=== PATIENT | male | born 1935 | race Caucasian/White ===

== ENCOUNTER → 2016-05-03 | Outpatient (CLI) | payer MEDICARE ==
[2016-05-03 09:59] LABS: ABSOLUTE LYMPHOCYTES (AUTO) 0.9 10^3/uL (0.5-4.7); ABSOLUTE MONOCYTES (AUTO) 0.5 10^3/uL (0.1-1.4); ABSOLUTE NEUT (AUTO) 9.7 10^3/uL (1.7-8.2); HEMOGLOBIN 11.8 g/dL (13.5-17.0); HGB HCT DIFFERENCE 0.4; LYMPHOCYTES % (AUTO) 7.8 % (13-45); MEAN CORPUSCULAR HEMOGLOBIN 31.1 pg (27.0-33.4); MEAN CORPUSCULAR HGB CONC 33.8 g/dL (32.0-36.0); MEAN CORPUSCULAR VOLUME 92 fl (80-97); MONOCYTES % (AUTO) 4.2 % (3-13); RED BLOOD COUNT 3.81 10^6/uL (4.35-5.55); RED CELL DISTRIBUTION WIDTH 13.4 % (11.5-14.0)
== END ==
LOC: OD 09:16
PROVIDERS: ATTEND Nurse Practitioner Adult Health
DX: R05 Cough (principal)
CPT/HCPCS: 36415; 71020; 85025; 87070; 87077; 87186; 87205

== ENCOUNTER 2016-05-10 15:51 | Emergency (ER) | payer MEDICARE ==
[2016-05-10] MEDS ORDERED: IPRATROPIUM/ALBUTEROL 0.5-2.5 MG/3 ML AMPUL NEB ONE (16:03)
[2016-05-10] MEDS ORDERED: PREDNISONE 20 MG TABLET PO ONE (16:03)
--- NOTE | 2016-05-10 16:04 | ER Document Report ---
ED Medical Screen (RME) - General Stated Complaint: FEVER Mode of Arrival: Ambulatory Information source: Patient Notes: Patient with chills started yesterday, fever started today. Patient is currently on antibiotics for the past week for cough. Patient denies any pain, nausea, or vomiting. hx: COPD, home O2 at 2 L I have greeted and performed a rapid initial assessment of this patient. A comprehensive ED assessment and evaluation of the patient, analysis of test results and completion of the medical decision making process will be conducted by additional ED providers. TRAVEL OUTSIDE OF THE [place] 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 Denies: Hx Seizures Musculoskeltal Medical History: Reports Hx Arthritis Psychiatric Medical History: Denies: Hx Depression Past Surgical History: Reports: Hx Abdominal Surgery, Hx Orthopedic Surgery, Hx Tonsillectomy. Denies: Hx Pacemaker - Immunizations Hx Diphtheria, Pertussis, Tetanus Vaccination: Yes Physical Exam - Vital signs Vitals: Temp Pulse Resp BP Pulse Ox 99.1 F 102 H 24 H 137/57 H 98 05/10/16 15:55 05/10/16 15:55 05/10/16 15:55 05/10/16 15:55 05/10/16 15:55 - Respiratory Respiratory status: No respiratory distress Breath sounds: Nonproductive cough, Wheezing Course - Vital Signs Vital signs: Temp Pulse Resp BP Pulse Ox 99.1 F 102 H 24 H 137/57 H 98 05/10/16 15:55 05/10/16 15:55 05/10/16 15:55 05/10/16 15:55 05/10/16 15:55
[2016-05-10 16:45] LABS: ABSOLUTE EOSINOPHILS # (AUTO) 0.1 10^3/uL (0.0-0.6); ABSOLUTE LYMPHOCYTES (AUTO) 1.9 10^3/uL (0.5-4.7); ABSOLUTE MONOCYTES (AUTO) 1.7 10^3/uL (0.1-1.4); ABSOLUTE NEUT (AUTO) 12.5 10^3/uL (1.7-8.2); BASOPHILS % (AUTO) 0.2 % (0-2); EOSINOPHILS % (AUTO) 0.6 % (0-6); HEMATOCRIT 35.7 % (37.9-51.0); HGB HCT DIFFERENCE 0.3; LYMPHOCYTES % (AUTO) 11.7 % (13-45); MEAN CORPUSCULAR HEMOGLOBIN 31.2 pg (27.0-33.4); MEAN CORPUSCULAR HGB CONC 33.7 g/dL (32.0-36.0); MEAN CORPUSCULAR VOLUME 93 fl (80-97); MONOCYTES % (AUTO) 10.4 % (3-13); RED BLOOD COUNT 3.85 10^6/uL (4.35-5.55); RED CELL DISTRIBUTION WIDTH 13.9 % (11.5-14.0); SEGMENTED NEUTROPHILS % (AUTO) 77.1 % (42-78); WHITE BLOOD COUNT 16.2 10^3/uL (4.0-10.5)
[2016-05-10 17:05] LABS: ALANINE AMINOTRANSFERASE 31 U/L (21-72); ALBUMIN 4.6 g/dL (3.5-5.0); ALKALINE PHOSPHATASE 67 U/L (38-126); ANION GAP 13 (5-19); ASPARTATE AMINO TRANSFERASE 21 U/L (17-59); BILIRUBIN,TOTAL 0.6 mg/dL (0.2-1.3); BLOOD UREA NITROGEN 17 mg/dL (7-20); CALCIUM 9.4 mg/dL (8.4-10.2); CARBON DIOXIDE 24 mmol/L (22-30); CHLORIDE 102 mmol/L (98-107); CREATINE KINASE 82 U/L (55-170); CREATININE RESULT 1.27 mg/dL (0.52-1.25); GLUCOSE 102 mg/dL (75-110); SODIUM 139.2 mmol/L (137-145); TOTAL PROTEIN 7.3 g/dL (6.3-8.2)
[2016-05-10 17:16] LABS: CREATINE KINASE MB 1.12 ng/mL (<4.55)
[2016-05-10 17:17] LABS: TROPONIN I < 0.012 ng/mL
--- NOTE | 2016-05-10 19:25 | ER Document Report ---
ED General - General Chief Complaint: Fever Stated Complaint: FEVER Time seen by provider: 19:00 Mode of Arrival: Ambulatory Information source: Patient, Relative Notes: 81-year-old male with a four-day history of cough worse than his baseline productive of white or yellow sputum. He had fever to 102 this morning was had no fever since. The patient a sore throat 2 weeks ago and was started on penicillin by his physician approximately 10 days ago and is just about finished with that. He reports using his inhalers at home as he usually does and does not believe his shortness breath is worse than his baseline. He chronically uses oxygen by nasal cannula at home and has not had any increased oxygen requirement. Patient denies nausea, vomiting, diarrhea, chest pain, abdominal pain, back pain, swelling to extremities, dizziness, or syncope. 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 HEENT: Normocephalic. Atraumatic. PERRLA. Extraocular movements intact. Oropharynx clear. Neck: Supple. Non-tender. Respiratory: No respiratory distress. Few rhonchi bilaterally breath sounds equal no accessory muscle use Cardiovascular: Regular rate and rhythm. Abdominal: Normal Inspection. Soft, non-tender. No distension. Normal Bowel Sounds. Back: Non-tender. No deformity or step off. Extremities: Moves all four extremities. Upper extremities: Normal inspection. Non-tender. Normal color. Normal ROM. Normal temperature. Lower extremities: Normal inspection. Non-tender. No edema. Normal color. Normal ROM. Normal temperature. Neurological: Speech clear mentation normal as all extremities well Psychological: Normal affect. Normal Mood. Skin: Warm. Dry. Normal color. TRAVEL OUTSIDE OF THE [place] 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 Denies: Hx Seizures Renal/ Medical History: Denies: Hx Peritoneal Dialysis Musculoskeltal Medical History: Reports Hx Arthritis Psychiatric Medical History: Denies: Hx Depression Past Surgical History: Reports: Hx Abdominal Surgery, Hx Orthopedic Surgery, Hx Tonsillectomy. Denies: Hx Pacemaker - Immunizations Hx Diphtheria, Pertussis, Tetanus Vaccination: Yes Hx Pneumococcal Vaccination: 12/18/09 Review of Systems - Review of Systems Constitutional: See HPI EENT: denies: Ear pain, Throat pain Cardiovascular: denies: Chest pain, Syncope Respiratory: Cough, Short of breath Gastrointestinal: denies: Abdominal pain, Diarrhea, Nausea, Vomiting Genitourinary: denies: Burning Musculoskeletal: denies: Back pain, Muscle pain Skin: denies: Rash Hematologic/Lymphatic: denies: Swollen glands Neurological/Psychological: denies: Weakness, Numbness Physical Exam - Vital signs Vitals: Temp Pulse Resp BP Pulse Ox 99.1 F 102 H 24 H 137/57 H 98 05/10/16 15:55 05/10/16 15:55 05/10/16 15:55 05/10/16 15:55 05/10/16 15:55 Course - Vital Signs Vital signs: Temp Pulse Resp BP Pulse Ox 99.1 F 94 24 H 116/57 L 99 05/10/16 15:55 05/10/16 18:50 05/10/16 15:55 05/10/16 18:50 05/10/16 18:50 - Laboratory Result Diagrams: 05/10/16 16:15 05/10/16 16:15 Laboratory results interpreted by me: 05/10/16 05/10/16 16:15 16:15 WBC 16.2 H RBC 3.85 L Hgb 12.0 L Hct 35.7 L Lymphocytes % 11.7 L Absolute Neutrophils 12.5 H Absolute Monocytes 1.7 H Creatinine 1.27 H Est GFR (Non-Af Amer) 55 L - Diagnostic Test Radiology reviewed: Image reviewed, Reports reviewed - EKG Interpretation by Me Additional EKG results interpreted by me: 05/10/16 19:24 Shows sinus rhythm at 96 with no acute changes Discharge - Discharge Clinical Impression: Bronchitis Condition: Stable Disposition: HOME, SELF-CARE Additional Instructions: Bronchitis You have acute bronchitis. This disease is an infection or inflammation of the air passageways in your lungs. Symptoms usually include cough, low grade fever, shortness of breath, and wheezing. The cough usually persists for a couple of weeks. Most cases of bronchitis get better without antibiotics. We prescribe antibiotics when we believe bacteria are damaging your airways, or if there's high risk the bronchitis will worsen into pneumonia. Increase your fluid intake. A cool mist humidifier may make your lungs more comfortable. An expectorant (cough medicine that loosens phlegm) can help. If you smoke, STOP!!! Recovery from bronchitis can be somewhat slow, but you should see improvement within a day or two. Repeated episodes of bronchitis may result in lung damage -- for example, chronic bronchitis, recurrent pneumonias, or emphysema. Call the doctor if you develop increasing fever, shortness of breath, chest pain, bloody sputum, or otherwise worsen. If you have not improved at all after several days, contact the physician. Prescriptions: Levofloxacin [Levaquin 750 mg Tablet] 500 mg PO DAILY #10 tablet Methylprednisolone [Medrol Dosepack (4 mg/Tab) 21 Tab/Dosepak] 4 mg PO ASDIR PRN #[id number] PRN Reason: Referrals: VINCENT LAZCANO MD [ACTIVE STAFF] - Follow up as needed VINICIO ADLER MD [ACTIVE PROVISIONAL STAFF] - Follow up in 1 week
[2016-05-10] MEDS ORDERED: LEVOFLOXACIN 750 MG TABLET PO ONE (19:31)
[2016-05-10 20:00] VITALS: BP 120/66
--- NOTE | 2016-05-10 22:01 | EKG REPORT ---
SEVERITY:- BORDERLINE ECG - SINUS RHYTHM BORDERLINE RIGHT AXIS DEVIATION LOW VOLTAGE THROUGHOUT : Confirmed by: Nila Ovalle MD 10-May-2016 22:01:07
== END 2016-05-10 20:00 | disposition home or self-care (01) ==
LOC: ER 15:51
DX: J44.9 Chronic obstructive pulmonary disease, unspecified (principal); J45.909 Unspecified asthma, uncomplicated; R05 Cough; J02.9 Acute pharyngitis, unspecified; I25.10 Atherosclerotic heart disease of native coronary artery without angina pectoris; Z87.01 Personal history of pneumonia (recurrent); Z87.891 Personal history of nicotine dependence; Z79.899 Other long term (current) drug therapy; Z99.81 Dependence on supplemental oxygen; Z87.892 Personal history of anaphylaxis; Z88.2 Allergy status to sulfonamides
CPT/HCPCS: 93005; 94640; 99284; 36415; 87040; 82553; 82550; 85025; 80053; 84484; 71020; 93010; A9270 ×2; J7512; J7620

== ENCOUNTER 2016-06-26 13:27 | Emergency (ER) | payer MEDICARE, BC ==
[2016-06-26] MEDS ORDERED: IPRATROPIUM/ALBUTEROL 0.5-2.5 MG/3 ML AMPUL NEB ONE (13:39)
--- NOTE | 2016-06-26 13:39 | ER Document Report ---
ED Medical Screen (RME) - General Chief Complaint: Congestion Stated Complaint: DIFFICULTY BREATHING TRAVEL OUTSIDE OF THE [place] IN LAST 30 DAYS: No - HPI Patient complains to provider of: nasal congestion on the right side and cough Notes: 06/26/16 13:38 Denies fevers chills nausea vomiting denies any increase in his oxygen use. 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 Denies: Hx Seizures Renal/ Medical History: Denies: Hx Peritoneal Dialysis Musculoskeltal Medical History: Reports Hx Arthritis Psychiatric Medical History: Denies: Hx Depression Past Surgical History: Reports: Hx Abdominal Surgery, Hx Orthopedic Surgery, Hx Tonsillectomy. Denies: Hx Pacemaker - Immunizations Hx Diphtheria, Pertussis, Tetanus Vaccination: Yes Review of Systems - Review of Systems Respiratory: Short of breath, Wheezing Physical Exam - Vital signs Vitals: Temp Pulse Resp BP Pulse Ox 98.7 F 101 H 20 147/58 H 99 06/26/16 13:32 06/26/16 13:32 06/26/16 13:32 06/26/16 13:32 06/26/16 13:32 - Respiratory Respiratory status: No respiratory distress Chest status: Nontender Breath sounds: Wheezing Course - Re-evaluation Re-evalutation: 06/26/16 13:38 Patient is upset with questioning states that he only comes in for nasal congestion and a cough. - Vital Signs Vital signs: Temp Pulse Resp BP Pulse Ox 98.7 F 101 H 20 147/58 H 99 06/26/16 13:32 06/26/16 13:32 06/26/16 13:32 06/26/16 13:32 06/26/16 13:32
--- NOTE | 2016-06-26 14:27 | ER Document Report ---
ED General - General Chief Complaint: Congestion Stated Complaint: DIFFICULTY BREATHING Time seen by provider: 14:18 Mode of Arrival: Ambulatory Information source: Patient Notes: This is a 81-year-old man with a history of oxygen-dependent COPD, dyslipidemia , hypothyroidism and a deviated right nasal septum. The patient presents to the emergency room with redness to the left eye with pussy drainage from the medial corner of the eye with mild erythema to the area. Patient also complains of right sided nasal congestion. Patient was seen by an securities research analyst 3 days ago and told he had a "allergy" and was put on an antihistamine eyedrops. He states that his symptoms have gotten worse. TRAVEL OUTSIDE OF THE [place] IN LAST 30 DAYS: No - HPI Onset: Last week Onset/Duration: Gradual Quality of pain: No pain Severity: None Pain Level: Denies Associated symptoms: denies: Chest pain, Fever, Shortness of breath Exacerbated by: Denies Relieved by: Denies Similar symptoms previously: No Recently seen / treated by doctor: Yes - Related Data Allergies/Adverse Reactions: Sulfa (Sulfonamide Antibiotics) Allergy (Verified 05/10/16 16:00) Anaphylaxis Past Medical History - General Information source: Patient - Social History Smoking Status: Former Smoker Cigarette use (# per day): No Chew tobacco use (# tins/day): No Smoking Education Provided: No Frequency of alcohol use: None Drug Abuse: None Lives with: Family Family History: Reviewed & Not Pertinent Patient has suicidal ideation: No Patient has homicidal ideation: No - Past Medical History Cardiac Medical History: Reports: Hx Coronary Artery Disease Denies: Hx Heart Attack, Hx Hypertension Pulmonary Medical History: Reports: Hx Asthma, Hx Bronchitis, Hx COPD, Hx Pneumonia Neurological Medical History: 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 Denies: Hx Seizures Renal/ Medical History: Denies: Hx Peritoneal Dialysis Musculoskeltal Medical History: Reports Hx Arthritis Psychiatric Medical History: Denies: Hx Depression Past Surgical History: Reports: Hx Abdominal Surgery, Hx Orthopedic Surgery, Hx Tonsillectomy. Denies: Hx Pacemaker - Immunizations Hx Diphtheria, Pertussis, Tetanus Vaccination: Yes Hx Pneumococcal Vaccination: 12/18/09 Review of Systems - Review of Systems Notes: Review of systems: Constitutional: Denies fever, chills. EENT: See H&P Cardiovascular: Denies chest pain, palpitations, dyspnea or edema. Respiratory: Stable respiratory status. Denies wheezing, cough, hemoptysis. Abdomen: Denies abdominal pain, nausea, vomiting, diarrhea. Denies BRBPR or melena. Genitourinary: Denies dysuria, pyuria, hematuria, flank pain. Musculoskeletal: denies joint pain or swelling, denies back pain. Neurologic: Denies headache, photophobia, neck stiffness, weakness. Denies loss of bowel or bladder function. Denies saddle anesthesia. Skin: Denies rash, lesions. Physical Exam - Vital signs Vitals: Temp Pulse Resp BP Pulse Ox 98.7 F 101 H 20 147/58 H 99 06/26/16 13:32 06/26/16 13:32 06/26/16 13:32 06/26/16 13:32 06/26/16 13:32 Notes: Physical exam: GENERAL: 72-year-old man, alert and oriented 3, no acute distress. HEAD: Atraumatic, normocephalic. EYES: Pupils equal round and reactive to light, extraocular movements intact, sclera anicteric. Patient does have injected left conjunctiva. Over the lacrimal duct he does have erythema with pussy drainage. He has some erythema in the medial corner of the lower portion below the eye. ENT: Patient does have a deviated right septum and the passage way is narrow. The tissue was very friable and erythematous. Oropharynx clear without exudates. Moist mucous membranes. NECK: Normal range of motion, supple without lymphadenopathy or JVD. LUNGS: Breath sounds clear to auscultation bilaterally and equal. No wheezes rales or rhonchi. HEART: Regular rate and rhythm without murmurs, rubs or gallops. ABDOMEN: Soft, normoactive bowel sounds. No tenderness to palpation. No guarding, no rebound. No masses appreciated. EXTREMITIES: Normal range of motion, no pitting or edema. No clubbing or cyanosis. NEUROLOGICAL: Cranial nerves II through XII grossly intact. Normal speech, normal gait. PSYCH: Normal mood, normal affect. SKIN: Warm, Dry, normal turgor, no rashes or lesions noted. Course - Re-evaluation Re-evalutation: 06/26/16 14:21 Note: I think the patient has a dacryocystitis. With the allergies recently, allergic symptoms could've clogged up the duct, however, he does have what appears to be pussy drainage from the area and I think he is got a secondary infection at this point. I've advised him to go with warm soaks, gentle massage of the area and I'm going to give him some antibiotic drops. As far as the right sided nasal congestion: He does have a history of a deviated septum at that side. The tissue is very friable and inflamed. He is on oxygen chronically. The only time he takes off his oxygen is when he takes a shower daily. I've advised him to use it with saline in the shower. Also, advised him to use bacitracin ointment (applying with a Q-tip) to both nares daily for the next week. 06/26/16 14:23 06/26/16 14:27 - Vital Signs Vital signs: Temp Pulse Resp BP Pulse Ox 98.8 F 97 22 H 137/78 H 99 06/26/16 14:40 06/26/16 14:40 06/26/16 14:40 06/26/16 14:40 06/26/16 14:40 Discharge - Discharge Clinical Impression: dacryocystitis Condition: Stable Disposition: HOME, SELF-CARE Additional Instructions: Recommendations: #1: The left eye: Use the antibiotic drops: 2 drops in the left eye 4 times daily. Follow-up with the securities research analyst this week. Cover the left eye with warm, moist towel (the one I gave you) several times a day for the next 3 days. After soaking the eye, gently massage the side of the left nose( her showed urine the ER) for a few minutes. This will help open up the duct draining the fluid from the eye. #2: The right nasal passage: While in the shower, [place] both nostrils with "simply saline" which he can get at the pharmacy. After getting out of the shower, apply bacitracin ointment to a Q-tip and apply the ointment to the inside of both nostrils 1 time daily for the next week. #3: Follow-up with the eye doctor. #4: Follow-up with an ENT Dr. for the deviated nasal septum: [facility] [address] [place] [address] Toll Free: Prescriptions: Bacitracin Zinc [Bacitracin Oint 15 gm] 1 applic TP DAILY #1 tube Besifloxacin HCl [Besivance 0.6% Oph Susp 5 ml] 2 drop OP TID #1 bottle Referrals: VINCENT LAZCANO MD [Primary Care Provider] - Follow up in 3-5 days
[2016-06-26] MEDS ORDERED: BESIFLOXACIN HCL 0.6% OPH SUSP 5 ML BOTTLE OS ONE (14:31)
[2016-06-26 14:42] VITALS: BP 137/78
== END 2016-06-26 14:48 | disposition home or self-care (01) ==
LOC: ER 13:27
DX: H04.309 Unspecified dacryocystitis of unspecified lacrimal passage (principal); J34.2 Deviated nasal septum; J44.9 Chronic obstructive pulmonary disease, unspecified; Z99.81 Dependence on supplemental oxygen; R09.81 Nasal congestion; I25.10 Atherosclerotic heart disease of native coronary artery without angina pectoris; Z87.892 Personal history of anaphylaxis; Z88.2 Allergy status to sulfonamides; Z87.891 Personal history of nicotine dependence; Z86.73 Personal history of transient ischemic attack (TIA), and cerebral infarction without residual deficits
CPT/HCPCS: 94640; 99283; 71020; A9270 ×2; J7620

== ENCOUNTER 2016-07-18 15:23 | Inpatient (IN) | payer MEDICARE, BC ==
[2016-07-18] MEDS ORDERED: CEFEPIME 2 GM/D5W RTU 50 ML IV ONE (18:38)
--- NOTE | 2016-07-18 18:38 | ER Document Report ---
ED Medical Screen (RME) - General Chief Complaint: Shortness Of Breath Stated Complaint: SHORTNESS OF BREATH Mode of Arrival: Wheelchair Information source: Patient, Relative TRAVEL OUTSIDE OF THE [place] IN LAST 30 DAYS: No - HPI Onset: Last week Onset/Duration: Gradual Context: Patient apparently was treated for pneumonia as outpatient by Dr. Adam. He did improve somewhat, but has now relapsed. He consulted Dr. Adam by telephone today, outpatient lab and x-ray was ordered, results indicate need for admission. Quality of pain: Other - SORENESS Severity: Moderate Associated Symptoms: Cough (productive), Weakness Exacerbated by: Other - ANY ACTIVITY Relieved by: Denies Similar symptoms previously: Yes Recently seen / treated by doctor: Yes - Related Data Smoking: Quit greater than 1 year Frequency of alcohol use: None Drug Abuse: None Allergies/Adverse Reactions: Sulfa (Sulfonamide Antibiotics) Allergy (Verified 07/18/16 15:34) Anaphylaxis Past Medical History - General Information source: Patient - Social History Cigarette use (# per day): No Chew tobacco use (# tins/day): No Frequency of alcohol use: None Drug Abuse: None Lives with: Family Family history: Reviewed & Not Pertinent - Past Medical History Cardiac Medical History: Reports: Hx Coronary Artery Disease Denies: Hx Heart Attack, Hx Hypertension Pulmonary Medical History: Reports: Hx Asthma, Hx Bronchitis, Hx COPD, Hx Pneumonia Neurological Medical History: 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 Denies: Hx Seizures Renal/ Medical History: Denies: Hx Peritoneal Dialysis Musculoskeltal Medical History: Reports Hx Arthritis Psychiatric Medical History: Denies: Hx Depression Past Surgical History: Reports: Hx Abdominal Surgery, Hx Orthopedic Surgery, Hx Tonsillectomy. Denies: Hx Pacemaker - Immunizations Hx Diphtheria, Pertussis, Tetanus Vaccination: Yes Review of Systems - Review of Systems Constitutional: Weakness. denies: Chills, Fever EENT: No symptoms reported Cardiovascular: No symptoms reported Respiratory: See HPI Gastrointestinal: No symptoms reported Skin: No symptoms reported Neurological/Psychological: No symptoms reported Physical Exam - Vital signs Vitals: Temp Pulse Resp BP Pulse Ox 98.6 F 91 20 113/47 L 98 07/18/16 15:37 07/18/16 15:37 07/18/16 15:37 07/18/16 15:37 07/18/16 15:37 Interpretation: Hypotensive. No: Tachycardic, Tachypneic, Febrile - General General appearance: Appears well, Alert In distress: None - HEENT Head: Normocephalic Eyes: Normal Conjunctiva: Normal Nasal: Normal Mouth/Lips: Normal Mucous membranes: Normal - Respiratory Respiratory status: No respiratory distress, Other - ON SUPPLEMENTAL O2 Breath sounds: Decreased air movement, Rales - RLL. No: Stridor, Wheezing Chest palpation: Normal - Cardiovascular Rhythm: Regular Heart sounds: Normal auscultation - Abdominal Inspection: Normal Distension: No distension Bowel sounds: Normal - Extremities General upper extremity: Normal inspection General lower extremity: Normal inspection - Neurological Neuro grossly intact: Yes Cognition: Normal Orientation: AAOx4 - Psychological Associated symptoms: Normal affect, Normal mood - Skin Skin Temperature: Warm Skin Moisture: Dry Skin Color: Normal Skin Turgor: Elastic Course - Vital Signs Vital signs: Temp Pulse Resp BP Pulse Ox 98.6 F 91 20 113/47 L 98 07/18/16 15:37 07/18/16 15:37 07/18/16 15:37 07/18/16 15:37 07/18/16 15:37 - Consults DR. LAZCANO Time consulted: 18:36 Reason for consultation: 07/18/16 18:50 AGREES TO ADMIT - TELEMETRY BED Consulted provider: will see as inpatient Doctor's Discharge - Discharge Clinical Impression: Pneumonia Qualifiers: Pneumonia type: due to unspecified organism Laterality: right Lung location: lower lobe of lung Qualified Code(s): J18.1 - Lobar pneumonia, unspecified organism Condition: Stable Disposition: ADMITTED INPATIENT
[2016-07-18] MEDS ORDERED: LEVOFLOXACIN 750 MG/D5W RTU 150 ML IV SCH (19:00)
[2016-07-18] MEDS ORDERED: ACETAMINOPHEN 325 MG TABLET PO PRN (19:24)
[2016-07-18] MEDS: IPRATROPIUM/ALBUTEROL 0.5-2.5 MG/3 ML AMPUL NEB SCH (21:20)
[2016-07-18] MEDS ORDERED: ENOXAPARIN SODIUM INJ 40 MG/0.4 ML DISP.SYRIN SUBCUT ONE (22:00)
[2016-07-19] MEDS: LEVOFLOXACIN 500 MG/D5W RTU 500 MG/100 ML RTUPB IV SCH ×2 (00:01→21:22)
[2016-07-19] MEDS: SIMVASTATIN 10 MG TABLET PO SCH ×2 (00:02→21:22)
[2016-07-19] MEDS: GUAIFENESIN 600 MG TABLET.SA PO SCH ×3 (00:02→21:21)
[2016-07-19 06:23] LABS: ABSOLUTE EOSINOPHILS # (AUTO) 0.2 10^3/uL (0.0-0.6); ABSOLUTE MONOCYTES (AUTO) 1.6 10^3/uL (0.1-1.4); ABSOLUTE NEUT (AUTO) 9.1 10^3/uL (1.7-8.2); BASOPHILS % (AUTO) 0.2 % (0-2); EOSINOPHILS % (AUTO) 1.2 % (0-6); HEMATOCRIT 33.9 % (37.9-51.0); HEMOGLOBIN 11.1 g/dL (13.5-17.0); HGB HCT DIFFERENCE -0.6; LYMPHOCYTES % (AUTO) 15.6 % (13-45); MEAN CORPUSCULAR HEMOGLOBIN 30.6 pg (27.0-33.4); MEAN CORPUSCULAR HGB CONC 32.9 g/dL (32.0-36.0); MEAN CORPUSCULAR VOLUME 93 fl (80-97); MONOCYTES % (AUTO) 12.3 % (3-13); RED BLOOD COUNT 3.65 10^6/uL (4.35-5.55); RED CELL DISTRIBUTION WIDTH 15.1 % (11.5-14.0); SEGMENTED NEUTROPHILS % (AUTO) 70.7 % (42-78); WHITE BLOOD COUNT 12.9 10^3/uL (4.0-10.5)
[2016-07-19 06:35] LABS: ANION GAP 11 (5-19); BLOOD UREA NITROGEN 30 mg/dL (7-20); CALCIUM 8.7 mg/dL (8.4-10.2); CARBON DIOXIDE 24 mmol/L (22-30); CHLORIDE 107 mmol/L (98-107); CREATININE RESULT 1.04 mg/dL (0.52-1.25); GLUCOSE 100 mg/dL (75-110); SODIUM 141.8 mmol/L (137-145)
[2016-07-19 06:52] LABS: POTASSIUM 4.6 mmol/L (3.6-5.0)
[2016-07-19] MEDS: ENOXAPARIN SODIUM INJ 40 MG/0.4 ML DISP.SYRIN SUBCUT SCH (07:41)
[2016-07-19] MEDS: CALCIUM CARBONATE 500 MG TAB.CHEW PO SCH ×4 (08:16→21:22)
[2016-07-19] MEDS: IPRATROPIUM/ALBUTEROL 0.5-2.5 MG/3 ML AMPUL NEB SCH ×3 (08:59→20:48)
[2016-07-19] MEDS: LEVOTHYROXINE SODIUM 0.05 MG TABLET PO SCH (09:00)
[2016-07-19] MEDS: BUDESONIDE/FORMOTEROL 160-4.5 MCG 60 PUFF/6 GM MDI IH SCH (11:07)
--- NOTE | 2016-07-19 14:33 | PDOC H&P ---
History of Present Illness Admission Date/PCP: 07/18/16 19:24 VINCENT LAZCANO MD Patient complains of: pnemonia/cough/sob History of Present Illness: NIMISHA BRUMFIELD is a 81 year old male This is a 81-year-old male with a significant history of the COPD emphysema recurrent aspirations pneumonia went to the doctor Curseen's office and the patient's blood count was elevated to 15,000 and patient's chest x-rays of the worsening of the pneumonia and decided to the sent to the hospital and patient was admitted in the telemetry bed for this recurrent aspirations pneumonia. Patient is currently doing fair denied any chest pain denied any shortness of the breath.Patient's still have a productive cough with a yellowish sputum discharge Past Medical History Cardiac Medical History: Reports: Coronary Artery Disease Denies: Myocardial Infarction, Hypertension Pulmonary Medical History: Reports: Asthma, Bronchitis, Chronic Obstructive Pulmonary Disease (COPD), Pneumonia Neurological Medical History: Denies: Seizures Musculoskeltal Medical History: Reports: Arthritis Psychiatric Medical History: Denies: Depression Hematology: Denies: Anemia Past Surgical History Past Surgical History: Reports: Orthopedic Surgery, Tonsillectomy Denies: Pacemaker Social History Lives with: Family Smoking Status: Former Smoker Frequency of Alcohol Use: None Hx Recreational Drug Use: No Drugs: None Hx Prescription Drug Abuse: No Family History Family History: Reviewed & Not Pertinent Parental Family History Reviewed: Yes Children Family History Reviewed: Yes Sibling(s) Family History Reviewed.: Yes Medication/Allergy Home Medications: Albuterol Sulfate [Ventolin HFA MDI 18 GM] 2 puff IH Q4HP PRN 07/19/16 Aspirin [Ecotrin 81 mg EC Tablet] 81 mg PO DAILY 07/19/16 Bacitracin Zinc [Bacitracin Oint 15 gm] 1 applic TOP DAILY 07/19/16 Budesonide/Formoterol Fumarate [Symbicort HFA 160-4.5 mcg Inhaler 6 gm] 2 puff IH BID 07/19/16 Esomeprazole Mag Trihydrate [Nexium] 40 mg PO DAILY 07/19/16 Fluticasone Propionate [Flonase Nasal [place] 50 Mcg/[place] 16 gm] 1 spray NASL BID 07/19/16 Guaifenesin [Mucinex] 600 mg PO Q12 07/19/16 Ipratropium/Albuterol Sulfate [Duoneb 3 ml Ampul] 3 ml NEB RTQID 07/19/16 Levothyroxine Sodium [Synthroid] 50 mcg PO DAILY 07/19/16 Simvastatin [Zocor 20 mg Tablet] 20 mg PO DAILY 07/19/16 Tiotropium [place] [Spiriva Handihaler 5 Cap/Kit (18 Mcg/Cap)] 1 cap IH DAILY Allergies/Adverse Reactions: Sulfa (Sulfonamide Antibiotics) Allergy (Verified 07/18/16 15:34) Anaphylaxis Review of Systems Constitutional: ABSENT: chills, fever(s), headache(s), weight gain, weight loss Eyes: ABSENT: visual disturbances Ears: ABSENT: hearing changes Cardiovascular: PRESENT: dyspnea on exertion. ABSENT: chest pain, edema, orthropnea, palpitations Respiratory: PRESENT: cough. ABSENT: hemoptysis Gastrointestinal: ABSENT: abdominal pain, constipation, diarrhea, hematemesis, hematochezia, nausea, vomiting Genitourinary: ABSENT: dysuria, hematuria Musculoskeletal: ABSENT: joint swelling Integumentary: ABSENT: rash, wounds Neurological: ABSENT: abnormal gait, abnormal speech, confusion, dizziness, focal weakness, syncope Psychiatric: ABSENT: anxiety, depression, homidical ideation, suicidal ideation Endocrine: ABSENT: cold intolerance, heat intolerance, menstrual abnormalities, polydipsia, polyuria Hematologic/Lymphatic: ABSENT: easy bleeding, easy bruising, lymphadenopathy Physical Exam Vital Signs: Temp Pulse Resp BP Pulse Ox 98.1 F 91 19 97/81 L 100 07/19/16 07:29 07/19/16 07:29 07/19/16 07:29 07/19/16 07:29 07/19/16 07:29 Intake & Output 07/18/16 07/19/16 07/20/16 06:59 06:59 06:59 Intake Total 0 Output Total 0 Balance 0 Weight 69.3 kg General appearance: PRESENT: no acute distress, well-developed, well-nourished Head exam: PRESENT: atraumatic, normocephalic Eye exam: PRESENT: conjunctiva pink, EOMI, PERRLA. ABSENT: scleral icterus Ear exam: PRESENT: normal external ear exam Mouth exam: PRESENT: moist, tongue midline Neck exam: PRESENT: full ROM. ABSENT: carotid bruit, JVD, lymphadenopathy, thyromegaly Respiratory exam: PRESENT: clear to auscultation pita Cardiovascular exam: PRESENT: RRR. ABSENT: diastolic murmur, rubs, systolic murmur Pulses: PRESENT: normal dorsalis pedis pul, +2 pedal pulses bilateral Vascular exam: PRESENT: normal capillary refill GI/Abdominal exam: PRESENT: normal bowel sounds, soft. ABSENT: distended, guarding, mass, organolmegaly, rebound, tenderness Rectal exam: PRESENT: deferred Neurological exam: PRESENT: alert, awake, oriented to person, oriented to place , oriented to time, oriented to situation, CN II-XII grossly intact. ABSENT: motor sensory deficit Psychiatric exam: PRESENT: appropriate affect, normal mood. ABSENT: homicidal ideation, suicidal ideation Skin exam: PRESENT: dry, intact, warm. ABSENT: cyanosis, rash Results Laboratory Results: 07/19/16 06:13 07/19/16 06:13 07/19/16 07/19/16 06:13 06:13 WBC 12.9 H RBC 3.65 L Hgb 11.1 L Hct 33.9 L MCV 93 MCH 30.6 MCHC 32.9 RDW 15.1 H Plt Count 248 Seg Neutrophils % 70.7 Lymphocytes % 15.6 Monocytes % 12.3 Eosinophils % 1.2 Basophils % 0.2 Absolute Neutrophils 9.1 H Absolute Lymphocytes 2.0 Absolute Monocytes 1.6 H Absolute Eosinophils 0.2 Absolute Basophils 0.0 Sodium 141.8 Potassium 4.6 Chloride 107 Carbon Dioxide 24 Anion Gap 11 BUN 30 H Creatinine 1.04 Est GFR ( Amer) > 60 Est GFR (Non-Af Amer) > 60 Glucose 100 Calcium 8.7 Assessment & Plan - Diagnosis (1) Pneumonia Qualifiers: Pneumonia type: aspiration pneumonia Laterality: right Lung location: lower lobe of lung Is this a current diagnosis for this admission?: YesPlan: start cefepim/levaquin sputum culture (2) Dysphagia, pharyngeal phase Is this a current diagnosis for this admission?: Yes (3) Hypertension Qualifiers: Hypertension type: essential hypertension Qualified Code(s): I10 - Essential (primary) hypertension Is this a current diagnosis for this admission?: YesPlan: stable (4) Hypoxia Is this a current diagnosis for this admission?: YesPlan: cont on o2 (5) Shortness of breath Is this a current diagnosis for this admission?: YesPlan: stable (6) COPD (chronic obstructive pulmonary disease) Qualifiers: COPD type: emphysema Is this a current diagnosis for this admission?: YesPlan: cont neb rx (7) GERD (gastroesophageal reflux disease) Qualifiers: Esophagitis presence: without esophagitis Qualified Code(s): K21.9 - Gastro-esophageal reflux disease without esophagitis Is this a current diagnosis for this admission?: YesPlan: cont curr med - Time Time Spent: 30 to 50 Minutes Medications reviewed and adjusted accordingly: Yes Anticipated discharge: Home Within: Other - Inpatient Certification Medical Necessity: Need Close Monitoring Due to Risk of Patient Decompensation Post Hospital Care: 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
[2016-07-19] MEDS ORDERED: ONDANSETRON HCL INJ/PF 4 MG/2 ML SDV IV PRN (20:28)
[2016-07-19] MEDS ORDERED: ONDANSETRON HCL INJ/PF 4 MG/2 ML SDV ONE (20:28)
--- NOTE | 2016-07-19 20:41 | PDOC CONSULTATION ---
Consultation Consult Date: 07/19/16 Attending physician:: VINCENT LAZCANO Consult reason:: pneumonia History of Present Illness Admission Date/PCP: 07/18/16 19:24 VINCENT LAZCANO MD History of Present Illness: NIMISHA BRUMFIELD is a 81 year old male followed by [facility] c/o not feeling well was found to have apnea was treated with Past Medical History Cardiac Medical History: Reports: Coronary Artery Disease Denies: Myocardial Infarction, Hypertension Pulmonary Medical History: Reports: Asthma, Bronchitis, Chronic Obstructive Pulmonary Disease (COPD), Pneumonia Neurological Medical History: Denies: Seizures Musculoskeltal Medical History: Reports: Arthritis Psychiatric Medical History: Denies: Depression Hematology: Denies: Anemia Past Surgical History Past Surgical History: Reports: Orthopedic Surgery, Tonsillectomy Denies: Pacemaker Social History Information Source: Patient, Dr. Rabago, [facility] Records Lives with: Family Smoking Status: Former Smoker Passive smoke exposure as: Both Frequency of Alcohol Use: None Hx Recreational Drug Use: No Drugs: None Hx Prescription Drug Abuse: No Have you had any respiratory illnesses as a child?: No Have you had any recent respiratory illnesses?: Yes Have you travelled outside of [place] in the past 12 months?: No Family History Family History: Reviewed & Not Pertinent Parental Family History Reviewed: Yes Children Family History Reviewed: Yes Sibling(s) Family History Reviewed.: Yes Medication/Allergy Home Medications: Albuterol Sulfate [Ventolin HFA MDI 18 GM] 2 puff IH Q4HP PRN 07/19/16 Aspirin [Ecotrin 81 mg EC Tablet] 81 mg PO DAILY 07/19/16 Bacitracin Zinc [Bacitracin Oint 15 gm] 1 applic TOP DAILY 07/19/16 Budesonide/Formoterol Fumarate [Symbicort HFA 160-4.5 mcg Inhaler 6 gm] 2 puff IH BID 07/19/16 Esomeprazole Mag Trihydrate [Nexium] 40 mg PO DAILY 07/19/16 Fluticasone Propionate [Flonase Nasal [place] 50 Mcg/[place] 16 gm] 1 spray NASL BID 07/19/16 Guaifenesin [Mucinex] 600 mg PO Q12 07/19/16 Ipratropium/Albuterol Sulfate [Duoneb 3 ml Ampul] 3 ml NEB RTQID 07/19/16 Levothyroxine Sodium [Synthroid] 50 mcg PO DAILY 07/19/16 Simvastatin [Zocor 20 mg Tablet] 20 mg PO DAILY 07/19/16 Tiotropium [place] [Spiriva Handihaler 5 Cap/Kit (18 Mcg/Cap)] 1 cap IH DAILY Allergies/Adverse Reactions: Sulfa (Sulfonamide Antibiotics) Allergy (Verified 07/18/16 15:34) Anaphylaxis Physical Exam Vital Signs: Temp Pulse Resp BP Pulse Ox 98.1 F 91 19 97/81 L 100 07/19/16 07:29 07/19/16 07:29 07/19/16 07:29 07/19/16 07:29 07/19/16 07:29 Intake & Output 07/18/16 07/19/16 07/20/16 06:59 06:59 06:59 Intake Total 0 Output Total 0 Balance 0 Weight 69.3 kg General appearance: PRESENT: cooperative, disheveled, mild distress Head exam: PRESENT: atraumatic, normocephalic Eye exam: PRESENT: conjunctiva pale, EOMI Mouth exam: PRESENT: dry mucosa, neck supple Neck exam: ABSENT: carotid bruit, JVD, lymphadenopathy, thyromegaly Respiratory exam: PRESENT: decreased breath sounds, prolonged expiratory phas, rhonchi Cardiovascular exam: PRESENT: RRR, +S1, +S2 Pulses: PRESENT: normal radial pulses GI/Abdominal exam: PRESENT: normal bowel sounds, soft. ABSENT: distended, guarding, mass, organolmegaly, rebound, tenderness Rectal exam: PRESENT: deferred Gentrourinary exam: PRESENT: indwelling catheter Musculoskeletal exam: PRESENT: normal inspection Neurological exam: PRESENT: alert, awake Psychiatric exam: PRESENT: normal mood Skin exam: PRESENT: dry, warm Results Laboratory Results: 07/19/16 06:13 07/19/16 06:13 07/19/16 07/19/16 06:13 06:13 WBC 12.9 H RBC 3.65 L Hgb 11.1 L Hct 33.9 L MCV 93 MCH 30.6 MCHC 32.9 RDW 15.1 H Plt Count 248 Seg Neutrophils % 70.7 Lymphocytes % 15.6 Monocytes % 12.3 Eosinophils % 1.2 Basophils % 0.2 Absolute Neutrophils 9.1 H Absolute Lymphocytes 2.0 Absolute Monocytes 1.6 H Absolute Eosinophils 0.2 Absolute Basophils 0.0 Sodium 141.8 Potassium 4.6 Chloride 107 Carbon Dioxide 24 Anion Gap 11 BUN 30 H Creatinine 1.04 Est GFR ( Amer) > 60 Est GFR (Non-Af Amer) > 60 Glucose 100 Calcium 8.7 Assessment & Plan - Diagnosis (1) Pneumonia Qualifiers: Pneumonia type: aspiration pneumonia Laterality: right Lung location: lower lobe of lung Is this a current diagnosis for this admission?: YesPlan: no pos cultures (2) Pneumonia Qualifiers: Pneumonia type: due to unspecified organism Lung location: unspecified part of lung Is this a current diagnosis for this admission?: Yes (3) SIRS (systemic inflammatory response syndrome) Is this a current diagnosis for this admission?: Yes (4) COPD (chronic obstructive pulmonary disease) Qualifiers: COPD type: emphysema Is this a current diagnosis for this admission?: Yes (5) GERD (gastroesophageal reflux disease) Qualifiers: Esophagitis presence: without esophagitis Qualified Code(s): K21.9 - Gastro-esophageal reflux disease without esophagitis Is this a current diagnosis for this admission?: Yes - Time Critical Time spent with patient: 35 or more minutes
[2016-07-19] MEDS ORDERED: DOCUSATE SODIUM 100 MG CAPSULE PO ONE (21:00)
[2016-07-20 04:49] LABS: ABSOLUTE EOSINOPHILS # (AUTO) 0.2 10^3/uL (0.0-0.6); ABSOLUTE MONOCYTES (AUTO) 1.4 10^3/uL (0.1-1.4); ABSOLUTE NEUT (AUTO) 7.6 10^3/uL (1.7-8.2); BASOPHILS % (AUTO) 0.2 % (0-2); EOSINOPHILS % (AUTO) 1.4 % (0-6); HEMATOCRIT 32.2 % (37.9-51.0); HGB HCT DIFFERENCE 0.8; LYMPHOCYTES % (AUTO) 17.8 % (13-45); MEAN CORPUSCULAR HEMOGLOBIN 31.6 pg (27.0-33.4); MEAN CORPUSCULAR HGB CONC 34.2 g/dL (32.0-36.0); MEAN CORPUSCULAR VOLUME 93 fl (80-97); MONOCYTES % (AUTO) 12.6 % (3-13); RED BLOOD COUNT 3.48 10^6/uL (4.35-5.55); RED CELL DISTRIBUTION WIDTH 15.1 % (11.5-14.0); WHITE BLOOD COUNT 11.2 10^3/uL (4.0-10.5)
[2016-07-20 05:09] LABS: ANION GAP 13 (5-19); BLOOD UREA NITROGEN 27 mg/dL (7-20); CALCIUM 9.7 mg/dL (8.4-10.2); CARBON DIOXIDE 24 mmol/L (22-30); CHLORIDE 103 mmol/L (98-107); CREATININE RESULT 1.03 mg/dL (0.52-1.25); GLUCOSE 104 mg/dL (75-110); POTASSIUM 4.7 mmol/L (3.6-5.0)
[2016-07-20] MEDS: ENOXAPARIN SODIUM INJ 40 MG/0.4 ML DISP.SYRIN SUBCUT SCH (07:40)
[2016-07-20] MEDS: CALCIUM CARBONATE 500 MG TAB.CHEW PO SCH ×4 (07:40→21:24)
[2016-07-20] MEDS: IPRATROPIUM/ALBUTEROL 0.5-2.5 MG/3 ML AMPUL NEB SCH ×3 (08:16→20:03)
[2016-07-20] MEDS: LEVOTHYROXINE SODIUM 0.05 MG TABLET PO SCH (10:18)
[2016-07-20] MEDS: GUAIFENESIN 600 MG TABLET.SA PO SCH ×2 (10:18→21:23)
[2016-07-20] MEDS: DOCUSATE SODIUM 100 MG CAPSULE PO SCH ×2 (10:18→21:24)
[2016-07-20] MEDS: BUDESONIDE/FORMOTEROL 160-4.5 MCG 60 PUFF/6 GM MDI IH SCH (10:49)
--- NOTE | 2016-07-20 12:47 | PDOC PROGRESS REPORT ---
Subjective Progress Note for:: 07/20/16 Subjective:: Patient is currently doing well patients denied any chest pain denied any shortness of the breath patient still have cough with greenish discharge Physical Exam Vital Signs: Temp Pulse Resp BP Pulse Ox 98.1 F 91 18 110/68 98 07/20/16 12:00 07/20/16 12:00 07/20/16 12:00 07/20/16 12:00 07/20/16 12:00 Intake & Output 07/19/16 07/20/16 07/21/16 06:59 06:59 06:59 Intake Total 0 738 Output Total 0 0 Balance 0 738 Weight 69.3 kg General appearance: PRESENT: no acute distress, well-developed, well-nourished Head exam: PRESENT: atraumatic, normocephalic Eye exam: PRESENT: conjunctiva pink, EOMI, PERRLA. ABSENT: scleral icterus Ear exam: PRESENT: normal external ear exam Mouth exam: PRESENT: moist, tongue midline Neck exam: PRESENT: full ROM. ABSENT: carotid bruit, JVD, lymphadenopathy, thyromegaly Respiratory exam: PRESENT: wheezes Cardiovascular exam: PRESENT: RRR. ABSENT: diastolic murmur, rubs, systolic murmur Pulses: PRESENT: normal dorsalis pedis pul, +2 pedal pulses bilateral Vascular exam: PRESENT: normal capillary refill GI/Abdominal exam: PRESENT: normal bowel sounds, soft. ABSENT: distended, guarding, mass, organolmegaly, rebound, tenderness Rectal exam: PRESENT: deferred Neurological exam: PRESENT: alert, awake, oriented to person, oriented to place , oriented to time, oriented to situation, CN II-XII grossly intact. ABSENT: motor sensory deficit Psychiatric exam: PRESENT: appropriate affect, normal mood. ABSENT: homicidal ideation, suicidal ideation Skin exam: PRESENT: dry, intact, warm. ABSENT: cyanosis, rash Results Laboratory Results: 07/20/16 03:58 07/20/16 03:58 07/20/16 07/20/16 03:58 03:58 WBC 11.2 H RBC 3.48 L Hgb 11.0 L Hct 32.2 L MCV 93 MCH 31.6 MCHC 34.2 RDW 15.1 H Plt Count 222 Seg Neutrophils % 68.0 Lymphocytes % 17.8 Monocytes % 12.6 Eosinophils % 1.4 Basophils % 0.2 Absolute Neutrophils 7.6 Absolute Lymphocytes 2.0 Absolute Monocytes 1.4 Absolute Eosinophils 0.2 Absolute Basophils 0.0 Sodium 140.0 Potassium 4.7 Chloride 103 Carbon Dioxide 24 Anion Gap 13 BUN 27 H Creatinine 1.03 Est GFR ( Amer) > 60 Est GFR (Non-Af Amer) > 60 Glucose 104 Calcium 9.7 Assessment & Plan - Diagnosis (1) Pneumonia Qualifiers: Pneumonia type: due to other aerobic Gram-negative bacteria Laterality : right Lung location: lower lobe of lung Qualified Code(s): J15.6 - Pneumonia due to other aerobic Gram-negative bacteria Is this a current diagnosis for this admission?: YesPlan: Continues to IV antibiotic will wait for the sputum culture (2) Dysphagia, pharyngeal phase Is this a current diagnosis for this admission?: YesPlan: Currently stable (3) Hypertension Qualifiers: Hypertension type: essential hypertension Qualified Code(s): I10 - Essential (primary) hypertension Is this a current diagnosis for this admission?: YesPlan: stable (4) Hypoxia Is this a current diagnosis for this admission?: YesPlan: cont on o2 (5) Shortness of breath Is this a current diagnosis for this admission?: YesPlan: stable (6) COPD (chronic obstructive pulmonary disease) Qualifiers: COPD type: emphysema Is this a current diagnosis for this admission?: YesPlan: cont neb rx (7) GERD (gastroesophageal reflux disease) Qualifiers: Esophagitis presence: without esophagitis Qualified Code(s): K21.9 - Gastro-esophageal reflux disease without esophagitis Is this a current diagnosis for this admission?: Yes - Time Time Spent with patient: 15-24 minutes Medications reviewed and adjusted accordingly: Yes Anticipated discharge: Home Within: Other - Inpatient Certification Medical Necessity: Need Close Monitoring Due to Risk of Patient Decompensation, Need for IV Antibiotics Post Hospital Care: 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
[2016-07-20] MEDS: MAG HYDROX/AL HYDROX/SIMETH SUSP 30 ML UDCUP PO PRN (14:24)
--- NOTE | 2016-07-20 16:08 | PDOC PROGRESS REPORT ---
Subjective Progress Note for:: 07/20/16 Subjective:: Doing better Physical Exam Vital Signs: Temp Pulse Resp BP Pulse Ox 98.6 F 7 L 20 140/60 H 100 07/20/16 00:00 07/20/16 00:00 07/20/16 00:00 07/20/16 00:00 07/20/16 00:00 Intake & Output 07/19/16 07/20/16 07/21/16 06:59 06:59 06:59 Intake Total 0 632 Output Total 0 0 Balance 0 632 Weight 69.3 kg General appearance: PRESENT: no acute distress, cooperative, well-developed Head exam: PRESENT: atraumatic, normocephalic Eye exam: PRESENT: conjunctiva pale, EOMI Mouth exam: PRESENT: dry mucosa, neck supple Neck exam: ABSENT: carotid bruit, JVD, lymphadenopathy, thyromegaly Respiratory exam: PRESENT: decreased breath sounds, prolonged expiratory phas, rhonchi, unlabored Cardiovascular exam: PRESENT: RRR, +S1, +S2 Pulses: PRESENT: normal radial pulses GI/Abdominal exam: PRESENT: normal bowel sounds, soft. ABSENT: distended, guarding, mass, organolmegaly, rebound, tenderness Rectal exam: PRESENT: deferred Musculoskeletal exam: PRESENT: normal inspection Neurological exam: PRESENT: alert, awake Psychiatric exam: PRESENT: normal mood Skin exam: PRESENT: dry, warm Results Laboratory Results: 07/20/16 03:58 07/20/16 03:58 07/20/16 07/20/16 03:58 03:58 WBC 11.2 H RBC 3.48 L Hgb 11.0 L Hct 32.2 L MCV 93 MCH 31.6 MCHC 34.2 RDW 15.1 H Plt Count 222 Seg Neutrophils % 68.0 Lymphocytes % 17.8 Monocytes % 12.6 Eosinophils % 1.4 Basophils % 0.2 Absolute Neutrophils 7.6 Absolute Lymphocytes 2.0 Absolute Monocytes 1.4 Absolute Eosinophils 0.2 Absolute Basophils 0.0 Sodium 140.0 Potassium 4.7 Chloride 103 Carbon Dioxide 24 Anion Gap 13 BUN 27 H Creatinine 1.03 Est GFR ( Amer) > 60 Est GFR (Non-Af Amer) > 60 Glucose 104 Calcium 9.7 Assessment & Plan - Diagnosis (1) Pneumonia Is this a current diagnosis for this admission?: YesPlan: pos cultures displaying gram-negative rods (2) Pneumonia Qualifiers: Pneumonia type: due to unspecified organism Lung location: unspecified part of lung Is this a current diagnosis for this admission?: No (3) SIRS (systemic inflammatory response syndrome) Is this a current diagnosis for this admission?: Yes (4) COPD (chronic obstructive pulmonary disease) Qualifiers: COPD type: emphysema Is this a current diagnosis for this admission?: Yes (5) GERD (gastroesophageal reflux disease) Qualifiers: Esophagitis presence: without esophagitis Qualified Code(s): K21.9 - Gastro-esophageal reflux disease without esophagitis Is this a current diagnosis for this admission?: Yes
[2016-07-20] MEDS: SIMVASTATIN 10 MG TABLET PO SCH (21:24)
[2016-07-20] MEDS: LEVOFLOXACIN 500 MG/D5W RTU 500 MG/100 ML RTUPB IV SCH (21:33)
[2016-07-21 04:49] LABS: ABSOLUTE EOSINOPHILS # (AUTO) 0.2 10^3/uL (0.0-0.6); ABSOLUTE LYMPHOCYTES (AUTO) 2.3 10^3/uL (0.5-4.7); ABSOLUTE MONOCYTES (AUTO) 1.7 10^3/uL (0.1-1.4); ABSOLUTE NEUT (AUTO) 8.9 10^3/uL (1.7-8.2); BASOPHILS % (AUTO) 0.2 % (0-2); EOSINOPHILS % (AUTO) 1.7 % (0-6); HEMATOCRIT 32.9 % (37.9-51.0); HEMOGLOBIN 11.2 g/dL (13.5-17.0); HGB HCT DIFFERENCE 0.7; LYMPHOCYTES % (AUTO) 17.8 % (13-45); MEAN CORPUSCULAR HEMOGLOBIN 31.6 pg (27.0-33.4); MEAN CORPUSCULAR HGB CONC 34.1 g/dL (32.0-36.0); MEAN CORPUSCULAR VOLUME 93 fl (80-97); MONOCYTES % (AUTO) 12.7 % (3-13); RED BLOOD COUNT 3.56 10^6/uL (4.35-5.55); RED CELL DISTRIBUTION WIDTH 14.8 % (11.5-14.0); SEGMENTED NEUTROPHILS % (AUTO) 67.6 % (42-78); WHITE BLOOD COUNT 13.2 10^3/uL (4.0-10.5)
[2016-07-21 05:10] LABS: ANION GAP 16 (5-19); BLOOD UREA NITROGEN 21 mg/dL (7-20); CALCIUM 9.4 mg/dL (8.4-10.2); CARBON DIOXIDE 22 mmol/L (22-30); CHLORIDE 102 mmol/L (98-107); CREATININE RESULT 1.16 mg/dL (0.52-1.25); GLUCOSE 105 mg/dL (75-110); POTASSIUM 4.9 mmol/L (3.6-5.0); SODIUM 139.8 mmol/L (137-145)
[2016-07-21] MEDS: IPRATROPIUM/ALBUTEROL 0.5-2.5 MG/3 ML AMPUL NEB SCH ×3 (08:24→19:57)
[2016-07-21] MEDS: CALCIUM CARBONATE 500 MG TAB.CHEW PO SCH ×4 (10:06→22:15)
[2016-07-21] MEDS: DOCUSATE SODIUM 100 MG CAPSULE PO SCH ×2 (10:07→22:04)
[2016-07-21] MEDS: GUAIFENESIN 600 MG TABLET.SA PO SCH ×2 (10:07→22:05)
[2016-07-21] MEDS: LEVOTHYROXINE SODIUM 0.05 MG TABLET PO SCH (10:07)
[2016-07-21] MEDS: BUDESONIDE/FORMOTEROL 160-4.5 MCG 60 PUFF/6 GM MDI IH SCH (10:08)
[2016-07-21] MEDS: ENOXAPARIN SODIUM INJ 40 MG/0.4 ML DISP.SYRIN SUBCUT SCH (10:08)
--- NOTE | 2016-07-21 15:50 | PDOC PROGRESS REPORT ---
Subjective Progress Note for:: 07/21/16 Subjective:: Patient is still complaining for coughing at the middle of the nights and still have a productive cough. Patient's white count is still elevated. Patient's sputum cultures of the gram-negative rods with the Pseudomonas is sensitive to the Levaquin. Patient's chest x-ray shows some new patchy airspace disease Physical Exam Vital Signs: Temp Pulse Resp BP Pulse Ox 98.3 F 88 18 125/49 L 96 07/21/16 12:14 07/21/16 13:38 07/21/16 13:38 07/21/16 12:14 07/21/16 13:38 Intake & Output 07/20/16 07/21/16 07/22/16 06:59 06:59 06:59 Intake Total 738 1000 Output Total 0 Balance 738 1000 Weight 70.2 kg General appearance: PRESENT: no acute distress, well-developed, well-nourished Head exam: PRESENT: atraumatic, normocephalic Eye exam: PRESENT: conjunctiva pink, EOMI, PERRLA. ABSENT: scleral icterus Ear exam: PRESENT: normal external ear exam Mouth exam: PRESENT: moist, tongue midline Neck exam: PRESENT: full ROM. ABSENT: carotid bruit, JVD, lymphadenopathy, thyromegaly Respiratory exam: PRESENT: wheezes Cardiovascular exam: PRESENT: RRR. ABSENT: diastolic murmur, rubs, systolic murmur Pulses: PRESENT: normal dorsalis pedis pul, +2 pedal pulses bilateral Vascular exam: PRESENT: normal capillary refill GI/Abdominal exam: PRESENT: normal bowel sounds, soft. ABSENT: distended, guarding, mass, organolmegaly, rebound, tenderness Rectal exam: PRESENT: deferred Neurological exam: PRESENT: alert, awake, oriented to person, oriented to place , oriented to time, oriented to situation, CN II-XII grossly intact. ABSENT: motor sensory deficit Psychiatric exam: PRESENT: appropriate affect, normal mood. ABSENT: homicidal ideation, suicidal ideation Skin exam: PRESENT: dry, intact, warm. ABSENT: cyanosis, rash Results Laboratory Results: 07/21/16 03:52 07/21/16 03:52 07/21/16 07/21/16 03:52 03:52 WBC 13.2 H RBC 3.56 L Hgb 11.2 L Hct 32.9 L MCV 93 MCH 31.6 MCHC 34.1 RDW 14.8 H Plt Count 248 Seg Neutrophils % 67.6 Lymphocytes % 17.8 Monocytes % 12.7 Eosinophils % 1.7 Basophils % 0.2 Absolute Neutrophils 8.9 H Absolute Lymphocytes 2.3 Absolute Monocytes 1.7 H Absolute Eosinophils 0.2 Absolute Basophils 0.0 Sodium 139.8 Potassium 4.9 Chloride 102 Carbon Dioxide 22 Anion Gap 16 BUN 21 H Creatinine 1.16 Est GFR ( Amer) > 60 Est GFR (Non-Af Amer) > 60 Glucose 105 Calcium 9.4 07/19/16 08:13 Sputum AFB Smear Concentration - Final 07/19/16 08:13 Sputum Acid Fast Bacilli Smear - Final 07/19/16 08:13 Sputum Gram Stain - Final 07/19/16 08:13 Sputum Sputum Culture - Final Pseudomonas Aeruginosa Normal [place] Impressions: Chest X-Ray 07/21/16 00:00 IMPRESSION: New patchy airspace disease in the right mid lung worrisome for pneumonia. This superimposed on obstructive lung disease. Assessment & Plan - Diagnosis (1) Pneumonia Qualifiers: Pneumonia type: due to other aerobic Gram-negative bacteria Laterality : right Lung location: lower lobe of lung Qualified Code(s): J15.6 - Pneumonia due to other aerobic Gram-negative bacteria Is this a current diagnosis for this admission?: YesPlan: Patient still persistent have a symptoms we will add the IV cefepime with the Levaquin to better coverage (2) Dysphagia, pharyngeal phase Is this a current diagnosis for this admission?: YesPlan: Currently stable (3) Hypertension Qualifiers: Hypertension type: essential hypertension Qualified Code(s): I10 - Essential (primary) hypertension Is this a current diagnosis for this admission?: YesPlan: stable (4) Hypoxia Is this a current diagnosis for this admission?: YesPlan: cont on o2 (5) Shortness of breath Is this a current diagnosis for this admission?: YesPlan: stable (6) COPD (chronic obstructive pulmonary disease) Qualifiers: COPD type: emphysema Is this a current diagnosis for this admission?: YesPlan: cont neb rx (7) GERD (gastroesophageal reflux disease) Qualifiers: Esophagitis presence: without esophagitis Qualified Code(s): K21.9 - Gastro-esophageal reflux disease without esophagitis Is this a current diagnosis for this admission?: Yes - Time Time Spent with patient: 15-24 minutes Medications reviewed and adjusted accordingly: Yes Anticipated discharge: Home Within: Other - Inpatient Certification Medical Necessity: Need for IV Antibiotics Post Hospital Care: 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
[2016-07-21] MEDS: CEFEPIME 1 GM/D5W RTU 1 GM/50 ML RTUPB IV SCH (17:36)
[2016-07-21] MEDS: LEVOFLOXACIN 500 MG/D5W RTU 500 MG/100 ML RTUPB IV SCH (22:05)
[2016-07-21] MEDS: SIMVASTATIN 10 MG TABLET PO SCH (22:05)
[2016-07-22] MEDS: CEFEPIME 1 GM/D5W RTU 1 GM/50 ML RTUPB IV SCH ×2 (06:04→17:47)
[2016-07-22 06:19] LABS: ABSOLUTE EOSINOPHILS # (AUTO) 0.2 10^3/uL (0.0-0.6); ABSOLUTE LYMPHOCYTES (AUTO) 1.4 10^3/uL (0.5-4.7); ABSOLUTE MONOCYTES (AUTO) 1.4 10^3/uL (0.1-1.4); ABSOLUTE NEUT (AUTO) 7.8 10^3/uL (1.7-8.2); BASOPHILS % (AUTO) 0.3 % (0-2); HEMATOCRIT 31.3 % (37.9-51.0); HEMOGLOBIN 10.7 g/dL (13.5-17.0); HGB HCT DIFFERENCE 0.8; LYMPHOCYTES % (AUTO) 13.2 % (13-45); MEAN CORPUSCULAR HEMOGLOBIN 31.6 pg (27.0-33.4); MEAN CORPUSCULAR VOLUME 93 fl (80-97); MONOCYTES % (AUTO) 13.1 % (3-13); RED BLOOD COUNT 3.38 10^6/uL (4.35-5.55); RED CELL DISTRIBUTION WIDTH 14.7 % (11.5-14.0); SEGMENTED NEUTROPHILS % (AUTO) 71.4 % (42-78); WHITE BLOOD COUNT 10.9 10^3/uL (4.0-10.5)
[2016-07-22 06:32] LABS: ANION GAP 11 (5-19); BLOOD UREA NITROGEN 19 mg/dL (7-20); CALCIUM 8.7 mg/dL (8.4-10.2); CARBON DIOXIDE 25 mmol/L (22-30); CHLORIDE 101 mmol/L (98-107); CREATININE RESULT 1.09 mg/dL (0.52-1.25); GLUCOSE 111 mg/dL (75-110); POTASSIUM 4.5 mmol/L (3.6-5.0); SODIUM 137.3 mmol/L (137-145)
[2016-07-22] MEDS: IPRATROPIUM/ALBUTEROL 0.5-2.5 MG/3 ML AMPUL NEB SCH ×3 (07:48→20:51)
[2016-07-22] MEDS: CALCIUM CARBONATE 500 MG TAB.CHEW PO SCH ×4 (08:00→21:09)
--- NOTE | 2016-07-22 09:15 | PDOC PROGRESS REPORT ---
Subjective Progress Note for:: 07/22/16 Subjective:: bad night coughed a lot Physical Exam Vital Signs: Temp Pulse Resp BP Pulse Ox 97.9 F 103 H 20 119/62 97 07/22/16 08:01 07/22/16 08:01 07/22/16 08:01 07/22/16 08:01 07/22/16 08:01 Intake & Output 07/21/16 07/22/16 07/23/16 06:59 06:59 06:59 Intake Total 1000 1000 Balance 1000 1000 Weight 70.2 kg 70.4 kg Results Laboratory Results: 07/22/16 05:27 07/22/16 05:27 07/22/16 07/22/16 05:27 05:27 WBC 10.9 H RBC 3.38 L Hgb 10.7 L Hct 31.3 L MCV 93 MCH 31.6 MCHC 34.0 RDW 14.7 H Plt Count 238 Seg Neutrophils % 71.4 Lymphocytes % 13.2 Monocytes % 13.1 H Eosinophils % 2.0 Basophils % 0.3 Absolute Neutrophils 7.8 Absolute Lymphocytes 1.4 Absolute Monocytes 1.4 Absolute Eosinophils 0.2 Absolute Basophils 0.0 Sodium 137.3 Potassium 4.5 Chloride 101 Carbon Dioxide 25 Anion Gap 11 BUN 19 Creatinine 1.09 Est GFR ( Amer) > 60 Est GFR (Non-Af Amer) > 60 Glucose 111 H Calcium 8.7 07/19/16 08:13 Sputum AFB Smear Concentration - Final 07/19/16 08:13 Sputum Acid Fast Bacilli Smear - Final 07/19/16 08:13 Sputum Gram Stain - Final 07/19/16 08:13 Sputum Sputum Culture - Final Pseudomonas Aeruginosa Normal [place] Impressions: Chest X-Ray 07/21/16 00:00 IMPRESSION: New patchy airspace disease in the right mid lung worrisome for pneumonia. This superimposed on obstructive lung disease. Assessment & Plan - Diagnosis (1) Pneumonia Qualifiers: Pneumonia type: due to other aerobic Gram-negative bacteria Laterality : right Lung location: lower lobe of lung Qualified Code(s): J15.6 - Pneumonia due to other aerobic Gram-negative bacteria Is this a current diagnosis for this admission?: Yes (2) Pneumonia Qualifiers: Pneumonia type: due to unspecified organism Lung location: unspecified part of lung Is this a current diagnosis for this admission?: No (3) SIRS (systemic inflammatory response syndrome) Is this a current diagnosis for this admission?: Yes (4) COPD (chronic obstructive pulmonary disease) Qualifiers: COPD type: emphysema Is this a current diagnosis for this admission?: Yes (5) GERD (gastroesophageal reflux disease) Qualifiers: Esophagitis presence: without esophagitis Qualified Code(s): K21.9 - Gastro-esophageal reflux disease without esophagitis Is this a current diagnosis for this admission?: YesPlan: dietary consult + R trendelenberg (6) Dysphagia, pharyngeal phase Is this a current diagnosis for this admission?: YesPlan: dietary consult + R trendelenberg
[2016-07-22] MEDS: ENOXAPARIN SODIUM INJ 40 MG/0.4 ML DISP.SYRIN SUBCUT SCH (10:06)
[2016-07-22] MEDS: LEVOTHYROXINE SODIUM 0.05 MG TABLET PO SCH (10:06)
[2016-07-22] MEDS: BUDESONIDE/FORMOTEROL 160-4.5 MCG 60 PUFF/6 GM MDI IH SCH (10:06)
[2016-07-22] MEDS: GUAIFENESIN 600 MG TABLET.SA PO SCH ×2 (10:07→21:19)
[2016-07-22] MEDS: DOCUSATE SODIUM 100 MG CAPSULE PO SCH ×2 (10:07→21:19)
[2016-07-22] MEDS: BENZONATATE 100 MG CAPSULE PO PRN ×2 (10:07→22:37)
--- NOTE | 2016-07-22 11:36 | PDOC PROGRESS REPORT ---
Subjective Progress Note for:: 07/22/16 Subjective:: Patient is currently doing fair patient still have a cough and congestions. Patient's chest x-ray is persistence with the pneumonia at the cefepime yesterday and patient's white count is better this morning. Patient was complaining some constipations problem Physical Exam Vital Signs: Temp Pulse Resp BP Pulse Ox 97.9 F 103 H 20 119/62 97 07/22/16 08:01 07/22/16 08:01 07/22/16 08:01 07/22/16 08:01 07/22/16 08:01 Intake & Output 07/21/16 07/22/16 07/23/16 06:59 06:59 06:59 Intake Total 1000 1000 Balance 1000 1000 Weight 70.2 kg 70.4 kg General appearance: PRESENT: no acute distress, well-developed, well-nourished Head exam: PRESENT: atraumatic, normocephalic Eye exam: PRESENT: conjunctiva pink, EOMI, PERRLA. ABSENT: scleral icterus Ear exam: PRESENT: normal external ear exam Mouth exam: PRESENT: moist, tongue midline Neck exam: PRESENT: full ROM. ABSENT: carotid bruit, JVD, lymphadenopathy, thyromegaly Respiratory exam: PRESENT: clear to auscultation pita Cardiovascular exam: PRESENT: RRR. ABSENT: diastolic murmur, rubs, systolic murmur Pulses: PRESENT: normal dorsalis pedis pul, +2 pedal pulses bilateral Vascular exam: PRESENT: normal capillary refill GI/Abdominal exam: PRESENT: normal bowel sounds, soft. ABSENT: distended, guarding, mass, organolmegaly, rebound, tenderness Rectal exam: PRESENT: deferred Neurological exam: PRESENT: alert, awake, oriented to person, oriented to place , oriented to time, oriented to situation, CN II-XII grossly intact. ABSENT: motor sensory deficit Psychiatric exam: PRESENT: appropriate affect, normal mood. ABSENT: homicidal ideation, suicidal ideation Skin exam: PRESENT: dry, intact, warm. ABSENT: cyanosis, rash Results Laboratory Results: 07/22/16 05:27 07/22/16 05:27 07/22/16 07/22/16 05:27 05:27 WBC 10.9 H RBC 3.38 L Hgb 10.7 L Hct 31.3 L MCV 93 MCH 31.6 MCHC 34.0 RDW 14.7 H Plt Count 238 Seg Neutrophils % 71.4 Lymphocytes % 13.2 Monocytes % 13.1 H Eosinophils % 2.0 Basophils % 0.3 Absolute Neutrophils 7.8 Absolute Lymphocytes 1.4 Absolute Monocytes 1.4 Absolute Eosinophils 0.2 Absolute Basophils 0.0 Sodium 137.3 Potassium 4.5 Chloride 101 Carbon Dioxide 25 Anion Gap 11 BUN 19 Creatinine 1.09 Est GFR ( Amer) > 60 Est GFR (Non-Af Amer) > 60 Glucose 111 H Calcium 8.7 07/19/16 08:13 Sputum AFB Smear Concentration - Final 07/19/16 08:13 Sputum Acid Fast Bacilli Smear - Final 07/19/16 08:13 Sputum Gram Stain - Final 07/19/16 08:13 Sputum Sputum Culture - Final Pseudomonas Aeruginosa Normal [place] Impressions: Chest X-Ray 07/21/16 00:00 IMPRESSION: New patchy airspace disease in the right mid lung worrisome for pneumonia. This superimposed on obstructive lung disease. Assessment & Plan - Diagnosis (1) Pneumonia Qualifiers: Pneumonia type: due to other aerobic Gram-negative bacteria Laterality : right Lung location: lower lobe of lung Qualified Code(s): J15.6 - Pneumonia due to other aerobic Gram-negative bacteria Is this a current diagnosis for this admission?: YesPlan: Continues to IV antibiotic (2) Dysphagia, pharyngeal phase Is this a current diagnosis for this admission?: YesPlan: Currently stable (3) Hypertension Qualifiers: Hypertension type: essential hypertension Qualified Code(s): I10 - Essential (primary) hypertension Is this a current diagnosis for this admission?: YesPlan: stable (4) Hypoxia Is this a current diagnosis for this admission?: Yes (5) Shortness of breath Is this a current diagnosis for this admission?: YesPlan: stable (6) COPD (chronic obstructive pulmonary disease) Qualifiers: COPD type: emphysema Is this a current diagnosis for this admission?: YesPlan: cont neb rx (7) GERD (gastroesophageal reflux disease) Qualifiers: Esophagitis presence: without esophagitis Qualified Code(s): K21.9 - Gastro-esophageal reflux disease without esophagitis Is this a current diagnosis for this admission?: YesPlan: cont curr med (8) Constipation Qualifiers: Constipation type: unspecified constipation type Qualified Code(s): K59.00 - Constipation, unspecified Is this a current diagnosis for this admission?: YesPlan: Will add the stool softener - Time Time Spent with patient: 15-24 minutes Medications reviewed and adjusted accordingly: Yes Anticipated discharge: Home Within: Other - Inpatient Certification Medical Necessity: Need Close Monitoring Due to Risk of Patient Decompensation, Need for IV Antibiotics Post Hospital Care: D/C Superintendent Transmission Documentation - Plan Summary Plan Summary: Patient's currently stable continues to IV antibiotic patient's mental state for the weekend
[2016-07-22] MEDS ORDERED: POLYETHYLENE GLYCOL 3350 POWDER 17 GM/1 PACKET PO ONE (12:00)
[2016-07-22] MEDS: MAG HYDROX/AL HYDROX/SIMETH SUSP 30 ML UDCUP PO PRN (20:25)
[2016-07-22] MEDS: LEVOFLOXACIN 500 MG/D5W RTU 500 MG/100 ML RTUPB IV SCH (21:19)
[2016-07-22] MEDS: SIMVASTATIN 10 MG TABLET PO SCH (21:19)
[2016-07-23] MEDS: CEFEPIME 1 GM/D5W RTU 1 GM/50 ML RTUPB IV SCH ×2 (05:24→17:30)
[2016-07-23 06:45] LABS: ANION GAP 10 (5-19); BLOOD UREA NITROGEN 18 mg/dL (7-20); CALCIUM 8.6 mg/dL (8.4-10.2); CARBON DIOXIDE 26 mmol/L (22-30); CHLORIDE 103 mmol/L (98-107); CREATININE RESULT 0.98 mg/dL (0.52-1.25); GLUCOSE 119 mg/dL (75-110); POTASSIUM 4.5 mmol/L (3.6-5.0); SODIUM 138.7 mmol/L (137-145)
[2016-07-23] MEDS: IPRATROPIUM/ALBUTEROL 0.5-2.5 MG/3 ML AMPUL NEB SCH ×3 (08:27→19:33)
[2016-07-23] MEDS: CALCIUM CARBONATE 500 MG TAB.CHEW PO SCH ×4 (08:31→21:38)
[2016-07-23] MEDS: ENOXAPARIN SODIUM INJ 40 MG/0.4 ML DISP.SYRIN SUBCUT SCH (08:32)
[2016-07-23] MEDS: BUDESONIDE/FORMOTEROL 160-4.5 MCG 60 PUFF/6 GM MDI IH SCH (09:37)
[2016-07-23] MEDS: GUAIFENESIN 600 MG TABLET.SA PO SCH ×2 (09:38→21:39)
[2016-07-23] MEDS: LEVOTHYROXINE SODIUM 0.05 MG TABLET PO SCH (09:39)
[2016-07-23] MEDS: DOCUSATE SODIUM 100 MG CAPSULE PO SCH ×2 (09:39→21:40)
[2016-07-23] MEDS: POLYETHYLENE GLYCOL 3350 POWDER 17 GM/1 PACKET PO SCH (09:39)
--- NOTE | 2016-07-23 10:06 | PDOC PROGRESS REPORT ---
Subjective Progress Note for:: 07/23/16 Subjective:: Continue to experience productive coughing. No chest pain. No nausea but episode of vomiting last night. Satisfactory bowel movement afre use of Colace and Miralax. No abdominal pain. Appetite and P.O. intake fair. No fever or chills. Remain on IV antibiotic coverage. Physical Exam Vital Signs: Temp Pulse Resp BP Pulse Ox 97.6 F 94 20 138/63 H 97 07/23/16 07:21 07/23/16 07:21 07/23/16 07:21 07/23/16 07:21 07/23/16 07:21 Intake & Output 07/22/16 07/23/16 07/24/16 06:59 06:59 06:59 Intake Total 1000 1181 Balance 1000 1181 Weight 70.4 kg 72.2 kg General appearance: PRESENT: no acute distress, well-developed, well-nourished Head exam: PRESENT: atraumatic, normocephalic Eye exam: PRESENT: conjunctiva pink, EOMI, PERRLA. ABSENT: scleral icterus Mouth exam: PRESENT: moist, tongue midline Respiratory exam: PRESENT: clear to auscultation pita Cardiovascular exam: PRESENT: RRR. ABSENT: diastolic murmur, rubs, systolic murmur GI/Abdominal exam: PRESENT: normal bowel sounds, soft. ABSENT: distended, guarding, mass, organolmegaly, rebound, tenderness Extremities exam: PRESENT: full ROM Musculoskeletal exam: PRESENT: deformity - related to joint involvement with arthritis Neurological exam: PRESENT: alert, awake, oriented to person, oriented to place , oriented to time, oriented to situation, CN II-XII grossly intact. ABSENT: motor sensory deficit Psychiatric exam: PRESENT: appropriate affect, normal mood. ABSENT: homicidal ideation, suicidal ideation Skin exam: PRESENT: dry, intact, warm. ABSENT: cyanosis, rash Results Laboratory Results: 07/22/16 05:27 07/23/16 06:02 07/23/16 06:02 Sodium 138.7 Potassium 4.5 Chloride 103 Carbon Dioxide 26 Anion Gap 10 BUN 18 Creatinine 0.98 Est GFR ( Amer) > 60 Est GFR (Non-Af Amer) > 60 Glucose 119 H Calcium 8.6 Impressions: Chest X-Ray 07/21/16 00:00 IMPRESSION: New patchy airspace disease in the right mid lung worrisome for pneumonia. This superimposed on obstructive lung disease. Assessment & Plan - Diagnosis (1) Pneumonia Qualifiers: Pneumonia type: aspiration pneumonia Lung location: unspecified part of lung Is this a current diagnosis for this admission?: YesPlan: Continue IV Levofloxacin and Cefepime antibiotic coverage (2) COPD (chronic obstructive pulmonary disease) Qualifiers: COPD type: emphysema Is this a current diagnosis for this admission?: Yes (3) GERD (gastroesophageal reflux disease) Qualifiers: Esophagitis presence: without esophagitis Qualified Code(s): K21.9 - Gastro-esophageal reflux disease without esophagitis Is this a current diagnosis for this admission?: YesPlan: Maintain on current medication management (4) Hypothyroidism Qualifiers: Hypothyroidism type: acquired Qualified Code(s): E03.9 - Hypothyroidism, unspecified Is this a current diagnosis for this admission?: YesPlan: Maintain on current medication management - Time Time Spent with patient: 25-34 minutes Medications reviewed and adjusted accordingly: Yes Anticipated discharge: Home with Homehealth Within: Other - Inpatient Certification Based on my medical assessment, after consideration of the patient's comorbidities, presenting symptoms, or acuity I expect that the services needed warrant INPATIENT care.: Yes I certify that my determination is in accordance with my understanding of Medicare's requirements for reasonable and necessary INPATIENT services [42 CFR 412.3e].: Yes Medical Necessity: Need Close Monitoring Due to Risk of Patient Decompensation, Need For IV Fluids, Need for IV Antibiotics, Risk of Complication if Not Cared For in Hospital Post Hospital Care: D/C Lead Software Architect Documentation - Plan Summary Plan Summary: Continue current antibiotic coverage. Obtain CBC with diff and BMP in am.
[2016-07-23] MEDS: SIMVASTATIN 10 MG TABLET PO SCH (21:39)
[2016-07-23] MEDS: BENZONATATE 100 MG CAPSULE PO PRN (21:39)
[2016-07-23] MEDS: LEVOFLOXACIN 500 MG/D5W RTU 500 MG/100 ML RTUPB IV SCH (21:42)
[2016-07-24 05:03] LABS: ABSOLUTE EOSINOPHILS # (AUTO) 0.2 10^3/uL (0.0-0.6); ABSOLUTE LYMPHOCYTES (AUTO) 1.9 10^3/uL (0.5-4.7); ABSOLUTE MONOCYTES (AUTO) 1.3 10^3/uL (0.1-1.4); ABSOLUTE NEUT (AUTO) 6.2 10^3/uL (1.7-8.2); BASOPHILS % (AUTO) 0.2 % (0-2); EOSINOPHILS % (AUTO) 2.3 % (0-6); HEMATOCRIT 29.8 % (37.9-51.0); HEMOGLOBIN 10.2 g/dL (13.5-17.0); HGB HCT DIFFERENCE 0.8; MEAN CORPUSCULAR HGB CONC 34.1 g/dL (32.0-36.0); MEAN CORPUSCULAR VOLUME 94 fl (80-97); MONOCYTES % (AUTO) 13.9 % (3-13); RED BLOOD COUNT 3.17 10^6/uL (4.35-5.55); RED CELL DISTRIBUTION WIDTH 14.5 % (11.5-14.0); SEGMENTED NEUTROPHILS % (AUTO) 63.6 % (42-78); WHITE BLOOD COUNT 9.7 10^3/uL (4.0-10.5)
[2016-07-24 05:25] LABS: ANION GAP 10 (5-19); BLOOD UREA NITROGEN 17 mg/dL (7-20); CALCIUM 8.9 mg/dL (8.4-10.2); CARBON DIOXIDE 26 mmol/L (22-30); CHLORIDE 103 mmol/L (98-107); CREATININE RESULT 0.96 mg/dL (0.52-1.25); GLUCOSE 105 mg/dL (75-110); POTASSIUM 4.2 mmol/L (3.6-5.0); SODIUM 139.1 mmol/L (137-145)
[2016-07-24] MEDS: CEFEPIME 1 GM/D5W RTU 1 GM/50 ML RTUPB IV SCH ×2 (06:31→17:25)
[2016-07-24] MEDS: IPRATROPIUM/ALBUTEROL 0.5-2.5 MG/3 ML AMPUL NEB SCH ×3 (08:07→19:32)
[2016-07-24] MEDS: CALCIUM CARBONATE 500 MG TAB.CHEW PO SCH ×4 (08:15→22:31)
[2016-07-24] MEDS: ENOXAPARIN SODIUM INJ 40 MG/0.4 ML DISP.SYRIN SUBCUT SCH (08:16)
[2016-07-24] MEDS: BUDESONIDE/FORMOTEROL 160-4.5 MCG 60 PUFF/6 GM MDI IH SCH (10:20)
[2016-07-24] MEDS: LEVOTHYROXINE SODIUM 0.05 MG TABLET PO SCH (10:21)
[2016-07-24] MEDS: GUAIFENESIN 600 MG TABLET.SA PO SCH ×2 (10:21→22:31)
[2016-07-24] MEDS: POLYETHYLENE GLYCOL 3350 POWDER 17 GM/1 PACKET PO SCH (10:21)
[2016-07-24] MEDS: DOCUSATE SODIUM 100 MG CAPSULE PO SCH ×2 (10:21→22:31)
--- NOTE | 2016-07-24 11:09 | PDOC PROGRESS REPORT ---
Subjective Progress Note for:: 07/24/16 Subjective:: Patient reported concern about recurrent episodes of vomiting after dinner following DuoNeb therapy. No abdominal pain. Appetite and P.O. intake fair. There is continue productive coughing. No chest pain. No fever or chills. Remain on IV Cefepime and Levofloxacin coverage. Physical Exam Vital Signs: Temp Pulse Resp BP Pulse Ox 97.4 F 84 16 118/51 L 100 07/24/16 07:25 07/24/16 08:07 07/24/16 08:07 07/24/16 07:25 07/24/16 07:25 Intake & Output 07/23/16 07/24/16 07/25/16 06:59 06:59 06:59 Intake Total 1181 940 Balance 1181 940 Weight 72.2 kg 67 kg Physical Exam: General appearance: PRESENT: no acute distress, well-developed, well-nourished Head exam: PRESENT: atraumatic, normocephalic Eye exam: PRESENT: conjunctiva pink, EOMI, PERRLA. ABSENT: scleral icterus Mouth exam: PRESENT: moist, tongue midline Respiratory exam: PRESENT: clear to auscultation pita Cardiovascular exam: PRESENT: RRR. ABSENT: diastolic murmur, rubs, systolic murmur GI/Abdominal exam: PRESENT: normal bowel sounds, soft. ABSENT: distended, guarding, mass, organomegaly, rebound, tenderness Extremities exam: PRESENT: full ROM Musculoskeletal exam: PRESENT: deformity - related to joint involvement with arthritis Neurological exam: PRESENT: alert, awake, oriented to person, oriented to place , oriented to time, oriented to situation, CN II-XII grossly intact. ABSENT: motor sensory deficit Psychiatric exam: PRESENT: appropriate affect, normal mood. ABSENT: homicidal ideation, suicidal ideation Skin exam: PRESENT: dry, intact, warm. ABSENT: cyanosis, rash Results Laboratory Results: 07/24/16 04:26 07/24/16 04:26 07/24/16 07/24/16 04:26 04:26 WBC 9.7 RBC 3.17 L Hgb 10.2 L Hct 29.8 L MCV 94 MCH 32.0 MCHC 34.1 RDW 14.5 H Plt Count 243 Seg Neutrophils % 63.6 Lymphocytes % 20.0 Monocytes % 13.9 H Eosinophils % 2.3 Basophils % 0.2 Absolute Neutrophils 6.2 Absolute Lymphocytes 1.9 Absolute Monocytes 1.3 Absolute Eosinophils 0.2 Absolute Basophils 0.0 Sodium 139.1 Potassium 4.2 Chloride 103 Carbon Dioxide 26 Anion Gap 10 BUN 17 Creatinine 0.96 Est GFR ( Amer) > 60 Est GFR (Non-Af Amer) > 60 Glucose 105 Calcium 8.9 07/19/16 07:23 Blood Blood Culture - Final NO GROWTH IN 5 DAYS 07/19/16 06:13 Blood Blood Culture - Final NO GROWTH IN 5 DAYS Impressions: Chest X-Ray 07/21/16 00:00 IMPRESSION: New patchy airspace disease in the right mid lung worrisome for pneumonia. This superimposed on obstructive lung disease. Assessment & Plan - Diagnosis (1) Pneumonia Qualifiers: Pneumonia type: aspiration pneumonia Lung location: unspecified part of lung Is this a current diagnosis for this admission?: Yes (2) COPD (chronic obstructive pulmonary disease) Qualifiers: COPD type: emphysema Is this a current diagnosis for this admission?: YesPlan: Adjust post dinner nebulizer treatment to 2 hours period after meal unless patient ask for treatment ahead of this time. Continue other current medication therapy. (3) GERD (gastroesophageal reflux disease) Qualifiers: Esophagitis presence: without esophagitis Qualified Code(s): K21.9 - Gastro-esophageal reflux disease without esophagitis Is this a current diagnosis for this admission?: Yes (4) Hypothyroidism Qualifiers: Hypothyroidism type: acquired Qualified Code(s): E03.9 - Hypothyroidism, unspecified Is this a current diagnosis for this admission?: Yes - Time Time Spent with patient: 25-34 minutes Medications reviewed and adjusted accordingly: Yes Anticipated discharge: Home with Homehealth Within: Other - Inpatient Certification Medical Necessity: Need Close Monitoring Due to Risk of Patient Decompensation, Need For IV Fluids, Need For Continuous Telemetry Monitoring, Need for Nebulizer Therapy and Monitoring of Response, Need for IV Antibiotics, Risk of Complication if Not Cared For in Hospital Post Hospital Care: D/C Opal Miner Documentation - Plan Summary Plan Summary: See covering attending physician orders.
[2016-07-24] MEDS: SIMVASTATIN 10 MG TABLET PO SCH (22:30)
[2016-07-24] MEDS: BENZONATATE 100 MG CAPSULE PO PRN (22:31)
[2016-07-24] MEDS: LEVOFLOXACIN 500 MG/D5W RTU 500 MG/100 ML RTUPB IV SCH (22:31)
[2016-07-25] MEDS: CEFEPIME 1 GM/D5W RTU 1 GM/50 ML RTUPB IV SCH ×2 (05:30→17:57)
[2016-07-25] MEDS: BENZONATATE 100 MG CAPSULE PO PRN ×2 (06:16→17:57)
[2016-07-25] MEDS: IPRATROPIUM/ALBUTEROL 0.5-2.5 MG/3 ML AMPUL NEB SCH ×3 (08:30→20:48)
--- NOTE | 2016-07-25 10:24 | PDOC PROGRESS REPORT ---
Subjective Progress Note for:: 07/25/16 Subjective:: Patient is still coughing on and off with thick greenish yellowish sputum discharge. Patient's currently on IV antibiotic's chest x-ray is persistent for the pneumonia. Patient's denied any chest pain denied any shortness of the breath Physical Exam Vital Signs: Temp Pulse Resp BP Pulse Ox 97.9 F 100 20 131/54 H 100 07/25/16 08:42 07/25/16 08:42 07/25/16 08:42 07/25/16 08:42 07/25/16 08:42 Intake & Output 07/24/16 07/25/16 07/26/16 06:59 06:59 06:59 Intake Total 940 1690 Balance 940 1690 Weight 67 kg 67.4 kg General appearance: PRESENT: no acute distress, well-developed, well-nourished Head exam: PRESENT: atraumatic, normocephalic Eye exam: PRESENT: conjunctiva pink, EOMI, PERRLA. ABSENT: scleral icterus Ear exam: PRESENT: normal external ear exam Mouth exam: PRESENT: moist, tongue midline Neck exam: PRESENT: full ROM. ABSENT: carotid bruit, JVD, lymphadenopathy, thyromegaly Respiratory exam: PRESENT: wheezes Cardiovascular exam: PRESENT: RRR. ABSENT: diastolic murmur, rubs, systolic murmur Pulses: PRESENT: normal dorsalis pedis pul, +2 pedal pulses bilateral Vascular exam: PRESENT: normal capillary refill GI/Abdominal exam: PRESENT: normal bowel sounds, soft. ABSENT: distended, guarding, mass, organolmegaly, rebound, tenderness Rectal exam: PRESENT: deferred Neurological exam: PRESENT: alert, awake, oriented to person, oriented to place , oriented to time, oriented to situation, CN II-XII grossly intact. ABSENT: motor sensory deficit Psychiatric exam: PRESENT: appropriate affect, normal mood. ABSENT: homicidal ideation, suicidal ideation Skin exam: PRESENT: dry, intact, warm. ABSENT: cyanosis, rash Results Laboratory Results: 07/24/16 04:26 07/24/16 04:26 07/20/16 10:50 Sputum AFB Smear Concentration - Final 07/20/16 10:50 Sputum Acid Fast Bacilli Smear - Final 07/19/16 07:23 Blood Blood Culture - Final NO GROWTH IN 5 DAYS Impressions: Chest X-Ray 07/25/16 00:00 IMPRESSION: Persistent infiltrate in the right upper lobe near the minor fissure, more dense than on 07/21/2016 chest films. Assessment & Plan - Diagnosis (1) Pneumonia Qualifiers: Pneumonia type: due to other aerobic Gram-negative bacteria Laterality : right Lung location: lower lobe of lung Qualified Code(s): J15.6 - Pneumonia due to other aerobic Gram-negative bacteria Is this a current diagnosis for this admission?: YesPlan: Continues to IV antibiotic (2) Dysphagia, pharyngeal phase Is this a current diagnosis for this admission?: YesPlan: Currently stable (3) Hypertension Qualifiers: Hypertension type: essential hypertension Qualified Code(s): I10 - Essential (primary) hypertension Is this a current diagnosis for this admission?: YesPlan: stable (4) Hypoxia Is this a current diagnosis for this admission?: YesPlan: cont on o2 (5) Shortness of breath Is this a current diagnosis for this admission?: YesPlan: stable (6) COPD (chronic obstructive pulmonary disease) Qualifiers: COPD type: emphysema Is this a current diagnosis for this admission?: YesPlan: cont neb rx (7) GERD (gastroesophageal reflux disease) Qualifiers: Esophagitis presence: without esophagitis Qualified Code(s): K21.9 - Gastro-esophageal reflux disease without esophagitis Is this a current diagnosis for this admission?: YesPlan: cont curr med (8) Constipation Qualifiers: Constipation type: unspecified constipation type Qualified Code(s): K59.00 - Constipation, unspecified Is this a current diagnosis for this admission?: Yes - Time Time Spent with patient: 15-24 minutes Medications reviewed and adjusted accordingly: Yes Anticipated discharge: Home Within: Other - Inpatient Certification Medical Necessity: Need for IV Antibiotics Post Hospital Care: D/C Internetworking Technician Documentation - Plan Summary Plan Summary: Continues to IV antibiotic follow with the pulmonary
[2016-07-25] MEDS: DOCUSATE SODIUM 100 MG CAPSULE PO SCH ×2 (11:04→22:15)
[2016-07-25] MEDS: LEVOTHYROXINE SODIUM 0.05 MG TABLET PO SCH (11:04)
[2016-07-25] MEDS: CALCIUM CARBONATE 500 MG TAB.CHEW PO SCH ×4 (11:04→22:16)
[2016-07-25] MEDS: POLYETHYLENE GLYCOL 3350 POWDER 17 GM/1 PACKET PO SCH (11:05)
[2016-07-25] MEDS: GUAIFENESIN 600 MG TABLET.SA PO SCH ×2 (11:05→22:15)
[2016-07-25] MEDS: ENOXAPARIN SODIUM INJ 40 MG/0.4 ML DISP.SYRIN SUBCUT SCH (11:06)
[2016-07-25] MEDS: BUDESONIDE/FORMOTEROL 160-4.5 MCG 60 PUFF/6 GM MDI IH SCH (11:09)
--- NOTE | 2016-07-25 11:27 | PDOC PROGRESS REPORT ---
Subjective Progress Note for:: 07/25/16 Subjective:: bad night coughed a lot Physical Exam Vital Signs: Temp Pulse Resp BP Pulse Ox 97.9 F 100 20 131/54 H 100 07/25/16 08:42 07/25/16 08:42 07/25/16 08:42 07/25/16 08:42 07/25/16 08:42 Intake & Output 07/24/16 07/25/16 07/26/16 06:59 06:59 06:59 Intake Total 940 1690 Balance 940 1690 Weight 67 kg 67.4 kg General appearance: PRESENT: no acute distress, cooperative, disheveled, thin, well-developed Head exam: PRESENT: atraumatic, normocephalic Eye exam: PRESENT: conjunctiva pale, EOMI Mouth exam: PRESENT: moist, neck supple Neck exam: ABSENT: carotid bruit, JVD, lymphadenopathy, thyromegaly Respiratory exam: PRESENT: decreased breath sounds, prolonged expiratory phas, rhonchi, symmetrical, unlabored, wheezes Cardiovascular exam: PRESENT: RRR, +S1, +S2 Pulses: PRESENT: normal radial pulses GI/Abdominal exam: PRESENT: normal bowel sounds, soft. ABSENT: distended, guarding, mass, organolmegaly, rebound, tenderness Rectal exam: PRESENT: deferred Musculoskeletal exam: PRESENT: normal inspection Skin exam: PRESENT: dry, warm Results Laboratory Results: 07/24/16 04:26 07/24/16 04:26 07/20/16 10:50 Sputum AFB Smear Concentration - Final 07/20/16 10:50 Sputum Acid Fast Bacilli Smear - Final 07/19/16 07:23 Blood Blood Culture - Final NO GROWTH IN 5 DAYS Impressions: Chest X-Ray 07/25/16 00:00 IMPRESSION: Persistent infiltrate in the right upper lobe near the minor fissure, more dense than on 07/21/2016 chest films. Assessment & Plan - Diagnosis (1) Pneumonia Qualifiers: Pneumonia type: due to other aerobic Gram-negative bacteria Laterality : right Lung location: lower lobe of lung Qualified Code(s): J15.6 - Pneumonia due to other aerobic Gram-negative bacteria Is this a current diagnosis for this admission?: YesPlan: pseudomonas neb tobramycin (2) Pneumonia Qualifiers: Pneumonia type: aspiration pneumonia Lung location: unspecified part of lung Is this a current diagnosis for this admission?: Yes (3) SIRS (systemic inflammatory response syndrome) Is this a current diagnosis for this admission?: Yes (4) COPD (chronic obstructive pulmonary disease) Qualifiers: COPD type: emphysema Is this a current diagnosis for this admission?: Yes (5) GERD (gastroesophageal reflux disease) Qualifiers: Esophagitis presence: without esophagitis Qualified Code(s): K21.9 - Gastro-esophageal reflux disease without esophagitis Is this a current diagnosis for this admission?: Yes (6) Dysphagia, pharyngeal phase Is this a current diagnosis for this admission?: Yes
[2016-07-25] MEDS: TOBRAMYCIN SULFATE NEB 40 MG/ML 30 ML NEB SCH (20:47)
[2016-07-25] MEDS: ACETYLCYSTEINE 20% SOLN 800 MG/4 ML VIAL.NEB NEB SCH (20:48)
[2016-07-25] MEDS: SIMVASTATIN 10 MG TABLET PO SCH (22:15)
[2016-07-26] MEDS: BENZONATATE 100 MG CAPSULE PO PRN ×3 (02:16→23:18)
[2016-07-26 04:49] LABS: ABSOLUTE EOSINOPHILS # (AUTO) 0.4 10^3/uL (0.0-0.6); ABSOLUTE LYMPHOCYTES (AUTO) 1.9 10^3/uL (0.5-4.7); ABSOLUTE NEUT (AUTO) 4.6 10^3/uL (1.7-8.2); BASOPHILS % (AUTO) 0.4 % (0-2); EOSINOPHILS % (AUTO) 5.5 % (0-6); HEMATOCRIT 29.2 % (37.9-51.0); HGB HCT DIFFERENCE 0.8; MEAN CORPUSCULAR HEMOGLOBIN 32.3 pg (27.0-33.4); MEAN CORPUSCULAR HGB CONC 34.4 g/dL (32.0-36.0); MEAN CORPUSCULAR VOLUME 94 fl (80-97); MONOCYTES % (AUTO) 12.5 % (3-13); RED BLOOD COUNT 3.11 10^6/uL (4.35-5.55); RED CELL DISTRIBUTION WIDTH 14.7 % (11.5-14.0); SEGMENTED NEUTROPHILS % (AUTO) 57.6 % (42-78); WHITE BLOOD COUNT 7.9 10^3/uL (4.0-10.5)
[2016-07-26 05:13] LABS: ANION GAP 7 (5-19); BLOOD UREA NITROGEN 12 mg/dL (7-20); CALCIUM 8.9 mg/dL (8.4-10.2); CARBON DIOXIDE 29 mmol/L (22-30); CHLORIDE 105 mmol/L (98-107); CREATININE RESULT 0.95 mg/dL (0.52-1.25); GLUCOSE 100 mg/dL (75-110); POTASSIUM 4.8 mmol/L (3.6-5.0); SODIUM 141.1 mmol/L (137-145)
[2016-07-26] MEDS: CEFEPIME 1 GM/D5W RTU 1 GM/50 ML RTUPB IV SCH ×2 (05:54→17:46)
[2016-07-26] MEDS: ACETYLCYSTEINE 20% SOLN 800 MG/4 ML VIAL.NEB NEB SCH ×2 (08:07→20:55)
[2016-07-26] MEDS: IPRATROPIUM/ALBUTEROL 0.5-2.5 MG/3 ML AMPUL NEB SCH ×3 (08:07→20:54)
[2016-07-26] MEDS: TOBRAMYCIN SULFATE NEB 40 MG/ML 30 ML NEB SCH ×2 (08:07→20:55)
[2016-07-26] MEDS: ENOXAPARIN SODIUM INJ 40 MG/0.4 ML DISP.SYRIN SUBCUT SCH (09:03)
[2016-07-26] MEDS: GUAIFENESIN 600 MG TABLET.SA PO SCH ×2 (09:04→21:38)
[2016-07-26] MEDS: POLYETHYLENE GLYCOL 3350 POWDER 17 GM/1 PACKET PO SCH (09:04)
[2016-07-26] MEDS: DOCUSATE SODIUM 100 MG CAPSULE PO SCH ×2 (09:04→21:38)
[2016-07-26] MEDS: LEVOTHYROXINE SODIUM 0.05 MG TABLET PO SCH (09:04)
[2016-07-26] MEDS: BUDESONIDE/FORMOTEROL 160-4.5 MCG 60 PUFF/6 GM MDI IH SCH (09:07)
[2016-07-26] MEDS: CALCIUM CARBONATE 500 MG TAB.CHEW PO SCH ×4 (09:08→21:39)
--- NOTE | 2016-07-26 15:30 | PDOC PROGRESS REPORT ---
Subjective Progress Note for:: 07/26/16 Subjective:: coughed a lot but now quite productive Physical Exam Vital Signs: Temp Pulse Resp BP Pulse Ox 98.1 F 97 16 122/62 100 07/26/16 11:54 07/26/16 14:20 07/26/16 14:20 07/26/16 11:54 07/26/16 11:54 Intake & Output 07/25/16 07/26/16 07/27/16 06:59 06:59 06:59 Intake Total 1690 1330 750 Output Total 1 3 Balance 1690 1329 747 Weight 67.4 kg 68.2 kg General appearance: PRESENT: no acute distress, disheveled, thin, well-developed Head exam: PRESENT: atraumatic, normocephalic Eye exam: PRESENT: conjunctiva pale Mouth exam: PRESENT: moist, neck supple Neck exam: ABSENT: carotid bruit, JVD, lymphadenopathy, thyromegaly Respiratory exam: PRESENT: decreased breath sounds, prolonged expiratory phas, symmetrical Cardiovascular exam: PRESENT: RRR, +S1, +S2 Pulses: PRESENT: normal radial pulses GI/Abdominal exam: PRESENT: normal bowel sounds, soft. ABSENT: distended, guarding, mass, organolmegaly, rebound, tenderness Rectal exam: PRESENT: deferred Musculoskeletal exam: PRESENT: normal inspection Neurological exam: PRESENT: alert, awake Psychiatric exam: PRESENT: normal mood Skin exam: PRESENT: dry, warm Results Laboratory Results: 07/26/16 04:19 07/26/16 04:19 07/26/16 07/26/16 04:19 04:19 WBC 7.9 RBC 3.11 L Hgb 10.0 L Hct 29.2 L MCV 94 MCH 32.3 MCHC 34.4 RDW 14.7 H Plt Count 284 Seg Neutrophils % 57.6 Lymphocytes % 24.0 Monocytes % 12.5 Eosinophils % 5.5 Basophils % 0.4 Absolute Neutrophils 4.6 Absolute Lymphocytes 1.9 Absolute Monocytes 1.0 Absolute Eosinophils 0.4 Absolute Basophils 0.0 Sodium 141.1 Potassium 4.8 Chloride 105 Carbon Dioxide 29 Anion Gap 7 BUN 12 Creatinine 0.95 Est GFR ( Amer) > 60 Est GFR (Non-Af Amer) > 60 Glucose 100 Calcium 8.9 07/21/16 08:30 Sputum AFB Smear Concentration - Final 07/21/16 08:30 Sputum Acid Fast Bacilli Smear - Final Impressions: Chest X-Ray 07/25/16 00:00 IMPRESSION: Persistent infiltrate in the right upper lobe near the minor fissure, more dense than on 07/21/2016 chest films. Assessment & Plan - Diagnosis (1) Pneumonia Qualifiers: Pneumonia type: due to other aerobic Gram-negative bacteria Laterality : right Lung location: lower lobe of lung Qualified Code(s): J15.6 - Pneumonia due to other aerobic Gram-negative bacteria Is this a current diagnosis for this admission?: Yes (2) Pneumonia Qualifiers: Pneumonia type: aspiration pneumonia Lung location: unspecified part of lung Is this a current diagnosis for this admission?: Yes (3) SIRS (systemic inflammatory response syndrome) Is this a current diagnosis for this admission?: Yes (4) COPD (chronic obstructive pulmonary disease) Qualifiers: COPD type: emphysema Is this a current diagnosis for this admission?: Yes (5) GERD (gastroesophageal reflux disease) Qualifiers: Esophagitis presence: without esophagitis Qualified Code(s): K21.9 - Gastro-esophageal reflux disease without esophagitis Is this a current diagnosis for this admission?: Yes (6) Dysphagia, pharyngeal phase Is this a current diagnosis for this admission?: Yes
--- NOTE | 2016-07-26 16:06 | PDOC PROGRESS REPORT ---
Subjective Progress Note for:: 07/26/16 Subjective:: Patient is currently doing fair pulmonary start the patient on couple of new neb and also started on tobramycin's nebulizer Patient still have on and off cough but no fever no chest pain and no shortness of the breath Physical Exam Vital Signs: Temp Pulse Resp BP Pulse Ox 98.1 F 97 16 122/62 100 07/26/16 11:54 07/26/16 14:20 07/26/16 14:20 07/26/16 11:54 07/26/16 11:54 Intake & Output 07/25/16 07/26/16 07/27/16 06:59 06:59 06:59 Intake Total 1690 1330 750 Output Total 1 3 Balance 1690 1329 747 Weight 67.4 kg 68.2 kg General appearance: PRESENT: no acute distress, well-developed, well-nourished Head exam: PRESENT: atraumatic, normocephalic Eye exam: PRESENT: conjunctiva pink, EOMI, PERRLA. ABSENT: scleral icterus Ear exam: PRESENT: normal external ear exam Mouth exam: PRESENT: moist, tongue midline Neck exam: PRESENT: full ROM. ABSENT: carotid bruit, JVD, lymphadenopathy, thyromegaly Respiratory exam: PRESENT: clear to auscultation pita Cardiovascular exam: PRESENT: RRR. ABSENT: diastolic murmur, rubs, systolic murmur Pulses: PRESENT: normal dorsalis pedis pul, +2 pedal pulses bilateral Vascular exam: PRESENT: normal capillary refill GI/Abdominal exam: PRESENT: normal bowel sounds, soft. ABSENT: distended, guarding, mass, organolmegaly, rebound, tenderness Rectal exam: PRESENT: deferred Neurological exam: PRESENT: alert, awake, oriented to person, oriented to place , oriented to time, oriented to situation, CN II-XII grossly intact. ABSENT: motor sensory deficit Psychiatric exam: PRESENT: appropriate affect, normal mood. ABSENT: homicidal ideation, suicidal ideation Skin exam: PRESENT: dry, intact, warm. ABSENT: cyanosis, rash Results Laboratory Results: 07/26/16 04:19 07/26/16 04:19 07/26/16 07/26/16 04:19 04:19 WBC 7.9 RBC 3.11 L Hgb 10.0 L Hct 29.2 L MCV 94 MCH 32.3 MCHC 34.4 RDW 14.7 H Plt Count 284 Seg Neutrophils % 57.6 Lymphocytes % 24.0 Monocytes % 12.5 Eosinophils % 5.5 Basophils % 0.4 Absolute Neutrophils 4.6 Absolute Lymphocytes 1.9 Absolute Monocytes 1.0 Absolute Eosinophils 0.4 Absolute Basophils 0.0 Sodium 141.1 Potassium 4.8 Chloride 105 Carbon Dioxide 29 Anion Gap 7 BUN 12 Creatinine 0.95 Est GFR ( Amer) > 60 Est GFR (Non-Af Amer) > 60 Glucose 100 Calcium 8.9 07/21/16 08:30 Sputum AFB Smear Concentration - Final 07/21/16 08:30 Sputum Acid Fast Bacilli Smear - Final Impressions: Chest X-Ray 07/25/16 00:00 IMPRESSION: Persistent infiltrate in the right upper lobe near the minor fissure, more dense than on 07/21/2016 chest films. Assessment & Plan - Diagnosis (1) Pneumonia Qualifiers: Pneumonia type: due to other aerobic Gram-negative bacteria Laterality : right Lung location: lower lobe of lung Qualified Code(s): J15.6 - Pneumonia due to other aerobic Gram-negative bacteria Is this a current diagnosis for this admission?: YesPlan: Continues to IV antibiotic (2) Dysphagia, pharyngeal phase Is this a current diagnosis for this admission?: YesPlan: Currently stable (3) Hypertension Qualifiers: Hypertension type: essential hypertension Qualified Code(s): I10 - Essential (primary) hypertension Is this a current diagnosis for this admission?: YesPlan: stable (4) Hypoxia Is this a current diagnosis for this admission?: YesPlan: cont on o2 (5) Shortness of breath Is this a current diagnosis for this admission?: YesPlan: stable (6) COPD (chronic obstructive pulmonary disease) Qualifiers: COPD type: emphysema Is this a current diagnosis for this admission?: YesPlan: cont neb rx (7) GERD (gastroesophageal reflux disease) Qualifiers: Esophagitis presence: without esophagitis Qualified Code(s): K21.9 - Gastro-esophageal reflux disease without esophagitis Is this a current diagnosis for this admission?: YesPlan: cont curr med (8) Constipation Qualifiers: Constipation type: unspecified constipation type Qualified Code(s): K59.00 - Constipation, unspecified Is this a current diagnosis for this admission?: Yes - Time Time Spent with patient: 15-24 minutes Medications reviewed and adjusted accordingly: Yes Anticipated discharge: Home Within: Other - Inpatient Certification Medical Necessity: Need for IV Antibiotics 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
[2016-07-26] MEDS: SIMVASTATIN 10 MG TABLET PO SCH (21:39)
[2016-07-27 05:11] LABS: ANION GAP 9 (5-19); BLOOD UREA NITROGEN 17 mg/dL (7-20); CALCIUM 8.9 mg/dL (8.4-10.2); CARBON DIOXIDE 27 mmol/L (22-30); CHLORIDE 104 mmol/L (98-107); CREATININE RESULT 0.88 mg/dL (0.52-1.25); GLUCOSE 104 mg/dL (75-110); POTASSIUM 4.9 mmol/L (3.6-5.0); SODIUM 139.5 mmol/L (137-145)
[2016-07-27] MEDS: CEFEPIME 1 GM/D5W RTU 1 GM/50 ML RTUPB IV SCH ×2 (05:50→17:12)
[2016-07-27] MEDS: IPRATROPIUM/ALBUTEROL 0.5-2.5 MG/3 ML AMPUL NEB SCH ×3 (08:09→19:40)
[2016-07-27] MEDS: ACETYLCYSTEINE 20% SOLN 800 MG/4 ML VIAL.NEB NEB SCH ×2 (08:09→19:40)
[2016-07-27] MEDS: TOBRAMYCIN SULFATE NEB 40 MG/ML 30 ML NEB SCH ×2 (08:10→19:40)
[2016-07-27] MEDS: CALCIUM CARBONATE 500 MG TAB.CHEW PO SCH ×4 (09:40→21:15)
[2016-07-27] MEDS: LEVOTHYROXINE SODIUM 0.05 MG TABLET PO SCH (09:41)
[2016-07-27] MEDS: BENZONATATE 100 MG CAPSULE PO PRN ×2 (09:41→21:14)
[2016-07-27] MEDS: BUDESONIDE/FORMOTEROL 160-4.5 MCG 60 PUFF/6 GM MDI IH SCH (09:42)
[2016-07-27] MEDS: DOCUSATE SODIUM 100 MG CAPSULE PO SCH ×2 (09:42→21:14)
[2016-07-27] MEDS: GUAIFENESIN 600 MG TABLET.SA PO SCH ×2 (09:42→21:14)
[2016-07-27] MEDS: ENOXAPARIN SODIUM INJ 40 MG/0.4 ML DISP.SYRIN SUBCUT SCH (09:43)
[2016-07-27] MEDS: POLYETHYLENE GLYCOL 3350 POWDER 17 GM/1 PACKET PO SCH (09:49)
--- NOTE | 2016-07-27 11:39 | PDOC PROGRESS REPORT ---
Subjective Progress Note for:: 07/27/16 Subjective:: coughed a lot but now quite productive Physical Exam Vital Signs: Temp Pulse Resp BP Pulse Ox 97.5 F 102 H 20 140/56 H 97 07/27/16 07:58 07/27/16 08:08 07/27/16 08:08 07/27/16 07:58 07/27/16 08:08 Intake & Output 07/26/16 07/27/16 07/28/16 06:59 06:59 06:59 Intake Total 1330 2220 Output Total 1 5 Balance 1329 2215 Weight 68.2 kg 67.8 kg General appearance: PRESENT: no acute distress, cooperative, thin, well- developed Head exam: PRESENT: normocephalic Eye exam: PRESENT: conjunctiva pale, EOMI Mouth exam: PRESENT: neck supple, tongue midline Neck exam: ABSENT: carotid bruit, JVD, lymphadenopathy, thyromegaly Respiratory exam: PRESENT: decreased breath sounds, prolonged expiratory phas, rales, rhonchi, unlabored, other - Right anterior lateral and posterior chest wall Cardiovascular exam: PRESENT: RRR, +S1, +S2 Pulses: PRESENT: normal radial pulses GI/Abdominal exam: PRESENT: normal bowel sounds, soft. ABSENT: distended, guarding, mass, organolmegaly, rebound, tenderness Rectal exam: PRESENT: deferred Musculoskeletal exam: PRESENT: normal inspection Neurological exam: PRESENT: alert, awake Psychiatric exam: PRESENT: normal mood Skin exam: PRESENT: dry, warm Results Laboratory Results: 07/26/16 04:19 07/27/16 04:37 07/27/16 04:37 Sodium 139.5 Potassium 4.9 Chloride 104 Carbon Dioxide 27 Anion Gap 9 BUN 17 Creatinine 0.88 Est GFR ( Amer) > 60 Est GFR (Non-Af Amer) > 60 Glucose 104 Calcium 8.9 Impressions: Chest X-Ray 07/25/16 00:00 IMPRESSION: Persistent infiltrate in the right upper lobe near the minor fissure, more dense than on 07/21/2016 chest films. Assessment & Plan - Diagnosis (1) Pneumonia Qualifiers: Pneumonia type: due to other aerobic Gram-negative bacteria Laterality : right Lung location: lower lobe of lung Qualified Code(s): J15.6 - Pneumonia due to other aerobic Gram-negative bacteria Is this a current diagnosis for this admission?: Yes (2) Pneumonia Qualifiers: Pneumonia type: aspiration pneumonia Lung location: unspecified part of lung Is this a current diagnosis for this admission?: Yes (3) SIRS (systemic inflammatory response syndrome) Is this a current diagnosis for this admission?: No (4) COPD (chronic obstructive pulmonary disease) Qualifiers: COPD type: emphysema Is this a current diagnosis for this admission?: Yes (5) GERD (gastroesophageal reflux disease) Qualifiers: Esophagitis presence: without esophagitis Qualified Code(s): K21.9 - Gastro-esophageal reflux disease without esophagitis Is this a current diagnosis for this admission?: Yes (6) Dysphagia, pharyngeal phase Is this a current diagnosis for this admission?: Yes
--- NOTE | 2016-07-27 12:49 | PDOC PROGRESS REPORT ---
Subjective Progress Note for:: 07/27/16 Subjective:: Patient is currently doing fair patients does not want to take any blood pressure or any vital sign at nighttime and according to the patient every time they wake up he has a more coughing episodes and he cannot able to sleep Physical Exam Vital Signs: Temp Pulse Resp BP Pulse Ox 97.4 F 92 20 141/53 H 100 07/27/16 12:17 07/27/16 12:17 07/27/16 12:17 07/27/16 12:17 07/27/16 12:17 Intake & Output 07/26/16 07/27/16 07/28/16 06:59 06:59 06:59 Intake Total 1330 2220 Output Total 1 5 Balance 1329 2215 Weight 68.2 kg 67.8 kg General appearance: PRESENT: no acute distress, well-developed, well-nourished Head exam: PRESENT: atraumatic, normocephalic Eye exam: PRESENT: conjunctiva pink, EOMI, PERRLA. ABSENT: scleral icterus Ear exam: PRESENT: normal external ear exam Mouth exam: PRESENT: moist, tongue midline Neck exam: PRESENT: full ROM. ABSENT: carotid bruit, JVD, lymphadenopathy, thyromegaly Respiratory exam: PRESENT: clear to auscultation pita Cardiovascular exam: PRESENT: RRR. ABSENT: diastolic murmur, rubs, systolic murmur Pulses: PRESENT: normal dorsalis pedis pul, +2 pedal pulses bilateral Vascular exam: PRESENT: normal capillary refill GI/Abdominal exam: PRESENT: normal bowel sounds, soft. ABSENT: distended, guarding, mass, organolmegaly, rebound, tenderness Rectal exam: PRESENT: deferred Neurological exam: PRESENT: alert, awake, oriented to person, oriented to place , oriented to time, oriented to situation, CN II-XII grossly intact. ABSENT: motor sensory deficit Psychiatric exam: PRESENT: appropriate affect, normal mood. ABSENT: homicidal ideation, suicidal ideation Skin exam: PRESENT: dry, intact, warm. ABSENT: cyanosis, rash Results Laboratory Results: 07/26/16 04:19 07/27/16 04:37 07/27/16 04:37 Sodium 139.5 Potassium 4.9 Chloride 104 Carbon Dioxide 27 Anion Gap 9 BUN 17 Creatinine 0.88 Est GFR ( Amer) > 60 Est GFR (Non-Af Amer) > 60 Glucose 104 Calcium 8.9 Impressions: Chest X-Ray 07/25/16 00:00 IMPRESSION: Persistent infiltrate in the right upper lobe near the minor fissure, more dense than on 07/21/2016 chest films. Assessment & Plan - Diagnosis (1) Pneumonia Qualifiers: Pneumonia type: due to other aerobic Gram-negative bacteria Laterality : right Lung location: lower lobe of lung Qualified Code(s): J15.6 - Pneumonia due to other aerobic Gram-negative bacteria Is this a current diagnosis for this admission?: YesPlan: Continues to IV antibiotic (2) Dysphagia, pharyngeal phase Is this a current diagnosis for this admission?: YesPlan: Currently stable (3) Hypertension Qualifiers: Hypertension type: essential hypertension Qualified Code(s): I10 - Essential (primary) hypertension Is this a current diagnosis for this admission?: YesPlan: stable (4) Hypoxia Is this a current diagnosis for this admission?: YesPlan: cont on o2 (5) Shortness of breath Is this a current diagnosis for this admission?: Yes (6) COPD (chronic obstructive pulmonary disease) Qualifiers: COPD type: emphysema Is this a current diagnosis for this admission?: YesPlan: cont neb rx (7) GERD (gastroesophageal reflux disease) Qualifiers: Esophagitis presence: without esophagitis Qualified Code(s): K21.9 - Gastro-esophageal reflux disease without esophagitis Is this a current diagnosis for this admission?: YesPlan: cont curr med (8) Constipation Qualifiers: Constipation type: unspecified constipation type Qualified Code(s): K59.00 - Constipation, unspecified Is this a current diagnosis for this admission?: Yes - Time Time Spent with patient: 15-24 minutes Medications reviewed and adjusted accordingly: Yes Anticipated discharge: Home Within: Other - Inpatient Certification Medical Necessity: Need for IV Antibiotics 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
[2016-07-27] MEDS: SIMVASTATIN 10 MG TABLET PO SCH (21:14)
[2016-07-28] MEDS ORDERED: IPRATROPIUM/ALBUTEROL 0.5-2.5 MG/3 ML AMPUL NEB PRN (03:34)
[2016-07-28 05:29] LABS: ABSOLUTE EOSINOPHILS # (AUTO) 0.7 10^3/uL (0.0-0.6); ABSOLUTE LYMPHOCYTES (AUTO) 2.1 10^3/uL (0.5-4.7); ABSOLUTE MONOCYTES (AUTO) 1.1 10^3/uL (0.1-1.4); ABSOLUTE NEUT (AUTO) 5.7 10^3/uL (1.7-8.2); BASOPHILS % (AUTO) 0.4 % (0-2); HEMATOCRIT 33.4 % (37.9-51.0); HEMOGLOBIN 11.2 g/dL (13.5-17.0); HGB HCT DIFFERENCE 0.2; LYMPHOCYTES % (AUTO) 21.9 % (13-45); MEAN CORPUSCULAR HEMOGLOBIN 31.9 pg (27.0-33.4); MEAN CORPUSCULAR HGB CONC 33.6 g/dL (32.0-36.0); MEAN CORPUSCULAR VOLUME 95 fl (80-97); RED BLOOD COUNT 3.51 10^6/uL (4.35-5.55); RED CELL DISTRIBUTION WIDTH 14.8 % (11.5-14.0); SEGMENTED NEUTROPHILS % (AUTO) 59.7 % (42-78); WHITE BLOOD COUNT 9.6 10^3/uL (4.0-10.5)
[2016-07-28] MEDS: BENZONATATE 100 MG CAPSULE PO PRN ×2 (05:32→21:23)
[2016-07-28] MEDS: CEFEPIME 1 GM/D5W RTU 1 GM/50 ML RTUPB IV SCH ×2 (05:32→18:05)
[2016-07-28 05:43] LABS: BLOOD UREA NITROGEN 18 mg/dL (7-20); CALCIUM 9.7 mg/dL (8.4-10.2); CREATININE RESULT 0.91 mg/dL (0.52-1.25); GLUCOSE 108 mg/dL (75-110)
[2016-07-28 05:44] LABS: ANION GAP 8 (5-19); CARBON DIOXIDE 31 mmol/L (22-30); CHLORIDE 102 mmol/L (98-107); POTASSIUM 5.2 mmol/L (3.6-5.0); SODIUM 140.5 mmol/L (137-145)
[2016-07-28] MEDS: IPRATROPIUM/ALBUTEROL 0.5-2.5 MG/3 ML AMPUL NEB SCH ×3 (07:44→20:44)
[2016-07-28] MEDS: TOBRAMYCIN SULFATE NEB 40 MG/ML 30 ML NEB SCH ×2 (07:44→20:45)
[2016-07-28] MEDS: ACETYLCYSTEINE 20% SOLN 800 MG/4 ML VIAL.NEB NEB SCH ×2 (07:44→20:44)
[2016-07-28] MEDS: ENOXAPARIN SODIUM INJ 40 MG/0.4 ML DISP.SYRIN SUBCUT SCH (09:38)
[2016-07-28] MEDS: LEVOTHYROXINE SODIUM 0.05 MG TABLET PO SCH (09:39)
[2016-07-28] MEDS: DOCUSATE SODIUM 100 MG CAPSULE PO SCH ×2 (09:39→21:18)
[2016-07-28] MEDS: POLYETHYLENE GLYCOL 3350 POWDER 17 GM/1 PACKET PO SCH (09:39)
[2016-07-28] MEDS: GUAIFENESIN 600 MG TABLET.SA PO SCH ×2 (09:39→21:19)
[2016-07-28] MEDS: BUDESONIDE/FORMOTEROL 160-4.5 MCG 60 PUFF/6 GM MDI IH SCH (09:40)
[2016-07-28] MEDS: CALCIUM CARBONATE 500 MG TAB.CHEW PO SCH ×4 (09:41→21:18)
--- NOTE | 2016-07-28 12:01 | PDOC PROGRESS REPORT ---
Subjective Progress Note for:: 07/28/16 Subjective:: coughed a lot but now quite productive Physical Exam Vital Signs: Temp Pulse Resp BP Pulse Ox 98.0 F 97 22 H 112/62 100 07/28/16 11:54 07/28/16 11:54 07/28/16 11:54 07/28/16 11:54 07/28/16 11:54 Intake & Output 07/27/16 07/28/16 07/29/16 06:59 06:59 06:59 Intake Total 2220 1417 Output Total 5 Balance 2215 1417 Weight 67.8 kg 68.2 kg General appearance: PRESENT: no acute distress, cooperative, disheveled, hard of hearing, thin, well-developed Head exam: PRESENT: atraumatic, normocephalic Eye exam: PRESENT: conjunctiva pale, EOMI Mouth exam: PRESENT: dry mucosa, neck supple Neck exam: ABSENT: carotid bruit, JVD, lymphadenopathy, thyromegaly Respiratory exam: PRESENT: decreased breath sounds, prolonged expiratory phas, rhonchi, unlabored, wheezes Cardiovascular exam: PRESENT: RRR, +S1, +S2 Pulses: PRESENT: normal radial pulses GI/Abdominal exam: PRESENT: normal bowel sounds, soft. ABSENT: distended, guarding, mass, organolmegaly, rebound, tenderness Rectal exam: PRESENT: deferred Musculoskeletal exam: PRESENT: normal inspection Neurological exam: PRESENT: alert, awake Psychiatric exam: PRESENT: normal mood Skin exam: PRESENT: dry, warm Results Laboratory Results: 07/28/16 04:36 07/28/16 04:36 07/28/16 07/28/16 04:36 04:36 WBC 9.6 RBC 3.51 L Hgb 11.2 L Hct 33.4 L MCV 95 MCH 31.9 MCHC 33.6 RDW 14.8 H Plt Count 371 Seg Neutrophils % 59.7 Lymphocytes % 21.9 Monocytes % 11.0 Eosinophils % 7.0 H Basophils % 0.4 Absolute Neutrophils 5.7 Absolute Lymphocytes 2.1 Absolute Monocytes 1.1 Absolute Eosinophils 0.7 H Absolute Basophils 0.0 Sodium 140.5 Potassium 5.2 H Chloride 102 Carbon Dioxide 31 H Anion Gap 8 BUN 18 Creatinine 0.91 Est GFR ( Amer) > 60 Est GFR (Non-Af Amer) > 60 Glucose 108 Calcium 9.7 Impressions: Chest X-Ray 07/28/16 08:00 IMPRESSION: Minimal persistent right lower lobe airspace disease, similar compared to 07/25/2016 Assessment & Plan - Diagnosis (1) Pneumonia Qualifiers: Pneumonia type: due to other aerobic Gram-negative bacteria Laterality : right Lung location: lower lobe of lung Qualified Code(s): J15.6 - Pneumonia due to other aerobic Gram-negative bacteria Is this a current diagnosis for this admission?: Yes (2) Pneumonia Qualifiers: Pneumonia type: aspiration pneumonia Lung location: unspecified part of lung Is this a current diagnosis for this admission?: Yes (3) SIRS (systemic inflammatory response syndrome) Is this a current diagnosis for this admission?: No (4) COPD (chronic obstructive pulmonary disease) Qualifiers: COPD type: emphysema Is this a current diagnosis for this admission?: Yes (5) GERD (gastroesophageal reflux disease) Qualifiers: Esophagitis presence: without esophagitis Qualified Code(s): K21.9 - Gastro-esophageal reflux disease without esophagitis Is this a current diagnosis for this admission?: Yes (6) Dysphagia, pharyngeal phase Is this a current diagnosis for this admission?: Yes
--- NOTE | 2016-07-28 15:24 | PDOC PROGRESS REPORT ---
Subjective Progress Note for:: 07/28/16 Subjective:: Patient is currently doing fair still complaining for cough with some productive yellow discharge. Patient's chest x-ray is no change. No fever no chest pain. Patient seen by Dr. Adam and currently on tobramycin's nebulizer Physical Exam Vital Signs: Temp Pulse Resp BP Pulse Ox 98.0 F 115 H 16 112/62 96 07/28/16 11:54 07/28/16 14:15 07/28/16 14:15 07/28/16 11:54 07/28/16 14:15 Intake & Output 07/27/16 07/28/16 07/29/16 06:59 06:59 06:59 Intake Total 2220 1417 Output Total 5 Balance 2215 1417 Weight 67.8 kg 68.2 kg General appearance: PRESENT: no acute distress, well-developed, well-nourished Head exam: PRESENT: atraumatic, normocephalic Eye exam: PRESENT: conjunctiva pink, EOMI, PERRLA. ABSENT: scleral icterus Ear exam: PRESENT: normal external ear exam Mouth exam: PRESENT: moist, tongue midline Neck exam: PRESENT: full ROM. ABSENT: carotid bruit, JVD, lymphadenopathy, thyromegaly Respiratory exam: PRESENT: clear to auscultation pita Cardiovascular exam: PRESENT: RRR. ABSENT: diastolic murmur, rubs, systolic murmur Pulses: PRESENT: normal dorsalis pedis pul, +2 pedal pulses bilateral Vascular exam: PRESENT: normal capillary refill GI/Abdominal exam: PRESENT: normal bowel sounds, soft. ABSENT: distended, guarding, mass, organolmegaly, rebound, tenderness Rectal exam: PRESENT: deferred Neurological exam: PRESENT: alert, awake, oriented to person, oriented to place , oriented to time, oriented to situation, CN II-XII grossly intact. ABSENT: motor sensory deficit Psychiatric exam: PRESENT: appropriate affect, normal mood. ABSENT: homicidal ideation, suicidal ideation Skin exam: PRESENT: dry, intact, warm. ABSENT: cyanosis, rash Results Laboratory Results: 07/28/16 04:36 07/28/16 04:36 07/28/16 07/28/16 04:36 04:36 WBC 9.6 RBC 3.51 L Hgb 11.2 L Hct 33.4 L MCV 95 MCH 31.9 MCHC 33.6 RDW 14.8 H Plt Count 371 Seg Neutrophils % 59.7 Lymphocytes % 21.9 Monocytes % 11.0 Eosinophils % 7.0 H Basophils % 0.4 Absolute Neutrophils 5.7 Absolute Lymphocytes 2.1 Absolute Monocytes 1.1 Absolute Eosinophils 0.7 H Absolute Basophils 0.0 Sodium 140.5 Potassium 5.2 H Chloride 102 Carbon Dioxide 31 H Anion Gap 8 BUN 18 Creatinine 0.91 Est GFR ( Amer) > 60 Est GFR (Non-Af Amer) > 60 Glucose 108 Calcium 9.7 Impressions: Chest X-Ray 07/28/16 08:00 IMPRESSION: Minimal persistent right lower lobe airspace disease, similar compared to 07/25/2016 Assessment & Plan - Diagnosis (1) Pneumonia Qualifiers: Pneumonia type: due to other aerobic Gram-negative bacteria Laterality : right Lung location: lower lobe of lung Qualified Code(s): J15.6 - Pneumonia due to other aerobic Gram-negative bacteria Is this a current diagnosis for this admission?: YesPlan: Continues to IV antibiotic (2) Dysphagia, pharyngeal phase Is this a current diagnosis for this admission?: YesPlan: Currently stable (3) Hypertension Qualifiers: Hypertension type: essential hypertension Qualified Code(s): I10 - Essential (primary) hypertension Is this a current diagnosis for this admission?: YesPlan: stable (4) Hypoxia Is this a current diagnosis for this admission?: Yes (5) Shortness of breath Is this a current diagnosis for this admission?: Yes (6) COPD (chronic obstructive pulmonary disease) Qualifiers: COPD type: emphysema Is this a current diagnosis for this admission?: Yes (7) GERD (gastroesophageal reflux disease) Qualifiers: Esophagitis presence: without esophagitis Qualified Code(s): K21.9 - Gastro-esophageal reflux disease without esophagitis Is this a current diagnosis for this admission?: Yes (8) Constipation Qualifiers: Constipation type: unspecified constipation type Qualified Code(s): K59.00 - Constipation, unspecified Is this a current diagnosis for this admission?: Yes - Time Time Spent with patient: Less than 15 minutes Medications reviewed and adjusted accordingly: Yes Anticipated discharge: Home Within: Other - Inpatient Certification Medical Necessity: Need Close Monitoring Due to Risk of Patient Decompensation, Need for IV Antibiotics 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
[2016-07-28] MEDS: SIMVASTATIN 10 MG TABLET PO SCH (21:18)
[2016-07-29 05:04] LABS: HEMATOCRIT 31.5 % (37.9-51.0); HEMOGLOBIN 10.8 g/dL (13.5-17.0); HGB HCT DIFFERENCE 0.9; MEAN CORPUSCULAR HEMOGLOBIN 32.1 pg (27.0-33.4); MEAN CORPUSCULAR HGB CONC 34.2 g/dL (32.0-36.0); MEAN CORPUSCULAR VOLUME 94 fl (80-97); RED BLOOD COUNT 3.36 10^6/uL (4.35-5.55); RED CELL DISTRIBUTION WIDTH 14.4 % (11.5-14.0); WHITE BLOOD COUNT 8.7 10^3/uL (4.0-10.5)
[2016-07-29 05:21] LABS: ANION GAP 12 (5-19); BLOOD UREA NITROGEN 26 mg/dL (7-20); CALCIUM 9.9 mg/dL (8.4-10.2); CARBON DIOXIDE 29 mmol/L (22-30); CHLORIDE 100 mmol/L (98-107); CREATININE RESULT 0.91 mg/dL (0.52-1.25); GLUCOSE 104 mg/dL (75-110); POTASSIUM 5.7 mmol/L (3.6-5.0); SODIUM 140.8 mmol/L (137-145)
[2016-07-29 05:28] LABS: BAND NEUTROPHILS % (MANUAL) 1 % (3-5); BASOPHILS % (MANUAL) 0 % (0-2); EOSINOPHILS % (MANUAL) 5 % (0-6); LYMPHOCYTES % (MANUAL) 17 % (13-45); TOTAL CELLS COUNTED 100
[2016-07-29 05:31] LABS: ANISOCYTOSIS SLIGHT
[2016-07-29] MEDS: CEFEPIME 1 GM/D5W RTU 1 GM/50 ML RTUPB IV SCH ×2 (06:45→17:50)
[2016-07-29] MEDS: ENOXAPARIN SODIUM INJ 40 MG/0.4 ML DISP.SYRIN SUBCUT SCH (07:40)
[2016-07-29] MEDS: CALCIUM CARBONATE 500 MG TAB.CHEW PO SCH ×4 (07:47→21:12)
[2016-07-29] MEDS ORDERED: SODIUM POLYSTYRENE SULFONATE 15 GM/60 ML PO ONE (08:00)
[2016-07-29] MEDS: IPRATROPIUM/ALBUTEROL 0.5-2.5 MG/3 ML AMPUL NEB SCH ×3 (08:50→19:59)
[2016-07-29] MEDS: ACETYLCYSTEINE 20% SOLN 800 MG/4 ML VIAL.NEB NEB SCH ×2 (08:50→19:59)
[2016-07-29] MEDS: TOBRAMYCIN SULFATE NEB 40 MG/ML 30 ML NEB SCH ×2 (08:51→19:59)
[2016-07-29] MEDS: DOCUSATE SODIUM 100 MG CAPSULE PO SCH ×2 (10:13→21:12)
[2016-07-29] MEDS: GUAIFENESIN 600 MG TABLET.SA PO SCH ×2 (10:13→21:12)
[2016-07-29] MEDS: POLYETHYLENE GLYCOL 3350 POWDER 17 GM/1 PACKET PO SCH (10:14)
[2016-07-29] MEDS: LEVOTHYROXINE SODIUM 0.05 MG TABLET PO SCH (10:14)
[2016-07-29] MEDS: BUDESONIDE/FORMOTEROL 160-4.5 MCG 60 PUFF/6 GM MDI IH SCH (10:14)
--- NOTE | 2016-07-29 13:01 | PDOC PROGRESS REPORT ---
Subjective Progress Note for:: 07/29/16 Subjective:: Patient is currently doing fair still have on and off cough with some productive sputum. Patient's denied any fever denied any chest pain denied any shortness of the breath. Patient's potassium is 5.7 Physical Exam Vital Signs: Temp Pulse Resp BP Pulse Ox 98.1 F 115 H 20 119/64 100 07/29/16 11:14 07/29/16 11:14 07/29/16 11:14 07/29/16 11:14 07/29/16 11:14 Intake & Output 07/28/16 07/29/16 07/30/16 06:59 06:59 06:59 Intake Total 1417 1242 Balance 1417 1242 Weight 68.2 kg 69.2 kg General appearance: PRESENT: no acute distress, well-developed, well-nourished Head exam: PRESENT: atraumatic, normocephalic Eye exam: PRESENT: conjunctiva pink, EOMI, PERRLA. ABSENT: scleral icterus Ear exam: PRESENT: normal external ear exam Mouth exam: PRESENT: moist, tongue midline Neck exam: PRESENT: full ROM. ABSENT: carotid bruit, JVD, lymphadenopathy, thyromegaly Respiratory exam: PRESENT: clear to auscultation pita Cardiovascular exam: PRESENT: RRR. ABSENT: diastolic murmur, rubs, systolic murmur Pulses: PRESENT: normal dorsalis pedis pul, +2 pedal pulses bilateral Vascular exam: PRESENT: normal capillary refill GI/Abdominal exam: PRESENT: normal bowel sounds, soft. ABSENT: distended, guarding, mass, organolmegaly, rebound, tenderness Rectal exam: PRESENT: deferred Neurological exam: PRESENT: alert, awake, oriented to person, oriented to place , oriented to time, oriented to situation, CN II-XII grossly intact. ABSENT: motor sensory deficit Psychiatric exam: PRESENT: appropriate affect, normal mood. ABSENT: homicidal ideation, suicidal ideation Skin exam: PRESENT: dry, intact, warm. ABSENT: cyanosis, rash Results Laboratory Results: 07/29/16 04:24 07/29/16 04:24 07/29/16 07/29/16 04:24 04:24 WBC 8.7 RBC 3.36 L Hgb 10.8 L Hct 31.5 L MCV 94 MCH 32.1 MCHC 34.2 RDW 14.4 H Plt Count 365 Seg Neutrophils % Not Reportable Lymphocytes % Not Reportable Monocytes % Not Reportable Eosinophils % Not Reportable Basophils % Not Reportable Absolute Neutrophils Not Reportable Absolute Lymphocytes Not Reportable Absolute Monocytes Not Reportable Absolute Eosinophils Not Reportable Absolute Basophils Not Reportable Sodium 140.8 Potassium 5.7 H Chloride 100 Carbon Dioxide 29 Anion Gap 12 BUN 26 H Creatinine 0.91 Est GFR ( Amer) > 60 Est GFR (Non-Af Amer) > 60 Glucose 104 Calcium 9.9 Impressions: Chest X-Ray 07/28/16 08:00 IMPRESSION: Minimal persistent right lower lobe airspace disease, similar compared to 07/25/2016 Assessment & Plan - Diagnosis (1) Pneumonia Qualifiers: Pneumonia type: due to other aerobic Gram-negative bacteria Laterality : right Lung location: lower lobe of lung Qualified Code(s): J15.6 - Pneumonia due to other aerobic Gram-negative bacteria Is this a current diagnosis for this admission?: YesPlan: Continues to IV antibiotic and the tobramycin nebulizer (2) Dysphagia, pharyngeal phase Is this a current diagnosis for this admission?: YesPlan: Currently stable (3) Hypertension Qualifiers: Hypertension type: essential hypertension Qualified Code(s): I10 - Essential (primary) hypertension Is this a current diagnosis for this admission?: YesPlan: stable (4) Hypoxia Is this a current diagnosis for this admission?: YesPlan: cont on o2 (5) Shortness of breath Is this a current diagnosis for this admission?: Yes (6) COPD (chronic obstructive pulmonary disease) Qualifiers: COPD type: emphysema Is this a current diagnosis for this admission?: YesPlan: cont neb rx (7) GERD (gastroesophageal reflux disease) Qualifiers: Esophagitis presence: without esophagitis Qualified Code(s): K21.9 - Gastro-esophageal reflux disease without esophagitis Is this a current diagnosis for this admission?: Yes (8) Constipation Qualifiers: Constipation type: unspecified constipation type Qualified Code(s): K59.00 - Constipation, unspecified Is this a current diagnosis for this admission?: Yes (9) Hyperkalemia Is this a current diagnosis for this admission?: YesPlan: Chaves Kayexalate 1 and a low potassium diet discussed with the nursing staff and the patient and the repeat the potassium in the morning - Time Time Spent with patient: 15-24 minutes Medications reviewed and adjusted accordingly: Yes Anticipated discharge: Home Within: within 48 hours - Inpatient Certification Medical Necessity: Need for IV Antibiotics Post Hospital Care: D/C [facility] Documentation - Plan Summary Plan Summary: Continues to IV antibiotic and the nebulizer treatment cutting the potassiums. Patient is going to stay in the weekend and potential discharge on a p.o. antibiotic and a Monday
[2016-07-29 16:00] LABS: ANION GAP 9 (5-19); BLOOD UREA NITROGEN 28 mg/dL (7-20); CALCIUM 9.3 mg/dL (8.4-10.2); CARBON DIOXIDE 34 mmol/L (22-30); CHLORIDE 96 mmol/L (98-107); CREATININE RESULT 0.94 mg/dL (0.52-1.25); GLUCOSE 101 mg/dL (75-110); SODIUM 139.3 mmol/L (137-145)
[2016-07-29] MEDS: SIMVASTATIN 10 MG TABLET PO SCH (21:12)
[2016-07-29] MEDS: BENZONATATE 100 MG CAPSULE PO PRN (21:12)
[2016-07-30 04:39] LABS: HEMATOCRIT 31.2 % (37.9-51.0); HEMOGLOBIN 10.6 g/dL (13.5-17.0); HGB HCT DIFFERENCE 0.6; MEAN CORPUSCULAR HEMOGLOBIN 31.8 pg (27.0-33.4); MEAN CORPUSCULAR VOLUME 94 fl (80-97); RED BLOOD COUNT 3.33 10^6/uL (4.35-5.55); RED CELL DISTRIBUTION WIDTH 14.4 % (11.5-14.0); WHITE BLOOD COUNT 10.3 10^3/uL (4.0-10.5)
[2016-07-30 04:59] LABS: ANION GAP 10 (5-19); BLOOD UREA NITROGEN 27 mg/dL (7-20); CALCIUM 9.4 mg/dL (8.4-10.2); CARBON DIOXIDE 29 mmol/L (22-30); CHLORIDE 100 mmol/L (98-107); CREATININE RESULT 1.01 mg/dL (0.52-1.25); GLUCOSE 98 mg/dL (75-110); POTASSIUM 5.5 mmol/L (3.6-5.0); SODIUM 138.8 mmol/L (137-145)
[2016-07-30 05:14] LABS: BASOPHILS % (MANUAL) 0 % (0-2); EOSINOPHILS % (MANUAL) 6 % (0-6); LYMPHOCYTES % (MANUAL) 14 % (13-45); TOTAL CELLS COUNTED 100
[2016-07-30 05:18] LABS: RBC MORPHOLOGY COMMENT NORMO-CYTIC/CHROMIC
[2016-07-30] MEDS: CEFEPIME 1 GM/D5W RTU 1 GM/50 ML RTUPB IV SCH ×2 (05:59→18:42)
[2016-07-30] MEDS: TOBRAMYCIN SULFATE NEB 40 MG/ML 30 ML NEB SCH ×2 (08:01→20:09)
[2016-07-30] MEDS: ACETYLCYSTEINE 20% SOLN 800 MG/4 ML VIAL.NEB NEB SCH ×2 (08:01→20:08)
[2016-07-30] MEDS: IPRATROPIUM/ALBUTEROL 0.5-2.5 MG/3 ML AMPUL NEB SCH ×3 (08:01→20:08)
[2016-07-30] MEDS: POLYETHYLENE GLYCOL 3350 POWDER 17 GM/1 PACKET PO SCH (09:14)
[2016-07-30] MEDS: CALCIUM CARBONATE 500 MG TAB.CHEW PO SCH ×4 (09:14→22:34)
[2016-07-30] MEDS: BUDESONIDE/FORMOTEROL 160-4.5 MCG 60 PUFF/6 GM MDI IH SCH (09:14)
[2016-07-30] MEDS: DOCUSATE SODIUM 100 MG CAPSULE PO SCH ×2 (09:15→22:32)
[2016-07-30] MEDS: ENOXAPARIN SODIUM INJ 40 MG/0.4 ML DISP.SYRIN SUBCUT SCH (09:15)
[2016-07-30] MEDS: GUAIFENESIN 600 MG TABLET.SA PO SCH ×2 (09:15→22:32)
[2016-07-30] MEDS: LEVOTHYROXINE SODIUM 0.05 MG TABLET PO SCH (09:15)
--- NOTE | 2016-07-30 09:46 | PDOC PROGRESS REPORT ---
Subjective Progress Note for:: 07/29/16 Subjective:: a lot better Physical Exam Vital Signs: Temp Pulse Resp BP Pulse Ox 97.6 F 89 18 126/58 H 98 07/29/16 23:20 07/30/16 08:04 07/30/16 08:04 07/29/16 23:20 07/30/16 08:04 Intake & Output 07/29/16 07/30/16 07/31/16 06:59 06:59 06:59 Intake Total 1242 1269 Balance 1242 1269 Weight 69.2 kg 70.2 kg General appearance: PRESENT: no acute distress, disheveled, thin, well-developed Head exam: PRESENT: atraumatic, normocephalic Eye exam: PRESENT: conjunctiva pale, EOMI Mouth exam: PRESENT: dry mucosa, neck supple Neck exam: PRESENT: carotid bruit Respiratory exam: PRESENT: decreased breath sounds, prolonged expiratory phas, rhonchi, symmetrical, unlabored, wheezes Cardiovascular exam: PRESENT: RRR, +S1, +S2 Pulses: PRESENT: normal radial pulses GI/Abdominal exam: PRESENT: normal bowel sounds, soft. ABSENT: distended, guarding, mass, organolmegaly, rebound, tenderness Rectal exam: PRESENT: deferred Gentrourinary exam: PRESENT: indwelling catheter Musculoskeletal exam: PRESENT: normal inspection Neurological exam: PRESENT: alert, awake Psychiatric exam: PRESENT: normal mood Skin exam: PRESENT: dry, warm Results Laboratory Results: 07/30/16 04:18 07/30/16 04:18 07/29/16 07/30/16 07/30/16 15:25 04:18 04:18 WBC 10.3 RBC 3.33 L Hgb 10.6 L Hct 31.2 L MCV 94 MCH 31.8 MCHC 34.0 RDW 14.4 H Plt Count 365 Seg Neutrophils % Not Reportable Lymphocytes % Not Reportable Monocytes % Not Reportable Eosinophils % Not Reportable Basophils % Not Reportable Absolute Neutrophils Not Reportable Absolute Lymphocytes Not Reportable Absolute Monocytes Not Reportable Absolute Eosinophils Not Reportable Absolute Basophils Not Reportable Sodium 139.3 138.8 Potassium 5.0 5.5 H Chloride 96 L 100 Carbon Dioxide 34 H 29 Anion Gap 9 10 BUN 28 H 27 H Creatinine 0.94 1.01 Est GFR ( Amer) > 60 > 60 Est GFR (Non-Af Amer) > 60 > 60 Glucose 101 98 Calcium 9.3 9.4 Impressions: Chest X-Ray 07/28/16 08:00 IMPRESSION: Minimal persistent right lower lobe airspace disease, similar compared to 07/25/2016 Assessment & Plan - Diagnosis (1) Pneumonia Qualifiers: Pneumonia type: due to other aerobic Gram-negative bacteria Laterality : right Lung location: lower lobe of lung Qualified Code(s): J15.6 - Pneumonia due to other aerobic Gram-negative bacteria Is this a current diagnosis for this admission?: Yes (2) Pneumonia Qualifiers: Pneumonia type: aspiration pneumonia Lung location: unspecified part of lung Is this a current diagnosis for this admission?: Yes (3) SIRS (systemic inflammatory response syndrome) Is this a current diagnosis for this admission?: No (4) COPD (chronic obstructive pulmonary disease) Qualifiers: COPD type: emphysema Is this a current diagnosis for this admission?: Yes (5) GERD (gastroesophageal reflux disease) Qualifiers: Esophagitis presence: without esophagitis Qualified Code(s): K21.9 - Gastro-esophageal reflux disease without esophagitis Is this a current diagnosis for this admission?: Yes (6) Dysphagia, pharyngeal phase Is this a current diagnosis for this admission?: Yes
--- NOTE | 2016-07-30 13:40 | PDOC PROGRESS REPORT ---
Subjective Progress Note for:: 07/30/16 Subjective:: Patient seen by the bedside, admitted for pneumonia Physical Exam Vital Signs: Temp Pulse Resp BP Pulse Ox 97.6 F 89 18 126/58 H 98 07/29/16 23:20 07/30/16 08:04 07/30/16 08:04 07/29/16 23:20 07/30/16 08:04 Intake & Output 07/29/16 07/30/16 07/31/16 06:59 06:59 06:59 Intake Total 1242 1269 Balance 1242 1269 Weight 69.2 kg 70.2 kg General appearance: PRESENT: no acute distress Eye exam: PRESENT: PERRLA Respiratory exam: PRESENT: clear to auscultation pita Cardiovascular exam: PRESENT: +S1, +S2 Neurological exam: PRESENT: alert, CN II-XII grossly intact Results Laboratory Results: 07/30/16 04:18 07/30/16 04:18 07/29/16 07/30/16 07/30/16 15:25 04:18 04:18 WBC 10.3 RBC 3.33 L Hgb 10.6 L Hct 31.2 L MCV 94 MCH 31.8 MCHC 34.0 RDW 14.4 H Plt Count 365 Seg Neutrophils % Not Reportable Lymphocytes % Not Reportable Monocytes % Not Reportable Eosinophils % Not Reportable Basophils % Not Reportable Absolute Neutrophils Not Reportable Absolute Lymphocytes Not Reportable Absolute Monocytes Not Reportable Absolute Eosinophils Not Reportable Absolute Basophils Not Reportable Sodium 139.3 138.8 Potassium 5.0 5.5 H Chloride 96 L 100 Carbon Dioxide 34 H 29 Anion Gap 9 10 BUN 28 H 27 H Creatinine 0.94 1.01 Est GFR ( Amer) > 60 > 60 Est GFR (Non-Af Amer) > 60 > 60 Glucose 101 98 Calcium 9.3 9.4 Impressions: Chest X-Ray 07/28/16 08:00 IMPRESSION: Minimal persistent right lower lobe airspace disease, similar compared to 07/25/2016 Assessment & Plan - Diagnosis (1) Pneumonia Qualifiers: Pneumonia type: due to other aerobic Gram-negative bacteria Laterality : right Lung location: lower lobe of lung Qualified Code(s): J15.6 - Pneumonia due to other aerobic Gram-negative bacteria Is this a current diagnosis for this admission?: YesPlan: Continue treatment (2) Hyperkalemia Is this a current diagnosis for this admission?: Yes
[2016-07-30] MEDS: SIMVASTATIN 10 MG TABLET PO SCH (22:32)
[2016-07-30] MEDS: BENZONATATE 100 MG CAPSULE PO PRN (22:34)
[2016-07-31] MEDS: CEFEPIME 1 GM/D5W RTU 1 GM/50 ML RTUPB IV SCH ×2 (06:03→17:02)
[2016-07-31] MEDS: IPRATROPIUM/ALBUTEROL 0.5-2.5 MG/3 ML AMPUL NEB SCH ×3 (07:47→20:04)
[2016-07-31] MEDS: TOBRAMYCIN SULFATE NEB 40 MG/ML 30 ML NEB SCH ×2 (07:47→20:04)
[2016-07-31] MEDS: ACETYLCYSTEINE 20% SOLN 800 MG/4 ML VIAL.NEB NEB SCH ×2 (07:47→20:04)
[2016-07-31] MEDS: ENOXAPARIN SODIUM INJ 40 MG/0.4 ML DISP.SYRIN SUBCUT SCH (10:10)
[2016-07-31] MEDS: POLYETHYLENE GLYCOL 3350 POWDER 17 GM/1 PACKET PO SCH (10:10)
[2016-07-31] MEDS: BUDESONIDE/FORMOTEROL 160-4.5 MCG 60 PUFF/6 GM MDI IH SCH (10:11)
[2016-07-31] MEDS: CALCIUM CARBONATE 500 MG TAB.CHEW PO SCH ×4 (10:11→22:07)
[2016-07-31] MEDS: LEVOTHYROXINE SODIUM 0.05 MG TABLET PO SCH (10:12)
[2016-07-31] MEDS: GUAIFENESIN 600 MG TABLET.SA PO SCH ×2 (10:12→22:01)
[2016-07-31] MEDS: DOCUSATE SODIUM 100 MG CAPSULE PO SCH ×2 (10:12→22:02)
[2016-07-31] MEDS ORDERED: CALCIUM CARBONATE 500 MG TAB.CHEW PO PRN (14:08)
--- NOTE | 2016-07-31 15:56 | PDOC PROGRESS REPORT ---
Subjective Progress Note for:: 07/31/16 Subjective:: There is no new complaints Physical Exam Vital Signs: Temp Pulse Resp BP Pulse Ox 98.1 F 93 17 102/58 L 98 07/31/16 11:43 07/31/16 11:43 07/31/16 11:43 07/31/16 11:43 07/31/16 11:43 Intake & Output 07/30/16 07/31/16 08/01/16 06:59 06:59 06:59 Intake Total 1269 1180 Balance 1269 1180 Weight 70.2 kg 67.5 kg General appearance: PRESENT: no acute distress Eye exam: PRESENT: PERRLA Respiratory exam: PRESENT: wheezes Cardiovascular exam: PRESENT: +S1, +S2 GI/Abdominal exam: PRESENT: soft Neurological exam: PRESENT: alert Results Laboratory Results: 07/30/16 04:18 07/30/16 04:18 Impressions: Chest X-Ray 07/28/16 08:00 IMPRESSION: Minimal persistent right lower lobe airspace disease, similar compared to 07/25/2016 Assessment & Plan - Diagnosis (1) Pneumonia Qualifiers: Pneumonia type: due to other aerobic Gram-negative bacteria Laterality : right Lung location: lower lobe of lung Qualified Code(s): J15.6 - Pneumonia due to other aerobic Gram-negative bacteria Is this a current diagnosis for this admission?: YesPlan: Continue the antibiotic (2) Hyperkalemia Is this a current diagnosis for this admission?: Yes
[2016-07-31] MEDS: SIMVASTATIN 10 MG TABLET PO SCH (22:02)
[2016-07-31] MEDS: BENZONATATE 100 MG CAPSULE PO PRN (22:06)
[2016-08-01] MEDS: CEFEPIME 1 GM/D5W RTU 1 GM/50 ML RTUPB IV SCH ×2 (05:35→17:23)
[2016-08-01 08:50] LABS: ANION GAP 9 (5-19); BLOOD UREA NITROGEN 20 mg/dL (7-20); CALCIUM 8.8 mg/dL (8.4-10.2); CARBON DIOXIDE 28 mmol/L (22-30); CHLORIDE 99 mmol/L (98-107); CREATININE RESULT 0.93 mg/dL (0.52-1.25); GLUCOSE 98 mg/dL (75-110); POTASSIUM 5.3 mmol/L (3.6-5.0); SODIUM 136.4 mmol/L (137-145)
[2016-08-01] MEDS: IPRATROPIUM/ALBUTEROL 0.5-2.5 MG/3 ML AMPUL NEB SCH ×3 (08:53→20:18)
[2016-08-01] MEDS: ACETYLCYSTEINE 20% SOLN 800 MG/4 ML VIAL.NEB NEB SCH ×2 (08:58→20:18)
[2016-08-01] MEDS: TOBRAMYCIN SULFATE NEB 40 MG/ML 30 ML NEB SCH (08:58)
[2016-08-01] MEDS: CALCIUM CARBONATE 500 MG TAB.CHEW PO SCH ×4 (09:07→22:17)
[2016-08-01] MEDS: ENOXAPARIN SODIUM INJ 40 MG/0.4 ML DISP.SYRIN SUBCUT SCH (09:09)
[2016-08-01] MEDS: LEVOTHYROXINE SODIUM 0.05 MG TABLET PO SCH (09:10)
[2016-08-01] MEDS: GUAIFENESIN 600 MG TABLET.SA PO SCH ×2 (09:10→22:15)
[2016-08-01] MEDS: POLYETHYLENE GLYCOL 3350 POWDER 17 GM/1 PACKET PO SCH (09:10)
[2016-08-01] MEDS: BUDESONIDE/FORMOTEROL 160-4.5 MCG 60 PUFF/6 GM MDI IH SCH (09:11)
[2016-08-01] MEDS: DOCUSATE SODIUM 100 MG CAPSULE PO SCH ×2 (09:11→22:15)
--- NOTE | 2016-08-01 10:44 | PDOC DISCHARGE SUMMARY ---
General - Admit/Disc Date/PCP Admission Date/Primary Care Provider: 07/18/16 19:24 VINCENT LAZCANO MD Discharge Date: 08/01/16 - Discharge Diagnosis (1) Pneumonia Is this a current diagnosis for this admission?: YesSummary: Start the patient on the p.o. Levaquin for 10 days and continues to current inhaler and the nebulizer treatment at home's. Patient's finished more than 10 days of IV antibiotic and tobramycin's nebulizer. (2) Dysphagia, pharyngeal phase Is this a current diagnosis for this admission?: YesSummary: Currently all stable discussed with the aspirations precautions (3) Hypertension Is this a current diagnosis for this admission?: YesSummary: Currently all stable (4) Hypoxia Is this a current diagnosis for this admission?: YesSummary: Recent used to oxygen at home and follow with the pulmonary (5) Shortness of breath Is this a current diagnosis for this admission?: YesSummary: From the acute bronchitis and pneumonia is all resolving (6) COPD (chronic obstructive pulmonary disease) Is this a current diagnosis for this admission?: YesSummary: Continues to nebulizer treatment at home and currently stable (7) GERD (gastroesophageal reflux disease) Is this a current diagnosis for this admission?: YesSummary: Currently stable (8) Constipation Is this a current diagnosis for this admission?: YesSummary: Use of MiraLAX as needed (9) Hyperkalemia Is this a current diagnosis for this admission?: YesSummary: Low potassium diet and repeat the potassiums in the office - Additional Information Resuscitation Status: Full Code Discharge Activity: Activity As Tolerated Home Medications: Albuterol Sulfate [Ventolin HFA MDI 18 GM] 2 puff IH Q4HP PRN 07/19/16 Aspirin [Ecotrin 81 mg EC Tablet] 81 mg PO DAILY 07/19/16 Bacitracin Zinc [Bacitracin Oint 15 gm] 1 applic TOP DAILY 07/19/16 Budesonide/Formoterol Fumarate [Symbicort HFA 160-4.5 mcg Inhaler 6 gm] 2 puff IH BID 07/19/16 Esomeprazole Mag Trihydrate [Nexium] 40 mg PO DAILY 07/19/16 Fluticasone Propionate [Flonase Nasal Alpine 50 Mcg/Alpine 16 gm] 1 spray NASL BID 07/19/16 Guaifenesin [Mucinex] 600 mg PO Q12 07/19/16 Ipratropium/Albuterol Sulfate [Duoneb 3 ml Ampul] 3 ml NEB RTQID 07/19/16 Levothyroxine Sodium [Synthroid] 50 mcg PO DAILY 07/19/16 Simvastatin [Zocor 20 mg Tablet] 20 mg PO DAILY 07/19/16 Tiotropium [place] [Spiriva Handihaler 5 Cap/Kit (18 Mcg/Cap)] 1 cap IH DAILY Levofloxacin [Levaquin 500 mg Tablet] 500 mg PO DAILY #10 tablet 08/01/16 History of Present Illness History of Present Illness: NIMISHA BRUMFIELD is a 81 year old male This is a 81-year-old male with a significant history of the COPD emphysema recurrent aspirations pneumonia went to the doctor Adam's office and the patient's blood count was elevated to 15,000 and patient's chest x-rays of the worsening of the pneumonia and decided to the sent to the hospital and patient was admitted in the telemetry bed for this recurrent aspirations pneumonia. Patient is currently doing fair denied any chest pain denied any shortness of the breath.Patient's still have a productive cough with a yellowish sputum discharge Hospital Course Hospital Course: This is a 81-year-old male admitted for the pneumonia most likely aspirations present was treated with IV antibiotic and Dr. Adam the pulmonary was consulted and the patient's otherwise remained stable throughout the hospitalizations. Patient is having no more fever patient's white count is also normal and patient's chest x-ray is also improving. Patient's to walk in the hallway without any problem and patient's p.o. intake is good. Discussed with the patient and the about all the patient's current conditions and discussed with the pulmonary and suggest the discharge with the p.o. antibiotic and continues to nebulizer and follow as outpatients Discuss about the patient with aspirations precautions patient already have a speech evaluations done and patient have a speech therapy done in outpatients Physical Exam Vital Signs: Temp Pulse Resp BP Pulse Ox 97.6 F 101 H 19 137/57 H 98 08/01/16 08:04 08/01/16 08:04 08/01/16 08:04 08/01/16 08:04 08/01/16 08:04 Intake & Output 07/31/16 08/01/16 08/02/16 06:59 06:59 06:59 Intake Total 1180 1133 Balance 1180 1133 Weight 67.5 kg 68.3 kg General appearance: PRESENT: no acute distress, well-developed, well-nourished Head exam: PRESENT: atraumatic, normocephalic Eye exam: PRESENT: conjunctiva pink, EOMI, PERRLA. ABSENT: scleral icterus Ear exam: PRESENT: normal external ear exam Mouth exam: PRESENT: moist, tongue midline Neck exam: PRESENT: full ROM. ABSENT: carotid bruit, JVD, lymphadenopathy, thyromegaly Respiratory exam: PRESENT: clear to auscultation pita Cardiovascular exam: PRESENT: RRR. ABSENT: diastolic murmur, rubs, systolic murmur Pulses: PRESENT: normal dorsalis pedis pul, +2 pedal pulses bilateral Vascular exam: PRESENT: normal capillary refill GI/Abdominal exam: PRESENT: normal bowel sounds, soft. ABSENT: distended, guarding, mass, organolmegaly, rebound, tenderness Rectal exam: PRESENT: deferred Neurological exam: PRESENT: alert, awake, oriented to person, oriented to place , oriented to time, oriented to situation, CN II-XII grossly intact. ABSENT: motor sensory deficit Psychiatric exam: PRESENT: appropriate affect, normal mood. ABSENT: homicidal ideation, suicidal ideation Skin exam: PRESENT: dry, intact, warm. ABSENT: cyanosis, rash Results Laboratory Results: 07/30/16 04:18 08/01/16 07:57 08/01/16 07:57 Sodium 136.4 L Potassium 5.3 H Chloride 99 Carbon Dioxide 28 Anion Gap 9 BUN 20 Creatinine 0.93 Est GFR ( Amer) > 60 Est GFR (Non-Af Amer) > 60 Glucose 98 Calcium 8.8 Impressions: Chest X-Ray 07/28/16 08:00 IMPRESSION: Minimal persistent right lower lobe airspace disease, similar compared to 07/25/2016 Plan Time Spent: Greater than 30 Minutes - Discharge home with the stable conditions with the p.o. antibiotic following a one-week
[2016-08-01] MEDS ORDERED: SODIUM POLYSTYRENE SULFONATE 15 GM/60 ML PO ONE (14:47)
[2016-08-01] MEDS: SIMVASTATIN 10 MG TABLET PO SCH (22:15)
[2016-08-01] MEDS: BENZONATATE 100 MG CAPSULE PO PRN (22:27)
[2016-08-02 04:34] LABS: HEMATOCRIT 29.9 % (37.9-51.0); HEMOGLOBIN 10.3 g/dL (13.5-17.0); MEAN CORPUSCULAR HEMOGLOBIN 31.7 pg (27.0-33.4); MEAN CORPUSCULAR HGB CONC 34.5 g/dL (32.0-36.0); MEAN CORPUSCULAR VOLUME 92 fl (80-97); RED BLOOD COUNT 3.26 10^6/uL (4.35-5.55); RED CELL DISTRIBUTION WIDTH 14.2 % (11.5-14.0); WHITE BLOOD COUNT 9.7 10^3/uL (4.0-10.5)
[2016-08-02 04:53] LABS: ANION GAP 9 (5-19); BLOOD UREA NITROGEN 17 mg/dL (7-20); CALCIUM 8.8 mg/dL (8.4-10.2); CARBON DIOXIDE 29 mmol/L (22-30); CHLORIDE 99 mmol/L (98-107); CREATININE RESULT 0.91 mg/dL (0.52-1.25); GLUCOSE 103 mg/dL (75-110); POTASSIUM 4.9 mmol/L (3.6-5.0); SODIUM 136.7 mmol/L (137-145)
[2016-08-02 05:03] LABS: ANISOCYTOSIS SLIGHT; BAND NEUTROPHILS % (MANUAL) 2 % (3-5); BASOPHILS % (MANUAL) 1 % (0-2); EOSINOPHILS % (MANUAL) 3 % (0-6); LYMPHOCYTES % (MANUAL) 24 % (13-45); TOTAL CELLS COUNTED 100
[2016-08-02 05:05] LABS: PLATELET CLUMPS PRESENT
[2016-08-02] MEDS: CEFEPIME 1 GM/D5W RTU 1 GM/50 ML RTUPB IV SCH (05:56)
[2016-08-02] MEDS: IPRATROPIUM/ALBUTEROL 0.5-2.5 MG/3 ML AMPUL NEB SCH (07:50)
[2016-08-02] MEDS: ACETYLCYSTEINE 20% SOLN 800 MG/4 ML VIAL.NEB NEB SCH (07:51)
[2016-08-02] MEDS: POLYETHYLENE GLYCOL 3350 POWDER 17 GM/1 PACKET PO SCH (10:04)
[2016-08-02] MEDS: GUAIFENESIN 600 MG TABLET.SA PO SCH (10:04)
[2016-08-02] MEDS: CALCIUM CARBONATE 500 MG TAB.CHEW PO SCH ×2 (10:04→11:57)
[2016-08-02] MEDS: ENOXAPARIN SODIUM INJ 40 MG/0.4 ML DISP.SYRIN SUBCUT SCH (10:05)
[2016-08-02] MEDS: DOCUSATE SODIUM 100 MG CAPSULE PO SCH (10:05)
[2016-08-02] MEDS: LEVOTHYROXINE SODIUM 0.05 MG TABLET PO SCH (10:05)
[2016-08-02] MEDS: BUDESONIDE/FORMOTEROL 160-4.5 MCG 60 PUFF/6 GM MDI IH SCH (11:48)
[2016-08-02 11:54] VITALS: BP 124/44
--- NOTE | 2016-08-02 17:10 | PDOC PROGRESS REPORT ---
Subjective Progress Note for:: 08/02/16 Subjective:: i feel alright want to go home Physical Exam Vital Signs: Temp Pulse Resp BP Pulse Ox 97.8 F 99 19 124/44 L 100 08/02/16 11:52 08/02/16 11:52 08/02/16 11:52 08/02/16 11:52 08/02/16 11:52 Intake & Output 08/01/16 08/02/16 08/03/16 06:59 06:59 06:59 Intake Total 1133 1942 Output Total 430 Balance 1133 1512 Weight 68.3 kg 54.1 kg General appearance: PRESENT: no acute distress, cooperative, thin Head exam: PRESENT: atraumatic, normocephalic Eye exam: PRESENT: conjunctiva pale, EOMI Mouth exam: PRESENT: dry mucosa, neck supple Neck exam: ABSENT: carotid bruit, JVD, lymphadenopathy, thyromegaly Respiratory exam: PRESENT: decreased breath sounds, prolonged expiratory phas, rhonchi, unlabored Cardiovascular exam: PRESENT: RRR, +S1, +S2 GI/Abdominal exam: PRESENT: normal bowel sounds, soft. ABSENT: distended, guarding, mass, organolmegaly, rebound, tenderness Rectal exam: PRESENT: deferred Musculoskeletal exam: PRESENT: normal inspection Neurological exam: PRESENT: alert, awake Skin exam: PRESENT: dry, warm Results Laboratory Results: 08/02/16 04:24 08/02/16 04:24 08/02/16 08/02/16 04:24 04:24 WBC 9.7 RBC 3.26 L Hgb 10.3 L Hct 29.9 L MCV 92 MCH 31.7 MCHC 34.5 RDW 14.2 H Plt Count 367 Seg Neutrophils % Not Reportable Lymphocytes % Not Reportable Monocytes % Not Reportable Eosinophils % Not Reportable Basophils % Not Reportable Absolute Neutrophils Not Reportable Absolute Lymphocytes Not Reportable Absolute Monocytes Not Reportable Absolute Eosinophils Not Reportable Absolute Basophils Not Reportable Sodium 136.7 L Potassium 4.9 Chloride 99 Carbon Dioxide 29 Anion Gap 9 BUN 17 Creatinine 0.91 Est GFR ( Amer) > 60 Est GFR (Non-Af Amer) > 60 Glucose 103 Calcium 8.8 Impressions: Chest X-Ray 08/01/16 00:00 IMPRESSION: COPD. NO SIGNIFICANT CHANGE IN THE PERSISTENT DENSITY IN THE RIGHT LUNG. IF THIS DENSITY DOES NOT CLEAR WITH APPROPRIATE TREATMENT, THEN FOLLOW-UP CHEST CT MAY BE INDICATED. Assessment & Plan - Diagnosis (1) Pneumonia Qualifiers: Pneumonia type: due to other aerobic Gram-negative bacteria Laterality : right Lung location: lower lobe of lung Qualified Code(s): J15.6 - Pneumonia due to other aerobic Gram-negative bacteria Is this a current diagnosis for this admission?: YesPlan: residual radiographic evidence (2) Pneumonia Qualifiers: Pneumonia type: aspiration pneumonia Lung location: unspecified part of lung Is this a current diagnosis for this admission?: Yes (3) SIRS (systemic inflammatory response syndrome) Is this a current diagnosis for this admission?: No (4) COPD (chronic obstructive pulmonary disease) Qualifiers: COPD type: emphysema Is this a current diagnosis for this admission?: Yes (5) GERD (gastroesophageal reflux disease) Qualifiers: Esophagitis presence: without esophagitis Qualified Code(s): K21.9 - Gastro-esophageal reflux disease without esophagitis Is this a current diagnosis for this admission?: Yes (6) Dysphagia, pharyngeal phase Is this a current diagnosis for this admission?: Yes
== END 2016-08-02 12:15 | disposition home or self-care (01) | DRG 179 ==
LOC: ER 15:23 → EH 19:24 → ICU 07-19 04:55 → 4N 07-19 22:45
PROVIDERS: ADMIT Family Medicine; ATTEND Family Medicine
DX: J69.0 Pneumonitis due to inhalation of food and vomit (principal); J15.6 Pneumonia due to other Gram-negative bacteria; J44.9 Chronic obstructive pulmonary disease, unspecified; R09.02 Hypoxemia; K21.9 Gastro-esophageal reflux disease without esophagitis; I10 Essential (primary) hypertension; R13.13 Dysphagia, pharyngeal phase; J20.9 Acute bronchitis, unspecified; E87.5 Hyperkalemia; E03.9 Hypothyroidism, unspecified; K59.00 Constipation, unspecified; I25.10 Atherosclerotic heart disease of native coronary artery without angina pectoris; Z87.01 Personal history of pneumonia (recurrent); Z79.01 Long term (current) use of anticoagulants; Z87.891 Personal history of nicotine dependence; Z79.82 Long term (current) use of aspirin; Z79.51 Long term (current) use of inhaled steroids; Z79.899 Other long term (current) drug therapy; Z86.73 Personal history of transient ischemic attack (TIA), and cerebral infarction without residual deficits; Z88.2 Allergy status to sulfonamides
CPT/HCPCS: 36415; 71020; 80048; 85025; 87015; 87040; 87070; 87077; 87116; 87186; 87205; 87206; 94640; 94667; 94668; 99285; J0692; J1650; J1956; J2405; J3490; J7620; J7685

== ENCOUNTER → 2016-07-18 | Outpatient (CLI) | payer MEDICARE, BC ==
[2016-07-18 10:34] LABS: ABSOLUTE EOSINOPHILS # (AUTO) 0.1 10^3/uL (0.0-0.6); ABSOLUTE LYMPHOCYTES (AUTO) 1.8 10^3/uL (0.5-4.7); ABSOLUTE MONOCYTES (AUTO) 1.8 10^3/uL (0.1-1.4); ABSOLUTE NEUT (AUTO) 11.8 10^3/uL (1.7-8.2); BASOPHILS % (AUTO) 0.2 % (0-2); EOSINOPHILS % (AUTO) 0.5 % (0-6); HEMATOCRIT 37.1 % (37.9-51.0); HEMOGLOBIN 12.4 g/dL (13.5-17.0); HGB HCT DIFFERENCE 0.1; LYMPHOCYTES % (AUTO) 11.6 % (13-45); MEAN CORPUSCULAR HEMOGLOBIN 31.3 pg (27.0-33.4); MEAN CORPUSCULAR HGB CONC 33.3 g/dL (32.0-36.0); MEAN CORPUSCULAR VOLUME 94 fl (80-97); MONOCYTES % (AUTO) 11.4 % (3-13); RED BLOOD COUNT 3.95 10^6/uL (4.35-5.55); RED CELL DISTRIBUTION WIDTH 15.2 % (11.5-14.0); SEGMENTED NEUTROPHILS % (AUTO) 76.3 % (42-78); WHITE BLOOD COUNT 15.5 10^3/uL (4.0-10.5)
== END ==
LOC: OD 09:37
PROVIDERS: ATTEND Internal Medicine Pulmonary Disease
DX: J18.9 Pneumonia, unspecified organism (principal); J91.8 Pleural effusion in other conditions classified elsewhere; R05 Cough
CPT/HCPCS: 36415; 71020; 85025; 87070; 87077; 87186; 87205

== ENCOUNTER 2016-09-18 14:42 | Inpatient (IN) | payer MEDICARE ==
[2016-09-18] MEDS ORDERED: IPRATROPIUM/ALBUTEROL 0.5-2.5 MG/3 ML AMPUL NEB ONE (15:12)
[2016-09-18] MEDS ORDERED: METHYLPREDNISOLONE INJ 125 MG/2 ML SDV IV ONE (15:20)
--- NOTE | 2016-09-18 15:20 | ER Document Report ---
ED Respiratory Problem - General Chief Complaint: Chest Pain Stated Complaint: DIFFICULTY BREATHING Time Seen by Provider: 09/18/16 15:04 Notes: Patient says that he "cannot breathe" since yesterday. His appetite is decreased since yesterday, as well. Patient has a history of COPD on home nebulizers and home O2 which he uses at 3 L/min. He says that his breathing treatments and oxygen on are not helping in the past day or 2. Patient was admitted for this condition to this hospital in July for 15 days. Patient says he has had a productive cough and his sputum has turned green, which is different for him. He is not aware of any fever, however. He only has chest pain when he coughs and not had any other time. Patient does not have any history of heart disease, diabetes, hypertension. Only medical problem is his COPD. TRAVEL OUTSIDE OF THE [place] IN LAST 30 DAYS: No - Related Data Allergies/Adverse Reactions: Sulfa (Sulfonamide Antibiotics) Allergy (Verified 09/18/16 14:46) Anaphylaxis Past Medical History - Social History Smoking Status: Former Smoker - About 4 years ago. Family History: Reviewed & Not Pertinent Patient has suicidal ideation: No Patient has homicidal ideation: No - Past Medical History Cardiac Medical History: Reports: Hx Coronary Artery Disease Pulmonary Medical History: Reports: Hx Asthma, Hx Bronchitis, Hx COPD, Hx Pneumonia Neurological Medical History: Reports: Hx Cerebrovascular Accident - CVA R EYE, BLOOD THINNERS SINCE Musculoskeltal Medical History: Reports Hx Arthritis Past Surgical History: Reports: Hx Abdominal Surgery, Hx Orthopedic Surgery, Hx Tonsillectomy - Immunizations Hx Diphtheria, Pertussis, Tetanus Vaccination: Yes Hx Pneumococcal Vaccination: 12/18/09 Review of Systems - Review of Systems Notes: REVIEW OF SYSTEMS: CONSTITUTIONAL : Denies fever. EENT: Denies eye, ear, nose or mouth or throat pain or other symptoms. CARDIOVASCULAR: Denies chest pain except when he coughs. RESPIRATORY: See HPI. GASTROINTESTINAL: Denies abdominal pain or nausea, vomiting, or diarrhea. GENITOURINARY: Denies difficulty or painful urinating, urinary frequency, blood in urine. MUSCULOSKELETAL: Denies back or neck pain. Denies joint pain or swelling. No leg swelling, edema, negative Homans bilaterally. SKIN: Denies rash or skin lesions. NEUROLOGICAL: Denies LOC or altered mental status. Denies headache. Denies sensory loss or motor deficits. ALL OTHER SYSTEMS REVIEWED AND NEGATIVE. Physical Exam - Vital signs Vitals: Temp Pulse Resp BP Pulse Ox 98.3 F 99 32 H 136/60 H 96 09/18/16 14:47 09/18/16 14:47 09/18/16 14:47 09/18/16 14:47 09/18/16 14:47 Interpretation: Tachypneic - Mild - Notes Notes: PHYSICAL EXAMINATION: GENERAL: Well-appearing, in no acute distress. On O2. HEAD: Atraumatic, normocephalic. ENT: oropharynx clear without exudates. Moist mucous membranes. NECK: Normal range of motion, supple. LUNGS: Fine expiratory wheezes bilaterally. HEART: Regular rate and rhythm without murmurs. ABDOMEN: Soft, nontender. No guarding or rebound. BACK: No tenderness throughout entire back. EXTREMITIES: Normal range of motion without pain. No edema. NEUROLOGICAL: Normal speech. Normal sensory, motor, and reflex exams. Awake, alert, and oriented x3. PSYCH: Normal mood, normal affect. SKIN: Warm, dry, no rashes. Course - Re-evaluation Re-evalutation: 09/18/16 16:[address] Felix and patient will be admitted to [facility] for IV antibiotics and respiratory care. - Vital Signs Vital signs: Temp Pulse Resp BP Pulse Ox 98.3 F 99 32 H 136/60 H 96 09/18/16 14:47 09/18/16 14:47 09/18/16 14:47 09/18/16 14:47 09/18/16 14:47 - Laboratory Result Diagrams: 09/18/16 15:43 09/18/16 15:43 Laboratory results interpreted by me: 09/18/16 15:43 WBC 13.2 H RBC 3.73 L Hgb 11.6 L Hct 35.7 L Monocytes % 13.4 H Absolute Neutrophils 9.6 H Absolute Monocytes 1.8 H - Diagnostic Test Radiology results interpreted by co: 09/18/16 16:18 Has a right lower lobe pneumonia on chest x-ray. Discharge - Discharge Clinical Impression: Obstructive chronic bronchitis with exacerbation Right lower lobe pneumonia Qualifiers: Pneumonia type: due to unspecified organism Qualified Code(s): J18.1 - Lobar pneumonia, unspecified organism Condition: Fair Disposition: ADMITTED INPATIENT Admitting Provider: Isidro Unit Admitted: [facility]
[2016-09-18 16:00] LABS: ABSOLUTE LYMPHOCYTES (AUTO) 1.8 10^3/uL (0.5-4.7); ABSOLUTE MONOCYTES (AUTO) 1.8 10^3/uL (0.1-1.4); ABSOLUTE NEUT (AUTO) 9.6 10^3/uL (1.7-8.2); BASOPHILS % (AUTO) 0.3 % (0-2); EOSINOPHILS % (AUTO) 0.2 % (0-6); HEMATOCRIT 35.7 % (37.9-51.0); HEMOGLOBIN 11.6 g/dL (13.5-17.0); HGB HCT DIFFERENCE -0.9; LYMPHOCYTES % (AUTO) 13.8 % (13-45); MEAN CORPUSCULAR HEMOGLOBIN 31.1 pg (27.0-33.4); MEAN CORPUSCULAR HGB CONC 32.6 g/dL (32.0-36.0); MEAN CORPUSCULAR VOLUME 96 fl (80-97); MONOCYTES % (AUTO) 13.4 % (3-13); RED BLOOD COUNT 3.73 10^6/uL (4.35-5.55); RED CELL DISTRIBUTION WIDTH 13.9 % (11.5-14.0); SEGMENTED NEUTROPHILS % (AUTO) 72.3 % (42-78); WHITE BLOOD COUNT 13.2 10^3/uL (4.0-10.5)
--- NOTE | 2016-09-18 16:00 | RADIOLOGY REPORT (SQ) ---
EXAM DESCRIPTION: CHEST SINGLE VIEW COMPLETED DATE/TIME: 09/18/2016 3:53 pm REASON FOR STUDY: Portable AP view; short of breath, Hx COPD COMPARISON: 08/01/2016 EXAM PARAMETERS: NUMBER OF VIEWS: One view. TECHNIQUE: Single frontal radiographic view of the chest acquired. RADIATION DOSE: NA LIMITATIONS: None. FINDINGS: LUNGS AND PLEURA: Parenchymal opacities at the right base. Left lung is clear. MEDIASTINUM AND HILAR STRUCTURES: No masses. Contour normal. HEART AND VASCULAR STRUCTURES: Heart normal in size. Normal vasculature. BONES: No acute findings. HARDWARE: None in the chest. OTHER: No other significant finding. IMPRESSION: Right lower lobe pneumonia. TECHNICAL DOCUMENTATION: JOB ID: [id number]
[2016-09-18 16:03] LABS: PROTHROMBIN TIME 14.3 SEC (11.4-15.4)
[2016-09-18] MEDS ORDERED: LEVOFLOXACIN 750 MG/D5W RTU 150 ML IV ONE (16:21)
[2016-09-18 16:23] LABS: ALANINE AMINOTRANSFERASE 21 U/L (21-72); ALBUMIN 3.8 g/dL (3.5-5.0); ALKALINE PHOSPHATASE 62 U/L (38-126); ANION GAP 13 (5-19); ASPARTATE AMINO TRANSFERASE 26 U/L (17-59); BILIRUBIN,DIRECT 0.4 mg/dL (0.0-0.4); BILIRUBIN,TOTAL 0.7 mg/dL (0.2-1.3); BLOOD UREA NITROGEN 27 mg/dL (7-20); CALCIUM 8.6 mg/dL (8.4-10.2); CARBON DIOXIDE 23 mmol/L (22-30); CHLORIDE 104 mmol/L (98-107); CREATININE RESULT 1.36 mg/dL (0.52-1.25); GLUCOSE 104 mg/dL (75-110); POTASSIUM 4.4 mmol/L (3.6-5.0); SODIUM 140.2 mmol/L (137-145); TOTAL PROTEIN 6.9 g/dL (6.3-8.2)
[2016-09-18 16:33] LABS: CREATINE KINASE MB 0.76 ng/mL (<4.55); TROPONIN I < 0.012 ng/mL
--- NOTE | 2016-09-18 16:36 | EKG REPORT ---
SEVERITY:- ABNORMAL ECG - SINUS RHYTHM CONSIDER ANTEROSEPTAL INFARCT : Confirmed by: Izzy Castañeda 18-Sep-2016 16:35:37
[2016-09-18] MEDS ORDERED: IPRATROPIUM/ALBUTEROL 0.5-2.5 MG/3 ML AMPUL NEB PRN (19:18)
[2016-09-18] MEDS ORDERED: GUAIFENESIN SYRP 200 MG/10 ML UDC PO PRN (19:18)
[2016-09-18] MEDS ORDERED: FLUTICASONE NASAL SPRAY 50 MCG/SPRY 120 SPRAY/16 GM ONE (21:42)
[2016-09-18] MEDS ORDERED: CEFEPIME 1 GM/D5W RTU 1 GM/50 ML RTUPB IV ONE (21:42)
[2016-09-18] MEDS ORDERED: CEFEPIME 1 GM/D5W RTU 1 GM/50 ML RTUPB IV SCH (22:00)
[2016-09-18] MEDS: GUAIFENESIN 600 MG TABLET.SA PO SCH (22:16)
[2016-09-18] MEDS: SIMVASTATIN 10 MG TABLET PO SCH (22:17)
[2016-09-18] MEDS: FLUTICASONE NASAL SPRAY 50 MCG/SPRY 120 SPRAY/16 GM NASL SCH (22:20)
[2016-09-18] MEDS ORDERED: BUDESONIDE/FORMOTEROL 80-4.5 MCG 60 PUFF/6.9 GM MDI IH ONE (23:26)
[2016-09-18] MEDS ORDERED: BUDESONIDE/FORMOTEROL 160-4.5 MCG 60 PUFF/6 GM MDI IH ONE (23:26)
[2016-09-19] MEDS: BUDESONIDE/FORMOTEROL 160-4.5 MCG 60 PUFF/6 GM MDI IH SCH ×3 (00:09→22:45)
[2016-09-19 00:47] LABS: APPEARANCE,URINE CLEAR; BILIRUBIN,URINE NEGATIVE (NEGATIVE); GLUCOSE, URINE NEGATIVE (NEGATIVE); KETONES,URINE NEGATIVE (NEGATIVE); LEUKOCYTE ESTERASE,URINE NEGATIVE (NEGATIVE); NITRITE,URINE NEGATIVE (NEGATIVE); PROTEIN,URINE NEGATIVE (NEGATIVE); URINE SPECIFIC GRAVITY 1.008; UROBILINOGEN,URINE NEGATIVE mg/dL (<2.0)
[2016-09-19 05:59] LABS: ABSOLUTE LYMPHOCYTES (AUTO) 0.7 10^3/uL (0.5-4.7); ABSOLUTE MONOCYTES (AUTO) 0.1 10^3/uL (0.1-1.4); ABSOLUTE NEUT (AUTO) 5.5 10^3/uL (1.7-8.2); BASOPHILS % (AUTO) 0.1 % (0-2); HEMATOCRIT 30.1 % (37.9-51.0); HEMOGLOBIN 10.1 g/dL (13.5-17.0); HGB HCT DIFFERENCE 0.2; MEAN CORPUSCULAR HEMOGLOBIN 31.3 pg (27.0-33.4); MEAN CORPUSCULAR HGB CONC 33.6 g/dL (32.0-36.0); MEAN CORPUSCULAR VOLUME 93 fl (80-97); RED BLOOD COUNT 3.23 10^6/uL (4.35-5.55); SEGMENTED NEUTROPHILS % (AUTO) 86.9 % (42-78); WHITE BLOOD COUNT 6.4 10^3/uL (4.0-10.5)
[2016-09-19 06:19] LABS: ALANINE AMINOTRANSFERASE 37 U/L (21-72); ALBUMIN 3.5 g/dL (3.5-5.0); ALKALINE PHOSPHATASE 60 U/L (38-126); ANION GAP 12 (5-19); ASPARTATE AMINO TRANSFERASE 23 U/L (17-59); BILIRUBIN,DIRECT 0.4 mg/dL (0.0-0.4); BILIRUBIN,TOTAL 0.4 mg/dL (0.2-1.3); BLOOD UREA NITROGEN 25 mg/dL (7-20); CALCIUM 8.5 mg/dL (8.4-10.2); CARBON DIOXIDE 20 mmol/L (22-30); CHLORIDE 107 mmol/L (98-107); CREATININE RESULT 1.14 mg/dL (0.52-1.25); GLUCOSE 149 mg/dL (75-110); POTASSIUM 4.5 mmol/L (3.6-5.0); SODIUM 139.4 mmol/L (137-145); TOTAL PROTEIN 6.4 g/dL (6.3-8.2)
--- NOTE | 2016-09-19 08:03 | PDOC H&P ---
History of Present Illness Admission Date/PCP: 09/19/16 04:13 [facility] Patient complains of: Dificulty with breathing, Cough and congestion History of Present Illness: NIMISHA BRUMFIELD is a 81 year old male recently engaged with my practice presented to the ED with complain of worsening difficulty with breathing, productive coughing with pleurisy, poor appetite and P.O intake x 2 days prior to his presentation to the ED. Patient has history of COPD on supplemental oxygen at home at 3L/min. Patient reported tat he was at baseline with regard to his breathing until 2 days prior to presentation when he woke up with increase sputum production and progressively short of breath. He denied any associated fever or chill. No blood in his sputum but has been greenish and mucous in character. Patient reported minimal improvement in his symptoms despite increase in his supplemental oxygen and bronchodilators usage at home. 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 Last Time Smoked: 2012 Frequency of Alcohol Use: None Hx Recreational Drug Use: No Drugs: None Hx Prescription Drug Abuse: No - Advance Directive Resuscitation Status: Full Code Family History Family History: Reviewed & Not Pertinent Parental Family History Reviewed: Yes Children Family History Reviewed: Yes Sibling(s) Family History Reviewed.: Yes Medication/Allergy Home Medications: Albuterol Sulfate [Ventolin HFA MDI 18 GM] 2 puff IH Q4HP PRN 07/19/16 Aspirin [Ecotrin 81 mg EC Tablet] 81 mg PO DAILY 07/19/16 Budesonide/Formoterol Fumarate [Symbicort HFA 160-4.5 mcg Inhaler 6 gm] 2 puff IH BID 07/19/16 Esomeprazole Mag Trihydrate [Nexium] 40 mg PO DAILY 07/19/16 Fluticasone Propionate [Flonase Nasal [place] 50 Mcg/[place] 16 gm] 1 spray NASL BID 07/19/16 Guaifenesin [Mucinex] 600 mg PO Q12 07/19/16 Ipratropium/Albuterol Sulfate [Duoneb 3 ml Ampul] 3 ml NEB Q4H PRN 07/19/16 Levothyroxine Sodium [Synthroid] 50 mcg PO DAILY 07/19/16 Simvastatin [Zocor 20 mg Tablet] 20 mg PO DAILY 07/19/16 Tiotropium [place] [Spiriva Handihaler 5 Cap/Kit (18 Mcg/Cap)] 1 cap IH DAILY Allergies/Adverse Reactions: Sulfa (Sulfonamide Antibiotics) Allergy (Verified 09/18/16 14:46) Anaphylaxis Review of Systems Constitutional: PRESENT: weakness. ABSENT: as per HPI, anorexia, chills, fatigue, fever(s), headache(s), night sweats, weight gain, weight loss, other Eyes: ABSENT: visual disturbances Ears: ABSENT: hearing changes Nose, Mouth, and Throat: ABSENT: as per HPI, headache(s), mouth pain, sore throat, vertigo, other Cardiovascular: PRESENT: chest pain - with coughing. ABSENT: as per HPI, dyspnea on exertion, edema, orthropnea, palpitations, other Respiratory: PRESENT: cough, dyspnea, sputum. ABSENT: as per HPI, hemoptysis, other Gastrointestinal: PRESENT: other - poor appetote and P.O intake. Genitourinary: ABSENT: dysuria, hematuria Musculoskeletal: PRESENT: deformity - related to multiple joint involvement with arthritis. ABSENT: as per HPI, back pain, joint swelling, muscle weakness , other Integumentary: ABSENT: rash, wounds Neurological: ABSENT: abnormal gait, abnormal speech, confusion, dizziness, focal weakness, syncope Psychiatric: ABSENT: anxiety, depression, homidical ideation, suicidal ideation Endocrine: ABSENT: cold intolerance, heat intolerance, polydipsia, polyuria Hematologic/Lymphatic: ABSENT: easy bleeding, easy bruising, lymphadenopathy Physical Exam Vital Signs: Temp Pulse Resp BP Pulse Ox 97.4 F 71 24 H 122/69 98 09/19/16 03:51 09/19/16 03:51 09/19/16 03:51 09/19/16 03:51 09/19/16 03:51 Intake & Output 09/18/16 09/19/16 09/20/16 06:59 06:59 06:59 Intake Total 622 Output Total 0 Balance 622 Weight 71 kg General appearance: PRESENT: cooperative, mild distress - on supplemental oxygen via nasal [place]ula Head exam: PRESENT: atraumatic, normocephalic Eye exam: PRESENT: conjunctiva pink, EOMI, PERRLA. ABSENT: scleral icterus Ear exam: PRESENT: normal external ear exam Mouth exam: PRESENT: moist, tongue midline Teeth exam: ABSENT: dental caries, dental tenderness, edentulous, poor dentation , other Neck exam: PRESENT: full ROM. ABSENT: carotid bruit, JVD, lymphadenopathy, thyromegaly Respiratory exam: PRESENT: decreased breath sounds. ABSENT: crackles, rhonchi, wheezes Cardiovascular exam: PRESENT: RRR. ABSENT: diastolic murmur, rubs, systolic murmur Pulses: PRESENT: normal dorsalis pedis pul, +2 pedal pulses bilateral Vascular exam: PRESENT: normal capillary refill GI/Abdominal exam: PRESENT: normal bowel sounds, soft. ABSENT: distended, guarding, mass, organolmegaly, rebound, tenderness Rectal exam: PRESENT: deferred Extremities exam: ABSENT: pedal edema Musculoskeletal exam: PRESENT: deformity - related to multiple joints involvement with arthritis Neurological exam: PRESENT: alert, awake, oriented to person, oriented to place , oriented to time, oriented to situation, CN II-XII grossly intact. ABSENT: motor sensory deficit Psychiatric exam: PRESENT: appropriate affect, normal mood. ABSENT: homicidal ideation, suicidal ideation Skin exam: PRESENT: dry, intact, warm. ABSENT: cyanosis, rash Results Laboratory Results: 09/19/16 05:00 09/19/16 05:00 09/19/16 09/19/16 05:00 05:00 WBC 6.4 RBC 3.23 L Hgb 10.1 L Hct 30.1 L MCV 93 MCH 31.3 MCHC 33.6 RDW 14.0 Plt Count 200 Seg Neutrophils % 86.9 H Lymphocytes % 11.0 L Monocytes % 2.0 L Eosinophils % 0.0 Basophils % 0.1 Absolute Neutrophils 5.5 Absolute Lymphocytes 0.7 Absolute Monocytes 0.1 Absolute Eosinophils 0.0 Absolute Basophils 0.0 Sodium 139.4 Potassium 4.5 Chloride 107 Carbon Dioxide 20 L Anion Gap 12 BUN 25 H Creatinine 1.14 Est GFR ( Amer) > 60 Est GFR (Non-Af Amer) > 60 Glucose 149 H Calcium 8.5 Total Bilirubin 0.4 AST 23 ALT 37 Alkaline Phosphatase 60 Total Protein 6.4 Albumin 3.5 Impressions: Chest X-Ray 09/18/16 15:11 IMPRESSION: Right lower lobe pneumonia. Assessment & Plan - Diagnosis (1) Right lower lobe pneumonia Qualifiers: Pneumonia type: due to unspecified organism Qualified Code(s): J18.1 - Lobar pneumonia, unspecified organism Is this a current diagnosis for this admission?: YesPlan: See admitting physician orders. (2) COPD exacerbation Is this a current diagnosis for this admission?: YesPlan: See admitting physician orders. (3) Hypertension Qualifiers: Hypertension type: essential hypertension Qualified Code(s): I10 - Essential (primary) hypertension Is this a current diagnosis for this admission?: YesPlan: See admitting physician orders. (4) Hypothyroidism Qualifiers: Hypothyroidism type: acquired Qualified Code(s): E03.9 - Hypothyroidism, unspecified Is this a current diagnosis for this admission?: YesPlan: See admitting physician orders. (5) CAD (coronary artery disease) Qualifiers: Coronary Disease-Associated Artery/Lesion type: [place] artery Associated angina: without angina Is this a current diagnosis for this admission?: YesPlan: See admitting physician orders. (6) GERD (gastroesophageal reflux disease) Qualifiers: Esophagitis presence: without esophagitis Qualified Code(s): K21.9 - Gastro-esophageal reflux disease without esophagitis Is this a current diagnosis for this admission?: YesPlan: See admitting physician orders. - Time Time Spent: 50 to 70 Minutes Medications reviewed and adjusted accordingly: Yes Anticipated discharge: Home with Homehealth Within: Other - Inpatient Certification Based on my medical assessment, after consideration of the patient's comorbidities, presenting symptoms, or acuity I expect that the services needed warrant INPATIENT care.: Yes I certify that my determination is in accordance with my understanding of Medicare's requirements for reasonable and necessary INPATIENT services [42 CFR 412.3e].: Yes Medical Necessity: Need Close Monitoring Due to Risk of Patient Decompensation, Need For IV Fluids, Need For Continuous Telemetry Monitoring, Need for Nebulizer Therapy and Monitoring of Response, Need for IV Antibiotics, Risk of Complication if Not Cared For in Hospital 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
[2016-09-19] MEDS: ENOXAPARIN SODIUM INJ 40 MG/0.4 ML DISP.SYRIN SUBCUT SCH (08:07)
[2016-09-19] MEDS: LANSOPRAZOLE 30 MG TAB.RAP.DR PO SCH (08:07)
[2016-09-19] MEDS: NORMAL SALINE 1000 ML 1,000 ML IV PRN (09:32)
[2016-09-19] MEDS: LEVOFLOXACIN 500 MG/D5W RTU 500 MG/100 ML RTUPB IV SCH (09:33)
[2016-09-19] MEDS: GUAIFENESIN 600 MG TABLET.SA PO SCH ×2 (09:34→22:42)
[2016-09-19] MEDS: ASPIRIN 81 MG TABLET, CHEWABLE PO SCH (09:34)
[2016-09-19] MEDS: ALBUTEROL SULFATE HFA (90 MCG/PUFF) 200 PUFF/8.5 GM MDI IH PRN (09:34)
[2016-09-19] MEDS: LEVOTHYROXINE SODIUM 0.05 MG TABLET PO SCH (09:34)
[2016-09-19] MEDS: TIOTROPIUM BROMIDE DPI 5 CAP/KIT (18 MCG/CAP) IH SCH (09:36)
[2016-09-19] MEDS: CEFEPIME HCL 1 GM in DEXTROSE 5%-WATER 50 ML IV SCH ×2 (10:34→22:46)
[2016-09-19] MEDS: FLUTICASONE NASAL SPRAY 50 MCG/SPRY 120 SPRAY/16 GM NASL SCH ×2 (11:09→22:45)
--- NOTE | 2016-09-19 13:07 | PDOC CONSULTATION ---
Consultation Consult Date: 09/19/16 Attending physician:: DEBO SALMERON Consult reason:: dyspnea History of Present Illness Admission Date/PCP: 09/19/16 04:13 DEBO SALMERON History of Present Illness: NIMISHA BRUMFIELD is a 81 year old male recently engaged with my practice presented to the ED with complain of worsening difficulty with breathing, productive coughing with pleurisy, poor appetite and P.O intake x 2 days prior to his presentation to the ED. Patient has history of COPD on supplemental oxygen at home at 3L/min. Patient reported tat he was at baseline with regard to his breathing until 2 days prior to presentation when he woke up with increase sputum production and progressively short of breath. He denied any associated fever or chill. No blood in his sputum but has been greenish and mucous in character. Patient reported minimal improvement in his symptoms despite increase in his supplemental oxygen and bronchodilators usage at home. 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 Last Time Smoked: 2012 Passive smoke exposure as: Both Frequency of Alcohol Use: None Hx Recreational Drug Use: No Drugs: None Hx Prescription Drug Abuse: No Do you have pets?: No Have you been exposed to any sick contacts recently?: No Have you had any recent respiratory illnesses?: No Have you travelled outside of [place] in the past 12 months?: No - Advance Directive Resuscitation Status: Full Code Family History Family History: Reviewed & Not Pertinent Parental Family History Reviewed: No Children Family History Reviewed: No Sibling(s) Family History Reviewed.: No Medication/Allergy Home Medications: Albuterol Sulfate [Ventolin HFA MDI 18 GM] 2 puff IH Q4HP PRN 07/19/16 Aspirin [Ecotrin 81 mg EC Tablet] 81 mg PO DAILY 07/19/16 Budesonide/Formoterol Fumarate [Symbicort HFA 160-4.5 mcg Inhaler 6 gm] 2 puff IH BID 07/19/16 Esomeprazole Mag Trihydrate [Nexium] 40 mg PO DAILY 07/19/16 Fluticasone Propionate [Flonase Nasal [place] 50 Mcg/[place] 16 gm] 1 spray NASL BID 07/19/16 Guaifenesin [Mucinex] 600 mg PO Q12 07/19/16 Ipratropium/Albuterol Sulfate [Duoneb 3 ml Ampul] 3 ml NEB Q4H PRN 07/19/16 Levothyroxine Sodium [Synthroid] 50 mcg PO DAILY 07/19/16 Simvastatin [Zocor 20 mg Tablet] 20 mg PO DAILY 07/19/16 Tiotropium [place] [Spiriva Handihaler 5 Cap/Kit (18 Mcg/Cap)] 1 cap IH DAILY Allergies/Adverse Reactions: Sulfa (Sulfonamide Antibiotics) Allergy (Verified 09/18/16 14:46) Anaphylaxis Review of Systems All systems: reviewed and no additional remarkable complaints except as stated Physical Exam Vital Signs: Temp Pulse Resp BP Pulse Ox 97.8 F 78 20 123/53 L 97 09/19/16 07:58 09/19/16 07:58 09/19/16 07:58 09/19/16 07:58 09/19/16 07:58 Intake & Output 09/18/16 09/19/16 09/20/16 06:59 06:59 06:59 Intake Total 622 Output Total 0 Balance 622 Weight 71 kg 71 kg General appearance: PRESENT: no acute distress, cooperative, disheveled, thin, well-developed Head exam: PRESENT: atraumatic, normocephalic Eye exam: PRESENT: conjunctiva pale, EOMI Mouth exam: PRESENT: dry mucosa, neck supple, tongue midline Neck exam: ABSENT: carotid bruit, JVD, lymphadenopathy, thyromegaly Respiratory exam: PRESENT: decreased breath sounds, prolonged expiratory phas, rales, rhonchi, symmetrical, unlabored Cardiovascular exam: PRESENT: RRR, +S1, +S2 Pulses: PRESENT: normal radial pulses GI/Abdominal exam: PRESENT: normal bowel sounds, soft. ABSENT: distended, guarding, mass, organolmegaly, rebound, tenderness Rectal exam: PRESENT: deferred Musculoskeletal exam: PRESENT: normal inspection Neurological exam: PRESENT: alert, awake Psychiatric exam: PRESENT: normal mood Skin exam: PRESENT: dry, warm Results Laboratory Results: 09/19/16 05:00 09/19/16 05:00 09/19/16 09/19/16 05:00 05:00 WBC 6.4 RBC 3.23 L Hgb 10.1 L Hct 30.1 L MCV 93 MCH 31.3 MCHC 33.6 RDW 14.0 Plt Count 200 Seg Neutrophils % 86.9 H Lymphocytes % 11.0 L Monocytes % 2.0 L Eosinophils % 0.0 Basophils % 0.1 Absolute Neutrophils 5.5 Absolute Lymphocytes 0.7 Absolute Monocytes 0.1 Absolute Eosinophils 0.0 Absolute Basophils 0.0 Sodium 139.4 Potassium 4.5 Chloride 107 Carbon Dioxide 20 L Anion Gap 12 BUN 25 H Creatinine 1.14 Est GFR ( Amer) > 60 Est GFR (Non-Af Amer) > 60 Glucose 149 H Calcium 8.5 Total Bilirubin 0.4 AST 23 ALT 37 Alkaline Phosphatase 60 Total Protein 6.4 Albumin 3.5 Impressions: Chest X-Ray 09/18/16 15:11 IMPRESSION: Right lower lobe pneumonia. Assessment & Plan - Diagnosis (1) COPD exacerbation Is this a current diagnosis for this admission?: YesPlan: Continue current therapy (2) Right lower lobe pneumonia Qualifiers: Pneumonia type: due to unspecified organism Qualified Code(s): J18.1 - Lobar pneumonia, unspecified organism Is this a current diagnosis for this admission?: YesPlan: Antibiotics appropriate for CAP (3) Dysphagia, pharyngeal phase Is this a current diagnosis for this admission?: Yes (4) GERD (gastroesophageal reflux disease) Qualifiers: Esophagitis presence: without esophagitis Qualified Code(s): K21.9 - Gastro-esophageal reflux disease without esophagitis Is this a current diagnosis for this admission?: Yes
[2016-09-19] MEDS: IPRATROPIUM/ALBUTEROL 0.5-2.5 MG/3 ML AMPUL NEB PRN (16:42)
[2016-09-19] MEDS: SIMVASTATIN 10 MG TABLET PO SCH (22:42)
[2016-09-20] MEDS: IPRATROPIUM/ALBUTEROL 0.5-2.5 MG/3 ML AMPUL NEB PRN ×4 (00:26→23:53)
[2016-09-20] MEDS: NORMAL SALINE 1000 ML 1,000 ML IV PRN ×2 (03:53→21:40)
[2016-09-20 05:34] LABS: ANION GAP 11 (5-19); BLOOD UREA NITROGEN 29 mg/dL (7-20); CALCIUM 8.3 mg/dL (8.4-10.2); CARBON DIOXIDE 21 mmol/L (22-30); CHLORIDE 110 mmol/L (98-107); CREATININE RESULT 1.13 mg/dL (0.52-1.25); GLUCOSE 146 mg/dL (75-110); POTASSIUM 4.6 mmol/L (3.6-5.0); SODIUM 141.6 mmol/L (137-145)
[2016-09-20 05:53] LABS: HEMATOCRIT 29.4 % (37.9-51.0); HEMOGLOBIN 9.8 g/dL (13.5-17.0); MEAN CORPUSCULAR HEMOGLOBIN 31.6 pg (27.0-33.4); MEAN CORPUSCULAR HGB CONC 33.4 g/dL (32.0-36.0); MEAN CORPUSCULAR VOLUME 95 fl (80-97); RED BLOOD COUNT 3.11 10^6/uL (4.35-5.55)
[2016-09-20 05:58] LABS: BASOPHILS % (MANUAL) 0 % (0-2); EOSINOPHILS % (MANUAL) 1 % (0-6); LYMPHOCYTES % (MANUAL) 4 % (13-45); TOTAL CELLS COUNTED 100
[2016-09-20 05:59] LABS: RBC MORPHOLOGY COMMENT NORMO-CYTIC/CHROMIC
[2016-09-20 06:03] LABS: WHITE BLOOD COUNT 16.9 10^3/uL (4.0-10.5)
[2016-09-20] MEDS: TIOTROPIUM BROMIDE DPI 5 CAP/KIT (18 MCG/CAP) IH SCH (09:33)
[2016-09-20] MEDS: ALBUTEROL SULFATE HFA (90 MCG/PUFF) 200 PUFF/8.5 GM MDI IH PRN (09:34)
[2016-09-20] MEDS: FLUTICASONE NASAL SPRAY 50 MCG/SPRY 120 SPRAY/16 GM NASL SCH ×2 (09:35→21:43)
[2016-09-20] MEDS: LEVOFLOXACIN 500 MG/D5W RTU 500 MG/100 ML RTUPB IV SCH (09:37)
[2016-09-20] MEDS: GUAIFENESIN 600 MG TABLET.SA PO SCH ×2 (09:38→21:43)
[2016-09-20] MEDS: LEVOTHYROXINE SODIUM 0.05 MG TABLET PO SCH (09:38)
[2016-09-20] MEDS: ASPIRIN 81 MG TABLET, CHEWABLE PO SCH (09:38)
[2016-09-20] MEDS: LANSOPRAZOLE 30 MG TAB.RAP.DR PO SCH (09:38)
[2016-09-20] MEDS: ENOXAPARIN SODIUM INJ 40 MG/0.4 ML DISP.SYRIN SUBCUT SCH (09:44)
[2016-09-20] MEDS: BUDESONIDE/FORMOTEROL 160-4.5 MCG 60 PUFF/6 GM MDI IH SCH ×2 (09:46→21:42)
[2016-09-20] MEDS: CEFEPIME HCL 1 GM in DEXTROSE 5%-WATER 50 ML IV SCH ×2 (11:12→21:41)
--- NOTE | 2016-09-20 20:45 | PDOC PROGRESS REPORT ---
Subjective Progress Note for:: 09/20/16 Subjective:: Continue to experience increase coughing and difficulty with expectoration. No chest pain. Remain on supplemental oxygen via nasal canula. No fever or chills. No nausea or vomiting. No abdominal pain. Physical Exam Vital Signs: Temp Pulse Resp BP Pulse Ox 97.5 F 75 20 121/51 L 96 09/20/16 16:22 09/20/16 16:22 09/20/16 16:22 09/20/16 16:22 09/20/16 16:22 Intake & Output 09/19/16 09/20/16 09/21/16 06:59 06:59 06:59 Intake Total 622 2893 2219 Output Total 0 475 1200 Balance 622 2418 1019 Weight 71 kg 72.1 kg General appearance: PRESENT: no acute distress, cooperative, mild distress Head exam: PRESENT: atraumatic, normocephalic Eye exam: PRESENT: conjunctiva pink, EOMI, PERRLA. ABSENT: scleral icterus Respiratory exam: PRESENT: decreased breath sounds, rhonchi - end expiratory phase, right >> left Cardiovascular exam: PRESENT: RRR. ABSENT: diastolic murmur, rubs, systolic murmur GI/Abdominal exam: PRESENT: normal bowel sounds, soft. 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 ABSENT: motor sensory deficit Psychiatric exam: PRESENT: appropriate affect, normal mood. ABSENT: homicidal ideation, suicidal ideation Skin exam: PRESENT: dry, intact, warm. ABSENT: cyanosis, rash Results Laboratory Results: 09/20/16 04:30 09/20/16 04:30 09/20/16 09/20/16 04:30 04:30 WBC 16.9 H D RBC 3.11 L Hgb 9.8 L Hct 29.4 L MCV 95 MCH 31.6 MCHC 33.4 RDW 14.0 Plt Count 221 Seg Neutrophils % Not Reportable Lymphocytes % Not Reportable Monocytes % Not Reportable Eosinophils % Not Reportable Basophils % Not Reportable Absolute Neutrophils Not Reportable Absolute Lymphocytes Not Reportable Absolute Monocytes Not Reportable Absolute Eosinophils Not Reportable Absolute Basophils Not Reportable Sodium 141.6 Potassium 4.6 Chloride 110 H Carbon Dioxide 21 L Anion Gap 11 BUN 29 H Creatinine 1.13 Est GFR ( Amer) > 60 Est GFR (Non-Af Amer) > 60 Glucose 146 H Calcium 8.3 L Impressions: Chest X-Ray 09/18/16 15:11 IMPRESSION: Right lower lobe pneumonia. Assessment & Plan - Diagnosis (1) Right lower lobe pneumonia Qualifiers: Pneumonia type: due to unspecified organism Qualified Code(s): J18.1 - Lobar pneumonia, unspecified organism Is this a current diagnosis for this admission?: YesPlan: See attending physician orders. Continue IV Levofloxacin and Cefepime coverage. (2) COPD exacerbation Is this a current diagnosis for this admission?: YesPlan: See attending physician orders. Star on Flutter device and Benzonatate for sputum expectoration management. (3) Hypertension Qualifiers: Hypertension type: essential hypertension Qualified Code(s): I10 - Essential (primary) hypertension Is this a current diagnosis for this admission?: YesPlan: See attending physician orders. (4) Hypothyroidism Qualifiers: Hypothyroidism type: acquired Qualified Code(s): E03.9 - Hypothyroidism, unspecified Is this a current diagnosis for this admission?: YesPlan: See attending physician orders. (5) CAD (coronary artery disease) Qualifiers: Coronary Disease-Associated Artery/Lesion type: [place] artery Associated angina: without angina Is this a current diagnosis for this admission?: YesPlan: See attending physician orders. (6) GERD (gastroesophageal reflux disease) Qualifiers: Esophagitis presence: without esophagitis Qualified Code(s): K21.9 - Gastro-esophageal reflux disease without esophagitis Is this a current diagnosis for this admission?: YesPlan: See attending physician orders. - Time Time Spent with patient: 25-34 minutes Anticipated discharge: Home with Homehealth Within: Other - Inpatient Certification Based on my medical assessment, after consideration of the patient's comorbidities, presenting symptoms, or acuity I expect that the services needed warrant INPATIENT care.: Yes I certify that my determination is in accordance with my understanding of Medicare's requirements for reasonable and necessary INPATIENT services [42 CFR 412.3e].: Yes Medical Necessity: Need Close Monitoring Due to Risk of Patient Decompensation, Need For IV Fluids, Need For Continuous Telemetry Monitoring, Need for Nebulizer Therapy and Monitoring of Response, Need for IV Antibiotics, Risk of Complication if Not Cared For in Hospital Post Hospital Care: D/C Electronic Bench Technician Documentation - Plan Summary Plan Summary: See attending physician orders.
[2016-09-20] MEDS: BENZONATATE 100 MG CAPSULE PO SCH (21:43)
[2016-09-20] MEDS: SIMVASTATIN 10 MG TABLET PO SCH (21:43)
[2016-09-21 05:18] LABS: ABSOLUTE EOSINOPHILS # (AUTO) 0.1 10^3/uL (0.0-0.6); ABSOLUTE LYMPHOCYTES (AUTO) 1.6 10^3/uL (0.5-4.7); ABSOLUTE MONOCYTES (AUTO) 1.1 10^3/uL (0.1-1.4); BASOPHILS % (AUTO) 0.1 % (0-2); EOSINOPHILS % (AUTO) 1.4 % (0-6); HEMATOCRIT 29.2 % (37.9-51.0); HEMOGLOBIN 9.7 g/dL (13.5-17.0); HGB HCT DIFFERENCE -0.1; LYMPHOCYTES % (AUTO) 16.3 % (13-45); MEAN CORPUSCULAR HEMOGLOBIN 31.2 pg (27.0-33.4); MEAN CORPUSCULAR HGB CONC 33.1 g/dL (32.0-36.0); MEAN CORPUSCULAR VOLUME 94 fl (80-97); MONOCYTES % (AUTO) 11.1 % (3-13); RED CELL DISTRIBUTION WIDTH 13.8 % (11.5-14.0); SEGMENTED NEUTROPHILS % (AUTO) 71.1 % (42-78); WHITE BLOOD COUNT 9.8 10^3/uL (4.0-10.5)
[2016-09-21] MEDS: BENZONATATE 100 MG CAPSULE PO SCH ×3 (05:43→21:24)
[2016-09-21 05:49] LABS: ALANINE AMINOTRANSFERASE 24 U/L (21-72); ALBUMIN 3.1 g/dL (3.5-5.0); ALKALINE PHOSPHATASE 57 U/L (38-126); ANION GAP 9 (5-19); ASPARTATE AMINO TRANSFERASE 21 U/L (17-59); BILIRUBIN,DIRECT 0.3 mg/dL (0.0-0.4); BILIRUBIN,TOTAL 0.3 mg/dL (0.2-1.3); BLOOD UREA NITROGEN 28 mg/dL (7-20); CALCIUM 8.3 mg/dL (8.4-10.2); CARBON DIOXIDE 23 mmol/L (22-30); CHLORIDE 110 mmol/L (98-107); CREATININE RESULT 1.04 mg/dL (0.52-1.25); GLUCOSE 84 mg/dL (75-110); POTASSIUM 4.5 mmol/L (3.6-5.0); SODIUM 142.1 mmol/L (137-145); TOTAL PROTEIN 5.8 g/dL (6.3-8.2)
[2016-09-21] MEDS: IPRATROPIUM/ALBUTEROL 0.5-2.5 MG/3 ML AMPUL NEB PRN ×3 (08:00→19:44)
[2016-09-21] MEDS: NORMAL SALINE 1000 ML 1,000 ML IV PRN (08:17)
[2016-09-21] MEDS: LANSOPRAZOLE 30 MG TAB.RAP.DR PO SCH (08:18)
[2016-09-21] MEDS: ENOXAPARIN SODIUM INJ 40 MG/0.4 ML DISP.SYRIN SUBCUT SCH (08:19)
[2016-09-21] MEDS: LEVOTHYROXINE SODIUM 0.05 MG TABLET PO SCH (10:37)
[2016-09-21] MEDS: ASPIRIN 81 MG TABLET, CHEWABLE PO SCH (10:37)
[2016-09-21] MEDS: LEVOFLOXACIN 500 MG/D5W RTU 500 MG/100 ML RTUPB IV SCH (10:38)
[2016-09-21] MEDS: GUAIFENESIN 600 MG TABLET.SA PO SCH ×2 (10:38→21:24)
[2016-09-21] MEDS: CEFEPIME HCL 1 GM in DEXTROSE 5%-WATER 50 ML IV SCH ×2 (10:40→21:23)
[2016-09-21] MEDS: BUDESONIDE/FORMOTEROL 160-4.5 MCG 60 PUFF/6 GM MDI IH SCH ×2 (10:41→21:31)
[2016-09-21] MEDS: FLUTICASONE NASAL SPRAY 50 MCG/SPRY 120 SPRAY/16 GM NASL SCH ×2 (10:41→21:25)
[2016-09-21] MEDS: TIOTROPIUM BROMIDE DPI 5 CAP/KIT (18 MCG/CAP) IH SCH (10:42)
--- NOTE | 2016-09-21 11:42 | PDOC PROGRESS REPORT ---
Subjective Progress Note for:: 09/21/16 Subjective:: No chest pain. Remain on supplemental oxygen via nasal canula. Reported continue difficulty with expectoration and requesting for chest percussion therapy. Nursing staff reported poor technique with inhaler usage. No fever or chills. No nausea or vomiting. No abdominal pain. Physical Exam Vital Signs: Temp Pulse Resp BP Pulse Ox 97.6 F 81 18 138/54 H 97 09/21/16 08:16 09/21/16 08:16 09/21/16 08:16 09/21/16 08:16 09/21/16 08:16 Intake & Output 09/20/16 09/21/16 09/22/16 06:59 06:59 06:59 Intake Total 2893 4825 Output Total 853 2525 Balance 2418 2300 Weight 72.1 kg 72 kg Physical Exam: General appearance: PRESENT: no acute distress, cooperative, mild distress Head exam: PRESENT: atraumatic, normocephalic Eye exam: PRESENT: conjunctiva pink, EOMI, PERRLA. ABSENT: scleral icterus Respiratory exam: PRESENT: decreased breath sounds, rhonchi - end expiratory phase, right >> left Cardiovascular exam: PRESENT: RRR. ABSENT: diastolic murmur, rubs, systolic murmur GI/Abdominal exam: PRESENT: normal bowel sounds, soft. ABSENT: distended, guarding, mass, organomegaly, rebound, tenderness Extremities exam: ABSENT: pedal edema Musculoskeletal exam: PRESENT: deformity - related to multiple joints involvement with arthritis Neurological exam: PRESENT: alert, awake, oriented to person, oriented to place , oriented to time, oriented to situation, CN II-XII grossly intact. ABSENT: motor sensory deficit Psychiatric exam: PRESENT: appropriate affect, normal mood. ABSENT: homicidal ideation, suicidal ideation Skin exam: PRESENT: dry, intact, warm. ABSENT: cyanosis, rash Results Laboratory Results: 09/21/16 04:34 09/21/16 04:34 09/21/16 09/21/16 04:34 04:34 WBC 9.8 RBC 3.10 L Hgb 9.7 L Hct 29.2 L MCV 94 MCH 31.2 MCHC 33.1 RDW 13.8 Plt Count 247 Seg Neutrophils % 71.1 Lymphocytes % 16.3 Monocytes % 11.1 Eosinophils % 1.4 Basophils % 0.1 Absolute Neutrophils 7.0 Absolute Lymphocytes 1.6 Absolute Monocytes 1.1 Absolute Eosinophils 0.1 Absolute Basophils 0.0 Sodium 142.1 Potassium 4.5 Chloride 110 H Carbon Dioxide 23 Anion Gap 9 BUN 28 H Creatinine 1.04 Est GFR ( Amer) > 60 Est GFR (Non-Af Amer) > 60 Glucose 84 Calcium 8.3 L Total Bilirubin 0.3 AST 21 ALT 24 Alkaline Phosphatase 57 Total Protein 5.8 L Albumin 3.1 L 09/19/16 11:50 Sputum Gram Stain - Final Impressions: Chest X-Ray 09/18/16 15:11 IMPRESSION: Right lower lobe pneumonia. Assessment & Plan - Diagnosis (1) Right lower lobe pneumonia Qualifiers: Pneumonia type: due to unspecified organism Qualified Code(s): J18.1 - Lobar pneumonia, unspecified organism Is this a current diagnosis for this admission?: YesPlan: See attending physician orders. Sputum culture grew gram negative lucas. Continue IV Levofloxacin and Cefepime coverage. Follow up on organism identification and sensitivity. (2) COPD exacerbation Is this a current diagnosis for this admission?: YesPlan: See attending physician orders. Request for aero chamber for use with inhaler and request chest percussion therapy with physical therapist. (3) Hypertension Qualifiers: Hypertension type: essential hypertension Qualified Code(s): I10 - Essential (primary) hypertension Is this a current diagnosis for this admission?: YesPlan: See attending physician orders. (4) Hypothyroidism Qualifiers: Hypothyroidism type: acquired Qualified Code(s): E03.9 - Hypothyroidism, unspecified Is this a current diagnosis for this admission?: YesPlan: See attending physician orders. (5) CAD (coronary artery disease) Qualifiers: Coronary Disease-Associated Artery/Lesion type: [place] artery Associated angina: without angina Is this a current diagnosis for this admission?: YesPlan: See attending physician orders. (6) GERD (gastroesophageal reflux disease) Qualifiers: Esophagitis presence: without esophagitis Qualified Code(s): K21.9 - Gastro-esophageal reflux disease without esophagitis Is this a current diagnosis for this admission?: YesPlan: See attending physician orders. - Time Time Spent with patient: 25-34 minutes Medications reviewed and adjusted accordingly: Yes Anticipated discharge: Home with Homehealth Within: Other - Inpatient Certification Based on my medical assessment, after consideration of the patient's comorbidities, presenting symptoms, or acuity I expect that the services needed warrant INPATIENT care.: Yes I certify that my determination is in accordance with my understanding of Medicare's requirements for reasonable and necessary INPATIENT services [42 CFR 412.3e].: Yes Medical Necessity: Need Close Monitoring Due to Risk of Patient Decompensation, Need For IV Fluids, Need For Continuous Telemetry Monitoring, Need for Nebulizer Therapy and Monitoring of Response, Need for IV Antibiotics, Risk of Complication if Not Cared For in Hospital Post Hospital Care: D/C Senior Controls Analyst Documentation - Plan Summary Plan Summary: See attending physician orders.
--- NOTE | 2016-09-21 13:29 | PDOC PROGRESS REPORT ---
Subjective Progress Note for:: 09/21/16 Subjective:: Patient without complaint except for cough very thick phlegm difficult to expectorate Physical Exam Vital Signs: Temp Pulse Resp BP Pulse Ox 97.8 F 81 17 130/58 H 98 09/21/16 11:23 09/21/16 11:23 09/21/16 11:23 09/21/16 11:23 09/21/16 11:23 Intake & Output 09/20/16 09/21/16 09/22/16 06:59 06:59 06:59 Intake Total 2893 4825 500 Output Total 475 2525 350 Balance 2418 2300 150 Weight 72.1 kg 72 kg General appearance: PRESENT: no acute distress, cooperative, disheveled, thin Head exam: PRESENT: atraumatic, normocephalic Eye exam: PRESENT: conjunctiva pale, EOMI Mouth exam: PRESENT: dry mucosa, neck supple, tongue midline Neck exam: ABSENT: carotid bruit, JVD, lymphadenopathy, thyromegaly Respiratory exam: PRESENT: decreased breath sounds, prolonged expiratory phas, rhonchi, symmetrical, unlabored Cardiovascular exam: PRESENT: RRR, +S1, +S2 Pulses: PRESENT: normal radial pulses GI/Abdominal exam: PRESENT: normal bowel sounds, soft. ABSENT: distended, guarding, mass, organolmegaly, rebound, tenderness Rectal exam: PRESENT: deferred Musculoskeletal exam: PRESENT: normal inspection Neurological exam: PRESENT: alert, awake Psychiatric exam: PRESENT: normal mood Skin exam: PRESENT: dry, warm Results Laboratory Results: 09/21/16 04:34 09/21/16 04:34 09/21/16 09/21/16 04:34 04:34 WBC 9.8 RBC 3.10 L Hgb 9.7 L Hct 29.2 L MCV 94 MCH 31.2 MCHC 33.1 RDW 13.8 Plt Count 247 Seg Neutrophils % 71.1 Lymphocytes % 16.3 Monocytes % 11.1 Eosinophils % 1.4 Basophils % 0.1 Absolute Neutrophils 7.0 Absolute Lymphocytes 1.6 Absolute Monocytes 1.1 Absolute Eosinophils 0.1 Absolute Basophils 0.0 Sodium 142.1 Potassium 4.5 Chloride 110 H Carbon Dioxide 23 Anion Gap 9 BUN 28 H Creatinine 1.04 Est GFR ( Amer) > 60 Est GFR (Non-Af Amer) > 60 Glucose 84 Calcium 8.3 L Total Bilirubin 0.3 AST 21 ALT 24 Alkaline Phosphatase 57 Total Protein 5.8 L Albumin 3.1 L 09/19/16 11:50 Sputum Gram Stain - Final Impressions: Chest X-Ray 09/18/16 15:11 IMPRESSION: Right lower lobe pneumonia. Assessment & Plan - Diagnosis (1) COPD exacerbation Is this a current diagnosis for this admission?: Yes (2) Right lower lobe pneumonia Qualifiers: Pneumonia type: due to unspecified organism Qualified Code(s): J18.1 - Lobar pneumonia, unspecified organism Is this a current diagnosis for this admission?: YesPlan: Chest physiotherapy and Mucomyst twice daily (3) Dysphagia, pharyngeal phase Is this a current diagnosis for this admission?: Yes (4) GERD (gastroesophageal reflux disease) Qualifiers: Esophagitis presence: without esophagitis Qualified Code(s): K21.9 - Gastro-esophageal reflux disease without esophagitis Is this a current diagnosis for this admission?: Yes
[2016-09-21] MEDS ORDERED: ACETYLCYSTEINE 20% SOLN 800 MG/4 ML VIAL.NEB NEB PRN (14:00)
[2016-09-21] MEDS: ACETYLCYSTEINE 20% SOLN 800 MG/4 ML VIAL.NEB NEB SCH (19:44)
[2016-09-21] MEDS: SIMVASTATIN 10 MG TABLET PO SCH (21:24)
[2016-09-21] MEDS: ALBUTEROL SULFATE HFA (90 MCG/PUFF) 200 PUFF/8.5 GM MDI IH PRN (21:25)
[2016-09-22] MEDS: BENZONATATE 100 MG CAPSULE PO SCH ×3 (06:19→21:28)
[2016-09-22] MEDS: NORMAL SALINE 1000 ML 1,000 ML IV PRN (06:20)
[2016-09-22] MEDS: ENOXAPARIN SODIUM INJ 40 MG/0.4 ML DISP.SYRIN SUBCUT SCH (08:19)
[2016-09-22] MEDS: LANSOPRAZOLE 30 MG TAB.RAP.DR PO SCH (08:19)
[2016-09-22] MEDS: IPRATROPIUM/ALBUTEROL 0.5-2.5 MG/3 ML AMPUL NEB PRN ×3 (08:20→19:57)
[2016-09-22] MEDS: ACETYLCYSTEINE 20% SOLN 800 MG/4 ML VIAL.NEB NEB SCH ×2 (08:20→19:56)
[2016-09-22] MEDS: LEVOFLOXACIN 500 MG/D5W RTU 500 MG/100 ML RTUPB IV SCH (10:30)
[2016-09-22] MEDS: GUAIFENESIN 600 MG TABLET.SA PO SCH ×2 (10:31→21:28)
[2016-09-22] MEDS: ASPIRIN 81 MG TABLET, CHEWABLE PO SCH (10:31)
[2016-09-22] MEDS: BUDESONIDE/FORMOTEROL 160-4.5 MCG 60 PUFF/6 GM MDI IH SCH ×2 (10:31→21:28)
[2016-09-22] MEDS: LEVOTHYROXINE SODIUM 0.05 MG TABLET PO SCH (10:31)
[2016-09-22] MEDS: FLUTICASONE NASAL SPRAY 50 MCG/SPRY 120 SPRAY/16 GM NASL SCH ×2 (10:35→21:28)
[2016-09-22] MEDS: ALBUTEROL SULFATE HFA (90 MCG/PUFF) 200 PUFF/8.5 GM MDI IH PRN (10:35)
[2016-09-22] MEDS: TIOTROPIUM BROMIDE DPI 5 CAP/KIT (18 MCG/CAP) IH SCH (10:35)
[2016-09-22] MEDS: CEFEPIME HCL 1 GM in DEXTROSE 5%-WATER 50 ML IV SCH ×2 (10:43→21:27)
--- NOTE | 2016-09-22 16:54 | PDOC PROGRESS REPORT ---
Subjective Progress Note for:: 09/22/16 Subjective:: I feel a little better Physical Exam Vital Signs: Temp Pulse Resp BP Pulse Ox 98.1 F 82 18 121/53 L 99 09/22/16 15:21 09/22/16 15:21 09/22/16 15:21 09/22/16 15:21 09/22/16 15:21 Intake & Output 09/21/16 09/22/16 09/23/16 06:59 06:59 06:59 Intake Total 4825 3452 Output Total 2525 2990 Balance 2300 462 Weight 72 kg 72.1 kg General appearance: PRESENT: no acute distress, cooperative, disheveled, thin, well-developed Head exam: PRESENT: atraumatic, normocephalic Eye exam: PRESENT: conjunctiva pale, EOMI Mouth exam: PRESENT: dry mucosa, neck supple, tongue midline Neck exam: ABSENT: carotid bruit, JVD, lymphadenopathy, thyromegaly Respiratory exam: PRESENT: decreased breath sounds, prolonged expiratory phas, rhonchi, symmetrical, unlabored Cardiovascular exam: PRESENT: RRR, +S1, +S2 Pulses: PRESENT: normal radial pulses GI/Abdominal exam: PRESENT: normal bowel sounds, soft. ABSENT: distended, guarding, mass, organolmegaly, rebound, tenderness Rectal exam: PRESENT: deferred Musculoskeletal exam: PRESENT: normal inspection Neurological exam: PRESENT: alert, awake Psychiatric exam: PRESENT: normal mood Skin exam: PRESENT: dry, warm Results Laboratory Results: 09/21/16 04:34 09/21/16 04:34 09/19/16 11:50 Sputum Gram Stain - Final Impressions: Chest X-Ray 09/18/16 15:11 IMPRESSION: Right lower lobe pneumonia. Assessment & Plan - Diagnosis (1) COPD exacerbation Is this a current diagnosis for this admission?: Yes (2) Right lower lobe pneumonia Qualifiers: Pneumonia type: due to unspecified organism Qualified Code(s): J18.1 - Lobar pneumonia, unspecified organism Is this a current diagnosis for this admission?: Yes (3) Dysphagia, pharyngeal phase Is this a current diagnosis for this admission?: Yes (4) GERD (gastroesophageal reflux disease) Qualifiers: Esophagitis presence: without esophagitis Qualified Code(s): K21.9 - Gastro-esophageal reflux disease without esophagitis Is this a current diagnosis for this admission?: Yes
--- NOTE | 2016-09-22 18:12 | PDOC PROGRESS REPORT ---
Subjective Progress Note for:: 09/22/16 Subjective:: No chest pain. Remain on supplemental oxygen via nasal canula. Reported continue difficulty with expectoration. Participating in chest percussion therapy with clear sputum production. No fever or chills. No nausea or vomiting. No abdominal pain. Physical Exam Vital Signs: Temp Pulse Resp BP Pulse Ox 98.1 F 82 18 121/53 L 97 09/22/16 15:21 09/22/16 15:21 09/22/16 15:21 09/22/16 15:21 09/22/16 17:31 Intake & Output 09/21/16 09/22/16 09/23/16 06:59 06:59 06:59 Intake Total 4825 3452 Output Total 2525 2990 Balance 2300 462 Weight 72 kg 72.1 kg Physical Exam: General appearance: PRESENT: no acute distress, cooperative, mild distress Head exam: PRESENT: atraumatic, normocephalic Eye exam: PRESENT: conjunctiva pink, EOMI, PERRLA. ABSENT: scleral icterus Respiratory exam: PRESENT: decreased breath sounds, minimal rhonchi - end expiratory phase Cardiovascular exam: PRESENT: RRR. ABSENT: diastolic murmur, rubs, systolic murmur GI/Abdominal exam: PRESENT: normal bowel sounds, soft. ABSENT: distended, guarding, mass, organomegaly, rebound, tenderness Extremities exam: ABSENT: pedal edema Musculoskeletal exam: PRESENT: deformity - related to multiple joints involvement with arthritis Neurological exam: PRESENT: alert, awake, oriented to person, oriented to place , oriented to time, oriented to situation, CN II-XII grossly intact. ABSENT: motor sensory deficit Psychiatric exam: PRESENT: appropriate affect, normal mood. ABSENT: homicidal ideation, suicidal ideation Skin exam: PRESENT: dry, intact, warm. ABSENT: cyanosis, rash Results Laboratory Results: 09/21/16 04:34 09/21/16 04:34 09/19/16 11:50 Sputum Gram Stain - Final Impressions: Chest X-Ray 09/18/16 15:11 IMPRESSION: Right lower lobe pneumonia. Assessment & Plan - Diagnosis (1) Right lower lobe pneumonia Qualifiers: Pneumonia type: due to unspecified organism Qualified Code(s): J18.1 - Lobar pneumonia, unspecified organism Is this a current diagnosis for this admission?: YesPlan: See attending physician orders. Sputum culture grew gram negative lucas, organism identification and sensitivity is still pending. Continue IV Levofloxacin and Cefepime coverage. (2) COPD exacerbation Is this a current diagnosis for this admission?: YesPlan: See attending physician orders. Continue all current medication management. (3) Hypertension Qualifiers: Hypertension type: essential hypertension Qualified Code(s): I10 - Essential (primary) hypertension Is this a current diagnosis for this admission?: YesPlan: See attending physician orders. (4) Hypothyroidism Qualifiers: Hypothyroidism type: acquired Qualified Code(s): E03.9 - Hypothyroidism, unspecified Is this a current diagnosis for this admission?: YesPlan: See attending physician orders. (5) CAD (coronary artery disease) Qualifiers: Coronary Disease-Associated Artery/Lesion type: [place] artery Associated angina: without angina Is this a current diagnosis for this admission?: YesPlan: See attending physician orders. (6) GERD (gastroesophageal reflux disease) Qualifiers: Esophagitis presence: without esophagitis Qualified Code(s): K21.9 - Gastro-esophageal reflux disease without esophagitis Is this a current diagnosis for this admission?: YesPlan: See attending physician orders. - Time Time Spent with patient: 25-34 minutes Medications reviewed and adjusted accordingly: Yes Anticipated discharge: Home with Homehealth Within: Other - Inpatient Certification Medical Necessity: Need Close Monitoring Due to Risk of Patient Decompensation, Need For IV Fluids, Need For Continuous Telemetry Monitoring, Need for Nebulizer Therapy and Monitoring of Response, Need for IV Antibiotics, Risk of Complication if Not Cared For in Hospital Post Hospital Care: D/C Houseman Documentation - Plan Summary Plan Summary: See attending physician orders.
[2016-09-22] MEDS: SIMVASTATIN 10 MG TABLET PO SCH (21:28)
[2016-09-23] MEDS: IPRATROPIUM/ALBUTEROL 0.5-2.5 MG/3 ML AMPUL NEB PRN ×4 (00:07→23:52)
[2016-09-23] MEDS: BENZONATATE 100 MG CAPSULE PO SCH ×3 (05:20→21:21)
[2016-09-23] MEDS: NORMAL SALINE 1000 ML 1,000 ML IV PRN (05:22)
[2016-09-23] MEDS: ACETYLCYSTEINE 20% SOLN 800 MG/4 ML VIAL.NEB NEB SCH ×2 (08:17→19:53)
[2016-09-23] MEDS: LANSOPRAZOLE 30 MG TAB.RAP.DR PO SCH (08:27)
[2016-09-23] MEDS: ENOXAPARIN SODIUM INJ 40 MG/0.4 ML DISP.SYRIN SUBCUT SCH (08:28)
[2016-09-23] MEDS: FLUTICASONE NASAL SPRAY 50 MCG/SPRY 120 SPRAY/16 GM NASL SCH ×2 (09:37→21:21)
[2016-09-23] MEDS: CEFEPIME HCL 1 GM in DEXTROSE 5%-WATER 50 ML IV SCH ×2 (09:37→21:20)
[2016-09-23] MEDS: ALBUTEROL SULFATE HFA (90 MCG/PUFF) 200 PUFF/8.5 GM MDI IH PRN (09:37)
[2016-09-23] MEDS: BUDESONIDE/FORMOTEROL 160-4.5 MCG 60 PUFF/6 GM MDI IH SCH ×2 (09:39→21:21)
[2016-09-23] MEDS: TIOTROPIUM BROMIDE DPI 5 CAP/KIT (18 MCG/CAP) IH SCH (09:39)
[2016-09-23] MEDS: GUAIFENESIN 600 MG TABLET.SA PO SCH ×2 (09:40→21:21)
[2016-09-23] MEDS: ASPIRIN 81 MG TABLET, CHEWABLE PO SCH (09:40)
[2016-09-23] MEDS: LEVOTHYROXINE SODIUM 0.05 MG TABLET PO SCH (09:40)
[2016-09-23] MEDS: LEVOFLOXACIN 750 MG TABLET PO SCH (09:40)
--- NOTE | 2016-09-23 14:52 | PDOC PROGRESS REPORT ---
Subjective Progress Note for:: 09/23/16 Subjective:: Patient reported episode of coughing spells this morning. Remain on chest percussion therapy with continued sputum production. Remain on supplemental oxygen via nasal canula. No chest pain. No fever or chills. No nausea or vomiting. No abdominal pain. Physical Exam Vital Signs: Temp Pulse Resp BP Pulse Ox 98.1 F 80 18 136/56 H 100 09/23/16 12:03 09/23/16 14:00 09/23/16 12:03 09/23/16 12:03 09/23/16 12:03 Intake & Output 09/22/16 09/23/16 09/24/16 06:59 06:59 06:59 Intake Total 3452 3222 400 Output Total 2990 2150 350 Balance 462 1072 50 Weight 72.1 kg 72.8 kg Physical Exam: General appearance: PRESENT: no acute distress, cooperative, mild distress Head exam: PRESENT: atraumatic, normocephalic Eye exam: PRESENT: conjunctiva pink, EOMI, PERRLA. ABSENT: scleral icterus Respiratory exam: PRESENT: decreased breath sounds, minimal rhonchi - end expiratory phase Cardiovascular exam: PRESENT: RRR. ABSENT: diastolic murmur, rubs, systolic murmur GI/Abdominal exam: PRESENT: normal bowel sounds, soft. ABSENT: distended, guarding, mass, organomegaly, rebound, tenderness Extremities exam: ABSENT: pedal edema Musculoskeletal exam: PRESENT: deformity - related to multiple joints involvement with arthritis Neurological exam: PRESENT: alert, awake, oriented to person, oriented to place , oriented to time, oriented to situation, CN II-XII grossly intact. ABSENT: motor sensory deficit Psychiatric exam: PRESENT: appropriate affect, normal mood. ABSENT: homicidal ideation, suicidal ideation Skin exam: PRESENT: dry, intact, warm. ABSENT: cyanosis, rash Results Laboratory Results: 09/21/16 04:34 09/21/16 04:34 09/19/16 11:50 Sputum Gram Stain - Final 09/19/16 11:50 Sputum Sputum Culture - Final Pseudomonas Aeruginosa Normal [place] Impressions: Chest X-Ray 09/18/16 15:11 IMPRESSION: Right lower lobe pneumonia. Assessment & Plan - Diagnosis (1) Right lower lobe pneumonia Qualifiers: Pneumonia type: due to unspecified organism Qualified Code(s): J18.1 - Lobar pneumonia, unspecified organism Is this a current diagnosis for this admission?: YesPlan: See attending physician orders. Sputum culture grew Psuedomonas aeruginosa with intermediate sensitivity to quinolones but sensitive to Cefepime. (2) COPD exacerbation Is this a current diagnosis for this admission?: YesPlan: See attending physician orders. Continue all current medication management. (3) Hypertension Qualifiers: Hypertension type: essential hypertension Qualified Code(s): I10 - Essential (primary) hypertension Is this a current diagnosis for this admission?: YesPlan: See attending physician orders. (4) Hypothyroidism Qualifiers: Hypothyroidism type: acquired Qualified Code(s): E03.9 - Hypothyroidism, unspecified Is this a current diagnosis for this admission?: YesPlan: See attending physician orders. (5) CAD (coronary artery disease) Qualifiers: Coronary Disease-Associated Artery/Lesion type: [place] artery Associated angina: without angina Is this a current diagnosis for this admission?: YesPlan: See attending physician orders. (6) GERD (gastroesophageal reflux disease) Qualifiers: Esophagitis presence: without esophagitis Qualified Code(s): K21.9 - Gastro-esophageal reflux disease without esophagitis Is this a current diagnosis for this admission?: YesPlan: See attending physician orders. - Time Time Spent with patient: 25-34 minutes Medications reviewed and adjusted accordingly: Yes Anticipated discharge: Home with Homehealth Within: Other - Inpatient Certification Medical Necessity: Need Close Monitoring Due to Risk of Patient Decompensation, Need For IV Fluids, Need For Continuous Telemetry Monitoring, Need for Nebulizer Therapy and Monitoring of Response, Need for IV Antibiotics, Risk of Complication if Not Cared For in Hospital Post Hospital Care: D/C Attache Documentation - Plan Summary Plan Summary: See attending physician orders.
[2016-09-23] MEDS: SIMVASTATIN 10 MG TABLET PO SCH (21:21)
[2016-09-24] MEDS: BENZONATATE 100 MG CAPSULE PO SCH ×3 (05:11→21:24)
[2016-09-24] MEDS: IPRATROPIUM/ALBUTEROL 0.5-2.5 MG/3 ML AMPUL NEB PRN ×4 (08:40→23:18)
[2016-09-24] MEDS: ACETYLCYSTEINE 20% SOLN 800 MG/4 ML VIAL.NEB NEB SCH ×2 (08:41→20:01)
[2016-09-24] MEDS: LANSOPRAZOLE 30 MG TAB.RAP.DR PO SCH (09:34)
[2016-09-24] MEDS: BUDESONIDE/FORMOTEROL 160-4.5 MCG 60 PUFF/6 GM MDI IH SCH ×2 (09:35→21:23)
[2016-09-24] MEDS: FLUTICASONE NASAL SPRAY 50 MCG/SPRY 120 SPRAY/16 GM NASL SCH ×2 (09:35→21:23)
[2016-09-24] MEDS: GUAIFENESIN 600 MG TABLET.SA PO SCH ×2 (09:35→21:25)
[2016-09-24] MEDS: ASPIRIN 81 MG TABLET, CHEWABLE PO SCH (09:35)
[2016-09-24] MEDS: ENOXAPARIN SODIUM INJ 40 MG/0.4 ML DISP.SYRIN SUBCUT SCH (09:35)
[2016-09-24] MEDS: LEVOTHYROXINE SODIUM 0.05 MG TABLET PO SCH (09:35)
[2016-09-24] MEDS: LEVOFLOXACIN 750 MG TABLET PO SCH (09:35)
[2016-09-24] MEDS: CEFEPIME HCL 1 GM in DEXTROSE 5%-WATER 50 ML IV SCH ×2 (09:39→21:24)
[2016-09-24] MEDS: TIOTROPIUM BROMIDE DPI 5 CAP/KIT (18 MCG/CAP) IH SCH (11:53)
--- NOTE | 2016-09-24 14:58 | PDOC PROGRESS REPORT ---
Subjective Progress Note for:: 09/24/16 Subjective:: Patient seen this morning. He is resting in bed. He states his breathing has continued to improve daily. He is still coughing productively but is no longer dyspneic. He does wear oxygen at home 10/10. He denies any further fevers of chills. He denies any nausea, vomiting or abdominal pain. He denies any pain. Rest of the remaining review of systems are negative Physical Exam Vital Signs: Temp Pulse Resp BP Pulse Ox 97.4 F 83 20 125/49 L 100 09/24/16 11:41 09/24/16 11:41 09/24/16 11:41 09/24/16 11:41 09/24/16 11:41 Intake & Output 09/23/16 09/24/16 09/25/16 06:59 06:59 06:59 Intake Total 3222 2230 600 Output Total 2150 1750 Balance 1072 480 600 Weight 72.8 kg 72.5 kg General appearance: PRESENT: no acute distress, well-developed, well-nourished Head exam: PRESENT: atraumatic, normocephalic Eye exam: PRESENT: conjunctiva pink, EOMI, PERRLA. ABSENT: scleral icterus Ear exam: PRESENT: bleeding Mouth exam: PRESENT: moist, tongue midline Neck exam: ABSENT: carotid bruit, JVD, lymphadenopathy, thyromegaly Respiratory exam: PRESENT: crackles, decreased breath sounds - right base, symmetrical, unlabored Cardiovascular exam: PRESENT: RRR. ABSENT: diastolic murmur, rubs, systolic murmur Pulses: PRESENT: normal dorsalis pedis pul Vascular exam: PRESENT: normal capillary refill GI/Abdominal exam: PRESENT: normal bowel sounds, soft. ABSENT: distended, guarding, mass, organolmegaly, rebound, tenderness Rectal exam: PRESENT: deferred Extremities exam: PRESENT: full ROM. ABSENT: calf tenderness, clubbing, pedal edema Musculoskeletal exam: PRESENT: ambulatory, full ROM, normal inspection Neurological exam: PRESENT: alert, awake, oriented to person, oriented to place , oriented to time, oriented to situation, CN II-XII grossly intact. ABSENT: motor sensory deficit Psychiatric exam: PRESENT: appropriate affect, normal mood. ABSENT: homicidal ideation, suicidal ideation Skin exam: PRESENT: dry, intact, warm. ABSENT: cyanosis, rash Results Laboratory Results: 09/21/16 04:34 09/21/16 04:34 Impressions: Chest X-Ray 09/18/16 15:11 IMPRESSION: Right lower lobe pneumonia. Assessment & Plan - Diagnosis (1) COPD exacerbation Is this a current diagnosis for this admission?: Yes (2) Right lower lobe pneumonia Qualifiers: Pneumonia type: due to Pseudomonas Qualified Code(s): J15.1 - Pneumonia due to Pseudomonas Is this a current diagnosis for this admission?: YesPlan: Continue antibiotics and nebulizer treatments. He is improving daily. Leucocytosis improved today (3) Hypertension Qualifiers: Hypertension type: essential hypertension Qualified Code(s): I10 - Essential (primary) hypertension Is this a current diagnosis for this admission?: YesPlan: Continue current medications . He is normotensive (4) GERD (gastroesophageal reflux disease) Qualifiers: Esophagitis presence: without esophagitis Qualified Code(s): K21.9 - Gastro-esophageal reflux disease without esophagitis Is this a current diagnosis for this admission?: YesPlan: Continue PPI therapy (5) Hypothyroidism Qualifiers: Hypothyroidism type: acquired Qualified Code(s): E03.9 - Hypothyroidism, unspecified Is this a current diagnosis for this admission?: YesPlan: Continue synthroid dose (6) CAD (coronary artery disease) Qualifiers: Coronary Disease-Associated Artery/Lesion type: [place] artery Associated angina: without angina Is this a current diagnosis for this admission?: YesPlan: Presently asymptomatic continue current treatment - Time Time Spent with patient: 25-34 minutes Critical Time spent with patient: 15-24 minutes Medications reviewed and adjusted accordingly: Yes Anticipated discharge: Home with Homehealth
[2016-09-24] MEDS: SIMVASTATIN 10 MG TABLET PO SCH (21:25)
[2016-09-25] MEDS: BENZONATATE 100 MG CAPSULE PO SCH ×3 (05:56→21:13)
[2016-09-25] MEDS: LANSOPRAZOLE 30 MG TAB.RAP.DR PO SCH (07:56)
[2016-09-25] MEDS: ENOXAPARIN SODIUM INJ 40 MG/0.4 ML DISP.SYRIN SUBCUT SCH (07:58)
[2016-09-25] MEDS: IPRATROPIUM/ALBUTEROL 0.5-2.5 MG/3 ML AMPUL NEB PRN ×4 (08:19→23:53)
[2016-09-25] MEDS: ACETYLCYSTEINE 20% SOLN 800 MG/4 ML VIAL.NEB NEB SCH ×2 (08:20→20:04)
[2016-09-25] MEDS: GUAIFENESIN 600 MG TABLET.SA PO SCH ×2 (09:38→21:13)
[2016-09-25] MEDS: LEVOTHYROXINE SODIUM 0.05 MG TABLET PO SCH (09:38)
[2016-09-25] MEDS: CEFEPIME HCL 1 GM in DEXTROSE 5%-WATER 50 ML IV SCH ×2 (09:38→21:13)
[2016-09-25] MEDS: LEVOFLOXACIN 750 MG TABLET PO SCH (09:38)
[2016-09-25] MEDS: BUDESONIDE/FORMOTEROL 160-4.5 MCG 60 PUFF/6 GM MDI IH SCH ×2 (09:38→21:18)
[2016-09-25] MEDS: ASPIRIN 81 MG TABLET, CHEWABLE PO SCH (09:38)
[2016-09-25] MEDS: FLUTICASONE NASAL SPRAY 50 MCG/SPRY 120 SPRAY/16 GM NASL SCH ×2 (09:38→21:18)
[2016-09-25] MEDS: TIOTROPIUM BROMIDE DPI 5 CAP/KIT (18 MCG/CAP) IH SCH (09:38)
--- NOTE | 2016-09-25 10:36 | PDOC PROGRESS REPORT ---
Subjective Progress Note for:: 09/25/16 Subjective:: Patient seen this morning. He is resting in bed. He states his breathing has continued to improve daily. He is still coughing productively but is no longer dyspneic. He does wear oxygen at home 10/10. He denies any further fevers of chills. He denies any nausea, vomiting or abdominal pain. He denies any pain. Rest of the remaining review of systems are negative Physical Exam Vital Signs: Temp Pulse Resp BP Pulse Ox 98.4 F 89 18 116/58 L 99 09/25/16 07:49 09/25/16 08:22 09/25/16 08:22 09/25/16 07:49 09/25/16 08:22 Intake & Output 09/24/16 09/25/16 09/26/16 06:59 06:59 06:59 Intake Total 2230 1889 Output Total 1750 Balance 480 1889 Weight 72.5 kg 70 kg General appearance: PRESENT: no acute distress, well-developed, well-nourished Head exam: PRESENT: atraumatic, normocephalic Eye exam: PRESENT: conjunctiva pink, EOMI, PERRLA. ABSENT: scleral icterus Ear exam: PRESENT: normal external ear exam Mouth exam: PRESENT: moist, tongue midline Neck exam: ABSENT: carotid bruit, JVD, lymphadenopathy, thyromegaly Respiratory exam: PRESENT: clear to auscultation pita. ABSENT: rales, rhonchi, wheezes Cardiovascular exam: PRESENT: RRR. ABSENT: diastolic murmur, rubs, systolic murmur Pulses: PRESENT: normal dorsalis pedis pul Vascular exam: PRESENT: normal capillary refill GI/Abdominal exam: PRESENT: normal bowel sounds, soft. ABSENT: distended, guarding, mass, organolmegaly, rebound, tenderness Rectal exam: PRESENT: deferred Extremities exam: PRESENT: full ROM. ABSENT: calf tenderness, clubbing, pedal edema Neurological exam: PRESENT: alert, awake, oriented to person, oriented to place , oriented to time, oriented to situation, CN II-XII grossly intact. ABSENT: motor sensory deficit Psychiatric exam: PRESENT: appropriate affect, normal mood. ABSENT: homicidal ideation, suicidal ideation Skin exam: PRESENT: dry, intact, warm. ABSENT: cyanosis, rash Results Laboratory Results: 09/21/16 04:34 09/21/16 04:34 Impressions: Chest X-Ray 09/18/16 15:11 IMPRESSION: Right lower lobe pneumonia. Assessment & Plan - Diagnosis (1) Right lower lobe pneumonia Qualifiers: Pneumonia type: due to Pseudomonas Qualified Code(s): J15.1 - Pneumonia due to Pseudomonas Is this a current diagnosis for this admission?: YesPlan: Continue antibiotics and nebulizer treatments. He is improving daily. Leucocytosis improved today (2) COPD exacerbation Is this a current diagnosis for this admission?: YesPlan: As above (3) Hypertension Qualifiers: Hypertension type: essential hypertension Qualified Code(s): I10 - Essential (primary) hypertension Is this a current diagnosis for this admission?: YesPlan: Continue current medications . He is normotensive (4) GERD (gastroesophageal reflux disease) Qualifiers: Esophagitis presence: without esophagitis Qualified Code(s): K21.9 - Gastro-esophageal reflux disease without esophagitis Is this a current diagnosis for this admission?: YesPlan: Continue PPI therapy (5) Hypothyroidism Qualifiers: Hypothyroidism type: acquired Qualified Code(s): E03.9 - Hypothyroidism, unspecified Is this a current diagnosis for this admission?: YesPlan: Continue synthroid dose (6) CAD (coronary artery disease) Qualifiers: Coronary Disease-Associated Artery/Lesion type: [place] artery Associated angina: without angina Is this a current diagnosis for this admission?: YesPlan: Presently asymptomatic continue current treatment - Time Time Spent with patient: 25-34 minutes Critical Time spent with patient: 15-24 minutes Medications reviewed and adjusted accordingly: Yes
[2016-09-25] MEDS: SIMVASTATIN 10 MG TABLET PO SCH (21:13)
[2016-09-26 04:57] LABS: HEMATOCRIT 31.5 % (37.9-51.0); HEMOGLOBIN 10.4 g/dL (13.5-17.0); HGB HCT DIFFERENCE -0.3; MEAN CORPUSCULAR HEMOGLOBIN 31.1 pg (27.0-33.4); MEAN CORPUSCULAR VOLUME 94 fl (80-97); RED BLOOD COUNT 3.34 10^6/uL (4.35-5.55); RED CELL DISTRIBUTION WIDTH 14.2 % (11.5-14.0); WHITE BLOOD COUNT 10.2 10^3/uL (4.0-10.5)
[2016-09-26 05:13] LABS: ANION GAP 10 (5-19); BLOOD UREA NITROGEN 23 mg/dL (7-20); CALCIUM 9.1 mg/dL (8.4-10.2); CARBON DIOXIDE 27 mmol/L (22-30); CHLORIDE 104 mmol/L (98-107); CREATININE RESULT 1.06 mg/dL (0.52-1.25); GLUCOSE 105 mg/dL (75-110); POTASSIUM 4.6 mmol/L (3.6-5.0); SODIUM 140.9 mmol/L (137-145)
[2016-09-26 05:38] LABS: BASOPHILS % (MANUAL) 0 % (0-2); EOSINOPHILS % (MANUAL) 2 % (0-6); LYMPHOCYTES % (MANUAL) 22 % (13-45); TOTAL CELLS COUNTED 100
[2016-09-26 05:40] LABS: ANISOCYTOSIS SLIGHT; POLYCHROMASIA SLIGHT
[2016-09-26] MEDS: BENZONATATE 100 MG CAPSULE PO SCH ×3 (06:36→21:58)
[2016-09-26] MEDS: LANSOPRAZOLE 30 MG TAB.RAP.DR PO SCH (08:28)
[2016-09-26] MEDS: ENOXAPARIN SODIUM INJ 40 MG/0.4 ML DISP.SYRIN SUBCUT SCH (08:28)
[2016-09-26] MEDS: IPRATROPIUM/ALBUTEROL 0.5-2.5 MG/3 ML AMPUL NEB PRN ×3 (08:46→20:19)
[2016-09-26] MEDS: ACETYLCYSTEINE 20% SOLN 800 MG/4 ML VIAL.NEB NEB SCH ×2 (08:47→20:19)
[2016-09-26] MEDS: BUDESONIDE/FORMOTEROL 160-4.5 MCG 60 PUFF/6 GM MDI IH SCH ×2 (09:07→21:59)
[2016-09-26] MEDS: FLUTICASONE NASAL SPRAY 50 MCG/SPRY 120 SPRAY/16 GM NASL SCH ×2 (09:07→21:59)
[2016-09-26] MEDS: ASPIRIN 81 MG TABLET, CHEWABLE PO SCH (09:08)
[2016-09-26] MEDS: GUAIFENESIN 600 MG TABLET.SA PO SCH ×2 (09:08→21:58)
[2016-09-26] MEDS: TIOTROPIUM BROMIDE DPI 5 CAP/KIT (18 MCG/CAP) IH SCH (09:08)
[2016-09-26] MEDS: LEVOTHYROXINE SODIUM 0.05 MG TABLET PO SCH (09:09)
[2016-09-26] MEDS: LEVOFLOXACIN 750 MG TABLET PO SCH (09:09)
--- NOTE | 2016-09-26 19:33 | PDOC PROGRESS REPORT ---
Subjective Progress Note for:: 09/26/16 Subjective:: Patient reported improvement in his breathing. Less coughing and sputum production. Remain on supplemental oxygen via nasal canula. No chest pain. No fever or chills. No nausea or vomiting. No abdominal pain. Physical Exam Vital Signs: Temp Pulse Resp BP Pulse Ox 98.0 F 82 20 122/49 L 100 09/26/16 16:39 09/26/16 16:39 09/26/16 16:39 09/26/16 16:39 09/26/16 16:39 Intake & Output 09/25/16 09/26/16 09/27/16 06:59 06:59 06:59 Intake Total 1889 1822 1713 Balance 1889 1822 1713 Weight 70 kg 71.9 kg Physical Exam: General appearance: PRESENT: no acute distress, cooperative, mild distress Head exam: PRESENT: atraumatic, normocephalic Eye exam: PRESENT: conjunctiva pink, EOMI, PERRLA. ABSENT: scleral icterus Respiratory exam: PRESENT: decreased breath sounds, very minimal rhonchi - end expiratory phase Cardiovascular exam: PRESENT: RRR. ABSENT: diastolic murmur, rubs, systolic murmur GI/Abdominal exam: PRESENT: normal bowel sounds, soft. ABSENT: distended, guarding, mass, organomegaly, rebound, tenderness Extremities exam: ABSENT: pedal edema Musculoskeletal exam: PRESENT: deformity - related to multiple joints involvement with arthritis Neurological exam: PRESENT: alert, awake, oriented to person, oriented to place , oriented to time, oriented to situation, CN II-XII grossly intact. ABSENT: motor sensory deficit Psychiatric exam: PRESENT: appropriate affect, normal mood. ABSENT: homicidal ideation, suicidal ideation Skin exam: PRESENT: dry, intact, warm. ABSENT: cyanosis, rash Results Laboratory Results: 09/26/16 04:33 09/26/16 04:33 09/26/16 09/26/16 04:33 04:33 WBC 10.2 RBC 3.34 L Hgb 10.4 L Hct 31.5 L MCV 94 MCH 31.1 MCHC 33.0 RDW 14.2 H Plt Count 326 Seg Neutrophils % Not Reportable Lymphocytes % Not Reportable Monocytes % Not Reportable Eosinophils % Not Reportable Basophils % Not Reportable Absolute Neutrophils Not Reportable Absolute Lymphocytes Not Reportable Absolute Monocytes Not Reportable Absolute Eosinophils Not Reportable Absolute Basophils Not Reportable Sodium 140.9 Potassium 4.6 Chloride 104 Carbon Dioxide 27 Anion Gap 10 BUN 23 H Creatinine 1.06 Est GFR ( Amer) > 60 Est GFR (Non-Af Amer) > 60 Glucose 105 Calcium 9.1 Impressions: Chest X-Ray 09/18/16 15:11 IMPRESSION: Right lower lobe pneumonia. Assessment & Plan - Diagnosis (1) Right lower lobe pneumonia Qualifiers: Pneumonia type: due to Pseudomonas Qualified Code(s): J15.1 - Pneumonia due to Pseudomonas Is this a current diagnosis for this admission?: YesPlan: See attending physician orders. Maintain on oral Levofloxacin. (2) COPD exacerbation Is this a current diagnosis for this admission?: YesPlan: See attending physician orders. Continue all current medication management. Improving coughing and sputum production. (3) Hypertension Qualifiers: Hypertension type: essential hypertension Qualified Code(s): I10 - Essential (primary) hypertension Is this a current diagnosis for this admission?: YesPlan: See attending physician orders. (4) Hypothyroidism Qualifiers: Hypothyroidism type: acquired Qualified Code(s): E03.9 - Hypothyroidism, unspecified Is this a current diagnosis for this admission?: YesPlan: See attending physician orders. (5) CAD (coronary artery disease) Qualifiers: Coronary Disease-Associated Artery/Lesion type: [place] artery Associated angina: without angina Is this a current diagnosis for this admission?: YesPlan: See attending physician orders. (6) GERD (gastroesophageal reflux disease) Qualifiers: Esophagitis presence: without esophagitis Qualified Code(s): K21.9 - Gastro-esophageal reflux disease without esophagitis Is this a current diagnosis for this admission?: YesPlan: See attending physician orders. - Time Time Spent with patient: 25-34 minutes Medications reviewed and adjusted accordingly: Yes Anticipated discharge: Home Within: within 24 hours - Inpatient Certification Based on my medical assessment, after consideration of the patient's comorbidities, presenting symptoms, or acuity I expect that the services needed warrant INPATIENT care.: Yes I certify that my determination is in accordance with my understanding of Medicare's requirements for reasonable and necessary INPATIENT services [42 CFR 412.3e].: Yes Medical Necessity: Need Close Monitoring Due to Risk of Patient Decompensation, Need For Continuous Telemetry Monitoring, Need for Nebulizer Therapy and Monitoring of Response, Need for IV Antibiotics, Risk of Complication if Not Cared For in Hospital 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
[2016-09-26] MEDS: SIMVASTATIN 10 MG TABLET PO SCH (21:58)
[2016-09-27] MEDS: IPRATROPIUM/ALBUTEROL 0.5-2.5 MG/3 ML AMPUL NEB PRN ×2 (00:10→08:03)
[2016-09-27] MEDS: BENZONATATE 100 MG CAPSULE PO SCH (07:10)
[2016-09-27] MEDS: ACETYLCYSTEINE 20% SOLN 800 MG/4 ML VIAL.NEB NEB SCH (08:03)
[2016-09-27 08:37] VITALS: BP 130/58
[2016-09-27] MEDS: ENOXAPARIN SODIUM INJ 40 MG/0.4 ML DISP.SYRIN SUBCUT SCH (08:42)
[2016-09-27] MEDS: LANSOPRAZOLE 30 MG TAB.RAP.DR PO SCH (08:42)
--- NOTE | 2016-09-27 08:50 | PDOC DISCHARGE SUMMARY ---
General - Admit/Disc Date/PCP Admission Date/Primary Care Provider: 09/19/16 04:13 DEBO JARON Discharge Date: 09/27/16 - Discharge Diagnosis (1) Right lower lobe pneumonia Is this a current diagnosis for this admission?: Yes (2) COPD exacerbation Is this a current diagnosis for this admission?: Yes (3) Hypertension Is this a current diagnosis for this admission?: Yes (4) Hypothyroidism Is this a current diagnosis for this admission?: Yes (5) CAD (coronary artery disease) Is this a current diagnosis for this admission?: Yes (6) GERD (gastroesophageal reflux disease) Is this a current diagnosis for this admission?: Yes - Additional Information Resuscitation Status: Full Code Discharge Diet: Cardiac Discharge Activity: Activity As Tolerated Home Medications: Albuterol Sulfate [Ventolin HFA MDI 18 GM] 2 puff IH Q4HP PRN 07/19/16 Aspirin [Ecotrin 81 mg EC Tablet] 81 mg PO DAILY 07/19/16 Budesonide/Formoterol Fumarate [Symbicort HFA 160-4.5 mcg Inhaler 6 gm] 2 puff IH BID 07/19/16 Esomeprazole Mag Trihydrate [Nexium] 40 mg PO DAILY 07/19/16 Fluticasone Propionate [Flonase Nasal [place] 50 Mcg/[place] 16 gm] 1 spray NASL BID 07/19/16 Guaifenesin [Mucinex] 600 mg PO Q12 07/19/16 Ipratropium/Albuterol Sulfate [Duoneb 3 ml Ampul] 3 ml NEB Q4H PRN 07/19/16 Levothyroxine Sodium [Synthroid] 50 mcg PO DAILY 07/19/16 Simvastatin [Zocor 20 mg Tablet] 20 mg PO DAILY 07/19/16 Tiotropium [place] [Spiriva Handihaler 5 Cap/Kit (18 Mcg/Cap)] 1 cap IH DAILY Benzonatate [Tessalon Perles 100 mg Capsule] 100 mg PO Q8 #60 capsule 09/27/16 Levofloxacin [Levaquin 750 mg Tablet] 750 mg PO DAILY #3 tablet 09/27/16 History of Present Illness History of Present Illness: NIMISHA BRUMFIELD is a 81 year old male recently engaged with my practice presented to the ED with complain of worsening difficulty with breathing, productive coughing with pleurisy, poor appetite and P.O intake x 2 days prior to his presentation to the ED. Patient has history of COPD on supplemental oxygen at home at 3L/min. Patient reported tat he was at baseline with regard to his breathing until 2 days prior to presentation when he woke up with increase sputum production and progressively short of breath. He denied any associated fever or chill. No blood in his sputum but has been greenish and mucous in character. Patient reported minimal improvement in his symptoms despite increase in his supplemental oxygen and bronchodilators usage at home. 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 His breathing and coughing spells did improve. He was seen by Dr. Adam, appliance counselor, during this hospitalization. He has remain fever free for more than 48 hours. Breathing is much better and physical examination did not reveal and significant difficulty with his breathing. Patient is agreeable with discharge home today.He will be discharge home on Levofloxacin 750mg po daily x 3 days for completion of 10 days therapy. He will follow up in the office as instructed upon discharge. Physical Exam Vital Signs: Temp Pulse Resp BP Pulse Ox 98.3 F 83 20 130/58 H 97 09/27/16 07:09 09/27/16 08:03 09/27/16 08:03 09/27/16 07:09 09/27/16 08:03 Intake & Output 09/26/16 09/27/16 09/28/16 06:59 06:59 06:59 Intake Total 1822 2263 Balance 1822 2263 Weight 71.9 kg 72.1 kg Physical Exam: General appearance: PRESENT: no acute distress, cooperative, mild distress Head exam: PRESENT: atraumatic, normocephalic Eye exam: PRESENT: conjunctiva pink, EOMI, PERRLA. ABSENT: scleral icterus Respiratory exam: PRESENT: decreased breath sounds, very minimal rhonchi - end expiratory phase Cardiovascular exam: PRESENT: RRR. ABSENT: diastolic murmur, rubs, systolic murmur GI/Abdominal exam: PRESENT: normal bowel sounds, soft. ABSENT: distended, guarding, mass, organomegaly, rebound, tenderness Extremities exam: ABSENT: pedal edema Musculoskeletal exam: PRESENT: deformity - related to multiple joints involvement with arthritis Neurological exam: PRESENT: alert, awake, oriented to person, oriented to place , oriented to time, oriented to situation, CN II-XII grossly intact. ABSENT: motor sensory deficit Psychiatric exam: PRESENT: appropriate affect, normal mood. ABSENT: homicidal ideation, suicidal ideation Skin exam: PRESENT: dry, intact, warm. ABSENT: cyanosis, rash Results Laboratory Results: 09/26/16 04:33 09/26/16 04:33 Impressions: Chest X-Ray 09/18/16 15:11 IMPRESSION: Right lower lobe pneumonia. Qualifiers PATEINT BEING DISCHARGED WITH ANY OF THE FOLLOWING DIAGNOSIS?: No Plan Discharge Plan: Discharge home today. Follow up in the office as instructed upon discharge.
[2016-09-27] MEDS: ASPIRIN 81 MG TABLET, CHEWABLE PO SCH (09:48)
[2016-09-27] MEDS: LEVOFLOXACIN 750 MG TABLET PO SCH (09:48)
[2016-09-27] MEDS: GUAIFENESIN 600 MG TABLET.SA PO SCH (09:49)
[2016-09-27] MEDS: LEVOTHYROXINE SODIUM 0.05 MG TABLET PO SCH (09:49)
[2016-09-27] MEDS: BUDESONIDE/FORMOTEROL 160-4.5 MCG 60 PUFF/6 GM MDI IH SCH (09:50)
[2016-09-27] MEDS: FLUTICASONE NASAL SPRAY 50 MCG/SPRY 120 SPRAY/16 GM NASL SCH (09:50)
[2016-09-27] MEDS: TIOTROPIUM BROMIDE DPI 5 CAP/KIT (18 MCG/CAP) IH SCH (09:51)
--- NOTE | 2016-10-10 17:18 | PDOC PROGRESS REPORT ---
Subjective Progress Note for:: 09/26/16 Subjective:: I am better Physical Exam Vital Signs: Temp Pulse Resp BP Pulse Ox 98.3 F 82 18 130/58 H 98 09/27/16 10:20 09/27/16 10:20 09/27/16 10:20 09/27/16 10:20 09/27/16 10:20 Intake & Output 09/26/16 09/27/16 09/28/16 06:59 06:59 06:59 Intake Total 1822 2263 Balance 1822 2263 Weight 71.9 kg 72.1 kg General appearance: PRESENT: no acute distress, cooperative, disheveled, thin, well-developed Head exam: PRESENT: atraumatic, normocephalic Eye exam: PRESENT: conjunctiva pale, EOMI Mouth exam: PRESENT: dry mucosa, neck supple, tongue midline Neck exam: ABSENT: carotid bruit, JVD, lymphadenopathy, thyromegaly Respiratory exam: PRESENT: decreased breath sounds, prolonged expiratory phas, rhonchi, symmetrical, unlabored, wheezes Cardiovascular exam: PRESENT: irregular rhythm Pulses: PRESENT: normal radial pulses GI/Abdominal exam: PRESENT: normal bowel sounds, soft. ABSENT: distended, guarding, mass, organolmegaly, rebound, tenderness Rectal exam: PRESENT: deferred Musculoskeletal exam: PRESENT: normal inspection Neurological exam: PRESENT: alert, awake Psychiatric exam: PRESENT: normal mood Skin exam: PRESENT: dry, warm Results Laboratory Results: 09/26/16 04:33 09/26/16 04:33 Impressions: Chest X-Ray 09/18/16 15:11 IMPRESSION: Right lower lobe pneumonia. Assessment & Plan - Diagnosis (1) COPD exacerbation Is this a current diagnosis for this admission?: Yes (2) Right lower lobe pneumonia Qualifiers: Pneumonia type: due to Pseudomonas Qualified Code(s): J15.1 - Pneumonia due to Pseudomonas Is this a current diagnosis for this admission?: Yes (3) Dysphagia, pharyngeal phase Is this a current diagnosis for this admission?: Yes (4) GERD (gastroesophageal reflux disease) Qualifiers: Esophagitis presence: without esophagitis Qualified Code(s): K21.9 - Gastro-esophageal reflux disease without esophagitis Is this a current diagnosis for this admission?: Yes
== END 2016-09-27 10:46 | disposition home or self-care (01) | DRG 190 ==
LOC: ER 14:42 → EH 16:33 → UNDOADMIN 16:33 → EH 18:37 → 3W 18:37 → EH 09-19 04:13 → 3W 09-19 04:13
PROVIDERS: ADMIT Internal Medicine Geriatric Medicine; ATTEND Internal Medicine Geriatric Medicine
PROC: 3E0F73Z Introduction of Anti-inflammatory into Respiratory Tract, Via Natural or Artificial Opening (ICD-10-PCS; principal; 2016-09-19)
DX: J44.0 Chronic obstructive pulmonary disease with (acute) lower respiratory infection (principal); J15.1 Pneumonia due to Pseudomonas; J44.1 Chronic obstructive pulmonary disease with (acute) exacerbation; I10 Essential (primary) hypertension; E03.9 Hypothyroidism, unspecified; I25.10 Atherosclerotic heart disease of native coronary artery without angina pectoris; K21.9 Gastro-esophageal reflux disease without esophagitis; M19.90 Unspecified osteoarthritis, unspecified site; E11.9 Type 2 diabetes mellitus without complications; R13.13 Dysphagia, pharyngeal phase; Z79.899 Other long term (current) drug therapy; Z99.81 Dependence on supplemental oxygen; Z86.73 Personal history of transient ischemic attack (TIA), and cerebral infarction without residual deficits; Z87.891 Personal history of nicotine dependence; Z88.2 Allergy status to sulfonamides; Z79.82 Long term (current) use of aspirin
CPT/HCPCS: 36415; 71010; 80048; 80053; 81001; 82553; 83880; 84484; 85025; 85610; 87040; 87070; 87077; 87186; 87205; 93005; 93010; 94640; 94667; 94668; 96374; 99285; J0692; J1650; J1956; J2930; J3490; J7030; J7620

== ENCOUNTER → 2017-05-02 | Outpatient (CLI) | payer MEDICARE, BC ==
--- NOTE | 2017-05-02 15:37 | RADIOLOGY REPORT (SQ) ---
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 CT from [facility] 09/21/2015. 09/21/2015. TECHNIQUE: CT scan of the chest performed using helical scanning technique with dynamic intravenous contrast injection. Images reviewed with lung, soft tissue and bone windows. Reconstructed coronal and sagittal MPR images reviewed. All images stored on PACS. All CT scanners at this facility use dose modulation, iterative reconstruction, and/or weight based d osing when appropriate to reduce radiation dose to as low as reasonably achievable (ALARA). [facility]: Dose Right [facility]: CareDose [facility]: Dose Right [facility]: Teradose 4D [facility]: [employer] CONTRAST TYPE AND DOSE: contrast/concentration: Isovue 370.00 mg/ml; Total Contrast Delivered: 80.0 ml; Total Saline Delivered: 55.0 ml RENAL FUNCTION: Creatinine 1.3. RADIATION DOSE: CT Rad equipment meets quality standard of care and radiation dose reduction techniq ues were employed. CTDIvol: 5.7 mGy. DLP: 246 mGy-cm. . LIMITATIONS: None. FINDINGS: LUNGS AND PLEURA: Emphysematous changes. Scattered areas of interstitial scarring. Irreg ular density in the lateral right upper lobe. This measures 8 mm in thickness and 2.8 cm in length. This contacts the pleural surface. No other focal nodules or masses. No pleural effusion, pleural thickening, or pleural calcification. HILAR AND MEDIASTINAL STRUCTURES: No identified masses or abnormal nodes. HEART AND VASCULAR STRUCTURES: No aneurysm or dissection. No central pulmonary emboli. No pericardi al effusion. HARDWARE: None in the chest. UPPER ABDOMEN: No significant findings. Limited exam. THYROID AND OTHER SOFT TISSUES: No masses. No adenopathy. BONES: No significant finding. OTHER: No other significant finding. IMPRESSION: EMPHYSEMATOUS CHANGES WITH CHRONIC SCARRING. IRREGULAR DENSITY IN THE LATERAL RIGHT UPP ER LOBE DESCRIBED. THIS HAS THE APPEARANCE OF A FOCAL PARENCHYMAL SCAR. HOWEVER, THIS LESION WAS NOT PRESENT IN SEPTEMBER 2016. WOULD RECOMMEND FOLLOWUP PET SCAN FOR MORE COMPLETE EVALUATION. TECHNICAL DOCUMENTATION: JOB ID: [id number] Quality ID # [id number]: Final reports with documentation of one or more dose reduction techniques (e.g., Au tomated exposure control, adjustment of the mA and/or kV according to patient size, use of iterative reconstruction technique) 2010 [employer]- All Rights Reserved
== END ==
LOC: RAD 09:17
PROVIDERS: ATTEND Internal Medicine Geriatric Medicine
DX: R91.1 Solitary pulmonary nodule (principal); J43.9 Emphysema, unspecified
CPT/HCPCS: 71260; 82565

== ENCOUNTER → 2017-05-14 | Outpatient (CLI) | payer MEDICARE, BC ==
--- NOTE | 2017-05-15 19:19 | RADIOLOGY REPORT (SQ) ---
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 TECHNIQUE: Blood glucose level was verified. Above dose of FDG was injected intravenously. 2-D seg mented attenuation correction images were obtained from the base of the skull to the midthighs. Nonc ontrast CT images were obtained for attenuation correction and fusion with emission images. CT image s were performed without oral or intravenous contrast and are not sensitive for parenchymal lesions. A series of overlapping emission PET images were obtained. Images reviewed and manipulated at [facility] work station by the radiologist. Images stored on PACS. LIMITATIONS: None. FINDINGS: HEAD AND NECK: No areas of abnormal metabolic activity in the soft tissues of the head and neck. CHEST: Linear bandlike density in the periphery of the right upper lobe new the intersection of the m ajor and minor fissures. Currently this measures 1.8 x 0.5 cm in size (was 2.8 x 0.8 cm in size on c hest CT 05/02/2017). There is faint metabolic activity with SUV 1.1. This is not above blood pool ac tivity, and is not definitely hypermetabolic. Continued imaging follow-up with six-month follow-up C T is recommended. ABDOMEN AND PELVIS: No areas of abnormal metabolic activity in the abdomen or pelvis. Expected physi ologic activity is present in the genitourinary system and bowel. PROXIMAL LOWER EXTREMITIES: No areas of abnormal metabolic activity in the soft tissues of the lower extremities. BONES: No abnormal metabolic activity in the visualized skeleton. ADDITIONAL CT FINDINGS: Advanced changes of obstructive lung disease. Calcified carotid bifurcations , heavily calcified abdominal aorta and renal artery origins OTHER: Liver background activity 2.6 SUV. Blood pool background activity 1.7 SUV IMPRESSION: Bandlike lesion in the periphery of the right upper lobe near the major and minor fissur es. This is not clearly hypermetabolic. This similar compared to chest CT 05/02/2017 accounting for differences in technique. Follow-up chest CT in 6 months is recommended to assess for any growth or change. TECHNICAL DOCUMENTATION: JOB ID: [id number] 1997 [employer]- All Rights Reserved Reading location - IP/workstation name: [email or web address]
== END ==
LOC: RAD 17:47
PROVIDERS: ATTEND Internal Medicine Geriatric Medicine
DX: R91.1 Solitary pulmonary nodule (principal)
CPT/HCPCS: 78815; A9552

== ENCOUNTER 2017-07-29 14:53 | Inpatient (IN) | payer MEDICARE, BC ==
[2017-07-29] MEDS ORDERED: LEVOFLOXACIN 750 MG/D5W RTU 750 MG/150 ML RTUPB IV ONE (16:27)
[2017-07-29] MEDS ORDERED: PREDNISONE 20 MG TABLET PO ONE (16:27)
[2017-07-29] MEDS ORDERED: IPRATROPIUM/ALBUTEROL 0.5-2.5 MG/3 ML AMPUL NEB ONE ×2 (16:27→18:40)
--- NOTE | 2017-07-29 16:29 | ER Document Report ---
ED Medical Screen (RME) - General Chief Complaint: Shortness Of Breath Stated Complaint: BREATHING ISSUES Time Seen by Provider: 07/29/17 16:21 Notes: RAPID MEDICAL EVALUATION DISCLOSURE I have seen this patient as part of a Rapid Medical Evaluation and, if applicable, placed any initially appropriate orders. The patient will be seen and fully evaluated, including a full history and physical exam, by a provider ( in Main ED or Fast Track) when a room becomes available. 82-year-old male here with complaints of worsening shortness of breath wheezing and cough productive of yellow/green sputum ongoing for the past 1 day. This all started out yesterday as severe chills followed by the worsening of his chronic shortness of breath and cough. He does wear home oxygen and has a nebulizer treatment. The nebulizer treatment has not helped with improving the shortness of breath or wheezing however it did help him cough up a great deal of phlegm. He has a prior history of pneumonia. EXAM Minimal end expiratory wheezes diffusely Normal aeration Minimally tachycardic, low 100s TRAVEL OUTSIDE OF THE [place] IN LAST 30 DAYS: No - Related Data Allergies/Adverse Reactions: Sulfa (Sulfonamide Antibiotics) Allergy (Verified 07/29/17 15:01) Anaphylaxis Past Medical History - Social History Family history: Reviewed & Not Pertinent - Past Medical History Cardiac Medical History: Reports: Hx Coronary Artery Disease Pulmonary Medical History: Reports: Hx Asthma, Hx Bronchitis, Hx COPD, Hx Pneumonia Neurological Medical History: Reports: Hx Cerebrovascular Accident - CVA R EYE, BLOOD THINNERS SINCE Renal/ Medical History: Denies: Hx Peritoneal Dialysis Musculoskeltal Medical History: Reports Hx Arthritis Past Surgical History: Reports: Hx Abdominal Surgery, Hx Orthopedic Surgery, Hx Tonsillectomy - Immunizations Hx Diphtheria, Pertussis, Tetanus Vaccination: Yes Physical Exam - Vital signs Vitals: Temp Pulse Resp BP Pulse Ox 98.0 F 104 H 18 131/53 H 96 07/29/17 15:14 07/29/17 15:14 07/29/17 15:14 07/29/17 15:14 07/29/17 15:14 Course - Vital Signs Vital signs: Temp Pulse Resp BP Pulse Ox 98.0 F 104 H 18 131/53 H 96 07/29/17 15:14 07/29/17 15:14 07/29/17 15:14 07/29/17 15:14 07/29/17 15:14
[2017-07-29 17:42] LABS: HEMATOCRIT 35.7 % (37.9-51.0); HEMOGLOBIN 12.2 g/dL (13.5-17.0); MEAN CORPUSCULAR HEMOGLOBIN 31.8 pg (27.0-33.4); MEAN CORPUSCULAR HGB CONC 34.1 g/dL (32.0-36.0); MEAN CORPUSCULAR VOLUME 93 fl (80-97); PLATELET COUNT 257 10^3/uL (150-450); RED BLOOD COUNT 3.82 10^6/uL (4.35-5.55); RED CELL DISTRIBUTION WIDTH 13.7 % (11.5-14.0); WHITE BLOOD COUNT 24.1 10^3/uL (4.0-10.5)
[2017-07-29 17:53] LABS: ANION GAP 14 (5-19); BLOOD UREA NITROGEN 27 mg/dL (7-20); CALCIUM 9.3 mg/dL (8.4-10.2); CARBON DIOXIDE 25 mmol/L (22-30); CHLORIDE 105 mmol/L (98-107); GLUCOSE 113 mg/dL (75-110); POTASSIUM 4.4 mmol/L (3.6-5.0); SODIUM 144.2 mmol/L (137-145)
[2017-07-29 18:00] LABS: ABSOLUTE LYMPHOCYTES# (MANUAL) 1.7 10^3/uL (0.5-4.7); ABSOLUTE MONOCYTES # (MANUAL) 1.2 10^3/uL (0.1-1.4); BAND NEUTROPHILS % (MANUAL) 1 % (3-5); BASOPHILS % (MANUAL) 0 % (0-2); EOSINOPHILS % (MANUAL) 1 % (0-6); LYMPHOCYTES % (MANUAL) 5 % (13-45); MONOCYTES % (MANUAL) 5 % (3-13); SEGMENTED NEUTROPHILS % (MAN) 86 % (42-78); TOTAL CELLS COUNTED 100
[2017-07-29 18:03] LABS: PLATELET COMMENT ADEQUATE; RBC MORPHOLOGY COMMENT NORMO-CYTIC/CHROMIC
--- NOTE | 2017-07-29 18:03 | RADIOLOGY REPORT (SQ) ---
EXAM DESCRIPTION: CHEST 2 VIEWS COMPLETED DATE/TIME: 07/29/2017 5:42 pm REASON FOR STUDY: SOB cough chills COMPARISON: 08/01/2016. EXAM PARAMETERS: NUMBER OF VIEWS: two views TECHNIQUE: Digital Frontal and Lateral radiographic views of the chest acquired. RADIATION DOSE: NA LIMITATIONS: none FINDINGS: LUNGS AND PLEURA: Hyperinflation of the lungs consistent with COPD. Chronic bibasilar in terstitial change. MEDIASTINUM AND HILAR STRUCTURES: No masses or contour abnormalities. HEART AND VASCULAR STRUCTURES: The heart is normal. The pulmonary vasculature is normal. BONES: No acute findings. HARDWARE: None in the chest. OTHER: Chest leads in place. IMPRESSION: COPD. CHRONIC BILATERAL INTERSTITIAL CHANGES. TECHNICAL DOCUMENTATION: JOB ID: [id number] 2010 [employer]- All Rights Reserved Reading location - IP/workstation name: [email or web address]
--- NOTE | 2017-07-29 18:45 | ER Document Report ---
ED General - General Chief Complaint: Shortness Of Breath Stated Complaint: BREATHING ISSUES Time Seen by Provider: 07/29/17 16:21 Notes: Patient is an 82-year-old male with a past medical history of COPD with baseline oxygen dependence at 2 L by nasal cannula who presents with 24 hours of chills, cough with associated sputum production and progressively worsening shortness of breath. Patient reports that his symptoms started last evening and have become progressively worse since onset. He states this feels similar to when he had pneumonia in the past. He has not seen his primary care doctor regarding today's concerns. He notes that he has had significant chills at home but has not yet ordered a fever. No vomiting or diarrhea. He notes that he has severe shortness of breath dramatically worsened by any form of exertion. He has tried albuterol inhalers at home with minimal improvement of his symptoms. No known sick contacts. TRAVEL OUTSIDE OF THE [place] IN LAST 30 DAYS: No - Related Data Allergies/Adverse Reactions: Sulfa (Sulfonamide Antibiotics) Allergy (Verified 07/29/17 15:01) Anaphylaxis Past Medical History - General Information source: Patient - Social History Smoking Status: Former Smoker Chew tobacco use (# tins/day): No Frequency of alcohol use: None Drug Abuse: None Lives with: Spouse/Significant other Family History: Reviewed & Not Pertinent Patient has suicidal ideation: No Patient has homicidal ideation: No - Past Medical History Cardiac Medical History: Reports: Hx Coronary Artery Disease Pulmonary Medical History: Reports: Hx Asthma, Hx Bronchitis, Hx COPD, Hx Pneumonia Neurological Medical History: Reports: Hx Cerebrovascular Accident - CVA R EYE, BLOOD THINNERS SINCE Renal/ Medical History: Denies: Hx Peritoneal Dialysis Musculoskeltal Medical History: Reports Hx Arthritis Past Surgical History: Reports: Hx Abdominal Surgery, Hx Orthopedic Surgery, Hx Tonsillectomy - Immunizations Hx Diphtheria, Pertussis, Tetanus Vaccination: Yes Hx Pneumococcal Vaccination: 12/18/09 Review of Systems - Review of Systems Notes: Constitutional: Positive for subjective fever and chills HENT: Negative for sore throat. Eyes: Negative for visual changes. Cardiovascular: Negative for chest pain. Respiratory: Positive for cough, sputum production and shortness of breath Gastrointestinal: Negative for abdominal pain, vomiting or diarrhea. Genitourinary: Negative for dysuria. Musculoskeletal: Negative for back pain. Skin: Negative for rash. Neurological: Negative for headaches, weakness or numbness. 10 point ROS negative except as marked above and in HPI. Physical Exam - Vital signs Vitals: Temp Pulse Resp BP Pulse Ox 98.0 F 104 H 18 131/53 H 96 07/29/17 15:14 07/29/17 15:14 07/29/17 15:14 07/29/17 15:14 07/29/17 15:14 Interpretation: Tachycardic Notes: PHYSICAL EXAMINATION: GENERAL: Appears moderately unwell but in no acute distress HEAD: Atraumatic, normocephalic. EYES: Pupils equal round and reactive to light, extraocular movements intact, sclera anicteric, conjunctiva are normal. ENT: nares patent, oropharynx clear without exudates. Moderately dry mucous membranes. NECK: Normal range of motion, supple without lymphadenopathy LUNGS: Diminished breath sounds at the bases bilaterally with more notable diminishment of breath sounds on the right base with associated rales. Minimal expiratory wheezing throughout. HEART: Regular rate and rhythm without murmurs ABDOMEN: Soft, nontender, normoactive bowel sounds. No guarding, no rebound. No masses appreciated. EXTREMITIES: Normal range of motion, no pitting or edema. No cyanosis. NEUROLOGICAL: No focal neurological deficits. Moves all extremities spontaneously and on command. PSYCH: Normal mood, normal affect. SKIN: Warm, Dry, normal turgor, no rashes or lesions noted. Course - Re-evaluation Re-evalutation: 07/29/17 18:42 Patient presents with 24 hours of progressively worsening shortness of breath, cough, sputum production and chills most consistent with an acute pneumonia with an associated COPD exacerbation. Although the chest x-ray does not show an obvious infiltrate, the patient is diminished at the right base with associated crackles and is coughing up green sputum in the emergency department on examination. His laboratories also show a marked leukocytosis and is not currently on steroids. Patient's work of breathing when I first into the room was acceptable breathing approximately 18 times per minute saturating 99% on 2 L by nasal cannula which is his baseline. However simply ask him to sit up in the bed resulted in him increasing his work of breathing to between 34 and 36 breaths per minute and he maintained his work of breathing for almost 4-5 minutes before it improved with rest. This minimal level exertion prompting such a severe increased work of breathing further increased my concern the patient is not safe for discharge home. That in combination with his marked leukocytosis and baseline advanced age and advanced COPD makes him high risk for being discharged home. The patient and his are agreeable to admission and I have discussed with Dr. Vazquez who is covering for Dr. Felix. He has accepted the patient for admission. The patient has been started on nebulizers, steroids, and IV levofloxacin. - Vital Signs Vital signs: Temp Pulse Resp BP Pulse Ox 97.5 F 102 H 24 H 165/68 H 97 07/30/17 03:30 07/30/17 03:30 07/30/17 03:30 07/30/17 03:30 07/30/17 03:30 - Laboratory Result Diagrams: 07/29/17 17:17 07/29/17 17:17 Laboratory results interpreted by me: 07/29/17 07/29/17 07/29/17 17:17 17:17 17:17 WBC 24.1 H RBC 3.82 L Hgb 12.2 L Hct 35.7 L Seg Neuts % (Manual) 86 H Band Neutrophils % 1 L Lymphocytes % (Manual) 5 L Abs Neuts (Manual) 21.0 H APTT 36.0 H BUN 27 H Est GFR (Non-Af Amer) 57 L Glucose 113 H - Diagnostic Test Radiology reviewed: Image reviewed, Reports reviewed Radiology results interpreted by me: 07/29/17 18:42 Chest x-ray: Bilateral lower lobe atelectatic changes. Discharge - Discharge Clinical Impression: COPD exacerbation Pneumonia Qualifiers: Pneumonia type: due to unspecified organism Laterality: unspecified laterality Lung location: unspecified part of lung Qualified Code(s): J18.9 - Pneumonia, unspecified organism Sepsis Qualifiers: Sepsis type: sepsis due to unspecified organism Qualified Code(s): A41.9 - Sepsis, unspecified organism Condition: Fair Disposition: ADMITTED INPATIENT Admitting Provider: George Unit Admitted: [facility]
[2017-07-29] MEDS ORDERED: IPRATROPIUM/ALBUTEROL 0.5-2.5 MG/3 ML AMPUL NEB PRN (21:06)
[2017-07-29] MEDS ORDERED: NORMAL SALINE 1000 ML 1,000 ML IV PRN (21:06)
[2017-07-29 21:31] LABS: INTERNATIONAL RATION (INR) 0.94; PROTHROMBIN TIME 13.1 SEC (11.4-15.4)
[2017-07-29 21:41] LABS: LIPASE 74.6 U/L (23-300); PHOSPHORUS 3.8 mg/dL (2.5-4.5)
[2017-07-29 21:58] LABS: FREE T4 (FREE THYROXINE) 0.88 ng/dL (0.78-2.19)
[2017-07-29 22:13] LABS: THYROID STIMULATING HORMONE 0.6 uIU/mL (0.47-4.68)
[2017-07-29 22:47] LABS: CREATINE KINASE MB 1.05 ng/mL (<4.55)
--- NOTE | 2017-07-29 22:53 | RADIOLOGY REPORT (SQ) ---
EXAM DESCRIPTION: CT CHEST WITHOUT COMPLETED DATE/TIME: 07/29/2017 9:25 pm REASON FOR STUDY: PNEUMONIA COMPARISON: CT chest 05/02/2017. PET/CT 05/14/2017. Chest x-ray 07/29/2017. TECHNIQUE: CT scan performed of the chest without intravenous contrast. Images reviewed with lung, soft tissue and bone windows. Reconstructed coronal and sagittal MPR images reviewed. All images st ored on PACS. All CT scanners at this facility use dose modulation, iterative reconstruction, and/or weight based d osing when appropriate to reduce radiation dose to as low as reasonably achievable (ALARA). [facility]: Dose Right [facility]: CareDose [facility]: Dose Right [facility]: Teradose 4D [facility]: [employer] RADIATION DOSE: mGy. LIMITATIONS: There is motion artifact. FINDINGS: LUNGS AND PLEURA: There are bilateral emphysematous changes. Interval resolution of the p reviously described band-like lesion at the periphery of the right upper lobe. Small airspace opacit ies are seen at the bilateral lower lobes. No pleural effusion or pneumothorax. HILAR AND MEDIASTINAL STRUCTURES: No pathologically enlarged lymph nodes are noted on unenhanced CT. HEART AND VASCULAR STRUCTURES: Atherosclerotic calcifications at the thoracic aorta. No aneurysm. S cattered coronary arteries calcifications are noted. No pericardial effusion. UPPER ABDOMEN: There is a small hiatal hernia. There is cholelithiasis. BONES: Degenerative changes are noted at the spine. HARDWARE: None in the chest. IMPRESSION: 1. Study degraded by motion artifact. Emphysema. Small airspace opacities at the bilat eral lower lobes, may represent atelectasis or pneumonia. 2. Interval resolution of the previously described band-like lesion at the periphery of the right upp er lobe. 3. Small hiatal hernia. 4. Cholelithiasis. TECHNICAL DOCUMENTATION: JOB ID: [id number] [place]-64 Quality ID # [id number]: Final reports with documentation of one or more dose reduction techniques (e.g., Au tomated exposure control, adjustment of the mA and/or kV according to patient size, use of iterative reconstruction technique) 2010 [employer]- All Rights Reserved Reading location - IP/workstation name: [email or web address]
[2017-07-29 23:00] LABS: TROPONIN I < 0.012 ng/mL
[2017-07-29 23:04] LABS: ARTERIAL BLOOD BASE EXCESS -1.1 mmol/L; ARTERIAL BLOOD H2CO3 0.95 mmol/L (1.05-1.35); ARTERIAL BLOOD O2 SATURATION 95.1 % (94-98); ARTERIAL BLOOD PCO2 31.4 mmHg (35-45); ARTERIAL BLOOD PH 7.46 (7.35-7.45); ARTERIAL BLOOD PO2 69.6 mmHg (80-100); ARTERIAL BLOOD TOTAL CO2 22.9 mmol/L (23-27)
[2017-07-29] MEDS ORDERED: CEFEPIME 1 GM/D5W RTU 1 GM/50 ML RTUPB IV ONE (23:07)
[2017-07-29 23:08] LABS: ARTERIAL BLOOD FIO2 2L
[2017-07-30] MEDS: CEFEPIME 1 GM/D5W RTU 1 GM/50 ML RTUPB IV SCH ×3 (00:01→22:17)
[2017-07-30 00:23] LABS: APPEARANCE,URINE CLEAR; BILIRUBIN,URINE NEGATIVE (NEGATIVE); COLOR,URINE YELLOW; GLUCOSE, URINE NEGATIVE (NEGATIVE); KETONES,URINE NEGATIVE (NEGATIVE); LEUKOCYTE ESTERASE,URINE NEGATIVE (NEGATIVE); NITRITE,URINE NEGATIVE (NEGATIVE); PROTEIN,URINE NEGATIVE (NEGATIVE); UROBILINOGEN,URINE NEGATIVE mg/dL (<2.0)
[2017-07-30 01:06] LABS: URINE AMPHETAMINES SCREEN NEGATIVE; URINE BARBITURATES SCREEN NEGATIVE; URINE BENZODIAZEPINES SCREEN NEGATIVE; URINE COCAINE SCREEN NEGATIVE; URINE MARIJUANA (THC) SCREEN NEGATIVE; URINE METHADONE SCREEN NEGATIVE; URINE PHENCYCLIDINE SCREEN NEGATIVE
[2017-07-30 03:40] LABS: HEMATOCRIT 32.4 % (37.9-51.0); MEAN CORPUSCULAR HEMOGLOBIN 31.4 pg (27.0-33.4); MEAN CORPUSCULAR HGB CONC 33.9 g/dL (32.0-36.0); MEAN CORPUSCULAR VOLUME 93 fl (80-97); PLATELET COUNT 200 10^3/uL (150-450); RED CELL DISTRIBUTION WIDTH 13.6 % (11.5-14.0); WHITE BLOOD COUNT 14.6 10^3/uL (4.0-10.5)
[2017-07-30 03:51] LABS: ALANINE AMINOTRANSFERASE 28 U/L (21-72); ALBUMIN 3.9 g/dL (3.5-5.0); ALKALINE PHOSPHATASE 57 U/L (38-126); ANION GAP 12 (5-19); ASPARTATE AMINO TRANSFERASE 27 U/L (17-59); BILIRUBIN,DIRECT 0.4 mg/dL (0.0-0.4); BILIRUBIN,TOTAL 0.4 mg/dL (0.2-1.3); BLOOD UREA NITROGEN 28 mg/dL (7-20); CALCIUM 9.2 mg/dL (8.4-10.2); CARBON DIOXIDE 25 mmol/L (22-30); CHLORIDE 106 mmol/L (98-107); CHOLESTEROL 117.36 mg/dL (0-200); GLUCOSE 160 mg/dL (75-110); POTASSIUM 4.5 mmol/L (3.6-5.0); SODIUM 142.8 mmol/L (137-145); TOTAL PROTEIN 6.9 g/dL (6.3-8.2); TRIGLYCERIDES 45 mg/dL (<150)
[2017-07-30 04:02] LABS: DIRECT LDL 34 mg/dL (<100)
[2017-07-30 04:03] LABS: CREATINE KINASE MB 1.65 ng/mL (<4.55)
[2017-07-30 04:08] LABS: TROPONIN I < 0.012 ng/mL
[2017-07-30 04:14] LABS: ABSOLUTE LYMPHOCYTES# (MANUAL) 0.6 10^3/uL (0.5-4.7); BASOPHILS % (MANUAL) 0 % (0-2); EOSINOPHILS % (MANUAL) 0 % (0-6); LYMPHOCYTES % (MANUAL) 4 % (13-45); MONOCYTES % (MANUAL) 0 % (3-13); SEGMENTED NEUTROPHILS % (MAN) 96 % (42-78); TOTAL CELLS COUNTED 100
[2017-07-30 04:16] LABS: OVALOCYTES SLIGHT; PLATELET COMMENT ADEQUATE; POIKILOCYTOSIS SLIGHT; TOXIC GRANULATION SLIGHT
[2017-07-30] MEDS: LEVOFLOXACIN 750 MG/D5W RTU 750 MG/150 ML RTUPB IV SCH (08:53)
[2017-07-30] MEDS: ENOXAPARIN SODIUM INJ 40 MG/0.4 ML DISP.SYRIN SUBCUT SCH (08:54)
[2017-07-30 10:49] LABS: CREATINE KINASE MB 2.68 ng/mL (<4.55)
[2017-07-30 10:54] LABS: TROPONIN I < 0.012 ng/mL
--- NOTE | 2017-07-30 12:59 | PDOC H&P ---
History of Present Illness Admission Date/PCP: 07/29/17 18:52 DEBO SALMERON History of Present Illness: NIMISHA BRUMFIELD is a 82 year old male, he has a history of chronic obstructive pulmonary disease, chronic respiratory failure on home oxygen, he came to the emergency room for evaluation of cough, productive of sputum colored and shortness of breath. The shortness of breath is progressive getting worse over days in the emergency room he was evaluated, a chest x-ray was done there was no overt infiltrate on the chest x-ray the hemogram showed leukocytosis, patient not on any systemic steroids that would explain the leukocytosis it was felt to be due to infection of some sort, he was very symptomatic in the emergency room minimal exertion like moving from bed to chair with provoked severe shortness of breath with use of accessory muscle breathing. The ED physician felt that it was not safe for this patient to be discharged home because of his advanced age and the fact that he has evidence of SIRS with severe leukocytosis. CT chest was done without contrast showed bilateral emphysematous changes, interval resolution of the previously described bandlike lesion at the periphery of the right upper lobe there is airspace opacities of the lower lobes bilaterally that could represent pneumonia. Past Medical History Cardiac Medical History: Reports: Coronary Artery Disease Pulmonary Medical History: Reports: Asthma, Bronchitis, Chronic Obstructive Pulmonary Disease (COPD), Pneumonia Musculoskeltal Medical History: Reports: Arthritis Past Surgical History Past Surgical History: Reports: Orthopedic Surgery, Tonsillectomy Social History Lives with: Spouse/Significant other Smoking Status: Former Smoker Cigarettes Packs Per Day: 1.5 Last Time Smoked: 5yrs ago Frequency of Alcohol Use: None Hx Recreational Drug Use: No Drugs: None Hx Prescription Drug Abuse: No - Advance Directive Resuscitation Status: Full Code Family History Family History: Reviewed & Not Pertinent Parental Family History Reviewed: Yes Children Family History Reviewed: Yes Sibling(s) Family History Reviewed.: Yes Medication/Allergy Home Medications: Acetylcysteine [G-Qcrtlc-i-Cysteine] 600 mg PO [id number] 07/30/17 Albuterol Sulfate [Ventolin HFA MDI 18 GM] 1 puff IH Q6HP PRN 07/30/17 Aspirin [Ecotrin 81 mg EC Tablet] 81 mg PO DAILY 07/30/17 Budesonide/Formoterol Fumarate [Symbicort 80-4.5 Mcg Inhaler] 2 puff IH Q12 Esomeprazole Magnesium [Nexium 24Hr] 20 mg PO DAILY 07/30/17 Ipratropium/Albuterol Sulfate [Iprat-Albut 0.5-3(2.5) mg/3 ml] 3 ml NEB Q6HP PRN 07/30/17 Levothyroxine Sodium [Synthroid 0.05 mg Tablet] 0.05 mg PO Q6AM 07/30/17 Roflumilast [Daliresp 500 mcg Tablet] 500 mcg PO DAILY 07/30/17 Simvastatin [Zocor 20 mg Tablet] 20 mg PO QHS 07/30/17 Allergies/Adverse Reactions: Sulfa (Sulfonamide Antibiotics) Allergy (Verified 07/29/17 15:01) Anaphylaxis Review of Systems Constitutional: ABSENT: chills, fever(s), headache(s), weight gain, weight loss Eyes: ABSENT: visual disturbances Ears: ABSENT: hearing changes Cardiovascular: ABSENT: chest pain, dyspnea on exertion, edema, orthropnea, palpitations Respiratory: PRESENT: cough, dyspnea Gastrointestinal: ABSENT: abdominal pain, constipation, diarrhea, hematemesis, hematochezia, nausea, vomiting Genitourinary: ABSENT: dysuria, hematuria Musculoskeletal: ABSENT: joint swelling Integumentary: ABSENT: rash, wounds Neurological: ABSENT: abnormal gait, abnormal speech, confusion, dizziness, focal weakness, syncope Psychiatric: ABSENT: anxiety, depression, homidical ideation, suicidal ideation Endocrine: ABSENT: cold intolerance, heat intolerance, menstrual abnormalities, polydipsia, polyuria Hematologic/Lymphatic: ABSENT: easy bleeding, easy bruising, lymphadenopathy Physical Exam Vital Signs: Temp Pulse Resp BP Pulse Ox 97.5 F 95 16 137/59 H 99 07/30/17 11:38 07/30/17 11:38 07/30/17 11:38 07/30/17 11:38 07/30/17 11:38 Intake & Output 07/29/17 07/30/17 07/31/17 06:59 06:59 06:59 Intake Total 468 Output Total 200 Balance 268 Weight 70.9 kg General appearance: PRESENT: severe distress Head exam: PRESENT: atraumatic, normocephalic Eye exam: PRESENT: PERRLA Ear exam: PRESENT: normal external ear exam Mouth exam: PRESENT: moist, tongue midline Neck exam: PRESENT: full ROM Respiratory exam: PRESENT: wheezes Cardiovascular exam: PRESENT: RRR, +S1, +S2 Pulses: PRESENT: normal dorsalis pedis pul, +2 pedal pulses bilateral Vascular exam: PRESENT: normal capillary refill GI/Abdominal exam: PRESENT: normal bowel sounds, soft Rectal exam: PRESENT: deferred Neurological exam: PRESENT: alert, CN II-XII grossly intact. ABSENT: motor sensory deficit Psychiatric exam: PRESENT: appropriate affect, normal mood Skin exam: PRESENT: dry, intact, warm Results Laboratory Results: 07/30/17 03:24 07/30/17 03:24 07/29/17 07/29/17 07/29/17 21:58 22:30 23:55 WBC RBC Hgb Hct MCV MCH MCHC RDW Plt Count Seg Neutrophils % Lymphocytes % Monocytes % Eosinophils % Basophils % Absolute Neutrophils Absolute Lymphocytes Absolute Monocytes Absolute Eosinophils Absolute Basophils Carbonic Acid 0.95 L HCO3/H2CO3 Ratio 23:1 ABG pH 7.46 H ABG pCO2 31.4 L ABG pO2 69.6 L ABG HCO3 22.0 ABG O2 Saturation 95.1 ABG Base Excess -1.1 FiO2 2L Sodium Potassium Chloride Carbon Dioxide Anion Gap BUN Creatinine Est GFR ( Amer) Est GFR (Non-Af Amer) Glucose Calcium Total Bilirubin AST ALT Alkaline Phosphatase Ammonia < 8.7 L Total Protein Albumin Triglycerides Cholesterol LDL Cholesterol Direct VLDL Cholesterol HDL Cholesterol Urine Color YELLOW Urine Appearance CLEAR Urine pH 6.0 Ur Specific [place] 1.020 Urine Protein NEGATIVE Urine Glucose (UA) NEGATIVE Urine Ketones NEGATIVE Urine Blood NEGATIVE Urine Nitrite NEGATIVE Ur Leukocyte Esterase NEGATIVE Urine WBC (Auto) 1 Urine RBC (Auto) 1 07/30/17 07/30/17 03:24 03:24 WBC 14.6 H RBC 3.50 L Hgb 11.0 L Hct 32.4 L MCV 93 MCH 31.4 MCHC 33.9 RDW 13.6 Plt Count 200 Seg Neutrophils % Not Reportable Lymphocytes % Not Reportable Monocytes % Not Reportable Eosinophils % Not Reportable Basophils % Not Reportable Absolute Neutrophils Not Reportable Absolute Lymphocytes Not Reportable Absolute Monocytes Not Reportable Absolute Eosinophils Not Reportable Absolute Basophils Not Reportable Carbonic Acid HCO3/H2CO3 Ratio ABG pH ABG pCO2 ABG pO2 ABG HCO3 ABG O2 Saturation ABG Base Excess FiO2 Sodium 142.8 Potassium 4.5 Chloride 106 Carbon Dioxide 25 Anion Gap 12 BUN 28 H Creatinine 1.22 Est GFR ( Amer) > 60 Est GFR (Non-Af Amer) 57 L Glucose 160 H Calcium 9.2 Total Bilirubin 0.4 AST 27 ALT 28 Alkaline Phosphatase 57 Ammonia Total Protein 6.9 Albumin 3.9 Triglycerides 45 Cholesterol 117.36 LDL Cholesterol Direct 34 VLDL Cholesterol 9.0 L HDL Cholesterol 55 Urine Color Urine Appearance Urine pH Ur Specific [place] Urine Protein Urine Glucose (UA) Urine Ketones Urine Blood Urine Nitrite Ur Leukocyte Esterase Urine WBC (Auto) Urine RBC (Auto) 07/30/17 07/30/17 07/30/17 03:24 03:24 09:55 Creatine Kinase 126 166 CK-MB (CK-2) 1.65 Troponin I < 0.012 07/30/17 09:55 Creatine Kinase CK-MB (CK-2) 2.68 Troponin I < 0.012 Impressions: Chest CT 07/29/17 00:00 IMPRESSION: 1. Study degraded by motion artifact. Emphysema. Small airspace opacities at the bilateral lower lobes, may represent atelectasis or pneumonia. 2. Interval resolution of the previously described band-like lesion at the periphery of the right upper lobe. 3. Small hiatal hernia. 4. Cholelithiasis. Chest X-Ray 07/29/17 16:26 IMPRESSION: COPD. CHRONIC BILATERAL INTERSTITIAL CHANGES. Assessment & Plan - Diagnosis (1) Pneumonia Qualifiers: Pneumonia type: due to unspecified organism Laterality: bilateral Lung location: lower lobe of lung Qualified Code(s): J18.1 - Lobar pneumonia, unspecified organism Is this a current diagnosis for this admission?: Yes Plan: Patient probably of pneumonia, community-acquired pneumonia, there is no history of exposure to birds droppings, mole that would suggested hypersensitivity pneumonitis, this most likely bacterial pneumonitis he has leukocytosis with a left shift, the CT chest without contrast showed he has space opacities consistent with pneumonia, he will be treated with antibiotic Levaquin and cefepime to cover potential pathogens. (2) Chronic respiratory failure Qualifiers: Respiratory failure complication: unspecified whether with hypoxia or hypercapnia Qualified Code(s): J96.10 - Chronic respiratory failure, unspecified whether with hypoxia or hypercapnia Is this a current diagnosis for this admission?: Yes Plan: He has chronic respiratory failure on home oxygen due to severe COPD he has diffuse wheezes on auscultation of the lung, he will be treated with bronchodilators with DuoNeb
[2017-07-30] MEDS ORDERED: ACETYLCYSTEINE 600 MG PO SCH (13:00)
[2017-07-30] MEDS ORDERED: (PENDING PHARMACY ID) (Esomeprazole Magnesium [Nexium 24hr] 20 MG) PO SCH (13:00)
[2017-07-30] MEDS ORDERED: (PENDING PHARMACY ID) (Roflumilast [Daliresp 500 Mcg Tablet] 500 MCG) PO SCH (13:00)
[2017-07-30] MEDS ORDERED: ALBUTEROL SULFATE HFA (90 MCG/PUFF) 8 GM MDI (1 MDI/ER DISP) IH PRN (13:00)
--- NOTE | 2017-07-30 13:05 | PDOC PROGRESS REPORT ---
Subjective Progress Note for:: 07/30/17 Subjective:: Patient was seen by the bedside, he was admitted yesterday for the management of pneumonia in the setting of chronic respiratory failure presented with SIRS, is improving on IV antibiotic Reason For Visit: PNEUMONIA, COPD, SEPSIS Physical Exam Vital Signs: Temp Pulse Resp BP Pulse Ox 97.5 F 91 16 137/59 H 99 07/30/17 11:38 07/30/17 13:02 07/30/17 11:38 07/30/17 11:38 07/30/17 11:38 Intake & Output 07/29/17 07/30/17 07/31/17 06:59 06:59 06:59 Intake Total 468 Output Total 200 Balance 268 Weight 70.9 kg General appearance: PRESENT: no acute distress, well-developed, well-nourished Head exam: PRESENT: atraumatic, normocephalic Eye exam: PRESENT: conjunctiva pink, EOMI, PERRLA Ear exam: PRESENT: normal external ear exam Mouth exam: PRESENT: moist, tongue midline Neck exam: PRESENT: full ROM Respiratory exam: PRESENT: wheezes Cardiovascular exam: PRESENT: RRR, +S1, +S2 Pulses: PRESENT: normal dorsalis pedis pul, +2 pedal pulses bilateral Vascular exam: PRESENT: normal capillary refill GI/Abdominal exam: PRESENT: normal bowel sounds, soft Rectal exam: PRESENT: deferred Neurological exam: PRESENT: alert, awake, oriented to person, oriented to place , oriented to time, oriented to situation, CN II-XII grossly intact Psychiatric exam: PRESENT: appropriate affect, normal mood Skin exam: PRESENT: dry, intact, warm. ABSENT: cyanosis, rash Results Laboratory Results: 07/30/17 03:24 07/30/17 03:24 07/29/17 07/29/17 07/29/17 21:58 22:30 23:55 WBC RBC Hgb Hct MCV MCH MCHC RDW Plt Count Seg Neutrophils % Lymphocytes % Monocytes % Eosinophils % Basophils % Absolute Neutrophils Absolute Lymphocytes Absolute Monocytes Absolute Eosinophils Absolute Basophils Carbonic Acid 0.95 L HCO3/H2CO3 Ratio 23:1 ABG pH 7.46 H ABG pCO2 31.4 L ABG pO2 69.6 L ABG HCO3 22.0 ABG O2 Saturation 95.1 ABG Base Excess -1.1 FiO2 2L Sodium Potassium Chloride Carbon Dioxide Anion Gap BUN Creatinine Est GFR ( Amer) Est GFR (Non-Af Amer) Glucose Calcium Total Bilirubin AST ALT Alkaline Phosphatase Ammonia < 8.7 L Total Protein Albumin Triglycerides Cholesterol LDL Cholesterol Direct VLDL Cholesterol HDL Cholesterol Urine Color YELLOW Urine Appearance CLEAR Urine pH 6.0 Ur Specific [place] 1.020 Urine Protein NEGATIVE Urine Glucose (UA) NEGATIVE Urine Ketones NEGATIVE Urine Blood NEGATIVE Urine Nitrite NEGATIVE Ur Leukocyte Esterase NEGATIVE Urine WBC (Auto) 1 Urine RBC (Auto) 1 07/30/17 07/30/17 03:24 03:24 WBC 14.6 H RBC 3.50 L Hgb 11.0 L Hct 32.4 L MCV 93 MCH 31.4 MCHC 33.9 RDW 13.6 Plt Count 200 Seg Neutrophils % Not Reportable Lymphocytes % Not Reportable Monocytes % Not Reportable Eosinophils % Not Reportable Basophils % Not Reportable Absolute Neutrophils Not Reportable Absolute Lymphocytes Not Reportable Absolute Monocytes Not Reportable Absolute Eosinophils Not Reportable Absolute Basophils Not Reportable Carbonic Acid HCO3/H2CO3 Ratio ABG pH ABG pCO2 ABG pO2 ABG HCO3 ABG O2 Saturation ABG Base Excess FiO2 Sodium 142.8 Potassium 4.5 Chloride 106 Carbon Dioxide 25 Anion Gap 12 BUN 28 H Creatinine 1.22 Est GFR ( Amer) > 60 Est GFR (Non-Af Amer) 57 L Glucose 160 H Calcium 9.2 Total Bilirubin 0.4 AST 27 ALT 28 Alkaline Phosphatase 57 Ammonia Total Protein 6.9 Albumin 3.9 Triglycerides 45 Cholesterol 117.36 LDL Cholesterol Direct 34 VLDL Cholesterol 9.0 L HDL Cholesterol 55 Urine Color Urine Appearance Urine pH Ur Specific [place] Urine Protein Urine Glucose (UA) Urine Ketones Urine Blood Urine Nitrite Ur Leukocyte Esterase Urine WBC (Auto) Urine RBC (Auto) 07/30/17 07/30/17 07/30/17 03:24 03:24 09:55 Creatine Kinase 126 166 CK-MB (CK-2) 1.65 Troponin I < 0.012 07/30/17 09:55 Creatine Kinase CK-MB (CK-2) 2.68 Troponin I < 0.012 Impressions: Chest CT 07/29/17 00:00 IMPRESSION: 1. Study degraded by motion artifact. Emphysema. Small airspace opacities at the bilateral lower lobes, may represent atelectasis or pneumonia. 2. Interval resolution of the previously described band-like lesion at the periphery of the right upper lobe. 3. Small hiatal hernia. 4. Cholelithiasis. Chest X-Ray 07/29/17 16:26 IMPRESSION: COPD. CHRONIC BILATERAL INTERSTITIAL CHANGES. Assessment & Plan - Diagnosis (1) Pneumonia Qualifiers: Pneumonia type: due to unspecified organism Laterality: bilateral Lung location: lower lobe of lung Qualified Code(s): J18.1 - Lobar pneumonia, unspecified organism Is this a current diagnosis for this admission?: Yes Plan: Continue IV antibiotic (2) Chronic respiratory failure Qualifiers: Respiratory failure complication: unspecified whether with hypoxia or hypercapnia Qualified Code(s): J96.10 - Chronic respiratory failure, unspecified whether with hypoxia or hypercapnia Is this a current diagnosis for this admission?: Yes Plan: Continue oxygen
[2017-07-30] MEDS ORDERED: ALBUTEROL SULFATE HFA (90 MCG/PUFF) 200 PUFF/8.5 GM MDI IH PRN (13:15)
[2017-07-30] MEDS ORDERED: ASPIRIN 81 MG TABLET, ENT COATED PO ONE (14:00)
[2017-07-30] MEDS ORDERED: LEVOTHYROXINE SODIUM 0.05 MG TABLET PO ONE (14:00)
[2017-07-30] MEDS ORDERED: LANSOPRAZOLE 15 MG TAB.RAP.DR PO ONE (15:00)
[2017-07-30] MEDS ORDERED: ROFLUMILAST 500 MCG TABLET PO ONE (15:00)
[2017-07-30] MEDS: BUDESONIDE/FORMOTEROL 80-4.5 MCG 60 PUFF/6.9 GM MDI IH SCH (16:51)
[2017-07-30] MEDS: IPRATROPIUM/ALBUTEROL 0.5-2.5 MG/3 ML AMPUL NEB PRN (16:53)
[2017-07-30] MEDS: SIMVASTATIN 10 MG TABLET PO SCH (22:17)
[2017-07-31] MEDS: LANSOPRAZOLE 15 MG TAB.RAP.DR PO SCH (05:42)
[2017-07-31] MEDS: BUDESONIDE/FORMOTEROL 80-4.5 MCG 60 PUFF/6.9 GM MDI IH SCH ×2 (05:42→18:37)
[2017-07-31] MEDS: LEVOTHYROXINE SODIUM 0.05 MG TABLET PO SCH (05:42)
[2017-07-31 06:04] LABS: ABSOLUTE EOSINOPHILS # (AUTO) 0.3 10^3/uL (0.0-0.6); ABSOLUTE LYMPHOCYTES (AUTO) 1.6 10^3/uL (0.5-4.7); ABSOLUTE MONOCYTES (AUTO) 1.6 10^3/uL (0.1-1.4); ABSOLUTE NEUT (AUTO) 9.6 10^3/uL (1.7-8.2); BASOPHILS % (AUTO) 0.2 % (0-2); EOSINOPHILS % (AUTO) 2.1 % (0-6); HEMATOCRIT 31.7 % (37.9-51.0); HEMOGLOBIN 10.8 g/dL (13.5-17.0); LYMPHOCYTES % (AUTO) 12.1 % (13-45); MEAN CORPUSCULAR HEMOGLOBIN 31.6 pg (27.0-33.4); MEAN CORPUSCULAR HGB CONC 34.1 g/dL (32.0-36.0); MEAN CORPUSCULAR VOLUME 93 fl (80-97); PLATELET COUNT 226 10^3/uL (150-450); RED BLOOD COUNT 3.42 10^6/uL (4.35-5.55); RED CELL DISTRIBUTION WIDTH 13.6 % (11.5-14.0); SEGMENTED NEUTROPHILS % (AUTO) 73.6 % (42-78); TOTAL CELLS COUNTED % (AUTO) 100 %
[2017-07-31] MEDS: ENOXAPARIN SODIUM INJ 40 MG/0.4 ML DISP.SYRIN SUBCUT SCH (09:33)
[2017-07-31] MEDS: ASPIRIN 81 MG TABLET, ENT COATED PO SCH (09:33)
[2017-07-31] MEDS: ROFLUMILAST 500 MCG TABLET PO SCH (09:34)
[2017-07-31] MEDS: LEVOFLOXACIN 750 MG/D5W RTU 750 MG/150 ML RTUPB IV SCH (09:34)
[2017-07-31] MEDS: CEFEPIME 1 GM/D5W RTU 1 GM/50 ML RTUPB IV SCH ×2 (09:34→21:09)
[2017-07-31] MEDS: IPRATROPIUM/ALBUTEROL 0.5-2.5 MG/3 ML AMPUL NEB PRN ×2 (10:21→17:59)
--- NOTE | 2017-07-31 18:32 | PDOC PROGRESS REPORT ---
Subjective Progress Note for:: 07/31/17 Subjective:: Persistent coughing with sputum production and intermittent bloody content. Patient related bloody content to blowing his nose. No fever but experience chills. No chest pain. No nausea or vomiting. No abdominal pain. Appetite and p.o intake fair. Reason For Visit: PNEUMONIA, COPD, SEPSIS Physical Exam Vital Signs: Temp Pulse Resp BP Pulse Ox 98.1 F 83 18 127/51 H 94 07/31/17 11:30 07/31/17 17:59 07/31/17 17:59 07/31/17 11:30 07/31/17 17:59 Intake & Output 07/30/17 07/31/17 08/01/17 06:59 06:59 06:59 Intake Total 468 1735 260 Output Total 200 Balance 268 1735 260 Weight 70.9 kg 69.6 kg General appearance: PRESENT: no acute distress, well-developed, well-nourished Head exam: PRESENT: atraumatic, normocephalic Mouth exam: PRESENT: moist Respiratory exam: PRESENT: decreased breath sounds, rhonchi - expiratory phase Cardiovascular exam: PRESENT: RRR. ABSENT: diastolic murmur, rubs, systolic murmur Vascular exam: PRESENT: normal capillary refill. ABSENT: pallor GI/Abdominal exam: PRESENT: normal bowel sounds, soft. ABSENT: distended, guarding, mass, organolmegaly, rebound, tenderness Extremities exam: ABSENT: pedal edema Musculoskeletal exam: PRESENT: deformity - related to multiple joints involvement with arhritis Neurological exam: PRESENT: alert, awake, oriented to person, oriented to place , oriented to time, oriented to situation, CN II-XII grossly intact. ABSENT: motor sensory deficit Psychiatric exam: PRESENT: appropriate affect, normal mood. ABSENT: homicidal ideation, suicidal ideation Skin exam: PRESENT: dry, intact, warm. ABSENT: cyanosis, rash Results Laboratory Results: 07/31/17 05:20 07/30/17 03:24 07/31/17 05:20 WBC 13.0 H RBC 3.42 L Hgb 10.8 L Hct 31.7 L MCV 93 MCH 31.6 MCHC 34.1 RDW 13.6 Plt Count 226 Seg Neutrophils % 73.6 Lymphocytes % 12.1 L Monocytes % 12.0 Eosinophils % 2.1 Basophils % 0.2 Absolute Neutrophils 9.6 H Absolute Lymphocytes 1.6 Absolute Monocytes 1.6 H Absolute Eosinophils 0.3 Absolute Basophils 0.0 07/29/17 23:55 Clean Catch Midstream Urine Culture - Final Mixed Urogenital [place] 07/30/17 07/30/17 07/30/17 03:24 03:24 09:55 Creatine Kinase 126 166 CK-MB (CK-2) 1.65 Troponin I < 0.012 07/30/17 09:55 Creatine Kinase CK-MB (CK-2) 2.68 Troponin I < 0.012 Impressions: Chest CT 07/29/17 00:00 IMPRESSION: 1. Study degraded by motion artifact. Emphysema. Small airspace opacities at the bilateral lower lobes, may represent atelectasis or pneumonia. 2. Interval resolution of the previously described band-like lesion at the periphery of the right upper lobe. 3. Small hiatal hernia. 4. Cholelithiasis. Chest X-Ray 07/29/17 16:26 IMPRESSION: COPD. CHRONIC BILATERAL INTERSTITIAL CHANGES. Assessment & Plan - Diagnosis (1) Bacterial lobar pneumonia Is this a current diagnosis for this admission?: Yes Plan: See attending physician orders. (2) SIRS (systemic inflammatory response syndrome) Is this a current diagnosis for this admission?: Yes Plan: See attending physician orders. (3) End stage chronic obstructive pulmonary disease Is this a current diagnosis for this admission?: Yes Plan: See attending physician orders. (4) Chronic hypoxemic respiratory failure Is this a current diagnosis for this admission?: Yes Plan: See attending physician orders. (5) CAD (coronary artery disease) Qualifiers: Coronary Disease-Associated Artery/Lesion type: [place] artery Associated angina: without angina Is this a current diagnosis for this admission?: Yes Plan: See attending physician orders. (6) Hyperlipidemia Qualifiers: Hyperlipidemia type: pure hypercholesterolemia Qualified Code(s): E78.00 - Pure hypercholesterolemia, unspecified; E78.0 - Pure hypercholesterolemia Is this a current diagnosis for this admission?: Yes Plan: See attending physician orders. (7) Hypothyroidism Qualifiers: Hypothyroidism type: acquired Qualified Code(s): E03.9 - Hypothyroidism, unspecified Is this a current diagnosis for this admission?: Yes Plan: See attending physician orders. (8) GERD (gastroesophageal reflux disease) Qualifiers: Esophagitis presence: without esophagitis Qualified Code(s): K21.9 - Gastro -esophageal reflux disease without esophagitis Is this a current diagnosis for this admission?: Yes Plan: See attending physician orders. - Time Time Spent with patient: 25-34 minutes Medications reviewed and adjusted accordingly: Yes Anticipated discharge: Home Within: Other - Inpatient Certification Based on my medical assessment, after consideration of the patient's comorbidities, presenting symptoms, or acuity I expect that the services needed warrant INPATIENT care.: Yes I certify that my determination is in accordance with my understanding of Medicare's requirements for reasonable and necessary INPATIENT services [42 CFR 412.3e].: Yes Medical Necessity: Need Close Monitoring Due to Risk of Patient Decompensation, Need For IV Fluids, Need For Continuous Telemetry Monitoring, Need for Nebulizer Therapy and Monitoring of Response, Need for IV Antibiotics, Risk of Complication if Not Cared For in Hospital 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
[2017-07-31] MEDS: SIMVASTATIN 10 MG TABLET PO SCH (21:09)
[2017-08-01] MEDS: LANSOPRAZOLE 15 MG TAB.RAP.DR PO SCH (05:33)
[2017-08-01] MEDS: LEVOTHYROXINE SODIUM 0.05 MG TABLET PO SCH (05:33)
[2017-08-01] MEDS: BUDESONIDE/FORMOTEROL 80-4.5 MCG 60 PUFF/6.9 GM MDI IH SCH ×2 (05:33→17:20)
[2017-08-01 05:59] LABS: ABSOLUTE EOSINOPHILS # (AUTO) 0.7 10^3/uL (0.0-0.6); ABSOLUTE LYMPHOCYTES (AUTO) 1.9 10^3/uL (0.5-4.7); ABSOLUTE MONOCYTES (AUTO) 1.3 10^3/uL (0.1-1.4); ABSOLUTE NEUT (AUTO) 6.3 10^3/uL (1.7-8.2); BASOPHILS % (AUTO) 0.2 % (0-2); EOSINOPHILS % (AUTO) 6.4 % (0-6); HEMOGLOBIN 10.9 g/dL (13.5-17.0); LYMPHOCYTES % (AUTO) 18.5 % (13-45); MEAN CORPUSCULAR HEMOGLOBIN 31.6 pg (27.0-33.4); MEAN CORPUSCULAR HGB CONC 33.9 g/dL (32.0-36.0); MEAN CORPUSCULAR VOLUME 93 fl (80-97); MONOCYTES % (AUTO) 12.6 % (3-13); PLATELET COUNT 248 10^3/uL (150-450); RED BLOOD COUNT 3.44 10^6/uL (4.35-5.55); RED CELL DISTRIBUTION WIDTH 13.6 % (11.5-14.0); SEGMENTED NEUTROPHILS % (AUTO) 62.3 % (42-78); TOTAL CELLS COUNTED % (AUTO) 100 %; WHITE BLOOD COUNT 10.1 10^3/uL (4.0-10.5)
[2017-08-01 06:25] LABS: ANION GAP 10 (5-19); BLOOD UREA NITROGEN 21 mg/dL (7-20); CALCIUM 9.3 mg/dL (8.4-10.2); CARBON DIOXIDE 26 mmol/L (22-30); CHLORIDE 108 mmol/L (98-107); GLUCOSE 100 mg/dL (75-110); POTASSIUM 4.2 mmol/L (3.6-5.0); SODIUM 143.8 mmol/L (137-145)
[2017-08-01] MEDS: ASPIRIN 81 MG TABLET, ENT COATED PO SCH (09:17)
[2017-08-01] MEDS: ROFLUMILAST 500 MCG TABLET PO SCH (09:18)
[2017-08-01] MEDS: CEFEPIME 1 GM/D5W RTU 1 GM/50 ML RTUPB IV SCH ×2 (09:18→21:09)
[2017-08-01] MEDS: LEVOFLOXACIN 750 MG TABLET PO SCH (09:18)
[2017-08-01] MEDS: ENOXAPARIN SODIUM INJ 40 MG/0.4 ML DISP.SYRIN SUBCUT SCH (09:18)
[2017-08-01] MEDS: IPRATROPIUM/ALBUTEROL 0.5-2.5 MG/3 ML AMPUL NEB PRN ×2 (11:28→16:47)
--- NOTE | 2017-08-01 14:18 | PDOC PROGRESS REPORT ---
Subjective Progress Note for:: 08/01/17 Subjective:: Patient denied fever but continue to experience intermittent episodes of chills. No chest pain. Remain on supplemental oxygen via nasal cannula. No nausea, vomiting, or abdominal pain. Appetite and p.o intake remain fair. Reason For Visit: PNEUMONIA, COPD, SEPSIS Physical Exam Vital Signs: Temp Pulse Resp BP Pulse Ox 98.0 F 95 20 120/69 100 08/01/17 12:01 08/01/17 12:01 08/01/17 12:01 08/01/17 12:01 08/01/17 12:01 Intake & Output 07/31/17 08/01/17 08/02/17 06:59 06:59 06:59 Intake Total 1735 900 355 Balance 1735 900 355 Weight 69.6 kg Physical Exam: General appearance: PRESENT: no acute distress, well-developed, well-nourished Head exam: PRESENT: atraumatic, normocephalic Mouth exam: PRESENT: moist Respiratory exam: PRESENT: decreased breath sounds, rhonchi - minimal expiratory phase Cardiovascular exam: PRESENT: RRR. ABSENT: diastolic murmur, rubs, systolic murmur Vascular exam: PRESENT: normal capillary refill. ABSENT: pallor GI/Abdominal exam: PRESENT: normal bowel sounds, soft. ABSENT: distended, guarding, mass, organomegaly, rebound, tenderness Extremities exam: ABSENT: pedal edema Musculoskeletal exam: PRESENT: deformity - related to multiple joints involvement with arthritis Neurological exam: PRESENT: alert, awake, oriented to person, oriented to place , oriented to time, oriented to situation, CN II-XII grossly intact. ABSENT: motor sensory deficit Psychiatric exam: PRESENT: appropriate affect, normal mood. ABSENT: homicidal ideation, suicidal ideation Skin exam: PRESENT: dry, intact, warm. ABSENT: cyanosis, rash Results Laboratory Results: 08/01/17 05:09 08/01/17 05:09 08/01/17 08/01/17 05:09 05:09 WBC 10.1 RBC 3.44 L Hgb 10.9 L Hct 32.0 L MCV 93 MCH 31.6 MCHC 33.9 RDW 13.6 Plt Count 248 Seg Neutrophils % 62.3 Lymphocytes % 18.5 Monocytes % 12.6 Eosinophils % 6.4 H Basophils % 0.2 Absolute Neutrophils 6.3 Absolute Lymphocytes 1.9 Absolute Monocytes 1.3 Absolute Eosinophils 0.7 H Absolute Basophils 0.0 Sodium 143.8 Potassium 4.2 Chloride 108 H Carbon Dioxide 26 Anion Gap 10 BUN 21 H Creatinine 1.13 Est GFR ( Amer) > 60 Est GFR (Non-Af Amer) > 60 Glucose 100 Calcium 9.3 07/29/17 23:55 Clean Catch Midstream Urine Culture - Final Mixed Urogenital [place] 07/30/17 07/30/17 07/30/17 03:24 03:24 09:55 Creatine Kinase 126 166 CK-MB (CK-2) 1.65 Troponin I < 0.012 07/30/17 09:55 Creatine Kinase CK-MB (CK-2) 2.68 Troponin I < 0.012 Impressions: Chest CT 07/29/17 00:00 IMPRESSION: 1. Study degraded by motion artifact. Emphysema. Small airspace opacities at the bilateral lower lobes, may represent atelectasis or pneumonia. 2. Interval resolution of the previously described band-like lesion at the periphery of the right upper lobe. 3. Small hiatal hernia. 4. Cholelithiasis. Chest X-Ray 07/29/17 16:26 IMPRESSION: COPD. CHRONIC BILATERAL INTERSTITIAL CHANGES. Assessment & Plan - Diagnosis (1) Bacterial lobar pneumonia Is this a current diagnosis for this admission?: Yes (2) SIRS (systemic inflammatory response syndrome) Is this a current diagnosis for this admission?: Yes (3) End stage chronic obstructive pulmonary disease Is this a current diagnosis for this admission?: Yes (4) Chronic hypoxemic respiratory failure Is this a current diagnosis for this admission?: Yes (5) CAD (coronary artery disease) Qualifiers: Coronary Disease-Associated Artery/Lesion type: [place] artery Associated angina: without angina Is this a current diagnosis for this admission?: Yes (6) Hyperlipidemia Qualifiers: Hyperlipidemia type: pure hypercholesterolemia Qualified Code(s): E78.00 - Pure hypercholesterolemia, unspecified; E78.0 - Pure hypercholesterolemia Is this a current diagnosis for this admission?: Yes (7) Hypothyroidism Qualifiers: Hypothyroidism type: acquired Qualified Code(s): E03.9 - Hypothyroidism, unspecified Is this a current diagnosis for this admission?: Yes (8) GERD (gastroesophageal reflux disease) Qualifiers: Esophagitis presence: without esophagitis Qualified Code(s): K21.9 - Gastro -esophageal reflux disease without esophagitis Is this a current diagnosis for this admission?: Yes - Time Time Spent with patient: 15-24 minutes Medications reviewed and adjusted accordingly: Yes Anticipated discharge: Home Within: Other - Inpatient Certification Based on my medical assessment, after consideration of the patient's comorbidities, presenting symptoms, or acuity I expect that the services needed warrant INPATIENT care.: Yes I certify that my determination is in accordance with my understanding of Medicare's requirements for reasonable and necessary INPATIENT services [42 CFR 412.3e].: Yes Medical Necessity: Need Close Monitoring Due to Risk of Patient Decompensation, Need For IV Fluids, Need For Continuous Telemetry Monitoring, Need for Nebulizer Therapy and Monitoring of Response, Need for IV Antibiotics, Risk of Complication if Not Cared For in Hospital - Plan Summary Plan Summary: See attending physician orders.
[2017-08-01] MEDS: SIMVASTATIN 10 MG TABLET PO SCH (21:09)
[2017-08-02] MEDS: BUDESONIDE/FORMOTEROL 80-4.5 MCG 60 PUFF/6.9 GM MDI IH SCH ×2 (05:53→17:33)
[2017-08-02] MEDS: LEVOTHYROXINE SODIUM 0.05 MG TABLET PO SCH (05:53)
[2017-08-02] MEDS: LANSOPRAZOLE 15 MG TAB.RAP.DR PO SCH (05:53)
[2017-08-02] MEDS: IPRATROPIUM/ALBUTEROL 0.5-2.5 MG/3 ML AMPUL NEB PRN ×3 (08:32→19:59)
[2017-08-02] MEDS: CEFEPIME 1 GM/D5W RTU 1 GM/50 ML RTUPB IV SCH ×2 (09:27→21:25)
[2017-08-02] MEDS: ENOXAPARIN SODIUM INJ 40 MG/0.4 ML DISP.SYRIN SUBCUT SCH (09:27)
[2017-08-02] MEDS: LEVOFLOXACIN 750 MG TABLET PO SCH (09:27)
[2017-08-02] MEDS: ROFLUMILAST 500 MCG TABLET PO SCH (09:27)
[2017-08-02] MEDS: ASPIRIN 81 MG TABLET, ENT COATED PO SCH (09:27)
--- NOTE | 2017-08-02 20:04 | PDOC PROGRESS REPORT ---
Subjective Progress Note for:: 08/02/17 Subjective:: Patient denied fever or chills. No chest pain. Remain on supplemental oxygen via nasal cannula. Appetite and P.O intake satisfactory. No nausea, vomiting, or abdominal pain. Reason For Visit: PNEUMONIA, COPD, SEPSIS Physical Exam Vital Signs: Temp Pulse Resp BP Pulse Ox 98.4 F 108 H 38 H 142/54 H 92 08/02/17 05:56 08/02/17 05:56 08/02/17 05:56 08/02/17 05:56 08/02/17 05:56 Intake & Output 08/01/17 08/02/17 08/03/17 06:59 06:59 06:59 Intake Total 900 1467 Balance 900 1467 Weight 69.8 kg Physical Exam: General appearance: PRESENT: no acute distress, well-developed, well-nourished Head exam: PRESENT: atraumatic, normocephalic Mouth exam: PRESENT: moist Respiratory exam: PRESENT: decreased breath sounds, rhonchi - minimal expiratory phase Cardiovascular exam: PRESENT: RRR. ABSENT: diastolic murmur, rubs, systolic murmur Vascular exam: ABSENT: pallor GI/Abdominal exam: PRESENT: normal bowel sounds, soft. ABSENT: distended, guarding, mass, organomegaly, rebound, tenderness Extremities exam: ABSENT: pedal edema Musculoskeletal exam: PRESENT: deformity - related to multiple joints involvement with arthritis Neurological exam: PRESENT: alert, awake, oriented to person, oriented to place , oriented to time, oriented to situation, CN II-XII grossly intact. ABSENT: motor sensory deficit Psychiatric exam: PRESENT: appropriate affect, normal mood. ABSENT: homicidal ideation, suicidal ideation Skin exam: PRESENT: dry, intact, warm. ABSENT: cyanosis, rash Results Laboratory Results: 08/01/17 05:09 08/01/17 05:09 07/30/17 07/30/17 07/30/17 03:24 03:24 09:55 Creatine Kinase 126 166 CK-MB (CK-2) 1.65 Troponin I < 0.012 07/30/17 09:55 Creatine Kinase CK-MB (CK-2) 2.68 Troponin I < 0.012 Impressions: Chest CT 07/29/17 00:00 IMPRESSION: 1. Study degraded by motion artifact. Emphysema. Small airspace opacities at the bilateral lower lobes, may represent atelectasis or pneumonia. 2. Interval resolution of the previously described band-like lesion at the periphery of the right upper lobe. 3. Small hiatal hernia. 4. Cholelithiasis. Chest X-Ray 07/29/17 16:26 IMPRESSION: COPD. CHRONIC BILATERAL INTERSTITIAL CHANGES. Assessment & Plan - Diagnosis (1) Bacterial lobar pneumonia Is this a current diagnosis for this admission?: Yes (2) SIRS (systemic inflammatory response syndrome) Is this a current diagnosis for this admission?: Yes (3) End stage chronic obstructive pulmonary disease Is this a current diagnosis for this admission?: Yes (4) Chronic hypoxemic respiratory failure Is this a current diagnosis for this admission?: Yes (5) CAD (coronary artery disease) Qualifiers: Coronary Disease-Associated Artery/Lesion type: [place] artery Associated angina: without angina Is this a current diagnosis for this admission?: Yes (6) Hyperlipidemia Qualifiers: Hyperlipidemia type: pure hypercholesterolemia Qualified Code(s): E78.00 - Pure hypercholesterolemia, unspecified; E78.0 - Pure hypercholesterolemia Is this a current diagnosis for this admission?: Yes (7) Hypothyroidism Qualifiers: Hypothyroidism type: acquired Qualified Code(s): E03.9 - Hypothyroidism, unspecified Is this a current diagnosis for this admission?: Yes (8) GERD (gastroesophageal reflux disease) Qualifiers: Esophagitis presence: without esophagitis Qualified Code(s): K21.9 - Gastro -esophageal reflux disease without esophagitis Is this a current diagnosis for this admission?: Yes - Time Time Spent with patient: 25-34 minutes Medications reviewed and adjusted accordingly: Yes Anticipated discharge: Home Within: Other - Inpatient Certification Based on my medical assessment, after consideration of the patient's comorbidities, presenting symptoms, or acuity I expect that the services needed warrant INPATIENT care.: Yes I certify that my determination is in accordance with my understanding of Medicare's requirements for reasonable and necessary INPATIENT services [42 CFR 412.3e].: Yes Medical Necessity: Need Close Monitoring Due to Risk of Patient Decompensation, Need For IV Fluids, Need For Continuous Telemetry Monitoring, Need for Nebulizer Therapy and Monitoring of Response, Need for IV Antibiotics, Risk of Complication if Not Cared For in Hospital 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 Obtain CBC with Diff and BMP in AM. Encouraged ambulation on the floor.
[2017-08-02] MEDS: SIMVASTATIN 10 MG TABLET PO SCH (21:25)
[2017-08-03] MEDS: LEVOTHYROXINE SODIUM 0.05 MG TABLET PO SCH (05:21)
[2017-08-03] MEDS: BUDESONIDE/FORMOTEROL 80-4.5 MCG 60 PUFF/6.9 GM MDI IH SCH ×2 (05:21→17:25)
[2017-08-03] MEDS: LANSOPRAZOLE 15 MG TAB.RAP.DR PO SCH (05:21)
--- NOTE | 2017-08-03 08:09 | PDOC PROGRESS REPORT ---
Subjective Progress Note for:: 08/03/17 Subjective:: Reported episode of chills after evaluation last night. Coughing less with greenish sputum production. No chest pain. No nausea, vomiting, or abdominal pain. Reason For Visit: PNEUMONIA, COPD, SEPSIS Physical Exam Vital Signs: Temp Pulse Resp BP Pulse Ox 98.0 F 77 24 H 132/64 H 100 08/03/17 05:24 08/03/17 07:00 08/03/17 05:24 08/03/17 05:24 08/03/17 05:24 Intake & Output 08/02/17 08/03/17 08/04/17 06:59 06:59 06:59 Intake Total 1467 1078 Balance 1467 1078 Weight 69.8 kg Physical Exam: General appearance: PRESENT: no acute distress, well-developed, well-nourished Head exam: PRESENT: atraumatic, normocephalic Mouth exam: PRESENT: moist Respiratory exam: PRESENT: decreased breath sounds, rhonchi - minimal expiratory phase Cardiovascular exam: PRESENT: RRR. ABSENT: diastolic murmur, rubs, systolic murmur Vascular exam: ABSENT: pallor GI/Abdominal exam: PRESENT: normal bowel sounds, soft. ABSENT: distended, guarding, mass, organomegaly, rebound, tenderness Extremities exam: ABSENT: pedal edema Musculoskeletal exam: PRESENT: deformity - related to multiple joints involvement with arthritis Neurological exam: PRESENT: alert, awake, oriented to person, oriented to place , oriented to time, oriented to situation, CN II-XII grossly intact. ABSENT: motor sensory deficit Psychiatric exam: PRESENT: appropriate affect, normal mood. ABSENT: homicidal ideation, suicidal ideation Skin exam: PRESENT: dry, intact, warm. ABSENT: cyanosis, rash Results Laboratory Results: 08/01/17 05:09 08/01/17 05:09 07/30/17 07/30/17 07/30/17 03:24 03:24 09:55 Creatine Kinase 126 166 CK-MB (CK-2) 1.65 Troponin I < 0.012 07/30/17 09:55 Creatine Kinase CK-MB (CK-2) 2.68 Troponin I < 0.012 Impressions: Chest CT 07/29/17 00:00 IMPRESSION: 1. Study degraded by motion artifact. Emphysema. Small airspace opacities at the bilateral lower lobes, may represent atelectasis or pneumonia. 2. Interval resolution of the previously described band-like lesion at the periphery of the right upper lobe. 3. Small hiatal hernia. 4. Cholelithiasis. Chest X-Ray 07/29/17 16:26 IMPRESSION: COPD. CHRONIC BILATERAL INTERSTITIAL CHANGES. Assessment & Plan - Diagnosis (1) Bacterial lobar pneumonia Is this a current diagnosis for this admission?: Yes (2) SIRS (systemic inflammatory response syndrome) Is this a current diagnosis for this admission?: Yes (3) End stage chronic obstructive pulmonary disease Is this a current diagnosis for this admission?: Yes (4) Chronic hypoxemic respiratory failure Is this a current diagnosis for this admission?: Yes (5) CAD (coronary artery disease) Qualifiers: Coronary Disease-Associated Artery/Lesion type: [place] artery Associated angina: without angina Is this a current diagnosis for this admission?: Yes (6) Hyperlipidemia Qualifiers: Hyperlipidemia type: pure hypercholesterolemia Qualified Code(s): E78.00 - Pure hypercholesterolemia, unspecified; E78.0 - Pure hypercholesterolemia Is this a current diagnosis for this admission?: Yes (7) Hypothyroidism Qualifiers: Hypothyroidism type: acquired Qualified Code(s): E03.9 - Hypothyroidism, unspecified Is this a current diagnosis for this admission?: Yes (8) GERD (gastroesophageal reflux disease) Qualifiers: Esophagitis presence: without esophagitis Qualified Code(s): K21.9 - Gastro -esophageal reflux disease without esophagitis Is this a current diagnosis for this admission?: Yes - Time Time Spent with patient: 25-34 minutes Medications reviewed and adjusted accordingly: Yes Anticipated discharge: Home Within: Other - Inpatient Certification Based on my medical assessment, after consideration of the patient's comorbidities, presenting symptoms, or acuity I expect that the services needed warrant INPATIENT care.: Yes I certify that my determination is in accordance with my understanding of Medicare's requirements for reasonable and necessary INPATIENT services [42 CFR 412.3e].: Yes Medical Necessity: Need Close Monitoring Due to Risk of Patient Decompensation, Need For IV Fluids, Need For Continuous Telemetry Monitoring, Need for IV Antibiotics, Risk of Complication if Not Cared For in Hospital 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 Maintain on oral Levofloxacin coverage. Maintain on supplemental oxygen at 2L/min. If he remain clinically stable consider discharge home tomorrow.
[2017-08-03] MEDS: ASPIRIN 81 MG TABLET, ENT COATED PO SCH (09:26)
[2017-08-03] MEDS: ROFLUMILAST 500 MCG TABLET PO SCH (09:26)
[2017-08-03] MEDS: LEVOFLOXACIN 750 MG TABLET PO SCH (09:26)
[2017-08-03] MEDS: ENOXAPARIN SODIUM INJ 40 MG/0.4 ML DISP.SYRIN SUBCUT SCH (09:27)
[2017-08-03] MEDS: IPRATROPIUM/ALBUTEROL 0.5-2.5 MG/3 ML AMPUL NEB PRN ×2 (14:00→19:58)
[2017-08-03] MEDS: SIMVASTATIN 10 MG TABLET PO SCH (21:00)
[2017-08-04] MEDS: LEVOTHYROXINE SODIUM 0.05 MG TABLET PO SCH (05:31)
[2017-08-04] MEDS: LANSOPRAZOLE 15 MG TAB.RAP.DR PO SCH (05:31)
[2017-08-04] MEDS: BUDESONIDE/FORMOTEROL 80-4.5 MCG 60 PUFF/6.9 GM MDI IH SCH (05:31)
[2017-08-04] MEDS: LEVOFLOXACIN 750 MG TABLET PO SCH (09:08)
[2017-08-04] MEDS: ROFLUMILAST 500 MCG TABLET PO SCH (09:08)
[2017-08-04] MEDS: ASPIRIN 81 MG TABLET, ENT COATED PO SCH (09:08)
[2017-08-04] MEDS: ENOXAPARIN SODIUM INJ 40 MG/0.4 ML DISP.SYRIN SUBCUT SCH (09:26)
[2017-08-04] MEDS: IPRATROPIUM/ALBUTEROL 0.5-2.5 MG/3 ML AMPUL NEB PRN (13:59)
--- NOTE | 2017-08-04 16:03 | PDOC DISCHARGE SUMMARY ---
General - Admit/Disc Date/PCP Admission Date/Primary Care Provider: 07/29/17 18:52 DEBO JARON Discharge Date: 08/04/17 - Discharge Diagnosis (1) Bacterial lobar pneumonia Is this a current diagnosis for this admission?: Yes (2) SIRS (systemic inflammatory response syndrome) Is this a current diagnosis for this admission?: Yes (3) End stage chronic obstructive pulmonary disease Is this a current diagnosis for this admission?: Yes (4) Chronic hypoxemic respiratory failure Is this a current diagnosis for this admission?: Yes (5) CAD (coronary artery disease) Is this a current diagnosis for this admission?: Yes (6) Hyperlipidemia Is this a current diagnosis for this admission?: Yes (7) Hypothyroidism Is this a current diagnosis for this admission?: Yes (8) GERD (gastroesophageal reflux disease) Is this a current diagnosis for this admission?: Yes - Additional Information Resuscitation Status: Full Code Prescriptions: Levofloxacin [Levaquin 750 mg Tablet] 750 mg PO DAILY #5 tablet Home Medications: Acetylcysteine [V-Rstvhc-b-Cysteine] 600 mg PO [id number] 07/30/17 Albuterol Sulfate [Ventolin HFA MDI 18 GM] 1 puff IH Q6HP PRN 07/30/17 Aspirin [Ecotrin 81 mg EC Tablet] 81 mg PO DAILY 07/30/17 Budesonide/Formoterol Fumarate [Symbicort 80-4.5 Mcg Inhaler] 2 puff IH Q12 Esomeprazole Magnesium [Nexium 24Hr] 20 mg PO DAILY 07/30/17 Ipratropium/Albuterol Sulfate [Iprat-Albut 0.5-3(2.5) mg/3 ml] 3 ml NEB Q6HP PRN 07/30/17 Levothyroxine Sodium [Synthroid 0.05 mg Tablet] 0.05 mg PO Q6AM 07/30/17 Roflumilast [Daliresp 500 mcg Tablet] 500 mcg PO DAILY 07/30/17 Simvastatin [Zocor 20 mg Tablet] 20 mg PO QHS 07/30/17 Levofloxacin [Levaquin 750 mg Tablet] 750 mg PO DAILY #5 tablet 08/04/17 History of Present Illness Patient complains of: [place] shgortness of breath, productive coughing History of Present Illness: NIMISHA BRUMFIELD is a 82 year old male, he has a history of chronic obstructive pulmonary disease, chronic respiratory failure on home oxygen, he came to the emergency room for evaluation of cough, productive of sputum colored and shortness of breath. The shortness of breath is progressive getting worse over days in the emergency room he was evaluated, a chest x-ray was done there was no overt infiltrate on the chest x-ray the hemogram showed leukocytosis, patient not on any systemic steroids that would explain the leukocytosis it was felt to be due to infection of some sort, he was very symptomatic in the emergency room minimal exertion like moving from bed to chair with provoked severe shortness of breath with use of accessory muscle breathing. The ED physician felt that it was not safe for this patient to be discharged home because of his advanced age and the fact that he has evidence of SIRS with severe leukocytosis. CT chest was done without contrast showed bilateral emphysematous changes, interval resolution of the previously described bandlike lesion at the periphery of the right upper lobe there is airspace opacities of the lower lobes bilaterally that could represent pneumonia. Hospital Course Hospital Course: Patient responded to IV antibiotic and bronchodilators therapy. There was resolution of his coughing and associated leukocytosis. He has been on oral antibiotic therapy and agreeable to discharge home today. He remain on supplemental oxygen via nasal cannula at 2L/min. He will be discharged home on all of his pre admission medications. He will follow up in the office as instructed upon discharge. Physical Exam Vital Signs: Temp Pulse Resp BP Pulse Ox 98.7 F 84 16 128/60 H 99 08/04/17 11:50 08/04/17 14:00 08/04/17 13:59 08/04/17 11:50 08/04/17 13:59 Intake & Output 08/03/17 08/04/17 08/05/17 06:59 06:59 06:59 Intake Total 1078 1252 828 Balance 1078 1252 828 Weight 70.2 kg 68.7 kg Physical Exam: General appearance: PRESENT: no acute distress, well-developed, well-nourished Head exam: PRESENT: atraumatic, normocephalic Mouth exam: PRESENT: moist Respiratory exam: PRESENT: decreased breath sounds, rhonchi - minimal expiratory phase Cardiovascular exam: PRESENT: RRR. ABSENT: diastolic murmur, rubs, systolic murmur Vascular exam: ABSENT: pallor GI/Abdominal exam: PRESENT: normal bowel sounds, soft. ABSENT: distended, guarding, mass, organomegaly, rebound, tenderness Extremities exam: ABSENT: pedal edema Musculoskeletal exam: PRESENT: deformity - related to multiple joints involvement with arthritis Neurological exam: PRESENT: alert, awake, oriented to person, oriented to place , oriented to time, oriented to situation, CN II-XII grossly intact. ABSENT: motor sensory deficit Psychiatric exam: PRESENT: appropriate affect, normal mood. ABSENT: homicidal ideation, suicidal ideation Skin exam: PRESENT: dry, intact, warm. ABSENT: cyanosis, rash Results Laboratory Results: 08/01/17 05:09 08/01/17 05:09 07/30/17 07/30/17 07/30/17 03:24 03:24 09:55 Creatine Kinase 126 166 CK-MB (CK-2) 1.65 Troponin I < 0.012 07/30/17 09:55 Creatine Kinase CK-MB (CK-2) 2.68 Troponin I < 0.012 Impressions: Chest CT 07/29/17 00:00 IMPRESSION: 1. Study degraded by motion artifact. Emphysema. Small airspace opacities at the bilateral lower lobes, may represent atelectasis or pneumonia. 2. Interval resolution of the previously described band-like lesion at the periphery of the right upper lobe. 3. Small hiatal hernia. 4. Cholelithiasis. Chest X-Ray 07/29/17 16:26 IMPRESSION: COPD. CHRONIC BILATERAL INTERSTITIAL CHANGES. Qualifiers - * PATIENT BEING DISCHARGED WITH ANY OF THE FOLLOWING DIAGNOSIS: No Plan Discharge Plan: D/C home today. Follow up in the office as earlier scheduled.
[2017-08-04 16:08] VITALS: BP 120/69
== END 2017-08-04 16:30 | disposition home or self-care (01) | DRG 871 ==
LOC: ER 14:53 → EH 18:52 → 3S 21:52
PROVIDERS: ADMIT Internal Medicine Geriatric Medicine; ATTEND Internal Medicine Geriatric Medicine
PROC: 3E0F73Z Introduction of Anti-inflammatory into Respiratory Tract, Via Natural or Artificial Opening (ICD-10-PCS; principal; 2017-07-29)
DX: A41.9 Sepsis, unspecified organism (principal); J15.9 Unspecified bacterial pneumonia; J96.11 Chronic respiratory failure with hypoxia; I25.10 Atherosclerotic heart disease of native coronary artery without angina pectoris; E78.00 Pure hypercholesterolemia, unspecified; E03.9 Hypothyroidism, unspecified; K21.9 Gastro-esophageal reflux disease without esophagitis; K44.9 Diaphragmatic hernia without obstruction or gangrene; K80.20 Calculus of gallbladder without cholecystitis without obstruction; M19.90 Unspecified osteoarthritis, unspecified site; J43.9 Emphysema, unspecified; Z87.891 Personal history of nicotine dependence; Z99.81 Dependence on supplemental oxygen; Z79.899 Other long term (current) drug therapy; Z79.82 Long term (current) use of aspirin; Z88.2 Allergy status to sulfonamides; Z86.73 Personal history of transient ischemic attack (TIA), and cerebral infarction without residual deficits
CPT/HCPCS: 36415; 71046; 71250; 80048; 80053; 80061; 80307; 81001; 82140; 82150; 82550; 82553; 82803; 83036; 83605; 83690; 83735; 83880; 84100; 84439; 84443; 84484; 85025; 85610; 85730; 87040; 87086; 94640; 96365; 99285; J0692; J1650; J1956; J3490; J7030; J7512; J7620

== ENCOUNTER 2017-08-14 09:09 | Emergency (ER) | payer MEDICARE, BC ==
--- NOTE | 2017-08-14 09:20 | ER Document Report ---
ED General - General Stated Complaint: RESPIRATORY DISTRESS Time Seen by Provider: 08/14/17 09:10 TRAVEL OUTSIDE OF THE [place] IN LAST 30 DAYS: No - HPI Notes: Patient presents from walk-in clinic for increased work of breathing and coughing for the last 2 days. Patient is afebrile. Taking multiple breathing treatments last night and this morning. Given additional 2 duo nebs prehospital. And IV steroids. Patient chronically wears oxygen at 2 L nasal cannula. Patient was discharged from the hospital about 9 days ago for an fine all last week. Even up until Monday evening he began to feel poorly. His family physician was closed today saw in urgent care. - Related Data Allergies/Adverse Reactions: Sulfa (Sulfonamide Antibiotics) Allergy (Verified 07/29/17 15:01) Anaphylaxis Past Medical History - Social History Smoking Status: Unknown if Ever Smoked Family History: Reviewed & Not Pertinent - Past Medical History Cardiac Medical History: Reports: Hx Coronary Artery Disease Pulmonary Medical History: Reports: Hx Asthma, Hx Bronchitis, Hx COPD, Hx Pneumonia Neurological Medical History: Reports: Hx Cerebrovascular Accident - CVA R EYE, BLOOD THINNERS SINCE Renal/ Medical History: Denies: Hx Peritoneal Dialysis Musculoskeltal Medical History: Reports Hx Arthritis Psychiatric Medical History: Denies: Hx Depression Past Surgical History: Reports: Hx Abdominal Surgery, Hx Orthopedic Surgery, Hx Tonsillectomy - Immunizations Hx Diphtheria, Pertussis, Tetanus Vaccination: Yes Hx Pneumococcal Vaccination: 12/18/09 Review of Systems - Review of Systems Notes: REVIEW OF SYSTEMS: CONSTITUTIONAL: -fevers, -chills EENT: -eye pain, -difficulty swallowing, -nasal congestion CARDIOVASCULAR: -chest pain, -syncope. RESPIRATORY: coughing, SOB wheezing GASTROINTESTINAL: -abdominal pain, -nausea, -vomiting, -diarrhea GENITOURINARY: -dysuria, -hematuria MUSCULOSKELETAL: -back pain, -neck pain SKIN: -rash or skin lesions. HEMATOLOGIC: -easy bruising or bleeding. LYMPHATIC: -swollen, enlarged glands. NEUROLOGICAL: -altered mental status or loss of consciousness, -headache, - neurologic symptoms PSYCHIATRIC: -anxiety, -depression. ALL OTHER SYSTEMS REVIEWED AND NEGATIVE. Physical Exam - Vital signs Vitals: Pulse Ox 97 08/14/17 09:15 Interpretation: Normal - Notes Notes: PHYSICAL EXAMINATION: GENERAL: Well-appearing, well-nourished and in no acute distress. HEAD: Atraumatic, normocephalic. EYES: Pupils equal round and reactive to light, extraocular movements intact, sclera anicteric, conjunctiva are normal. ENT: nares patent, oropharynx clear without exudates. Moist mucous membranes. NECK: Normal range of motion, supple without lymphadenopathy LUNGS: Tachypnea HEART: Tachycardia ABDOMEN: Soft, nontender, normoactive bowel sounds. No guarding, no rebound. No masses appreciated. EXTREMITIES: Normal range of motion, no pitting or edema. No cyanosis. NEUROLOGICAL: Cranial nerves grossly intact. Normal speech, normal gait. Normal sensory and motor exams. PSYCH: Normal mood, normal affect. SKIN: Warm, Dry, normal turgor, no rashes or lesions noted. - General General appearance: Appears well, Alert - HEENT Head: Normocephalic, Atraumatic Eyes: Normal Pupils: PERRL - Respiratory Respiratory status: No respiratory distress Chest status: Nontender Breath sounds: Normal Chest palpation: Normal - Cardiovascular Rhythm: Regular Heart sounds: Normal auscultation Murmur: No - Abdominal Inspection: Normal Distension: No distension Bowel sounds: Normal Tenderness: Nontender Organomegaly: No organomegaly - Back Back: Normal, Nontender - Extremities General upper extremity: Normal inspection, Nontender, Normal color, Normal ROM , Normal temperature General lower extremity: Normal inspection, Nontender, Normal color, Normal ROM , Normal temperature, Normal weight bearing. No: Simran's sign - Neurological Neuro grossly intact: Yes Cognition: Normal Orientation: AAOx4 [place]zel Coma Scale Eye Opening: Spontaneous [place] Coma Scale Verbal: Oriented [place] Coma Scale Motor: Obeys Commands [place] Coma Scale Total: 15 Speech: Normal Motor strength normal: LUE, RUE, LLE, RLE Sensory: Normal - Psychological Associated symptoms: Normal affect, Normal mood - Skin Skin Temperature: Warm Skin Moisture: Dry Skin Color: Normal Course - Re-evaluation Re-evalutation: 08/14/17 09:22 Well-appearing [age]-year-old man presents from urgent care coughing and respiratory distress and some tachycardia. Patient is afebrile nontoxic appearing speaking in full sentences. Patient has lengthy history of COPD and chronically wears oxygen. Patient had recent pneumonia with hospitalization. He states this does not feel like pneumonia feels like a COPD exacerbation. Patient no acute distress in the department now. Patient asking for a meal tray. Since extensive lab workup unremarkable, EKG reassuring, chest x-ray shows no focal infiltrate. Diagnosed with COPD flare will be discharged home with oral steroids follow-up PCP. 08/14/17 11:31 - Vital Signs Vital signs: Temp Pulse Resp BP Pulse Ox 98.7 F 23 H 154/74 H 97 08/14/17 09:16 08/14/17 10:00 08/14/17 09:16 08/14/17 10:00 - Laboratory Result Diagrams: 08/14/17 10:22 08/14/17 10:22 Laboratory results interpreted by me: 08/14/17 08/14/17 10:22 10:22 WBC 10.7 H RBC 3.72 L Hgb 11.9 L Hct 35.0 L Glucose 119 H - EKG Interpretation by Me Additional EKG results interpreted by me: 08/14/17 11:31 Normal sinus rhythm, no ST elevations or depressions no pathologic T-wave inversions. Discharge - Discharge Clinical Impression: COPD exacerbation Condition: Stable Disposition: HOME, SELF-CARE Instructions: Chronic Obstructive Lung Disease ([facility]) Prescriptions: Prednisone [Deltasone 20 mg Tablet] 3 tab PO DAILY 3 Days tablet
[2017-08-14 10:39] LABS: ABSOLUTE EOSINOPHILS # (AUTO) 0.1 10^3/uL (0.0-0.6); ABSOLUTE LYMPHOCYTES (AUTO) 1.5 10^3/uL (0.5-4.7); ABSOLUTE MONOCYTES (AUTO) 0.8 10^3/uL (0.1-1.4); ABSOLUTE NEUT (AUTO) 8.2 10^3/uL (1.7-8.2); BASOPHILS % (AUTO) 0.4 % (0-2); EOSINOPHILS % (AUTO) 1.4 % (0-6); HEMOGLOBIN 11.9 g/dL (13.5-17.0); LYMPHOCYTES % (AUTO) 14.4 % (13-45); MEAN CORPUSCULAR VOLUME 94 fl (80-97); MONOCYTES % (AUTO) 7.3 % (3-13); PLATELET COUNT 313 10^3/uL (150-450); RED BLOOD COUNT 3.72 10^6/uL (4.35-5.55); RED CELL DISTRIBUTION WIDTH 13.6 % (11.5-14.0); SEGMENTED NEUTROPHILS % (AUTO) 76.5 % (42-78); TOTAL CELLS COUNTED % (AUTO) 100 %; WHITE BLOOD COUNT 10.7 10^3/uL (4.0-10.5)
[2017-08-14] MEDS ORDERED: IPRATROPIUM/ALBUTEROL 0.5-2.5 MG/3 ML AMPUL NEB ONE (10:40)
[2017-08-14 11:00] LABS: ANION GAP 14 (5-19); BLOOD UREA NITROGEN 17 mg/dL (7-20); CALCIUM 9.6 mg/dL (8.4-10.2); CARBON DIOXIDE 26 mmol/L (22-30); CHLORIDE 105 mmol/L (98-107); GLUCOSE 119 mg/dL (75-110); POTASSIUM 4.4 mmol/L (3.6-5.0)
--- NOTE | 2017-08-14 11:18 | RADIOLOGY REPORT (SQ) ---
EXAM DESCRIPTION: CHEST 2 VIEWS COMPLETED DATE/TIME: 08/14/2017 11:08 am REASON FOR STUDY: cough COMPARISON: 07/29/2017 NUMBER OF VIEWS: Two view. TECHNIQUE: Frontal and lateral radiographic views of the chest acquired. LIMITATIONS: None. FINDINGS: LUNGS AND PLEURA: No opacities, masses or pneumothorax. No pleural effusion. Attenuated bl ood vessels and flattened daniel-diaphragms. MEDIASTINUM AND HILAR STRUCTURES: No masses. No contour abnormalities. HEART AND VASCULAR STRUCTURES: Heart normal in size and contour. No evidence for failure. BONES: No acute findings. HARDWARE: None in the chest. OTHER: No other significant finding. IMPRESSION: COPD. NO ACUTE RADIOGRAPHIC FINDING IN THE CHEST. TECHNICAL DOCUMENTATION: JOB ID: [id number] [employer]- All Rights Reserved Reading location - IP/workstation name: [email or web address]
[2017-08-14 11:49] VITALS: BP 136/57
--- NOTE | 2017-08-14 16:36 | EKG REPORT ---
SEVERITY:- BORDERLINE ECG - SINUS TACHYCARDIA LOW VOLTAGE THROUGHOUT BORDERLINE T ABNORMALITIES, ANT-LAT LEADS : Confirmed by: Izzy Castañeda 14-Aug-2017 16:35:07
== END 2017-08-14 11:49 | disposition home or self-care (01) ==
LOC: ER 09:09
DX: J44.1 Chronic obstructive pulmonary disease with (acute) exacerbation (principal); R06.03 Acute respiratory distress; R05 Cough; Z99.81 Dependence on supplemental oxygen; I25.10 Atherosclerotic heart disease of native coronary artery without angina pectoris
CPT/HCPCS: 93005; 94640; 99285; 36415; 85025; 80048; 84484; 71046; 93010; A9270; J7620

== ENCOUNTER → 2017-12-21 | Outpatient (CLI) | payer MEDICARE, BC ==
--- NOTE | 2017-12-21 08:38 | RADIOLOGY REPORT (SQ) ---
EXAM DESCRIPTION: CT CHEST WITH COMPLETED DATE/TIME: 12/21/2017 8:11 am REASON FOR STUDY: SOLITARY PULMONARY NODULE (R91.1) R91.1 SOLITARY PULMONARY NODULE COMPARISON: 07/29/2017. 05/02/2017. PET CT from 05/14/2017. TECHNIQUE: CT scan of the chest performed using helical scanning technique with dynamic intravenous contrast injection. Images reviewed with lung, soft tissue and bone windows. Reconstructed coronal and sagittal MPR and MIP images reviewed. All images stored on PACS. All CT scanners at this facility use dose modulation, iterative reconstruction, and/or weight based d osing when appropriate to reduce radiation dose to as low as reasonably achievable (ALARA). [facility]: Dose Right [facility]: CareDose [facility]: Dose Right [facility]: Teradose 4D [facility]: [employer] CONTRAST TYPE AND DOSE: contrast/concentration: Isovue 350.00 mg/ml; Total Contrast Delivered: 80.0 ml; Total Saline Delivered: 55.0 ml RENAL FUNCTION: Creatinine 1.1 RADIATION DOSE: CT Rad equipment meets quality standard of care and radiation dose reduction techniq ues were employed. CTDIvol: 4.9 mGy. DLP: 198 mGy-cm. . LIMITATIONS: None. FINDINGS: LUNGS AND PLEURA: Small irregular opacity left lower lobe measures up to 1.4 cm today. Pr eviously this was just over 1 cm. The opacity is also more nodular in appearance with at least 1 add itional new adjacent 4 mm nodule. See images 76 and 80. New 4 mm nodule in the subpleural right upp er lobe posteriorly (image 44). HILAR AND MEDIASTINAL STRUCTURES: No identified masses or abnormal nodes. HEART AND VASCULAR STRUCTURES: No aneurysm or dissection. No central pulmonary emboli. No pericardi al effusion. HARDWARE: None in the chest. UPPER ABDOMEN: Cholelithiasis. Heavy aortic atherosclerosis. THYROID AND OTHER SOFT TISSUES: No masses. No adenopathy. BONES: No significant finding. OTHER: No other significant finding. IMPRESSION: 1. New or progressive pulmonary nodules as above. This includes a new tiny right upper lobe nodule and enlarging and new left lower lobe nodules. Largest opacity measures up to 1.4 cm tod ay. F[place]ISCHNER CRITERIA FOR FOLLOW-UP OF PULMONARY NODULES Incidentally detected new nodules in persons 35 or older. HIGH RISK: History of smoking or other known risk factors. >8mm single solid nodule: LOW and HIGH RISK: consider CT, PET/CT or biopsy at 3 mo. TECHNICAL DOCUMENTATION: JOB ID: [id number] Quality ID # [id number]: Final reports with documentation of one or more dose reduction techniques (e.g., Au tomated exposure control, adjustment of the mA and/or kV according to patient size, use of iterative reconstruction technique) 2010 [employer]- All Rights Reserved Reading location - IP/workstation name: [email or web address]
== END ==
LOC: RAD 07:29
PROVIDERS: ATTEND Internal Medicine Geriatric Medicine
DX: R91.1 Solitary pulmonary nodule (principal); K80.20 Calculus of gallbladder without cholecystitis without obstruction
CPT/HCPCS: 71260; 82565

== ENCOUNTER → 2018-03-28 | Outpatient (CLI) | payer BC, MEDICARE, OTHER ==
--- NOTE | 2018-03-28 12:27 | RADIOLOGY REPORT (SQ) ---
EXAM DESCRIPTION: CT CHEST WITHOUT COMPLETED DATE/TIME: 03/28/2018 9:53 am REASON FOR STUDY: ABN FINDINGS OF THE LUNG R91.8 OTHER NONSPECIFIC ABNORMAL FINDING OF LUNG FIELD COMPARISON: PET-CT 05/14/[address] chest 12/21/2017, 07/29/2017, 05/02/2017, 09/21/2015, 03/05/2015, 03/22/2013, 12/18/2012 TECHNIQUE: CT scan performed of the chest without intravenous contrast. Images reviewed with lung, soft tissue and bone windows. Reconstructed coronal and sagittal MPR images reviewed. All images st ored on PACS. All CT scanners at this facility use dose modulation, iterative reconstruction, and/or weight based d osing when appropriate to reduce radiation dose to as low as reasonably achievable (ALARA). [facility]: Dose Right [facility]: CareDose [facility]: Dose Right [facility]: Teradose 4D [facility]: [employer] RADIATION DOSE: CT Rad equipment meets quality standard of care and radiation dose reduction techniq ues were employed. CTDIvol: 6.8 mGy. DLP: 279 mGy-cm. mGy. LIMITATIONS: No technical limitations. FINDINGS: LUNGS AND PLEURA: In the left lower lobe, an irregularly-shaped 1.3 x 0.7 cm nodule is pre sent on axial image 74. This is unchanged from PET-CT 05/14/[address] chest exams 12/21/2017, 018, and 05/02/2017. The other pulmonary nodules described on CT chest 12/21/2017 are no longer present. There is extensive obstructive lung disease with enlargement of centrilobular airspaces. No pneumoth orax. No pleural effusion. HILAR AND MEDIASTINAL STRUCTURES: No identified masses or abnormal nodes. No obvious aneurysm. HEART AND VASCULAR STRUCTURES: No thoracic aortic aneurysm. Mildly prominent main pulmonary artery, question underlying pulmonary hypertension UPPER ABDOMEN: No significant findings. Limited exam. THYROID AND OTHER SOFT TISSUES: No masses. No adenopathy. BONES: No significant finding. HARDWARE: None in the chest. OTHER: No other significant findings. IMPRESSION: Stable irregularly-shaped left lower lobe nodule compared to studies dating back to 05/02. TECHNICAL DOCUMENTATION: JOB ID: [id number] Quality ID # [id number]: Final reports with documentation of one or more dose reduction techniques (e.g., Au tomated exposure control, adjustment of the mA and/or kV according to patient size, use of iterative reconstruction technique) 2010 [employer]- All Rights Reserved Reading location - IP/workstation name: [email or web address]
== END ==
LOC: RAD 09:37
PROVIDERS: ATTEND Internal Medicine Pulmonary Disease
DX: R91.8 Other nonspecific abnormal finding of lung field (principal)
CPT/HCPCS: 71250

== ENCOUNTER 2018-06-11 15:51 | Inpatient (IN) | payer OTHER, MEDICARE ==
[2018-06-11 18:14] LABS: ABSOLUTE EOSINOPHILS # (AUTO) 0.1 10^3/uL (0.0-0.6); ABSOLUTE LYMPHOCYTES (AUTO) 2.1 10^3/uL (0.5-4.7); ABSOLUTE MONOCYTES (AUTO) 1.6 10^3/uL (0.1-1.4); ABSOLUTE NEUT (AUTO) 10.9 10^3/uL (1.7-8.2); BASOPHILS % (AUTO) 0.2 % (0-2); EOSINOPHILS % (AUTO) 0.4 % (0-6); HEMATOCRIT 34.2 % (37.9-51.0); HEMOGLOBIN 11.8 g/dL (13.5-17.0); LYMPHOCYTES % (AUTO) 14.6 % (13-45); MEAN CORPUSCULAR HEMOGLOBIN 32.1 pg (27.0-33.4); MEAN CORPUSCULAR HGB CONC 34.6 g/dL (32.0-36.0); MEAN CORPUSCULAR VOLUME 93 fl (80-97); MONOCYTES % (AUTO) 10.6 % (3-13); PLATELET COUNT 244 10^3/uL (150-450); RED BLOOD COUNT 3.69 10^6/uL (4.35-5.55); RED CELL DISTRIBUTION WIDTH 13.4 % (11.5-14.0); SEGMENTED NEUTROPHILS % (AUTO) 74.2 % (42-78); TOTAL CELLS COUNTED % (AUTO) 100 %; WHITE BLOOD COUNT 14.7 10^3/uL (4.0-10.5)
--- NOTE | 2018-06-11 18:18 | PDOC H&P ---
History of Present Illness Admission Date/PCP: 06/11/18 15:51 DEBO JARON Patient complains of: Worsening cough and difficulty with breathing History of Present Illness: NIMISHA BRUMFIELD is a 83 year old male patient known to my practice who walked into the office earlier today with complaint about progressively worsening cough and difficulty with breathing over last 2 weeks. Patient reported associated chills, chest pain with coughing and wheezing. Patient reported significant difficulty with breathing with minimal exertion despite on supplemental oxygen at 2L/min via nasal cannula. His initial evaluation on the office did revealed hypoxemia with oxygen saturation at 87%, tachycardia with heart rate at 107/min and respiratory rate at 16 /min. His blood pressure was unusually elevated at 150/65 mmHg. His CBC did revealed leukocytosis with total WBC at 17.1 with left shift. His chest X ray revealed chronic COPD changes with right lobe long standing mass lesions. Patient demonstrated audible wheezing. In view of his presentation, clinical findings and laboratory findings he was advised hospitalization for further evaluation and management. Past Medical History Cardiac Medical History: Reports: Coronary Artery Disease Denies: Myocardial Infarction, Hypertension Pulmonary Medical History: Reports: Asthma, Bronchitis, Chronic Obstructive Pulmonary Disease (COPD), Pneumonia Neurological Medical History: Denies: Seizures Endocrine Medical History: Reports: Hypothyroidism GI Medical History: Reports: Gastroesophageal Reflux Disease Musculoskeltal Medical History: Reports: Arthritis Psychiatric Medical History: Denies: Depression Hematology: Denies: Anemia Past Surgical History Past Surgical History: Reports: Orthopedic Surgery, Tonsillectomy Denies: Pacemaker Social History Smoking Status: Former Smoker Number of Years Smokin Last Time Smoked: 2012 Frequency of Alcohol Use: None Hx Recreational Drug Use: No Drugs: None Hx Prescription Drug Abuse: No - Advance Directive Resuscitation Status: Do Not Resuscitate Family History Family History: Reviewed & Not Pertinent Parental Family History Reviewed: Yes Children Family History Reviewed: Yes Sibling(s) Family History Reviewed.: Yes Medication/Allergy Allergies/Adverse Reactions: Sulfa (Sulfonamide Antibiotics) Allergy (Verified 07/29/17 15:01) Anaphylaxis Review of Systems Constitutional: PRESENT: chills, weakness Eyes: PRESENT: visual disturbances Ears: PRESENT: hearing changes Nose, Mouth, and Throat: ABSENT: as per HPI, headache(s), mouth pain, sore throat, vertigo, other Cardiovascular: PRESENT: chest pain - with coughing, dyspnea on exertion Respiratory: PRESENT: cough, dyspnea, sputum Gastrointestinal: ABSENT: abdominal pain, constipation, diarrhea, hematemesis, hematochezia, nausea, vomiting Genitourinary: ABSENT: dysuria, hematuria Musculoskeletal: ABSENT: joint swelling Integumentary: ABSENT: rash, wounds Neurological: ABSENT: abnormal gait, abnormal speech, confusion, dizziness, focal weakness, syncope Psychiatric: ABSENT: anxiety, depression, homidical ideation, suicidal ideation Endocrine: ABSENT: cold intolerance, heat intolerance, polydipsia, polyuria Hematologic/Lymphatic: ABSENT: easy bleeding, easy bruising, lymphadenopathy Allergic/Immunologic: ABSENT: seasonal rhinorrhea Physical Exam Vital Signs: Temp Pulse Resp BP Pulse Ox 91 06/11/18 16:09 General appearance: PRESENT: mild distress - with oxygen supplementaion via nasal cannula Head exam: PRESENT: atraumatic, normocephalic Eye exam: PRESENT: conjunctiva pink, EOMI, PERRLA. ABSENT: scleral icterus Ear exam: PRESENT: normal external ear exam Mouth exam: PRESENT: moist Respiratory exam: PRESENT: crackles, decreased breath sounds, rhonchi, tachypnea, wheezes Cardiovascular exam: PRESENT: +S1, +S2, systolic murmur, tachycardia. ABSENT: diastolic murmur Murmur grade: 3 Vascular exam: ABSENT: pallor GI/Abdominal exam: PRESENT: normal bowel sounds, soft. ABSENT: distended, guarding, mass, organolmegaly, rebound, tenderness Rectal exam: PRESENT: deferred Extremities exam: ABSENT: pedal edema Musculoskeletal exam: PRESENT: ambulatory - with observed dyspnea during office visit. Patiner required wheelchair assistance to vehicle in parking lot. Neurological exam: PRESENT: alert, awake, oriented to person, oriented to place, oriented to time, oriented to situation, CN II-XII grossly intact. ABSENT: motor sensory deficit Psychiatric exam: PRESENT: appropriate affect, normal mood. ABSENT: homicidal ideation, suicidal ideation Skin exam: PRESENT: dry, warm Results Laboratory Results: In-patient lab results were pending at the time of my documentation. Assessment & Plan - Diagnosis (1) COPD exacerbation Is this a current diagnosis for this admission?: Yes Plan: See attending physician orders. (2) Chronic hypoxemic respiratory failure Is this a current diagnosis for this admission?: Yes Plan: See attending physician orders. (3) Hypertension Qualifiers: Hypertension type: essential hypertension Qualified Code(s): I10 - Essential (primary) hypertension Is this a current diagnosis for this admission?: Yes Plan: See attending physician orders. (4) CAD (coronary artery disease) Qualifiers: Coronary Disease-Associated Artery/Lesion type: hughes artery Associated angina: without angina Is this a current diagnosis for this admission?: Yes Plan: See attending physician orders. (5) Hyperlipidemia Qualifiers: Hyperlipidemia type: pure hypercholesterolemia Qualified Code(s): E78.00 - Pure hypercholesterolemia, unspecified; E78.0 - Pure hypercholesterolemia Is this a current diagnosis for this admission?: Yes Plan: See attending physician orders. (6) Hypothyroidism Qualifiers: Hypothyroidism type: acquired Qualified Code(s): E03.9 - Hypothyroidism, unspecified Is this a current diagnosis for this admission?: Yes Plan: See attending physician orders. (7) GERD (gastroesophageal reflux disease) Qualifiers: Esophagitis presence: without esophagitis Qualified Code(s): K21.9 - Gastro-esophageal reflux disease without esophagitis Is this a current diagnosis for this admission?: Yes Plan: See attending physician orders. - Time Time Spent: 50 to 70 Minutes Medications reviewed and adjusted accordingly: Yes Anticipated discharge: Home with Homehealth Within: Other - Inpatient Certification Based on my medical assessment, after consideration of the patient's comorbidities, presenting symptoms, or acuity I expect that the services needed warrant INPATIENT care.: Yes I certify that my determination is in accordance with my understanding of Medicare's requirements for reasonable and necessary INPATIENT services [42 CFR 412.3e].: Yes Medical Necessity: Significant Comorbidiites Make Outpatient Treatment Too Risky, Need Close Monitoring Due to Risk of Patient Decompensation, Need For IV Fluids, Need For Continuous Telemetry Monitoring, Need for Nebulizer Therapy and Monitoring of Response, Need for IV Antibiotics, Risk of Complication if Not Cared For in Hospital, Risk of Diagnosis Which Will Require Inpatient Eval/Care/Monitoring Post Hospital Care: D/C Lead Technician Documentation - Plan Summary Plan Summary: See admitting attending physician orders. Patient will be started on IV Solu Medrol, Antibiotic, nebulizer therapy and oxygen supplementation along with his preadmission medication as reconciled on this medication orders.
[2018-06-11 18:26] LABS: ALANINE AMINOTRANSFERASE 29 U/L (21-72); ALBUMIN 4.3 g/dL (3.5-5.0); ALKALINE PHOSPHATASE 69 U/L (38-126); ANION GAP 12 (5-19); ASPARTATE AMINO TRANSFERASE 23 U/L (17-59); BILIRUBIN,DIRECT 0.3 mg/dL (0.0-0.4); BILIRUBIN,TOTAL 0.6 mg/dL (0.2-1.3); BLOOD UREA NITROGEN 21 mg/dL (7-20); CARBON DIOXIDE 23 mmol/L (22-30); CHLORIDE 102 mmol/L (98-107); GLUCOSE 101 mg/dL (75-110); POTASSIUM 4.4 mmol/L (3.6-5.0); SODIUM 137.3 mmol/L (137-145); TOTAL PROTEIN 7.2 g/dL (6.3-8.2)
--- NOTE | 2018-06-11 20:49 | RADIOLOGY REPORT (SQ) ---
XR CHEST 2 VIEWS HISTORY: COPD. COMPARISON: None. FINDINGS: The heart size is normal. There are chronic changes of emphysema with scattered areas of atelectasis or fibrosis. No consolidation, pleural effusion, or pneumothorax is seen. There are no acute bony findings. IMPRESSION: No evidence of acute cardiopulmonary disease. Chronic changes of emphysema.
[2018-06-11] MEDS ORDERED: ACETAMINOPHEN 325 MG TABLET PO PRN (23:48)
[2018-06-11] MEDS ORDERED: GUAIFENESIN SYRP 200 MG/10 ML UDC PO PRN (23:49)
[2018-06-11] MEDS ORDERED: IPRATROPIUM/ALBUTEROL 0.5-2.5 MG/3 ML AMPUL NEB PRN (23:50)
[2018-06-11] MEDS ORDERED: METHYLPREDNISOLONE INJ 125 MG/2 ML SDV IV ONE (23:59)
[2018-06-11] MEDS ORDERED: LEVOFLOXACIN 500 MG/D5W RTU 500 MG/100 ML RTUPB IV ONE (23:59)
[2018-06-12] MEDS ORDERED: CEFEPIME 1 GM/D5W RTU 1 GM/50 ML RTUPB IV ONE (01:00)
[2018-06-12] MEDS ORDERED: BENZOCAINE/MENTHOL SORE THROAT LOZENGE BUCCAL PRN ×2 (01:18→10:30)
[2018-06-12] MEDS: PANTOPRAZOLE SODIUM 40 MG TABLET.DR PO SCH (05:25)
[2018-06-12] MEDS: METHYLPREDNISOLONE INJ 125 MG/2 ML SDV IV SCH ×3 (05:26→22:11)
[2018-06-12] MEDS: CEFEPIME 1 GM/D5W RTU 1 GM/50 ML RTUPB IV SCH ×2 (09:39→22:09)
[2018-06-12] MEDS: ENOXAPARIN SODIUM INJ 40 MG/0.4 ML DISP.SYRIN SUBCUT SCH (09:40)
--- NOTE | 2018-06-12 19:21 | PDOC PROGRESS REPORT ---
Subjective Progress Note for:: 06/12/18 Subjective:: Patient reported episodes of intermittent chills. No perspiration or fever. continue to cough with sputum production but collecting in tissue paper instead of specimen cup for requested gram stain and culture requested. He denied associated chest pain with coughing. No nausea, vomiting or abdominal pain. Reason For Visit: EXACERBATED COPD WITH HYPERTENSION,HYPOTHYROIDISM, Physical Exam Vital Signs: Temp Pulse Resp BP Pulse Ox 97.4 F 82 18 137/51 H 99 06/12/18 15:24 06/12/18 15:24 06/12/18 15:24 06/12/18 15:24 06/12/18 15:24 Intake & Output 06/11/18 06/12/18 06/13/18 06:59 06:59 06:59 Intake Total 150 50 Output Total 450 2 Balance -300 48 Weight 73.028 kg 73.028 kg General appearance: PRESENT: mild distress - remain on supplemental oxygen at 3L/min Head exam: PRESENT: atraumatic, normocephalic Eye exam: PRESENT: conjunctiva pink, EOMI, PERRLA. ABSENT: scleral icterus Ear exam: PRESENT: normal external ear exam Mouth exam: PRESENT: moist Respiratory exam: PRESENT: crackles, decreased breath sounds Cardiovascular exam: PRESENT: RRR. ABSENT: diastolic murmur, rubs, systolic murmur Murmur grade: 3 Vascular exam: ABSENT: pallor GI/Abdominal exam: PRESENT: normal bowel sounds, soft. ABSENT: distended, guarding, mass, organolmegaly, rebound, tenderness Extremities exam: ABSENT: pedal edema Neurological exam: PRESENT: alert, awake, oriented to person, oriented to place, oriented to time, oriented to situation, CN II-XII grossly intact. ABSENT: motor sensory deficit Skin exam: PRESENT: dry, warm Results Laboratory Results: 06/11/18 18:00 06/11/18 18:00 Impressions: Chest X-Ray 06/11/18 00:00 IMPRESSION: No evidence of acute cardiopulmonary disease. Chronic changes of emphysema. Assessment & Plan - Diagnosis (1) COPD exacerbation Is this a current diagnosis for this admission?: Yes (2) Chronic hypoxemic respiratory failure Is this a current diagnosis for this admission?: Yes (3) Hypertension Qualifiers: Hypertension type: essential hypertension Qualified Code(s): I10 - Essential (primary) hypertension Is this a current diagnosis for this admission?: Yes (4) CAD (coronary artery disease) Qualifiers: Coronary Disease-Associated Artery/Lesion type: hughes artery Associated angina: without angina Is this a current diagnosis for this admission?: Yes (5) Hyperlipidemia Qualifiers: Hyperlipidemia type: pure hypercholesterolemia Qualified Code(s): E78.00 - Pure hypercholesterolemia, unspecified; E78.0 - Pure hypercholesterolemia Is this a current diagnosis for this admission?: Yes (6) Hypothyroidism Qualifiers: Hypothyroidism type: acquired Qualified Code(s): E03.9 - Hypothyroidism, unspecified Is this a current diagnosis for this admission?: Yes (7) GERD (gastroesophageal reflux disease) Qualifiers: Esophagitis presence: without esophagitis Qualified Code(s): K21.9 - Gastro-esophageal reflux disease without esophagitis Is this a current diagnosis for this admission?: Yes - Time Time Spent with patient: 25-34 minutes Medications reviewed and adjusted accordingly: Yes Anticipated discharge: Home with Homehealth Within: Other - Inpatient Certification Based on my medical assessment, after consideration of the patient's comor bidities, presenting symptoms, or acuity I expect that the services needed warrant INPATIENT care.: Yes I certify that my determination is in accordance with my understanding of Medicare's requirements for reasonable and necessary INPATIENT services [42 CFR 412.3e].: Yes Medical Necessity: Significant Comorbidiites Make Outpatient Treatment Too Risky, Need Close Monitoring Due to Risk of Patient Decompensation, Need For IV Fluids, Need For Continuous Telemetry Monitoring, Need for Nebulizer Therapy and Monitoring of Response, Need for IV Antibiotics, Risk of Complication if Not Cared For in Hospital, Risk of Diagnosis Which Will Require Inpatient Eval/Care/Monitoring Post Hospital Care: D/C Customer Service Administrator 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 Decrease IV Solu Medrol to 80 mg q 8hours. Maintain on all other current medication management.
[2018-06-12] MEDS ORDERED: ACETYLCYSTEINE 600 MG PO SCH (21:00)
[2018-06-12] MEDS: LEVOFLOXACIN 500 MG/D5W RTU 500 MG/100 ML RTUPB IV SCH (22:10)
[2018-06-12] MEDS: SIMVASTATIN 10 MG TABLET PO SCH (22:13)
[2018-06-13] MEDS: METHYLPREDNISOLONE INJ 125 MG/2 ML SDV IV SCH ×2 (06:11→13:13)
[2018-06-13] MEDS: PANTOPRAZOLE SODIUM 40 MG TABLET.DR PO SCH (06:12)
[2018-06-13] MEDS: LEVOTHYROXINE SODIUM 0.05 MG TABLET PO SCH (06:12)
[2018-06-13 06:17] LABS: ABSOLUTE LYMPHOCYTES (AUTO) 1.1 10^3/uL (0.5-4.7); ABSOLUTE MONOCYTES (AUTO) 0.7 10^3/uL (0.1-1.4); ABSOLUTE NEUT (AUTO) 18.2 10^3/uL (1.7-8.2); BASOPHILS % (AUTO) 0.1 % (0-2); HEMATOCRIT 32.2 % (37.9-51.0); HEMOGLOBIN 11.1 g/dL (13.5-17.0); LYMPHOCYTES % (AUTO) 5.4 % (13-45); MEAN CORPUSCULAR HEMOGLOBIN 31.7 pg (27.0-33.4); MEAN CORPUSCULAR HGB CONC 34.6 g/dL (32.0-36.0); MEAN CORPUSCULAR VOLUME 92 fl (80-97); MONOCYTES % (AUTO) 3.5 % (3-13); PLATELET COUNT 262 10^3/uL (150-450); RED BLOOD COUNT 3.51 10^6/uL (4.35-5.55); RED CELL DISTRIBUTION WIDTH 13.2 % (11.5-14.0); TOTAL CELLS COUNTED % (AUTO) 100 %; WHITE BLOOD COUNT 19.9 10^3/uL (4.0-10.5)
[2018-06-13 06:45] LABS: ANION GAP 11 (5-19); BLOOD UREA NITROGEN 32 mg/dL (7-20); CALCIUM 9.5 mg/dL (8.4-10.2); CARBON DIOXIDE 22 mmol/L (22-30); CHLORIDE 104 mmol/L (98-107); GLUCOSE 171 mg/dL (75-110); POTASSIUM 4.5 mmol/L (3.6-5.0); SODIUM 137.1 mmol/L (137-145)
[2018-06-13] MEDS ORDERED: (PENDING PHARMACY ID) (Roflumilast [Daliresp 500 Mcg Tablet] 500 MCG) PO SCH (10:00)
[2018-06-13] MEDS: ROFLUMILAST 500 MCG TABLET PO SCH (10:39)
[2018-06-13] MEDS: ASPIRIN 81 MG TABLET, ENT COATED PO SCH (10:40)
[2018-06-13] MEDS: CEFEPIME 1 GM/D5W RTU 1 GM/50 ML RTUPB IV SCH ×2 (10:40→21:57)
[2018-06-13] MEDS: ENOXAPARIN SODIUM INJ 40 MG/0.4 ML DISP.SYRIN SUBCUT SCH (10:41)
[2018-06-13] MEDS ORDERED: ACETYLCYSTEINE 600 MG PO SCH (17:00)
[2018-06-13] MEDS: SIMVASTATIN 10 MG TABLET PO SCH (17:30)
--- NOTE | 2018-06-13 19:32 | PDOC PROGRESS REPORT ---
Subjective Progress Note for:: 06/13/18 Subjective:: Patient denied fever or chills. Still experience productive coughing. No chest pain with coughing. No nausea, vomiting or abdominal pain. Reason For Visit: EXACERBATED COPD WITH HYPERTENSION,HYPOTHYROIDISM, Physical Exam Vital Signs: Temp Pulse Resp BP Pulse Ox 97.6 F 93 16 136/58 H 95 06/13/18 16:06 06/13/18 19:00 06/13/18 16:06 06/13/18 16:06 06/13/18 16:06 Intake & Output 06/12/18 06/13/18 06/14/18 06:59 06:59 06:59 Intake Total 150 200 50 Output Total 450 2 2 Balance -300 198 48 Weight 73.028 kg 73.028 kg Physical Exam: General appearance: PRESENT: mild distress - remain on supplemental oxygen at 2L/min Head exam: PRESENT: atraumatic, normocephalic Eye exam: PRESENT: conjunctiva pink, EOMI, PERRLA. ABSENT: pallor, scleral icterus Ear exam: PRESENT: normal external ear exam Mouth exam: PRESENT: moist Respiratory exam: PRESENT: crackles, decreased breath sounds Cardiovascular exam: PRESENT: RRR. ABSENT: diastolic murmur, rubs, systolic murmur Murmur grade: 3 GI/Abdominal exam: PRESENT: normal bowel sounds, soft. ABSENT: distended, guarding, mass, organomegaly, rebound, tenderness Extremities exam: ABSENT: pedal edema Neurological exam: PRESENT: alert, awake, oriented to person, oriented to place, oriented to time, oriented to situation, CN II-XII grossly intact. ABSENT: motor sensory deficit Skin exam: PRESENT: dry, warm Murmur grade: 3 Results Laboratory Results: 06/13/18 05:46 06/13/18 05:46 06/13/18 06/13/18 05:46 05:46 WBC 19.9 H RBC 3.51 L Hgb 11.1 L Hct 32.2 L MCV 92 MCH 31.7 MCHC 34.6 RDW 13.2 Plt Count 262 Seg Neutrophils % 91.0 H Lymphocytes % 5.4 L Monocytes % 3.5 Eosinophils % 0.0 Basophils % 0.1 Absolute Neutrophils 18.2 H Absolute Lymphocytes 1.1 Absolute Monocytes 0.7 Absolute Eosinophils 0.0 Absolute Basophils 0.0 Sodium 137.1 Potassium 4.5 Chloride 104 Carbon Dioxide 22 Anion Gap 11 BUN 32 H Creatinine 1.10 Est GFR ( Amer) > 60 Est GFR (Non-Af Amer) > 60 Glucose 171 H Calcium 9.5 Impressions: Chest X-Ray 06/11/18 00:00 IMPRESSION: No evidence of acute cardiopulmonary disease. Chronic changes of emphysema. Assessment & Plan - Diagnosis (1) COPD exacerbation Is this a current diagnosis for this admission?: Yes (2) Chronic hypoxemic respiratory failure Is this a current diagnosis for this admission?: Yes (3) Hypertension Qualifiers: Hypertension type: essential hypertension Qualified Code(s): I10 - Essential (primary) hypertension Is this a current diagnosis for this admission?: Yes (4) CAD (coronary artery disease) Qualifiers: Coronary Disease-Associated Artery/Lesion type: jamul artery Associated angina: without angina Is this a current diagnosis for this admission?: Yes (5) Hyperlipidemia Qualifiers: Hyperlipidemia type: pure hypercholesterolemia Qualified Code(s): E78.00 - Pure hypercholesterolemia, unspecified; E78.0 - Pure hypercholesterolemia Is this a current diagnosis for this admission?: Yes (6) Hypothyroidism Qualifiers: Hypothyroidism type: acquired Qualified Code(s): E03.9 - Hypothyroidism, unspecified Is this a current diagnosis for this admission?: Yes (7) GERD (gastroesophageal reflux disease) Qualifiers: Esophagitis presence: without esophagitis Qualified Code(s): K21.9 - Gastro-esophageal reflux disease without esophagitis Is this a current diagnosis for this admission?: Yes - Time Time Spent with patient: 25-34 minutes Medications reviewed and adjusted accordingly: Yes Anticipated discharge: Home with Homehealth Within: Other - Inpatient Certification Based on my medical assessment, after consideration of the patient's comorbidities, presenting symptoms, or acuity I expect that the services needed warrant INPATIENT care.: Yes I certify that my determination is in accordance with my understanding of Medicare's requirements for reasonable and necessary INPATIENT services [42 CFR 412.3e].: Yes Medical Necessity: Significant Comorbidiites Make Outpatient Treatment Too Risky, Need Close Monitoring Due to Risk of Patient Decompensation, Need For IV Fluids, Need For Continuous Telemetry Monitoring, Need for Nebulizer Therapy and Monitoring of Response, Need for IV Antibiotics, Risk of Complication if Not Ca red For in Hospital, Risk of Diagnosis Which Will Require Inpatient Eval/Care/Monitoring Post Hospital Care: D/C Hosted Services Analyst Documentation - Plan Summary Plan Summary: D/C IV Solu Medrol to 40 mg q 8 hours. Continue other current medication management. Follow up on blood and sputum culture findings.
[2018-06-13] MEDS: LEVOFLOXACIN 500 MG/D5W RTU 500 MG/100 ML RTUPB IV SCH (21:58)
[2018-06-13] MEDS: METHYLPREDNISOLONE INJ 40 MG/1 ML SDV IV SCH (21:58)
[2018-06-14] MEDS: METHYLPREDNISOLONE INJ 40 MG/1 ML SDV IV SCH ×2 (05:54→17:37)
[2018-06-14] MEDS: PANTOPRAZOLE SODIUM 40 MG TABLET.DR PO SCH (05:54)
[2018-06-14] MEDS: LEVOTHYROXINE SODIUM 0.05 MG TABLET PO SCH (05:54)
[2018-06-14] MEDS: ROFLUMILAST 500 MCG TABLET PO SCH (10:11)
[2018-06-14] MEDS: ASPIRIN 81 MG TABLET, ENT COATED PO SCH (10:11)
[2018-06-14] MEDS: CEFEPIME 1 GM/D5W RTU 1 GM/50 ML RTUPB IV SCH ×2 (10:14→21:07)
[2018-06-14] MEDS: ENOXAPARIN SODIUM INJ 40 MG/0.4 ML DISP.SYRIN SUBCUT SCH (10:17)
[2018-06-14] MEDS: SIMVASTATIN 10 MG TABLET PO SCH (17:37)
--- NOTE | 2018-06-14 18:44 | PDOC PROGRESS REPORT ---
Subjective Progress Note for:: 06/14/18 Subjective:: Patient reported improved expectoration with use of flutter device. Episodes of exertional difficulty with breathing. No chest pain. No abdominal pain, nausea or vomiting. No reported fever or chills. Reason For Visit: EXACERBATED COPD WITH HYPERTENSION,HYPOTHYROIDISM, Physical Exam Vital Signs: Temp Pulse Resp BP Pulse Ox 97.3 F 82 18 143/61 H 100 06/14/18 12:04 06/14/18 14:00 06/14/18 12:04 06/14/18 12:04 06/14/18 12:04 Intake & Output 06/13/18 06/14/18 06/15/18 06:59 06:59 06:59 Intake Total 200 200 610 Output Total 2 2 Balance 198 198 610 Weight 73.028 kg Physical Exam: General appearance: PRESENT: mild distress - remain on supplemental oxygen at 2L/min Head exam: PRESENT: atraumatic, normocephalic Eye exam: PRESENT: conjunctiva pink, EOMI, PERRLA. ABSENT: pallor, scleral icterus Ear exam: PRESENT: normal external ear exam Mouth exam: PRESENT: moist Respiratory exam: PRESENT: crackles, decreased breath sounds Cardiovascular exam: PRESENT: RRR. ABSENT: diastolic murmur, rubs, systolic murmur Murmur grade: 3 GI/Abdominal exam: PRESENT: normal bowel sounds, soft. ABSENT: distended, guarding, mass, organomegaly, rebound, tenderness Extremities exam: ABSENT: pedal edema Neurological exam: PRESENT: alert, awake, oriented to person, oriented to place, oriented to time, oriented to situation, CN II-XII grossly intact. ABSENT: motor sensory deficit Skin exam: PRESENT: dry, warm Murmur grade: 3 Results Laboratory Results: 06/13/18 05:46 06/13/18 05:46 06/12/18 20:43 Sputum Gram Stain - Final 06/12/18 20:43 Sputum Sputum Culture - Final REDUCED NORMAL LIGIA Impressions: Chest X-Ray 06/11/18 00:00 IMPRESSION: No evidence of acute cardiopulmonary disease. Chronic changes of emphysema. Assessment & Plan - Diagnosis (1) COPD exacerbation Is this a current diagnosis for this admission?: Yes (2) Chronic hypoxemic respiratory failure Is this a current diagnosis for this admission?: Yes (3) Hypertension Qualifiers: Hypertension type: essential hypertension Qualified Code(s): I10 - Essential (primary) hypertension Is this a current diagnosis for this admission?: Yes (4) CAD (coronary artery disease) Qualifiers: Coronary Disease-Associated Artery/Lesion type: [place] artery Associated angina: without angina Is this a current diagnosis for this admission?: Yes (5) Hyperlipidemia Qualifiers: Hyperlipidemia type: pure hypercholesterolemia Qualified Code(s): E78.00 - Pure hypercholesterolemia, unspecified; E78.0 - Pure hypercholesterolemia Is this a current diagnosis for this admission?: Yes (6) Hypothyroidism Qualifiers: Hypothyroidism type: acquired Qualified Code(s): E03.9 - Hypothyroidism, unspecified Is this a current diagnosis for this admission?: Yes (7) GERD (gastroesophageal reflux disease) Qualifiers: Esophagitis presence: without esophagitis Qualified Code(s): K21.9 - Gastro-esophageal reflux disease without esophagitis Is this a current diagnosis for this admission?: Yes - Time Time Spent with patient: 25-34 minutes Medications reviewed and adjusted accordingly: Yes Anticipated discharge: Home with Homehealth Within: Other - Inpatient Certification Based on my medical assessment, after consideration of the patient's comorbidities, presenting symptoms, or acuity I expect that the services needed warrant INPATIENT care.: Yes I certify that my determination is in accordance with my understanding of Medicare's requirements for reasonable and necessary INPATIENT services [42 CFR 412.3e].: Yes Medical Necessity: Significant Comorbidiites Make Outpatient Treatment Too Risky, Need Close Monitoring Due to Risk of Patient Decompensation, Need For IV Fluids, Need For Continuous Telemetry Monitoring, Need for Nebulizer Therapy and Monitoring of Response, Need for IV Antibiotics, Risk of Complication if Not Cared For in Hospital, Risk of Diagnosis Which Will Require Inpatient Eval/Care/ Monitoring Post Hospital Care: D/C Barge Master Documentation - Plan Summary Plan Summary: Transition to oral Prednisone 20 mg po daily and restart on Trelegy therapy. D/C IV Solu Medrol. Continue all other current medication management.
[2018-06-14] MEDS: PREDNISONE 20 MG TABLET PO SCH (21:07)
[2018-06-14] MEDS: LEVOFLOXACIN 500 MG/D5W RTU 500 MG/100 ML RTUPB IV SCH (21:56)
[2018-06-14] MEDS: FLUTICASONE/UMECLIDIN/VILANTER 100-62.5-25 MCG/DOSE IH SCH (22:02)
[2018-06-15] MEDS: LEVOTHYROXINE SODIUM 0.05 MG TABLET PO SCH (06:14)
[2018-06-15] MEDS: PANTOPRAZOLE SODIUM 40 MG TABLET.DR PO SCH (06:14)
[2018-06-15] MEDS: ASPIRIN 81 MG TABLET, ENT COATED PO SCH (10:49)
[2018-06-15] MEDS: ENOXAPARIN SODIUM INJ 40 MG/0.4 ML DISP.SYRIN SUBCUT SCH (10:49)
[2018-06-15] MEDS: PREDNISONE 20 MG TABLET PO SCH (10:49)
[2018-06-15] MEDS: ROFLUMILAST 500 MCG TABLET PO SCH (10:49)
[2018-06-15] MEDS: CEFEPIME 1 GM/D5W RTU 1 GM/50 ML RTUPB IV SCH ×2 (10:50→21:21)
--- NOTE | 2018-06-15 17:04 | PDOC PROGRESS REPORT ---
Subjective Progress Note for:: 06/15/18 Subjective:: Patient reported improvement in his breathing. No chest pain. No abdominal pain, nausea or vomiting. No reported fever or chills. Reason For Visit: EXACERBATED COPD WITH HYPERTENSION,HYPOTHYROIDISM, Physical Exam Vital Signs: Temp Pulse Resp BP Pulse Ox 97.7 F 80 18 130/55 H 98 06/15/18 07:27 06/15/18 07:27 06/15/18 07:27 06/15/18 07:27 06/15/18 07:27 Intake & Output 06/14/18 06/15/18 06/16/18 06:59 06:59 06:59 Intake Total 200 1415 620 Output Total 2 Balance 198 1415 620 Weight 58.7 kg Physical Exam: General appearance: PRESENT: mild distress - remain on supplemental oxygen at 2L/min Head exam: PRESENT: atraumatic, normocephalic Eye exam: PRESENT: conjunctiva pink, EOMI, PERRLA. ABSENT: pallor, scleral icterus Ear exam: PRESENT: normal external ear exam Mouth exam: PRESENT: moist Respiratory exam: PRESENT: crackles, decreased breath sounds Cardiovascular exam: PRESENT: RRR. ABSENT: diastolic murmur, rubs, systolic murmur Murmur grade: 3 GI/Abdominal exam: PRESENT: normal bowel sounds, soft. ABSENT: distended, guarding, mass, organomegaly, rebound, tenderness Extremities exam: ABSENT: pedal edema Neurological exam: PRESENT: alert, awake, oriented to person, oriented to place, oriented to time, oriented to situation, CN II-XII grossly intact. ABSENT: motor sensory deficit Skin exam: PRESENT: dry, warm Murmur grade: 3 Results Laboratory Results: 06/13/18 05:46 06/13/18 05:46 Impressions: Chest X-Ray 06/11/18 00:00 IMPRESSION: No evidence of acute cardiopulmonary disease. Chronic changes of emphysema. Assessment & Plan - Diagnosis (1) COPD exacerbation Is this a current diagnosis for this admission?: Yes (2) Chronic hypoxemic respiratory failure Is this a current diagnosis for this admission?: Yes (3) Hypertension Qualifiers: Hypertension type: essential hypertension Qualified Code(s): I10 - Essential (primary) hypertension Is this a current diagnosis for this admission?: Yes (4) CAD (coronary artery disease) Qualifiers: Coronary Disease-Associated Artery/Lesion type: [place] artery Associated angina: without angina Is this a current diagnosis for this admission?: Yes (5) Hyperlipidemia Qualifiers: Hyperlipidemia type: pure hypercholesterolemia Qualified Code(s): E78.00 - Pure hypercholesterolemia, unspecified; E78.0 - Pure hypercholesterolemia Is this a current diagnosis for this admission?: Yes (6) Hypothyroidism Qualifiers: Hypothyroidism type: acquired Qualified Code(s): E03.9 - Hypothyroidism, unspecified Is this a current diagnosis for this admission?: Yes (7) GERD (gastroesophageal reflux disease) Qualifiers: Esophagitis presence: without esophagitis Qualified Code(s): K21.9 - Gastro-esophageal reflux disease without esophagitis Is this a current diagnosis for this admission?: Yes - Time Time Spent with patient: 25-34 minutes Medications reviewed and adjusted accordingly: Yes Anticipated discharge: Home with Homehealth Within: Other - Inpatient Certification Based on my medical assessment, after consideration of the patient's comorbidities, presenting symptoms, or acuity I expect that the services needed warrant INPATIENT care.: Yes I certify that my determination is in accordance with my understanding of Medicare's requirements for reasonable and necessary INPATIENT services [42 CFR 412.3e].: Yes Medical Necessity: Significant Comorbidiites Make Outpatient Treatment Too Risky, Need Close Monitoring Due to Risk of Patient Decompensation, Need For IV Fluids, Need For Continuous Telemetry Monitoring, Need for Nebulizer Therapy and Monitoring of Response, Need for IV Antibiotics, Risk of Complication if Not Cared For in Hospital, Risk of Diagnosis Which Will Require Inpatient Eval/Care/Monitoring 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 Follow up on blood culture findings. Obtain CBC with diff and BMP in AM.
[2018-06-15] MEDS: FLUTICASONE/UMECLIDIN/VILANTER 100-62.5-25 MCG/DOSE IH SCH (19:42)
[2018-06-15] MEDS: LEVOFLOXACIN 500 MG/D5W RTU 500 MG/100 ML RTUPB IV SCH (22:00)
[2018-06-16 05:27] LABS: HEMATOCRIT 33.8 % (37.9-51.0); HEMOGLOBIN 11.7 g/dL (13.5-17.0); MEAN CORPUSCULAR HEMOGLOBIN 31.9 pg (27.0-33.4); MEAN CORPUSCULAR HGB CONC 34.7 g/dL (32.0-36.0); MEAN CORPUSCULAR VOLUME 92 fl (80-97); PLATELET COUNT 284 10^3/uL (150-450); RED BLOOD COUNT 3.67 10^6/uL (4.35-5.55); RED CELL DISTRIBUTION WIDTH 13.4 % (11.5-14.0); WHITE BLOOD COUNT 13.5 10^3/uL (4.0-10.5)
[2018-06-16 05:38] LABS: ANION GAP 8 (5-19); BLOOD UREA NITROGEN 33 mg/dL (7-20); CARBON DIOXIDE 29 mmol/L (22-30); CHLORIDE 103 mmol/L (98-107); GLUCOSE 92 mg/dL (75-110); POTASSIUM 4.3 mmol/L (3.6-5.0); SODIUM 139.5 mmol/L (137-145)
[2018-06-16 05:57] LABS: ABSOLUTE LYMPHOCYTES# (MANUAL) 2.7 10^3/uL (0.5-4.7); ABSOLUTE MONOCYTES # (MANUAL) 1.4 10^3/uL (0.1-1.4); ABSOLUTE NEUTROPHILS# (MANUAL) 9.5 10^3/uL (1.7-8.2); BASOPHILS % (MANUAL) 0 % (0-2); EOSINOPHILS % (MANUAL) 0 % (0-6); LYMPHOCYTES % (MANUAL) 20 % (13-45); MONOCYTES % (MANUAL) 10 % (3-13); PLATELET COMMENT ADEQUATE; RBC MORPHOLOGY COMMENT NORMO-CYTIC/CHROMIC; SEGMENTED NEUTROPHILS % (MAN) 70 % (42-78); TOTAL CELLS COUNTED 100
[2018-06-16] MEDS: PANTOPRAZOLE SODIUM 40 MG TABLET.DR PO SCH (06:03)
[2018-06-16] MEDS: LEVOTHYROXINE SODIUM 0.05 MG TABLET PO SCH (06:03)
[2018-06-16] MEDS: SIMVASTATIN 10 MG TABLET PO SCH ×2 (09:35→17:13)
[2018-06-16] MEDS: FLUTICASONE/UMECLIDIN/VILANTER 100-62.5-25 MCG/DOSE IH SCH (09:38)
[2018-06-16] MEDS: ENOXAPARIN SODIUM INJ 40 MG/0.4 ML DISP.SYRIN SUBCUT SCH (09:38)
[2018-06-16] MEDS: ROFLUMILAST 500 MCG TABLET PO SCH (09:38)
[2018-06-16] MEDS: CEFEPIME 1 GM/D5W RTU 1 GM/50 ML RTUPB IV SCH ×2 (09:38→21:11)
[2018-06-16] MEDS: ASPIRIN 81 MG TABLET, ENT COATED PO SCH (09:38)
[2018-06-16] MEDS: PREDNISONE 20 MG TABLET PO SCH (09:39)
--- NOTE | 2018-06-16 15:38 | PDOC PROGRESS REPORT ---
Subjective Subjective:: No chest pain. Breathing is improving. No abdominal pain, nausea or vomiting. No reported fever or chills. Reason For Visit: EXACERBATED COPD WITH HYPERTENSION,HYPOTHYROIDISM, Physical Exam Vital Signs: Temp Pulse Resp BP Pulse Ox 97.8 F 87 16 122/46 L 100 06/16/18 11:30 06/16/18 14:00 06/16/18 11:30 06/16/18 11:30 06/16/18 11:30 Intake & Output 06/15/18 06/16/18 06/17/18 06:59 06:59 06:59 Intake Total 1415 1355 286 Balance 1415 1355 286 Weight 58.7 kg 59.3 kg Physical Exam: General appearance: PRESENT: mild distress - remain on supplemental oxygen at 2L/min Head exam: PRESENT: atraumatic, normocephalic Eye exam: PRESENT: conjunctiva pink, EOMI, PERRLA. ABSENT: pallor, scleral icterus Ear exam: PRESENT: normal external ear exam Mouth exam: PRESENT: moist Respiratory exam: PRESENT: crackles, decreased breath sounds Cardiovascular exam: PRESENT: RRR. ABSENT: diastolic murmur, rubs, systolic murmur Murmur grade: 3 GI/Abdominal exam: PRESENT: normal bowel sounds, soft. ABSENT: distended, guarding, mass, organomegaly, rebound, tenderness Extremities exam: ABSENT: pedal edema Neurological exam: PRESENT: alert, awake, oriented to person, oriented to place, oriented to time, oriented to situation, CN II-XII grossly intact. ABSENT: motor sensory deficit Skin exam: PRESENT: dry, warm Murmur grade: 3 Results Laboratory Results: 06/16/18 05:14 06/16/18 05:14 06/16/18 06/16/18 05:14 05:14 WBC 13.5 H RBC 3.67 L Hgb 11.7 L Hct 33.8 L MCV 92 MCH 31.9 MCHC 34.7 RDW 13.4 Plt Count 284 Seg Neutrophils % Not Reportable Lymphocytes % Not Reportable Monocytes % Not Reportable Eosinophils % Not Reportable Basophils % Not Reportable Absolute Neutrophils Not Reportable Absolute Lymphocytes Not Reportable Absolute Monocytes Not Reportable Absolute Eosinophils Not Reportable Absolute Basophils Not Reportable Sodium 139.5 Potassium 4.3 Chloride 103 Carbon Dioxide 29 Anion Gap 8 BUN 33 H Creatinine 0.93 Est GFR ( Amer) > 60 Est GFR (Non-Af Amer) > 60 Glucose 92 Calcium 9.0 Impressions: Chest X-Ray 06/11/18 00:00 IMPRESSION: No evidence of acute cardiopulmonary disease. Chronic changes of emphysema. Assessment & Plan - Diagnosis (1) COPD exacerbation Is this a current diagnosis for this admission?: Yes (2) Chronic hypoxemic respiratory failure Is this a current diagnosis for this admission?: Yes (3) Hypertension Qualifiers: Hypertension type: essential hypertension Qualified Code(s): I10 - Es sential (primary) hypertension Is this a current diagnosis for this admission?: Yes (4) CAD (coronary artery disease) Qualifiers: Coronary Disease-Associated Artery/Lesion type: [place] artery Associated angina: without angina Is this a current diagnosis for this admission?: Yes (5) Hyperlipidemia Qualifiers: Hyperlipidemia type: pure hypercholesterolemia Qualified Code(s): E78.00 - Pure hypercholesterolemia, unspecified; E78.0 - Pure hypercholesterolemia Is this a current diagnosis for this admission?: Yes (6) Hypothyroidism Qualifiers: Hypothyroidism type: acquired Qualified Code(s): E03.9 - Hypothyroidism, unspecified Is this a current diagnosis for this admission?: Yes (7) GERD (gastroesophageal reflux disease) Qualifiers: Esophagitis presence: without esophagitis Qualified Code(s): K21.9 - Gastro-esophageal reflux disease without esophagitis Is this a current diagnosis for this admission?: Yes - Time Time Spent with patient: 25-34 minutes Medications reviewed and adjusted accordingly: Yes Anticipated discharge: Home with Homehealth Within: Other - Inpatient Certification Based on my medical assessment, after consideration of the patient's comorbidities, presenting symptoms, or acuity I expect that the services needed warrant INPATIENT care.: Yes I certify that my determination is in accordance with my understanding of Medicare's requirements for reasonable and necessary INPATIENT services [42 CFR 412.3e].: Yes Medical Necessity: Significant Comorbidiites Make Outpatient Treatment Too Risky, Need Close Monitoring Due to Risk of Patient Decompensation, Need For IV Fluids, Need For Continuous Telemetry Monitoring, Need for Nebulizer Therapy and Monitoring of Response, Need for IV Antibiotics, Risk of Complication if Not Cared For in Hospital, Risk of Diagnosis Which Will Require Inpatient Eval/Care/Monitoring 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 Start on Levofloxacin 500 mg po daily after completion of today's dosing for IV Levofloxacin and Cefepime. Maintain on other current medication management.
[2018-06-16] MEDS: LEVOFLOXACIN 500 MG/D5W RTU 500 MG/100 ML RTUPB IV SCH (22:10)
[2018-06-17] MEDS: PANTOPRAZOLE SODIUM 40 MG TABLET.DR PO SCH (06:26)
[2018-06-17] MEDS: LEVOTHYROXINE SODIUM 0.05 MG TABLET PO SCH (06:26)
[2018-06-17] MEDS: ROFLUMILAST 500 MCG TABLET PO SCH (09:49)
[2018-06-17] MEDS: PREDNISONE 20 MG TABLET PO SCH (09:49)
[2018-06-17] MEDS: FLUTICASONE/UMECLIDIN/VILANTER 100-62.5-25 MCG/DOSE IH SCH (09:49)
[2018-06-17] MEDS: ASPIRIN 81 MG TABLET, ENT COATED PO SCH (09:49)
[2018-06-17] MEDS: ENOXAPARIN SODIUM INJ 40 MG/0.4 ML DISP.SYRIN SUBCUT SCH (09:49)
[2018-06-17] MEDS: CEFEPIME 1 GM/D5W RTU 1 GM/50 ML RTUPB IV SCH (09:50)
[2018-06-17 13:52] VITALS: BP 124/84
--- NOTE | 2018-06-17 13:59 | PDOC DISCHARGE SUMMARY ---
General - Admit/Disc Date/PCP Admission Date/Primary Care Provider: 06/11/18 15:51 DEBO JARON Discharge Date: 06/17/18 - Discharge Diagnosis (1) COPD exacerbation Is this a current diagnosis for this admission?: Yes (2) Chronic hypoxemic respiratory failure Is this a current diagnosis for this admission?: Yes (3) Hypertension Is this a current diagnosis for this admission?: Yes (4) CAD (coronary artery disease) Is this a current diagnosis for this admission?: Yes (5) Hyperlipidemia Is this a current diagnosis for this admission?: Yes (6) Hypothyroidism Is this a current diagnosis for this admission?: Yes (7) GERD (gastroesophageal reflux disease) Is this a current diagnosis for this admission?: Yes - Additional Information Resuscitation Status: Full Code Discharge Diet: Cardiac Prescriptions: Levofloxacin [Levaquin 500 mg Tablet] 500 mg PO DAILY #5 tablet Prednisone [Deltasone 5 mg Tablet] 5 mg PO ASDIR PRN #10 tablet PRN Reason: Home Medications: Acetylcysteine [S-Xweesy-j-Cysteine] 600 mg PO WSUPPER 06/11/18 Aspirin [Adult Low Dose Aspirin EC] 81 mg PO DAILY 06/11/18 Esomeprazole Magnesium [Nexium] 20 mg PO DAILY 06/11/18 Fluticasone Propionate [Flonase Nasal [place] 50 Mcg/[place] 16 gm] 2 spray NASL DAILY 06/11/18 Fluticasone/Umeclidin/Vilanter [Trelegy 100-62.5-25 Mcg Ellipta 14 Dose/Dpi] 1 puff IH DAILY 06/11/18 Levothyroxine Sodium [Synthroid 0.05 mg Tablet] 0.05 mg PO Q6AM 06/11/18 Roflumilast [Daliresp 500 mcg Tablet] 500 mcg PO DAILY 06/11/18 Simvastatin [Zocor 20 mg Tablet] 20 mg PO QPM 06/11/18 Levofloxacin [Levaquin 500 mg Tablet] 500 mg PO DAILY #5 tablet 06/17/18 Prednisone [Deltasone 5 mg Tablet] 5 mg PO ASDIR PRN #10 tablet 06/17/18 History of Present Illness Patient complains of: Worsening difficulty with breathing, cough History of Present Illness: NIMISHA BRUMFIELD is a 83 year old male patient known to my practice who walked into the office earlier today with complaint about progressively worsening cough and difficulty with breathing over last 2 weeks. Patient reported associated chills, chest pain with coughing and wheezing. Patient reported significant difficulty with breathing with minimal exertion despite on supplemental oxygen at 2L/min via nasal cannula. His initial evaluation on the office did revealed hypoxemia with oxygen saturation at 87%, tachycardia with heart rate at 107/min and respiratory rate at 16 /min. His blood pressure was unusually elevated at 150/65 mmHg. His CBC did revealed elevated leukocytes with total WBC at 17.1 with left shift. His chest X ray revealed chronic COPD changes with right lobe long standing mass lesions. Patient demonstrated audible wheezing. In view of his presentation, clinical findings and laboratory findings he was advised hospitalization for further evaluation and management. Hospital Course Hospital Course: He was managed as a case of exacerbated COPD. His blood culture was no growth x 5 days. His sputum culture did revealed reduced normal aime without any significant pathogen. His breathing and associated reported symptoms upon arrival did improved. I did emphasized to patient need for remain compliant with Flutter device usage. He will be discharged home on tapering dose of oral Prednisone and 5 days course of oral Levofloxacin therapy. He will follow up in the office as instructed upon discharge. Physical Exam Vital Signs: Temp Pulse Resp BP Pulse Ox 98.7 F 91 16 132/69 H 100 06/17/18 12:00 06/17/18 12:00 06/17/18 12:00 06/17/18 12:00 06/17/18 12:00 Intake & Output 06/16/18 06/17/18 06/18/18 06:59 06:59 06:59 Intake Total 1355 1271 581 Balance 1355 1271 581 Weight 59.3 kg 58.7 kg Physical Exam: General appearance: PRESENT: mild distress - remain on supplemental oxygen at 2L/min Head exam: PRESENT: atraumatic, normocephalic Eye exam: PRESENT: conjunctiva pink, EOMI, PERRLA. ABSENT: pallor, scleral icterus Ear exam: PRESENT: normal external ear exam Mouth exam: PRESENT: moist Respiratory exam: PRESENT: minimal scattered crackles, decreased breath sounds at lung bases Cardiovascular exam: PRESENT: RRR. ABSENT: diastolic murmur, rubs, systolic murmur Murmur grade: 3 GI/Abdominal exam: PRESENT: normal bowel sounds, soft. ABSENT: distended, guarding, mass, organomegaly, rebound, tenderness Extremities exam: ABSENT: pedal edema Neurological exam: PRESENT: alert, awake, oriented to person, oriented to place, oriented to time, oriented to situation, CN II-XII grossly intact. ABSENT: motor sensory deficit Skin exam: PRESENT: dry, warm Murmur grade: 3 Results Laboratory Results: 06/16/18 05:14 06/16/18 05:14 06/11/18 19:57 Blood Blood Culture - Final NO GROWTH IN 5 DAYS 06/11/18 18:00 Blood Blood Culture - Final NO GROWTH IN 5 DAYS Impressions: Chest X-Ray 06/11/18 00:00 IMPRESSION: No evidence of acute cardiopulmonary disease. Chronic changes of emphysema. Qualifiers - * PATIENT BEING DISCHARGED WITH ANY OF THE FOLLOWING DIAGNOSIS: No Plan Discharge Plan: D/C home today. Follow up in the office as instructed upon discharge.
[2018-06-17] MEDS ORDERED: LEVOFLOXACIN 500 MG TABLET PO ONE (14:15)
== END 2018-06-17 14:37 | disposition home or self-care (01) | DRG 191 ==
LOC: 3S 15:51
PROVIDERS: ADMIT Internal Medicine Geriatric Medicine; ATTEND Internal Medicine Geriatric Medicine
DX: J44.1 Chronic obstructive pulmonary disease with (acute) exacerbation (principal); J96.11 Chronic respiratory failure with hypoxia; I10 Essential (primary) hypertension; E03.9 Hypothyroidism, unspecified; K21.9 Gastro-esophageal reflux disease without esophagitis; I25.10 Atherosclerotic heart disease of native coronary artery without angina pectoris; E78.00 Pure hypercholesterolemia, unspecified; Z66 Do not resuscitate; Z79.899 Other long term (current) drug therapy; Z79.890 Hormone replacement therapy; Z87.891 Personal history of nicotine dependence; Z88.2 Allergy status to sulfonamides; Z79.82 Long term (current) use of aspirin; Z86.73 Personal history of transient ischemic attack (TIA), and cerebral infarction without residual deficits
CPT/HCPCS: 36415; 71046; 80048; 80053; 85025; 87040; 87070; 87205; J0692; J1650; J1956; J2920; J2930; J3490; J7512

== ENCOUNTER 2018-07-30 13:04 | Emergency (ER) | payer MEDICARE, OTHER ==
--- NOTE | 2018-07-30 13:20 | ER Document Report ---
ED Medical Screen (RME) - General Chief Complaint: Breathing Difficulty Stated Complaint: DIFFICULTY BREATHING Time Seen by Provider: 07/30/18 13:14 Primary Care Provider: DEBO SALMERON MD [Primary Care Provider] - Follow up as needed Mode of Arrival: Wheelchair Information source: Relative Notes: 83-year-old male presented to ED for complaint of cough cold congestion shortness of breath x3 days. He does have a history of COPD and high cholesterol. He is on O2 2 L at home. Patient's O2 sats are 95% on 2 L at this time. Lungs do have rhonchi and wheezes. Will get a chest x-ray and have examined by another provider. I have greeted and performed a rapid initial assessment of this patient. A comprehensive ED assessment and evaluation of the patient, analysis of test results and completion of medical decision making process will be conducted by an additional ED providers. Dictation of this chart was performed using voice recognition software; therefore, there may be some unintended grammatical errors. TRAVEL OUTSIDE OF THE [place] 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 Denies: Hx Seizures Endocrine Medical History: Reports: Hx Hypothyroidism Renal/ Medical History: Denies: Hx Peritoneal Dialysis GI Medical History: Reports: Hx Gastroesophageal Reflux Disease Musculoskeltal Medical History: Reports Hx Arthritis Psychiatric Medical History: Denies: Hx Depression Past Surgical History: Reports: Hx Abdominal Surgery, Hx Orthopedic Surgery, Hx Tonsillectomy. Denies: Hx Pacemaker - Immunizations Hx Diphtheria, Pertussis, Tetanus Vaccination: Yes History of Influenza Vaccine for 12/2016 - 05/2017 Season: Yes Influenza Administration Date for 12/2016 - 05/2017 Season: 12/18/16 Physical Exam - Vital signs Vitals: Temp Pulse Resp BP Pulse Ox 99.1 F 115 H 24 H 140/80 H 94 07/30/18 13:07 07/30/18 13:07 07/30/18 13:07 07/30/18 13:07 07/30/18 13:07 Course - Vital Signs Vital signs: Temp Pulse Resp BP Pulse Ox 99.1 F 115 H 24 H 140/80 H 94 07/30/18 13:07 07/30/18 13:07 07/30/18 13:07 07/30/18 13:07 07/30/18 13:07 Doctor's Discharge - Discharge Referrals: DEBO SALMERON MD [Primary Care Provider] - Follow up as needed
--- NOTE | 2018-07-30 13:55 | RADIOLOGY REPORT (SQ) ---
EXAM DESCRIPTION: CHEST 2 VIEWS COMPLETED DATE/TIME: 07/30/2018 1:40 pm REASON FOR STUDY: cough short of breath hx copd COMPARISON: 06/11/2018. NUMBER OF VIEWS: Two view. TECHNIQUE: Frontal and lateral radiographic views of the chest acquired. LIMITATIONS: None. FINDINGS: LUNGS AND PLEURA: No opacities, masses or pneumothorax. No pleural effusion. Attenuated bl ood vessels and flattened daniel-diaphragms. MEDIASTINUM AND HILAR STRUCTURES: No masses. No contour abnormalities. HEART AND VASCULAR STRUCTURES: Heart normal in size and contour. No evidence for failure. BONES: No acute findings. HARDWARE: None in the chest. OTHER: No other significant finding. IMPRESSION: COPD. NO ACUTE RADIOGRAPHIC FINDING IN THE CHEST. TECHNICAL DOCUMENTATION: JOB ID: [id number]- All Rights Reserved Reading location - IP/workstation name: [email or web address]
[2018-07-30] MEDS ORDERED: ALBUTEROL SULFATE 0.083% NEB 2.5 MG/3 ML AMPUL NEB ONE (16:30)
[2018-07-30] MEDS ORDERED: IPRATROPIUM/ALBUTEROL 0.5-2.5 MG/3 ML AMPUL NEB ONE (16:30)
[2018-07-30] MEDS ORDERED: PREDNISONE 20 MG TABLET PO ONE (16:30)
--- NOTE | 2018-07-30 16:33 | ER Document Report ---
ED General - General Chief Complaint: Breathing Difficulty Stated Complaint: DIFFICULTY BREATHING Time Seen by Provider: 07/30/18 13:14 Primary Care Provider: DEBO SALMERON MD [Primary Care Provider] - Follow up as needed Mode of Arrival: Wheelchair TRAVEL OUTSIDE OF THE [place] IN LAST 30 DAYS: No - HPI Notes: Patient is a 83-year-old male with history of COPD and chronic anemia that presents to the emergency department for chief complaint of shortness of breath. Patient states that he has had slight increase in sputum production and coughing over the last week and a half as well as shortness of breath. His shortness of breath is worse with exertion and he denies orthopnea. He denies any associated chest pain fevers or chills. Patient is on prednisone daily and believes it is either 5 or 10 mg. He has been using his nebulized albuterol twice daily. He states once yesterday he also used his Ventolin inhaler but has not used it today. He states it has been "a while" since his previous admission for COPD but cannot clarify how long that was. Patient does wear 2 L nasal cannula oxygen at all times. Past Medical History: COPD, chronic anemia Past Surgical History: Reviewed in chart Social History: Quit tobacco 4 or 5 years ago. Denies alcohol or drug use Family History: Reviewed and noncontributory for presenting illness Allergies: Reviewed, see documented allergy list. REVIEW OF SYSTEMS: CONSTITUTIONAL : No fever No chills No diaphoresis No recent illness EENT: No vision changes congestion No sore throat CARDIOVASCULAR: No chest pain No palpitations RESPIRATORY: shortness of breath cough difficulty breathing GASTROINTESTINAL: No abdominal pain No nausea No vomiting No diarrhea GENITOURINARY: No dysuria No hematuria No difficulty urinating MUSCULOSKELETAL: No back pain No leg pain No arm pain SKIN: No rashes No lesions LYMPHATIC: No swollen, enlarged glands. NEUROLOGICAL: No lightheadedness No headache No weakness No paresthesias PSYCHIATRIC: No anxiety No depression PHYSICAL EXAMINATION: Vital signs reviewed, nursing noted reviewed. GENERAL: Well-appearing, well-nourished and in no acute distress. HEAD: Atraumatic, normocephalic. EYES: Eyes appear normal, extraocular movements intact, sclera anicteric, conjunctiva are normal. ENT: nares patent, oropharynx clear without exudates. Moist mucous membranes. NECK: Normal range of motion, supple without lymphadenopathy LUNGS: Breath sounds diminished to auscultation bilaterally with expiratory wheezing and no rhonchi or rails. No accessory muscle use or tachypnea. HEART: Regular rate and rhythm without murmurs ABDOMEN: Soft, nontender, normoactive bowel sounds. No rebound, guarding, or rigidity. No masses appreciated. EXTREMITIES: Nontender, good range of motion, no pitting or edema. NEUROLOGICAL: No focal neurological deficits. Moves all extremities spontaneously Motor and sensory grossly intact on exam. PSYCH: Normal mood, normal affect. SKIN: Warm, Dry, normal turgor, no rashes or lesions noted on exposed skin - Related Data Allergies/Adverse Reactions: Sulfa (Sulfonamide Antibiotics) Allergy (Verified 07/30/18 13:05) Anaphylaxis Past Medical History - General Information source: Relative - Social History Smoking Status: Never Smoker Family History: Reviewed & Not Pertinent Patient has suicidal ideation: No Patient has homicidal ideation: No - Past Medical History Cardiac Medical History: Reports: Hx Coronary Artery Disease Denies: Hx Heart Attack, Hx Hypertension Pulmonary Medical History: Reports: Hx Asthma, Hx Bronchitis, Hx COPD, Hx Pneumonia Neurological Medical History: 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 Denies: Hx Seizures Endocrine Medical History: Reports: Hx Hypothyroidism Renal/ Medical History: Denies: Hx Peritoneal Dialysis GI Medical History: Reports: Hx Gastroesophageal Reflux Disease Musculoskeletal Medical History: Reports Hx Arthritis Psychiatric Medical History: Denies: Hx Depression Past Surgical History: Reports: Hx Abdominal Surgery, Hx Orthopedic Surgery, Hx Tonsillectomy. Denies: Hx Pacemaker - Immunizations Hx Diphtheria, Pertussis, Tetanus Vaccination: Yes Hx Pneumococcal Vaccination: 12/18/09 Physical Exam - Vital signs Vitals: Temp Pulse Resp BP Pulse Ox 99.1 F 115 H 24 H 140/80 H 94 07/30/18 13:07 07/30/18 13:07 07/30/18 13:07 07/30/18 13:07 07/30/18 13:07 Course - Re-evaluation Re-evalutation: 07/30/18 16:33 Vitals reviewed. Nursing notes reviewed. Patient was tachypneic and tachycardic at presentation however his vital signs have normalized since resting in the bed. He will be ordered DuoNeb, albuterol and higher dose of prednisone for his COPD exacerbation. Chest x-ray shows no acute cardiopulmonary process. 07/30/18 18:24 Patient's blood work shows anemia which is chronic for him. The remainder of it is unremarkable. His troponin is negative. He has no ischemic changes on EKG. Patients symptoms are likely related to COPD exacerbation. He is oxygenating on his home 2 L nasal cannula and in no acute respiratory distress. Patient will be started on a higher dose of steroids and will follow with his primary care provider for close outpatient reevaluation. He was counseled on symptoms to return to the emergency room. Patient stable at time of discharge. Laboratory 07/30/18 07/30/18 07/30/18 17:09 17:09 17:09 WBC 9.4 RBC 3.45 L Hgb 10.8 L Hct 31.6 L MCV 92 MCH 31.2 MCHC 34.0 RDW 13.3 Plt Count 387 Seg Neutrophils % 79.5 H Lymphocytes % 10.1 L Monocytes % 9.5 Eosinophils % 0.6 Basophils % 0.3 Absolute Neutrophils 7.4 Absolute Lymphocytes 0.9 Absolute Monocytes 0.9 Absolute Eosinophils 0.1 Absolute Basophils 0.0 Sodium 136.8 L Potassium 5.0 Chloride 100 Carbon Dioxide 27 Anion Gap 10 BUN 18 Creatinine 0.92 Est GFR ( Amer) > 60 Est GFR (Non-Af Amer) > 60 Glucose 113 H Calcium 9.2 Troponin I < 0.012 Chest X-Ray 07/30/18 13:14 IMPRESSION: COPD. NO ACUTE RADIOGRAPHIC FINDING IN THE CHEST. - Vital Signs Vital signs: Temp Pulse Resp BP Pulse Ox 99.1 F 115 H 22 H 131/52 H 97 07/30/18 13:07 07/30/18 13:07 07/30/18 17:00 07/30/18 16:01 07/30/18 17:00 - Laboratory Result Diagrams: 07/30/18 17:09 07/30/18 17:09 Laboratory results interpreted by me: 07/30/18 07/30/18 17:09 17:09 RBC 3.45 L Hgb 10.8 L Hct 31.6 L Seg Neutrophils % 79.5 H Lymphocytes % 10.1 L Sodium 136.8 L Glucose 113 H - EKG Interpretation by Me Additional EKG results interpreted by me: 07/30/18 18:26 Interpreted by myself 1700: Normal sinus rhythm, rate 80, normal axis, no STEMI, no ectopy Discharge - Discharge Clinical Impression: COPD exacerbation Condition: Stable Disposition: HOME, SELF-CARE Instructions: Chronic Obstructive Lung Disease ([facility]) Additional Instructions: Please return to the emergency department if you have any worsening, or concern of your symptoms. Please return to the emergency department if you develop chest pain, difficulty breathing, severe abdominal pain, or ongoing vomiting. Please follow-up with your primary care physician in 2-3 days and any other recommended physicians. If prescribed, take all medications as directed. If you have any questions or concerns do not hesitate to return the emergency department for evaluation. Use your nebulized albuterol every 4 hours for the next 24 to 48 hours and then decrease to as needed if symptoms are improving. Prescriptions: Prednisone [Deltasone 20 mg Tablet] 2 tab PO DAILY 5 Days tablet Referrals: DEBO SALMERON MD [Primary Care Provider] - Follow up tomorrow
[2018-07-30 17:49] LABS: ABSOLUTE EOSINOPHILS # (AUTO) 0.1 10^3/uL (0.0-0.6); ABSOLUTE LYMPHOCYTES (AUTO) 0.9 10^3/uL (0.5-4.7); ABSOLUTE MONOCYTES (AUTO) 0.9 10^3/uL (0.1-1.4); ABSOLUTE NEUT (AUTO) 7.4 10^3/uL (1.7-8.2); BASOPHILS % (AUTO) 0.3 % (0-2); EOSINOPHILS % (AUTO) 0.6 % (0-6); HEMATOCRIT 31.6 % (37.9-51.0); HEMOGLOBIN 10.8 g/dL (13.5-17.0); LYMPHOCYTES % (AUTO) 10.1 % (13-45); MEAN CORPUSCULAR HEMOGLOBIN 31.2 pg (27.0-33.4); MEAN CORPUSCULAR VOLUME 92 fl (80-97); MONOCYTES % (AUTO) 9.5 % (3-13); PLATELET COUNT 387 10^3/uL (150-450); RED BLOOD COUNT 3.45 10^6/uL (4.35-5.55); RED CELL DISTRIBUTION WIDTH 13.3 % (11.5-14.0); SEGMENTED NEUTROPHILS % (AUTO) 79.5 % (42-78); TOTAL CELLS COUNTED % (AUTO) 100 %; WHITE BLOOD COUNT 9.4 10^3/uL (4.0-10.5)
[2018-07-30 17:59] LABS: ANION GAP 10 (5-19); BLOOD UREA NITROGEN 18 mg/dL (7-20); CALCIUM 9.2 mg/dL (8.4-10.2); CARBON DIOXIDE 27 mmol/L (22-30); CHLORIDE 100 mmol/L (98-107); GLUCOSE 113 mg/dL (75-110); SODIUM 136.8 mmol/L (137-145)
[2018-07-30 18:31] VITALS: BP 136/50
--- NOTE | 2018-07-30 18:55 | EKG REPORT ---
SEVERITY:- OTHERWISE NORMAL ECG - SINUS RHYTHM LOW VOLTAGE IN FRONTAL LEADS : Confirmed by: Donavan Treviño MD 30-Jul-2018 18:54:58
== END 2018-07-30 18:53 | disposition home or self-care (01) ==
LOC: ER 13:04
DX: J44.1 Chronic obstructive pulmonary disease with (acute) exacerbation (principal); D64.9 Anemia, unspecified; R06.02 Shortness of breath; R05 Cough; I25.10 Atherosclerotic heart disease of native coronary artery without angina pectoris; Z79.52 Long term (current) use of systemic steroids; Z99.81 Dependence on supplemental oxygen; Z88.2 Allergy status to sulfonamides; Z87.01 Personal history of pneumonia (recurrent)
CPT/HCPCS: 93005; 94640 ×2; 99285; 36415; 85025; 80048; 84484; 71046; 93010; A9270 ×3; J7512; J7620

== ENCOUNTER → 2018-11-26 | Outpatient (CLI) | payer OTHER ==
--- NOTE | 2018-11-26 10:13 | RADIOLOGY REPORT (SQ) ---
EXAM DESCRIPTION: CT CHEST WITHOUT COMPLETED DATE/TIME: 11/26/2018 8:32 am REASON FOR STUDY: R91.1 SOLITARY PULMONARY NODULE R91.1 SOLITARY PULMONARY NODULE COMPARISON: PET-CT 05/14/2017 CT chest 03/05/2015, 09/21/2015, 05/02/2017, 07/29/2017, 12/21/2017, 03/28/2018 TECHNIQUE: CT scan performed of the chest without intravenous contrast. Images reviewed with lung, soft tissue and bone windows. Reconstructed coronal and sagittal MPR images reviewed. All images st ored on PACS. All CT scanners at this facility use dose modulation, iterative reconstruction, and/or weight based d osing when appropriate to reduce radiation dose to as low as reasonably achievable (ALARA). [facility]: Dose Right [facility]: CareDose [facility]: Dose Right [facility]: Teradose 4D [facility]: [facility] RADIATION DOSE: CT Rad equipment meets quality standard of care and radiation dose reduction techniq ues were employed. CTDIvol: 7.0 mGy. DLP: 307 mGy-cm. mGy. LIMITATIONS: No technical limitations. FINDINGS: LUNGS AND PLEURA: End-stage appearance of obstructive lung disease with hyperinflation and hyperlucency bilaterally. There are no worrisome pulmonary nodules. Specifically, no worrisome nod ules are present in the left lower lobe. No pleural effusion. No pneumothorax. Airways are widely patent. HILAR AND MEDIASTINAL STRUCTURES: No identified masses or abnormal nodes. No obvious aneurysm. HEART AND VASCULAR STRUCTURES: No aneurysm. No pericardial effusion. Heavily calcified thoracic aor ta, left proximal subclavian artery, upper abdominal aorta, bilateral renal artery origins UPPER ABDOMEN: Heavy atherosclerotic arterial vascular calcification. THYROID AND OTHER SOFT TISSUES: No masses. No adenopathy. BONES: No significant finding. HARDWARE: None in the chest. OTHER: No other significant findings. IMPRESSION: End-stage appearance of obstructive lung disease with hyperinflation and hyperlucency bi laterally. No worrisome pulmonary nodules TECHNICAL DOCUMENTATION: JOB ID: [id number] Quality ID # [id number]: Final reports with documentation of one or more dose reduction techniques (e.g., Au tomated exposure control, adjustment of the mA and/or kV according to patient size, use of iterative reconstruction technique) 2010 [employer]- All Rights Reserved Reading location - IP/workstation name: [facility]
== END ==
LOC: RAD 08:15
PROVIDERS: ATTEND Internal Medicine Pulmonary Disease
DX: R91.1 Solitary pulmonary nodule (principal)
CPT/HCPCS: 71250

== ENCOUNTER 2019-03-15 20:28 | Emergency (ER) | payer OTHER ==
--- NOTE | 2019-03-15 20:42 | ER Document Report ---
ED Medical Screen (RME) - General Chief Complaint: Shortness Of Breath Stated Complaint: SHORTNESS OF BREATH Time Seen by Provider: 03/15/19 20:37 Primary Care Provider: DEBO SALMERON MD [Primary Care Provider] - Follow up as needed TRAVEL OUTSIDE OF THE [place] IN LAST 30 DAYS: No - HPI Notes: 03/15/19 20:41 Patient is an 83-year-old male with a history of oxygen dependent COPD who presents complaining of loose sounding nonproductive cough over the past several days with increased wheezing. Patient states that he had bronchitis a month ago and this feels similar. He is otherwise eating and drinking without difficulty. He is urinating normally. Denies fever, chest pain, abdominal pain, nausea/vomiting. I have treated and performed a rapid initial assessment of this patient. A comprehensive ED assessment and evaluation of the patient, analysis of test results and completion of medical decision making process will be conducted by additional ED providers. PHYSICAL EXAMINATION: GENERAL: Well-appearing, well-nourished and in no acute distress. A&Ox4. Answers questions appropriately. Lungs: Scant wheezes bilaterally. No retractions. 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 Denies: Hx Seizures Endocrine Medical History: Reports: Hx Hypothyroidism Renal/ Medical History: Denies: Hx Peritoneal Dialysis GI Medical History: Reports: Hx Gastroesophageal Reflux Disease Musculoskeltal Medical History: Reports Hx Arthritis Psychiatric Medical History: Denies: Hx Depression Past Surgical History: Reports: Hx Abdominal Surgery, Hx Orthopedic Surgery, Hx Tonsillectomy. Denies: Hx Pacemaker - Immunizations Hx Diphtheria, Pertussis, Tetanus Vaccination: Yes Doctor's Discharge - Discharge Referrals: DEBO SALMERON MD [Primary Care Provider] - Follow up as needed
[2019-03-15] MEDS ORDERED: METHYLPREDNISOLONE INJ 125 MG/2 ML SDV IV ONE (20:43)
[2019-03-15] MEDS ORDERED: IPRATROPIUM/ALBUTEROL 0.5-2.5 MG/3 ML AMPUL NEB ONE (20:43)
[2019-03-15 21:29] LABS: ABSOLUTE EOSINOPHILS # (AUTO) 0.4 10^3/uL (0.0-0.6); ABSOLUTE LYMPHOCYTES (AUTO) 2.6 10^3/uL (0.5-4.7); ABSOLUTE NEUT (AUTO) 3.5 10^3/uL (1.7-8.2); BASOPHILS % (AUTO) 0.2 % (0-2); EOSINOPHILS % (AUTO) 5.9 % (0-6); HEMATOCRIT 32.2 % (37.9-51.0); LYMPHOCYTES % (AUTO) 34.3 % (13-45); MEAN CORPUSCULAR HEMOGLOBIN 32.2 pg (27.0-33.4); MEAN CORPUSCULAR HGB CONC 34.1 g/dL (32.0-36.0); MEAN CORPUSCULAR VOLUME 94 fl (80-97); MONOCYTES % (AUTO) 13.9 % (3-13); PLATELET COUNT 289 10^3/uL (150-450); RED BLOOD COUNT 3.42 10^6/uL (4.35-5.55); RED CELL DISTRIBUTION WIDTH 13.5 % (11.5-14.0); SEGMENTED NEUTROPHILS % (AUTO) 45.7 % (42-78); TOTAL CELLS COUNTED % (AUTO) 100 %; WHITE BLOOD COUNT 7.6 10^3/uL (4.0-10.5)
[2019-03-15 21:43] LABS: ALBUMIN 4.2 g/dL (3.5-5.0); ALKALINE PHOSPHATASE 68 U/L (38-126); ANION GAP 9 (5-19); ASPARTATE AMINO TRANSFERASE 28 U/L (17-59); BILIRUBIN,DIRECT 0.2 mg/dL (0.0-0.4); BILIRUBIN,TOTAL 0.3 mg/dL (0.2-1.3); BLOOD UREA NITROGEN 20 mg/dL (7-20); CALCIUM 9.3 mg/dL (8.4-10.2); CARBON DIOXIDE 28 mmol/L (22-30); CHLORIDE 104 mmol/L (98-107); GLUCOSE 115 mg/dL (75-110); TOTAL PROTEIN 7.1 g/dL (6.3-8.2)
--- NOTE | 2019-03-15 21:50 | RADIOLOGY REPORT (SQ) ---
EXAM DESCRIPTION: XR CHEST 2 VIEWS COMPLETED DATE/TME: 03/15/2019 20:42 CLINICAL HISTORY: 83 years, Male, cough/wheeze COMPARISON: X-ray chest 07/30/2018 NUMBER OF VIEWS: TECHNIQUE: LIMITATIONS: None. FINDINGS: No evidence of acute pulmonary infiltrate. There is emphysema. The heart and mediastinum are unremarkable. Pulmonary vascularity appears normal. There is no significant change, as compared with the prior x-ray(s). IMPRESSION: Emphysema. copyright 2010 [employer]- All Rights Reserved
--- NOTE | 2019-03-16 01:34 | ER Document Report ---
ED Respiratory Problem - General Chief Complaint: Breathing Difficulty Stated Complaint: SHORTNESS OF BREATH Time Seen by Provider: 03/15/19 20:37 Primary Care Provider: DEBO SALMERON MD [Primary Care Provider] - Follow up as needed Mode of Arrival: Ambulatory Information source: Patient TRAVEL OUTSIDE OF THE [place] IN LAST 30 DAYS: No - HPI Patient complains to provider of: COPD, Cough Onset: Other - A few days ago Duration: Intermittent episodes Initiating Event: URI Severity: Moderate Context: Hx COPD Short of Breath: Moderate Chest pain/discomfort: Tightness Cough: Productive Sputum color: Clear Sputum consistency: Thin At home treatment: Bronchodilators, Inhaled steroids, Oxygen Associated symptoms: Cough, Difficulty breathing, Wheezing - Related Data Allergies/Adverse Reactions: Sulfa (Sulfonamide Antibiotics) Allergy (Verified 07/30/18 13:05) Anaphylaxis Past Medical History - Social History Smoking Status: Former Smoker Chew tobacco use (# tins/day): No Frequency of alcohol use: None Drug Abuse: None Family History: Reviewed & Not Pertinent Patient has suicidal ideation: No Patient has homicidal ideation: No - Past Medical History Cardiac Medical History: Reports: Hx Coronary Artery Disease Denies: Hx Heart Attack, Hx Hypertension Pulmonary Medical History: Reports: Hx Asthma, Hx Bronchitis, Hx COPD, Hx Pneumonia Neurological Medical History: 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 Denies: Hx Seizures Endocrine Medical History: Reports: Hx Hypothyroidism Renal/ Medical History: Denies: Hx Peritoneal Dialysis GI Medical History: Reports: Hx Gastroesophageal Reflux Disease Musculoskeletal Medical History: Reports Hx Arthritis Psychiatric Medical History: Denies: Hx Depression Past Surgical History: Reports: Hx Abdominal Surgery, Hx Orthopedic Surgery, Hx Tonsillectomy. Denies: Hx Pacemaker - Immunizations Hx Diphtheria, Pertussis, Tetanus Vaccination: Yes Hx Pneumococcal Vaccination: 12/18/09 Physical Exam - Vital signs Vitals: Temp Pulse Resp BP Pulse Ox 98.2 F 92 16 124/72 100 03/16/19 00:50 03/16/19 00:50 03/16/19 00:50 03/16/19 00:50 03/16/19 00:50 Interpretation: Normal - General General appearance: Appears well, Alert - HEENT Head: Normocephalic, Atraumatic Eyes: Normal Pupils: PERRL - Respiratory Respiratory status: No respiratory distress, Depressed respirations Chest status: Nontender Breath sounds: Normal, Wheezing Chest palpation: Normal - Cardiovascular Rhythm: Regular Heart sounds: Normal auscultation Murmur: No - Abdominal Inspection: Normal Distension: No distension Bowel sounds: Normal Tenderness: Nontender Organomegaly: No organomegaly - Back Back: Normal, Nontender - Extremities General upper extremity: Normal inspection, Nontender, Normal color, Normal ROM, Normal temperature General lower extremity: Normal inspection, Nontender, Normal color, Normal ROM, Normal temperature, Normal weight bearing. No: Simran's sign - Neurological Neuro grossly intact: Yes Cognition: Normal Orientation: AAOx4 [place] Coma Scale Eye Opening: Spontaneous [place] Coma Scale Verbal: Oriented [place] Coma Scale Motor: Obeys Commands [place] Coma Scale Total: 15 Speech: Normal Motor strength normal: LUE, RUE, LLE, RLE Sensory: Normal - Psychological Associated symptoms: Normal affect, Normal mood - Skin Skin Temperature: Warm Skin Moisture: Dry Skin Color: Normal Course - Vital Signs Vital signs: Temp Pulse Resp BP Pulse Ox 98.2 F 92 16 124/72 100 03/16/19 00:50 03/16/19 00:50 03/16/19 00:50 03/16/19 00:50 03/16/19 00:50 - Laboratory Result Diagrams: 03/15/19 21:10 03/15/19 21:10 Laboratory results interpreted by me: 03/15/19 03/15/19 21:10 21:10 RBC 3.42 L Hgb 11.0 L Hct 32.2 L [place] % (Auto) 13.9 H Glucose 115 H - Diagnostic Test Radiology reviewed: Pending, Image reviewed, Reports reviewed Discharge - Discharge Clinical Impression: COPD with exacerbation, Bronchitis, acute, with bronchospasm Disposition: HOME, SELF-CARE Additional Instructions: Bronchitis with Bronchospasm (Wheezing) You have bronchitis with bronchospasm (wheezing). Sometimes people develop wheezing with a chest cold. This occurs either because of an underlying tendency toward asthma or because the virus itself irritates the bronchial tubes. This irritation causes cough, shortness of breath, and wheezing. Emergency treatment of bronchospasm may include adrenaline shots or bronchodilator aerosol. You may feel lightheaded and have a rapid pulse for an hour or two. Rest and get plenty of fluids. At home, we'll treat you with a bronchodilator inhaler. Corticosteroids may be required for some patients. Until you recover, avoid chemical fumes, dusts, pollens, and exercising in very cold or dry air. If you smoke, stop now! Most cases of bronchitis get better without antibiotics. We prescribe antibiotics when we believe bacteria are damaging your airways, or if there's high risk the bronchitis will worsen into pneumonia. Increase your fluid intake. A cool mist humidifier may make your lungs more comfortable. An expectorant (cough medicine that loosens phlegm) can help. Repeated episodes of bronchitis and bronchospasm may result in lung damage -- for example, chronic bronchitis, recurrent pneumonias, or emphysema. If you develop a fever, increased wheezing, chest pain, or severe shortness of breath, you should contact the doctor immediately. Prescriptions: Amoxicillin 1 tab PO TID #30 tab Prednisone [Deltasone 20 mg Tablet] 2 tab PO DAILY 5 Days tablet Referrals: DEBO SALMERON MD [Primary Care Provider] - Follow up as needed
[2019-03-16] MEDS ORDERED: AMOXICILLIN TRIHYDRATE 500 MG CAPSULE PO ONE (01:53)
[2019-03-16] MEDS ORDERED: PREDNISONE 20 MG TABLET PO ONE (01:53)
[2019-03-16 03:03] VITALS: BP 130/86
== END 2019-03-16 03:05 | disposition home or self-care (01) ==
LOC: ER 20:28
DX: J44.0 Chronic obstructive pulmonary disease with (acute) lower respiratory infection (principal); J20.9 Acute bronchitis, unspecified; J44.1 Chronic obstructive pulmonary disease with (acute) exacerbation; R05 Cough; R06.02 Shortness of breath; R07.89 Other chest pain; I25.10 Atherosclerotic heart disease of native coronary artery without angina pectoris; Z99.81 Dependence on supplemental oxygen; Z79.51 Long term (current) use of inhaled steroids; Z87.01 Personal history of pneumonia (recurrent); Z87.891 Personal history of nicotine dependence; Z79.899 Other long term (current) drug therapy; Z87.892 Personal history of anaphylaxis; Z88.2 Allergy status to sulfonamides
CPT/HCPCS: 94640; 99285; 36415; 85025; 80053; 83880; 71046; A9270 ×3; J7512; J7620

== ENCOUNTER 2019-03-29 22:11 | Emergency (ER) | payer OTHER ==
[2019-03-30] MEDS ORDERED: PREDNISONE 10 MG TABLET PO ONE (03:20)
[2019-03-30] MEDS ORDERED: HYDROCODONE/ACETAMINOPHEN 5-325 MG (6 TAB/ER DISP) PO PRN (03:25)
--- NOTE | 2019-03-30 03:32 | ER Document Report ---
ED General - General Chief Complaint: Headache Stated Complaint: HEADACHE Time Seen by Provider: 03/30/19 01:55 Primary Care Provider: DEBO SALMERON MD [Primary Care Provider] - Follow up as needed Notes: 83-year-old male presents emergency department complaining of left-sided headache intermittently for the past week. States he was diagnosed with temporal arteritis by Dr. Salmeron on however he wanted to have blood work performed prior to starting steroids. Patient states he had blood work performed yesterday, does not yet have the results. When he called Dr. Arenas today who is covering for Dr. Salmeron he was told to go to the emergency department and states that he was told Dr. Arenas would meet him here. Patient states that his pain is not relieved by Aleve, ibuprofen, ice packs or heating pads. Denies any numbness or tingling, denies any blurry vision, denies any weakness or difficulty speaking. Describes the pain as a sharp stabbing pain in his left methodist. Denies any trauma or blood thinners. TRAVEL OUTSIDE OF THE [place] IN LAST 30 DAYS: No - Related Data Allergies/Adverse Reactions: Sulfa (Sulfonamide Antibiotics) Allergy (Verified 07/30/18 13:05) Anaphylaxis Past Medical History - General Information source: Patient - Social History Smoking Status: Former Smoker Frequency of alcohol use: None Drug Abuse: None Family History: Reviewed & Not Pertinent Patient has suicidal ideation: No Patient has homicidal ideation: No - Past Medical History Cardiac Medical History: Reports: Hx Coronary Artery Disease Denies: Hx Heart Attack, Hx Hypertension Pulmonary Medical History: Reports: Hx Asthma, Hx Bronchitis, Hx COPD, Hx Pneumonia Neurological Medical History: 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 Denies: Hx Seizures Endocrine Medical History: Reports: Hx Hypothyroidism Renal/ Medical History: Denies: Hx Peritoneal Dialysis GI Medical History: Reports: Hx Gastroesophageal Reflux Disease Musculoskeletal Medical History: Reports Hx Arthritis Psychiatric Medical History: Denies: Hx Depression Past Surgical History: Reports: Hx Abdominal Surgery, Hx Orthopedic Surgery, Hx Tonsillectomy. Denies: Hx Pacemaker - Immunizations Hx Diphtheria, Pertussis, Tetanus Vaccination: Yes Hx Pneumococcal Vaccination: 12/18/09 Review of Systems - Review of Systems Constitutional: No symptoms reported EENT: See HPI - Left temporal pain.. denies: Eye pain, Eye discharge, Blurred vision Neurological/Psychological: See HPI -: Yes All other systems reviewed and negative Physical Exam - Vital signs Vitals: Temp Pulse Resp BP Pulse Ox 97.5 F 99 18 139/62 H 97 03/29/19 22:19 03/29/19 22:19 03/29/19 22:19 03/29/19 22:19 03/29/19 22:19 Interpretation: Hypertensive - Notes Notes: GENERAL: Alert, interacts well. No acute distress. HEAD: Normocephalic, atraumatic. No temporal artery enlargement however patient is tender to palpation along the left temporal artery. There are no deformities. There are no skin lesions noted. EYES: Pupils equal, round and reactive to light, extraocular movements intact. ENT: Oral mucosa moist, tongue midline. Nares patent, no nasal septal hematoma, TMs intact. NECK: Full range of motion, supple, trachea midline. LUNGS: Clear to auscultation bilaterally, no wheezes, rales or rhonchi, no r espiratory distress. HEART: Regular rate and rhythm, no murmurs, gallops, rubs. ABDOMEN: Soft, nontender, nondistended, bowel sounds present in all 4 quadrants. EXTREMITIES: Moves all 4 extremities spontaneously, no edema, radial and dorsalis pedis pulses 2/4 bilaterally. No cyanosis. NEUROLOGICAL: Alert and oriented x3, normal speech, cranial nerves II through XII grossly intact, biceps and patellar DTRs 2+ bilaterally. [id number] and [id number] testing intact. PSYCH: Normal mood, normal affect. SKIN: Warm, Dry, normal turgor, no rashes or lesions noted. Course - Re-evaluation Re-evalutation: 03/30/19 06:19 Laboratory studies from yesterday reviewed, ESR and CRP are both elevated, patient will be started on steroids for presumptive diagnosis of temporal arteritis. Patient is requested follow-up with primary care physician as an outpatient and to arrange biopsy as an outpatient. Discharged home. - Vital Signs Vital signs: Temp Pulse Resp BP Pulse Ox 97.5 F 99 18 139/62 H 97 03/29/19 22:19 03/29/19 22:19 03/29/19 22:19 03/29/19 22:19 03/29/19 22:19 Discharge - Discharge Clinical Impression: Temporal arteritis Condition: Stable Disposition: HOME, SELF-CARE Additional Instructions: You appear to have temporal arteritis. I have started you on steroids. This will help to decrease the risk that you lose vision in your left eye. If your pain worsens, if you do not experience significant relief within 2 days, if you develop any vision loss in your left eye or if you develop any new or concerning symptoms including confusion, fevers or neck pain I want you to return to the emergency department immediately. Otherwise please follow-up with Dr. Salmeron as an outpatient. He will likely want to get a biopsy of your temporal artery. Prescriptions: Prednisone 70 mg PO DAILY #49 tablet Referrals: DEBO SALMERON MD [Primary Care Provider] - 04/01/19
[2019-03-30 04:02] VITALS: BP 136/63
== END 2019-03-30 04:00 | disposition home or self-care (01) ==
LOC: ER 22:11
DX: I77.6 Arteritis, unspecified (principal); R51 Headache; I25.10 Atherosclerotic heart disease of native coronary artery without angina pectoris; J44.9 Chronic obstructive pulmonary disease, unspecified; Z87.891 Personal history of nicotine dependence; Z87.892 Personal history of anaphylaxis; Z88.2 Allergy status to sulfonamides
CPT/HCPCS: 99283; A9270 ×2; J7512

== ENCOUNTER → 2019-03-29 | Outpatient (CLI) | payer OTHER | LOC: OD 10:02 | PROVIDERS: ATTEND Internal Medicine Geriatric Medicine | DX: M31.6 Other giant cell arteritis (principal) | CPT/HCPCS: 36415; 85652; 86140 ==

== ENCOUNTER 2019-04-08 09:29 | Day surgery (SDC) | payer OTHER ==
[2019-04-05 11:02] LABS: HEMATOCRIT 32.5 % (37.9-51.0); HEMOGLOBIN 11.2 g/dL (13.5-17.0); MEAN CORPUSCULAR HEMOGLOBIN 32.4 pg (27.0-33.4); MEAN CORPUSCULAR HGB CONC 34.6 g/dL (32.0-36.0); MEAN CORPUSCULAR VOLUME 94 fl (80-97); PLATELET COUNT 304 10^3/uL (150-450); RED BLOOD COUNT 3.46 10^6/uL (4.35-5.55); RED CELL DISTRIBUTION WIDTH 13.6 % (11.5-14.0); WHITE BLOOD COUNT 14.5 10^3/uL (4.0-10.5)
--- NOTE | 2019-04-05 11:02 | RADIOLOGY REPORT (SQ) ---
EXAM DESCRIPTION: CHEST PA/LATERAL COMPLETED DATE/TIME: 04/05/2019 10:45 am REASON FOR STUDY: PRE-OP COMPARISON: 03/15/2019 EXAM PARAMETERS: NUMBER OF VIEWS: two views TECHNIQUE: Digital Frontal and Lateral radiographic views of the chest acquired. RADIATION DOSE: NA LIMITATIONS: none FINDINGS: LUNGS AND PLEURA: Hyperexpansion of the lungs. There is no infiltrate, effusion, or mass. MEDIASTINUM AND HILAR STRUCTURES: No masses or contour abnormalities. HEART AND VASCULAR STRUCTURES: Heart normal size. No evidence for failure. BONES: No acute findings. HARDWARE: None in the chest. OTHER: No other significant finding. IMPRESSION: Chronic lung changes with no acute cardiopulmonary finding. TECHNICAL DOCUMENTATION: JOB ID: [id number] [employer]- All Rights Reserved Reading location - IP/workstation name: [email or web address]
[2019-04-05 11:36] LABS: ANION GAP 9 (5-19); BLOOD UREA NITROGEN 27 mg/dL (7-20); CALCIUM 9.6 mg/dL (8.4-10.2); CARBON DIOXIDE 28 mmol/L (22-30); CHLORIDE 104 mmol/L (98-107); GLUCOSE 107 mg/dL (75-110); POTASSIUM 4.2 mmol/L (3.6-5.0)
--- NOTE | 2019-04-05 21:29 | EKG REPORT ---
SEVERITY:- OTHERWISE NORMAL ECG - SINUS RHYTHM BORDERLINE RIGHT AXIS DEVIATION : Confirmed by: Nila Ovalle MD 05-Apr-2019 21:28:32
[~2019-04-08 09:29] MED LIST: LACTATED RINGERS 1000 ML IV PRN; LIDOCAINE 0.5% INJ-PF (5 MG/ML) 50 ML SDV SUBCUT PRN
[2019-04-08] MEDS ORDERED: KETAMINE HCL INJ 500 MG/10 ML VIAL ONE (11:08)
[2019-04-08] MEDS ORDERED: FENTANYL CITRATE INJ/PF 100 MCG/2 ML AMPUL ONE (11:08)
[2019-04-08] MEDS ORDERED: PROPOFOL INJ 200 MG/20 ML VIAL IV ONE (11:09)
[2019-04-08] MEDS ORDERED: MIDAZOLAM 2 MG/2 ML INJ ONE (11:09)
[2019-04-08] MEDS ORDERED: LIDOCAINE 0.5% INJ-PF (5 MG/ML) 50 ML SDV ONE (11:48)
[2019-04-08] MEDS ORDERED: BUPIVACAINE HCL 0.25 % INJ/PF (2.5 MG/1 ML) 30 ML VIAL ONE (11:48)
[2019-04-08] MEDS ORDERED: FENTANYL CITRATE INJ/PF 100 MCG/2 ML AMPUL IV PRN ×3 (13:36)
[2019-04-08] MEDS ORDERED: ONDANSETRON HCL INJ/PF 4 MG/2 ML SDV IV PRN (13:36)
[2019-04-08] MEDS ORDERED: MEPERIDINE HCL/PF INJ 25 MG/1 ML DISP.SYRIN IV PRN (13:36)
[2019-04-08] MEDS ORDERED: PROMETHAZINE HCL INJ 25 MG/1 ML VIAL IV PRN ×2 (13:36)
[2019-04-08] MEDS ORDERED: DIPHENHYDRAMINE HCL 50 MG/ML VIAL IV PRN (13:36)
[2019-04-08] MEDS ORDERED: LIDOCAINE 0.5% INJ-PF (5 MG/ML) 50 ML SDV INJ ONE ×2 (13:47)
[2019-04-08] MEDS ORDERED: BUPIVACAINE HCL 0.25 % INJ/PF (2.5 MG/1 ML) 30 ML VIAL INJ ONE ×2 (13:48)
--- NOTE | 2019-04-08 14:00 | Discharge Summary ---
Discharge Summary (SDC) - Discharge Final Diagnosis: #1 persisting left-sided headache. 2. COPD. 3. Hypertension. Date of Surgery: 04/08/19 Discharge Date: 04/08/19 Condition: Poor Treatment or Instructions: Discharge home [after recovery per ASU criteria]. Diet , [as tolerated, when fully awake advance as tolerated. Activities within moderation encouraged. Follow up in my office by appointment in about [1 week]. Call for appointment. Leave wounds [covered], [keep clean and dry, until office visit in 1 week]. Hold of on school/work [until evaluation in office]. Meds per med rec. May shower [in 48 hrs], [try to keep operated area as dry as possible]. Referrals: DEBO SALMERON MD [Primary Care Provider] - Discharge Diet: As Tolerated Respiratory Treatments at Home: Deep Breathing/Coughing Discharge Activity: Activity As Tolerated Report the Following to Your Physician Immediately: Shortness of Breath, Unusual Bleeding
--- NOTE | 2019-04-08 14:03 | Operative Report ---
Operative Report DATE OF SURGERY: 04/08/19 PREOPERATIVE DIAGNOSIS: #1 persisting left-sided headache. 2. COPD. 3. Hype rtension. POSTOPERATIVE DIAGNOSIS: #1 persisting left-sided headache. 2. COPD. 3. Hypertension. OPERATION: Temporal artery biopsy, left side. SURGEON: CHING CHOI CROSSTIE INSPECTOR: None. ANESTHESIA: LMAC TISSUE REMOVED OR ALTERED: Portion of left temporal artery. COMPLICATIONS: None. ESTIMATED BLOOD LOSS: 2 mL. INTRAOPERATIVE FINDINGS: Of a fairly normal looking somewhat tortuous left temporal artery. A segment about 2.5 cm long was harvested and sent to the pathology lab. PROCEDURE: PROCEDURE: The left temporal area was prepared with Betadine and draped out with sterile linen. After the"universal time-out", in which it was confirmed that the patient [did not need antibiotic], the procedure commenced. The patient was appropriately anesthetized. The topographic location of the temporal artery was identified using a Doppler instrument and also palpation. It was marked in ink.. A dilute solution of local anesthesia was generously infiltrated in the skin and subcutaneous tissues above and around the area. An incision was made as marked. This went through to the subcutaneous tissues. Dissection now proceeded By spreading a hemostat to reveal the artery beneath the fascia. The artery was dissected out for a distance of about 2.5 cm. Both ends were clamped. The intervening section was excised and carefully submitted for pathology in formalin. Both ends were now suture ligated using 5-0 Prolene suture The wound was now closed using [a single layer of interrupted sutures. These were of 5-0 Prolene. A sterile dressing was applied and the procedure concluded.
[2019-04-08 15:34] VITALS: BP 151/64
== END 2019-04-08 13:25 | disposition home or self-care (01) ==
LOC: OROUT 09:29
PROVIDERS: ATTEND Surgery
DX: R51 Headache (principal); Z79.899 Other long term (current) drug therapy; J44.9 Chronic obstructive pulmonary disease, unspecified; I10 Essential (primary) hypertension; E03.9 Hypothyroidism, unspecified; E78.00 Pure hypercholesterolemia, unspecified; Z87.891 Personal history of nicotine dependence; Z79.51 Long term (current) use of inhaled steroids; Z79.82 Long term (current) use of aspirin; M31.6 Other giant cell arteritis; Z85.46 Personal history of malignant neoplasm of prostate; Z99.81 Dependence on supplemental oxygen; I25.10 Atherosclerotic heart disease of native coronary artery without angina pectoris; Z86.73 Personal history of transient ischemic attack (TIA), and cerebral infarction without residual deficits
CPT/HCPCS: 93005; 36415; 85027; 80048; 88305 ×2; 88313 ×2; 71046; 93010; 37609; J2250; J3490; J2704; J3010

== ENCOUNTER → 2019-05-16 | Outpatient (CLI) | payer OTHER ==
--- NOTE | 2019-05-16 13:04 | RADIOLOGY REPORT (SQ) ---
EXAM DESCRIPTION: CHEST PA/LATERAL COMPLETED DATE/TIME: 05/16/2019 10:35 am REASON FOR STUDY: DYSPNEA, UNSPECIFIED COMPARISON: 04/05/2019 EXAM PARAMETERS: NUMBER OF VIEWS: two views TECHNIQUE: Digital Frontal and Lateral radiographic views of the chest acquired. RADIATION DOSE: NA LIMITATIONS: none FINDINGS: LUNGS AND PLEURA: Hyperexpansion of the lungs. No infiltrate, effusion, or mass. MEDIASTINUM AND HILAR STRUCTURES: No masses or contour abnormalities. HEART AND VASCULAR STRUCTURES: Heart normal size. No evidence for failure. BONES: No acute findings. HARDWARE: None in the chest. OTHER: No other significant finding. IMPRESSION: Chronic lung changes with no acute cardiopulmonary findings. TECHNICAL DOCUMENTATION: JOB ID: [id number] [employer]- All Rights Reserved Reading location - IP/workstation name: [email or web address]
== END ==
LOC: OD 10:07
PROVIDERS: ATTEND Internal Medicine Pulmonary Disease
DX: R06.00 Dyspnea, unspecified (principal)
CPT/HCPCS: 71046